=== PATIENT | male | born 1940 | race Caucasian/White ===

== ENCOUNTER 2017-05-14 16:57 | Emergency (ER) | payer OTHER ==
[~2017-05-14] VITALS: Ht 175.3 cm; Wt 87.0 kg
[~2017-05-14 16:57] MED LIST: LEVO75TA PO; METO-478 PO; MTR500 PO
[2017-05-14 17:16] VITALS: TEMP 39.1; Ht 175.3 cm; Wt 87.0 kg
[2017-05-14] MEDS ORDERED: ASPI81TA28 PO (19:55)
[2017-05-14] MEDS ORDERED: MULT-513 PO (19:55)
[2017-05-14] MEDS ORDERED: SIMV20TA2 PO (19:55)
[2017-05-14] MEDS ORDERED: TRAZ50TA35 PO (19:55)
[2017-05-14] MEDS ORDERED: DUTA1CAP3 PO (19:55)
[2017-05-14] MEDS ORDERED: OSELTAMIVIR PHOSPHATE 75 MG CAP PO STA (19:57)
[2017-05-14] MEDS ORDERED: SODIUM CHLORIDE 0.9% 500ML 500 ML IV STA (19:57)
[2017-05-14 20:19] LABS: BASO % 0.1 %; BASO ABS # 0.01 K/uL (0-0.2); HEMATOCRIT 44.4 % (42-52); HEMOGLOBIN 15.1 g/dL (14.0-18.0); IG# 0.03 K/uL (0.00-0.02); LYMPH % 26.6 %; LYMPH ABS # 1.85 K/uL (1.2-3.4); MEAN CELL VOLUME 90.6 fL (80-100); MEAN CORPUSCULAR HEMOGLOBIN 30.8 pg (25-34); MEAN PLATELET VOLUME 9.5 fL (7.4-10.4); MONO ABS # 1.04 K/uL (0.11-0.59); NEUT % 57.9 %; NEUT ABS # 4.02 K/uL (1.4-6.5); PLATELET COUNT 138 K/uL (130-400); RED CELL DISTRIBUTION WIDTH CV 14.5 % (11.5-14.5); WHITE BLOOD COUNT 6.95 K/uL (4.8-10.8)
[2017-05-14 20:21] VITALS: O2SAT 92
[2017-05-14 20:21] LABS: ISTAT CREATININE 1.2 mg/dl (0.6-1.3); ISTAT IONIZED CALCIUM 1.17 mmol/l (1.12-1.32); ISTAT POTASSIUM 4.1 mEq/L (3.3-5.0)
--- NOTE | 2017-05-14 20:24 | DIAGNOSTIC IMAGING REPORT ---
CHEST ONE VIEW PORTABLE CLINICAL HISTORY: Fever. Weakness. COMPARISON STUDY: Chest radiograph January 16, 2015. FINDINGS: Lung volumes are within normal limits. There is no pneumothorax or pleural effusion. There is no consolidation to suggest pneumonia. Pulmonary vascularity is normal. Cardiomediastinal silhouette is stable. The appearance of the chest is unchanged. IMPRESSION: No acute cardiopulmonary findings. Electronically signed by: Freeman Sorenson M.D. 05/14/2017 8:23 PM Dictated Date/Time: 05/14/2017 8:22 PM
[2017-05-14] MEDS ORDERED: ACETAMINOPHEN 500 MG TAB PO STA (20:30)
[2017-05-14 20:36] LABS: ALBUMIN 3.5 gm/dl (3.4-5.0); BLOOD UREA NITROGEN 15 mg/dl (7-18); CALCIUM 8.6 mg/dl (8.5-10.1); CARBON DIOXIDE 25 mmol/L (21-32); CREATININE 1.32 mg/dl (0.60-1.40); GLUCOSE 106 mg/dl (70-99); POTASSIUM 4.1 mmol/L (3.5-5.1); SODIUM 138 mmol/L (136-145)
[2017-05-14 20:42] LABS: ALKALINE PHOSPHATASE 85 U/L (45-117); ALT/SGPT 28 U/L (12-78); AST/SGOT 33 U/L (15-37); CKMB 0.6 ng/ml (0.5-3.6); TOTAL PROTEIN 7.3 gm/dl (6.4-8.2)
[2017-05-14 20:59] LABS: INFLUENZA B ANTIGEN Neg for Influ B (NEG)
[2017-05-14 21:56] VITALS: BP 112/67; O2SAT 94
[2017-05-14 22:07] VITALS: PULSE 78
[2017-05-14] MEDS ORDERED: OSEL75CA12 PO (22:11)
--- NOTE | 2017-05-15 00:38 | EMERGENCY ROOM VISIT NOTE ---
History Report prepared by Letty: Denisha Inman Under the Supervision of: Dr. Tyler Lui D.O. First contact with patient: 19:48 Chief Complaint: WEAKNESS Stated Complaint: WEAK History of Present Illness The patient is a 76 year old male who presents to the Emergency Room with complaints of persistent weakness starting 24 hours ago. The patient started having flu symptoms 24 hours ago. He reports a nonproductive cough, rhinorrhea, and feeling hot. He has not taken any Tylenol or Motrin. He normally walks 3 miles a day, but was unable to today. He denies any sore throat, ear pain, fever , urinary symptoms, chest pain, nausea, vomiting, headache, or abdominal pain. He does not have any open wounds or sores. He states that he is healthy for his age and does not have any significant medical problems. Source of History: patient Onset: 24 hours ago Position: other (global) Quality: other (weakness) Timing: other (persistent) Associated Symptoms: + cough, No fevers, No headache, No sorethroat, No chest pain, No nausea, No vomiting, No abdominal pain, No urinary symptoms Review of Systems See HPI for pertinent positives & negatives. A total of 10 systems reviewed and were otherwise negative. Past Medical & Surgical Medical Problems: (1) Bowel obstruction (2) Cataract (3) Hyperlipidemia (4) Hypertension (5) Hypothyroid (6) S/P hernia repair Surgical Problems: (1) S/P cataract surgery (2) s/p Retinal Surgery (3) S/p small bowel obstruction Family History Cancer FATHER (stomach ) BROTHER (colon CA) Diabetes mellitus Gallbladder disease Heart disease Kidney disease Stroke MOTHER Social History Smoking Status: Unknown if Ever Smoked Drug Use: none Marital Status: Housing Status: lives with family Occupation Status: retired Current/Historical Medications Scheduled Aspirin (Aspirin Ec), 81 MG PO DAILY Dutasteride (Dutasteride), 0.5 MG PO DAILY Levothyroxine Sodium (Synthroid), 75 MCG PO DAILY Metoprolol Succinate (Toprol Xl), 12.5 MG PO HS Multivitamins/Minerals (Mvi With Minerals), 1 TAB PO DAILY Oseltamivir (Tamiflu), 75 MG PO BID Simvastatin (Zocor), 20 MG PO QPM Trazodone Hcl (Trazodone), 50 MG PO HS Allergies Coded Allergies: Potassium Chromate (Verified Allergy, Severe, RASH, 01/16/15) Shellfish (Verified Allergy, Severe, convulsions, 05/14/17) Physical Exam Vital Signs Date Time Temp Pulse Resp B/P (MAP) Pulse Ox O2 Delivery O2 Flow Rate FiO2 05/14/17 22:07 78 05/14/17 21:56 77 18 112/67 94 Room Air 05/14/17 20:40 75 05/14/17 20:21 92 Room Air 05/14/17 20:19 81 18 130/77 92 Room Air 05/14/17 17:16 39.1 88 18 116/72 90 Room Air Physical Exam GENERAL: Sitting up in bed, weak, minimal distress, nontoxic EYE EXAM: normal conjunctiva. OROPHARYNX: no exudate, no erythema, lips, buccal mucosa, and tongue normal and mucous membranes are moist NECK: supple, no nuchal rigidity, no adenopathy, non-tender LUNGS: Clear to auscultation. Normal chest wall mechanics HEART: tachycardic, no murmurs, S1 normal and S2 normal ABDOMEN: abdomen soft, non-tender, normo-active bowel sounds, no masses, no rebound or guarding. BACK: Back is symmetrical on inspection and there is no deformity, no midline tenderness, no CVA tenderness. SKIN: no rashes and no bruising UPPER EXTREMITIES: upper extremities are grossly normal. LOWER EXTREMITIES: No pitting edema. NEURO EXAM: Normal sensorium, cranial nerves II-XII grossly intact, normal speech, no gross weakness of arms, no gross weakness of legs. Ambulates without difficulty Medical Decision & Procedures ER Provider Diagnostic Interpretation: Xray results as stated below per my and the radiologist's interpretation: CHEST ONE VIEW PORTABLE CLINICAL HISTORY: Fever. Weakness. COMPARISON STUDY: Chest radiograph January 16, 2015. FINDINGS: Lung volumes are within normal limits. There is no pneumothorax or pleural effusion. There is no consolidation to suggest pneumonia. Pulmonary vascularity is normal. Cardiomediastinal silhouette is stable. The appearance of the chest is unchanged. IMPRESSION: No acute cardiopulmonary findings. Electronically signed by: Freeman Sorenson M.D. 05/14/2017 8:23 PM Dictated Date/Time: 05/14/2017 8:22 PM Laboratory Results 05/14/17 19:40 Red Blood Count 4.90, Mean Corpuscular Volume 90.6, Mean Corpuscular Hemoglobin 30.8, Mean Corpuscular Hemoglobin Concent 34.0, Mean Platelet Volume 9.5, Neutrophils (%) (Auto) 57.9, Lymphocytes (%) (Auto) 26.6, Monocytes (%) (Auto) 15.0, Eosinophils (%) (Auto) 0.0, Basophils (%) (Auto) 0.1, Neutrophils # (Auto ) 4.02, Lymphocytes # (Auto) 1.85, Monocytes # (Auto) 1.04, Eosinophils # (Auto ) 0.00, Basophils # (Auto) 0.01 05/14/17 19:40 Test 05/14/17 19:40 05/14/17 19:50 05/14/17 19:59 05/14/17 20:05 White Blood Count 6.95 K/uL (4.8-10.8) Red Blood Count 4.90 M/uL (4.7-6.1) Hemoglobin 15.1 g/dL (14.0-18.0) Hematocrit 44.4 % (42-52) Mean Corpuscular Volume 90.6 fL (80-100) Mean Corpuscular Hemoglobin 30.8 pg (25-34) Mean Corpuscular Hemoglobin Concent 34.0 g/dl (32-36) Platelet Count 138 K/uL (130-400) Mean Platelet Volume 9.5 fL (7.4-10.4) Neutrophils (%) (Auto) 57.9 % Lymphocytes (%) (Auto) 26.6 % Monocytes (%) (Auto) 15.0 % Eosinophils (%) (Auto) 0.0 % Basophils (%) (Auto) 0.1 % Neutrophils # (Auto) 4.02 K/uL (1.4-6.5) Lymphocytes # (Auto) 1.85 K/uL (1.2-3.4) Monocytes # (Auto) 1.04 K/uL (0.11-0.59) Eosinophils # (Auto) 0.00 K/uL (0-0.5) Basophils # (Auto) 0.01 K/uL (0-0.2) RDW Standard Deviation 48.0 fL (36.4-46.3) RDW Coefficient of Variation 14.5 % (11.5-14.5) Immature Granulocyte % (Auto) 0.4 % Immature Granulocyte # (Auto) 0.03 K/uL (0.00-0.02) Prothrombin Time 10.6 SECONDS (9.0-12.0) Prothromb Time International Ratio 1.0 (0.9-1.1) Est Creatinine Clear Calc Drug Dose 51.2 ml/min Estimated GFR () 59.9 Estimated GFR (Non- 51.7 BUN/Creatinine Ratio 11.1 (10-20) Calcium Level 8.6 mg/dl (8.5-10.1) Magnesium Level 2.1 mg/dl (1.8-2.4) Total Bilirubin 0.5 mg/dl (0.2-1) Direct Bilirubin 0.1 mg/dl (0-0.2) Aspartate Amino Transf (AST/SGOT) 33 U/L (15-37) Alanine Aminotransferase (ALT/SGPT) 28 U/L (12-78) Alkaline Phosphatase 85 U/L (45-117) Total Creatine Kinase 152 U/L (39-308) Creatine Kinase MB 0.6 ng/ml (0.5-3.6) Creatine Kinase MB Ratio 0.4 (0-3.0) Troponin I < 0.015 ng/ml (0-0.045) Total Protein 7.3 gm/dl (6.4-8.2) Albumin 3.5 gm/dl (3.4-5.0) Urine Color DK YELLOW Urine Appearance CLOUDY (CLEAR) Urine pH 5.0 (4.5-7.5) Urine Specific [place] 1.028 (1.000-1.030) Urine Protein 2+ (NEG) Urine Glucose (UA) NEG (NEG) Urine Ketones TRACE (NEG) Urine Occult Blood 1+ (NEG) Urine Nitrite NEG (NEG) Urine Bilirubin NEG (NEG) Urine Urobilinogen NEG (NEG) Urine Leukocyte Esterase NEG (NEG) Urine WBC (Auto) 1-5 /hpf (0-5) Urine RBC (Auto) 0-4 /hpf (0-4) Urine Hyaline Casts (Auto) 10-30 /lpf (0-5) Urine Epithelial Cells (Auto) >30 /lpf (0-5) Urine Bacteria (Auto) 1+ (NEG) Urine Pathogenic Casts 5-10 GRANULAR CASTS /lpf (0) Urine Mucus PRESENT (NONE PRSENT) Urine Yeast (Auto) (NONE PRSENT) Bedside Lactic Acid Venous 0.77 mmol/L (0.90-1.70) Influenza Type A Antigen POS for Influ A (NEG) Influenza Type B Antigen Neg for Influ B (NEG) Test 05/14/17 20:10 Bedside Hemoglobin 15.0 g/dl (14.0-18.0) Bedside Hematocrit 44 % (42-52) Bedside Sodium 140 mEq/L (135-144) Bedside Potassium 4.1 mEq/L (3.3-5.0) Bedside Chloride 103 mEq/L (101-112) Bedside Total CO2 22 mEq/l (24-31) Anion Gap 20.0 mmol/L (16-25) Bedside Blood Urea Nitrogen 15 mg/dl (7-18) Bedside Creatinine 1.2 mg/dl (0.6-1.3) Bedside Glucose (other) 110 mg/dl (70-99) Bedside Ionized Calcium (Ana) 1.17 mmol/l (1.12-1.32) Laboratory results per my review. Medications Administered Medications (Trade) Dose Ordered Sig/Adalberto Route Start Time Stop Time Status Last Admin Dose Admin Sodium Chloride 500 ml @ 999 mls/hr Q31M STAT IV 05/14/17 19:57 05/14/17 20:27 DC 05/14/17 20:15 999 MLS/HR Oseltamivir Phosphate (Tamiflu Cap) 75 mg NOW STAT PO 05/14/17 19:57 05/14/17 19:58 DC 05/14/17 20:07 75 MG Acetaminophen (Tylenol Tab) 1,000 mg NOW STAT PO 05/14/17 20:30 05/14/17 20:31 DC 05/14/17 20:46 1,000 MG ECG Indication: weakness Rate (beats per minute): 74 Rhythm: sinus rhythm Findings: RBBB, left axis deviation, other (poor baseline inferior) Change: Patient's electrocardiogram interpreted by me. ED Course ED COURSE: Vital signs were reviewed and showed fever, tachycardia. The patients medical record was reviewed The above diagnostic studies were performed and reviewed. ED treatments and interventions as stated above. 1951: The patient was evaluated in room C2B. A complete history and physical examination was performed. 1956: Tamiflu Cap 75 mg PO, NSS 500 ml @ 999 mls/hr IV. 2029: Acetaminophen 1000 mg PO. 2208: Upon reevaluation, the patient was able to ambulate without difficulty. I discussed my findings with the patient and he understands and agrees with the treatment plan. Based on the patients age, coexisting illnesses, exam and lab findings the decision to treat as an outpatient was made. The patient remained stable while under my care. The patient appeared well at the time of discharge. Medical Decision Differential diagnoses includes but is not limited to pneumonia, bronchitis, COPD/Asthma exacerbation, pneumothorax, pulmonary embolism, congestive heart failure, acute coronary syndrome Patient is a 76-year-old male who presents to ER for cough, runny nose and feeling weak for the past 24 hours. CBC shows no leukocytosis or anemia. BMP all LFTs, bilirubin and troponin was negative. Lactic acid was negative. UA was contaminated. No urinary symptoms. Influenza A was positive. Patient was given fluids and Tylenol. He felt significant better. He was able to ambulate without difficulty. Chest x-ray was unremarkable. EKG was unremarkable. Patient was updated bedside. Did discuss observation but he notes he felt good enough to go home. I felt this was reasonable. Discussed with Pt concerning signs and symptoms to watch out for. Pt was instructed to follow up with their PCP and discussed with the patient their option to return to the ED at anytime for persistent or worsening symptoms. The appropriate anticipatory guidance and out-patient management, including indications for return to the emergency department, were explained at length to the patient and understood. Medication Reconcilliation Current Medication List: was personally reviewed by me Blood Pressure Screening Patient's blood pressure: Normal blood pressure Blood pressure disposition: Did not require urgent referral Impression Primary Impression: Influenza Scribe Attestation The scribe's documentation has been prepared under my direction and personally reviewed by me in its entirety. I confirm that the note above accurately reflects all work, treatment, procedures, and medical decision making performed by me. Departure Information Dispostion Home / Self-Care Prescriptions Oseltamivir (Tamiflu) 75 Mg Cap 75 MG PO BID, #10 CAP Prov: Tyler Lui, 05/14/17 Referrals Britt Bliss M.D. (PCP) Forms HOME CARE DOCUMENTATION FORM, IMPORTANT VISIT INFORMATION Patient Instructions My [facility], Oseltamivir capsules, Rapid Influenza Antigen Nasal or Throat Swab Additional Instructions Please follow up with your primary care doctor with in the next 24 hours. Any worsening of your symptoms, please return to the ED immediately. This includes any fevers greater than 100.4, worsening pain, chest pain, shortness breath, persistent nausea, vomiting, unable to eat or drink, or any other concerning signs or symptoms from your standpoint. Please take Tamiflu as prescribed. Please take Motrin or Tylenol as needed for fevers.
== END 2017-05-14 22:14 | disposition home or self-care (01) ==
LOC: C.EDB 16:58 → C.EDC 22:14
DX: J11.1 Influenza due to unidentified influenza virus with other respiratory manifestations (principal); E78.5 Hyperlipidemia, unspecified; I10 Essential (primary) hypertension; E03.9 Hypothyroidism, unspecified; H26.9 Unspecified cataract; I45.10 Unspecified right bundle-branch block; Z79.82 Long term (current) use of aspirin; Z84.1 Family history of disorders of kidney and ureter; Z82.3 Family history of stroke; Z80.0 Family history of malignant neoplasm of digestive organs

== ENCOUNTER 2022-09-17 16:07 | Inpatient (IN) ==
[2022-09-17] MEDS ORDERED: MoRPHine SULFATE 4 MG/ML 1 ML CARP\\VIAL IV PRN ×2 (16:21→20:42)
--- NOTE | 2022-09-17 16:27 | Emergency Department Note ---
Impression & Plan Femur fracture, right, Fall, Contusion of head ED Provider Note NAME: WOO FOUNTAIN AGE: 82 SEX: M : 1940 ARRIVES VIA: Ambulance INFORMANT: Patient ED PROVIDER(S): Tyler Lui DO CHIEF COMPLAINT: fall HPI: Patient is an 82-year-old male who was working outside and slipped and fell backwards. He was not dizzy or lightheaded. He did hit his head. No loss consciousness. Complaining of right hip pain. Pain significantly worsens with movement. Improves with rest. Denies any headache or neck pain. No chest pain or back pain. No tingling or numbness in the right leg. Denies any blood thinners with the exception of aspirin. Admits to multiple abdominal hernias. PAST MEDICAL HISTORY:See Below PAST SURGICAL HISTORY:See Below FAMILY HISTORY:See Below SOCIAL HISTORY:See Below HOME MEDICATIONS:See Below ALLERGIES:See Below VITALS:See Below PHYSICAL EXAMINATION: GENERAL: alert, well appearing, well nourished, no distress, non-toxic HEAD: normal cephalic, Abrasion to the right posterior occiput EYE EXAM: normal conjunctiva, PERRL and EOM's grossly intact OROPHARYNX: no exudate, no erythema, lips, buccal mucosa, and tongue normal and mucous membranes are moist NECK: supple, no nuchal rigidity, no adenopathy, non-tender CHEST: stable to compression anteriorly and posteriorly LUNGS: clear to auscultation. Normal chest wall mechanics HEART: no murmurs, S1 normal and S2 normal ABDOMEN: abdomen soft, non-tender, normo-active bowel sounds, no masses, no rebound or guarding. PELVIS: stable to compression anteriorly and posteriorly BACK: Back is symmetrical on inspection and there is no deformity, no midline tenderness, no CVA tenderness. UPPER EXTREMITIES: full active and passive range of motion of all joints without tenderness to palpation LOWER EXTREMITIES: Flexion-extension left hip knee and ankle intact. Right leg is shortened and externally rotated with tenderness over the right hip. No tenderness over the knee avery or ankle. DP and PT 2 out of 4. Gross station intact. NEURO EXAM: Normal sensorium, cranial nerves II-XII grossly intact, normal speech, no gross weakness of arms, no gross weakness of legs. GCS: 15. MEDICAL DECISION MAKING: Patient is an 82-year-old male who presents ER following a mechanical fall. Obv ious deformity to the right hip. IV was established blood work is obtained. Labs show no significant leukocytosis and mild anemia 11.7. INR unremarkable. BMP with LFTs bilirubin was unremarkable. UA was clean. COVID-negative. X- rays show a right hip fracture. Patient was updated bedside. He was given IV morphine. Discussed case with the hospitalist Evette from [facility] and patient was admitted for further work-up. CT head and cervical spine was negative Triage Nursing notes reviewed. Limited review of prior medical records performed Vital Signs: reviewed and remarkable for no significant abnormalities Differential diagnosis: Differential diagnoses include major intracranial, cervical, spinal, thoracic, abdominal, pelvic and neurologic injury. Fracture, contusion, sprain, strain, laceration, abrasions included as well. ER treatment provided: See below Diagnostics interpreted by me include EKG and cardiac monitoring as listed below: -Cardiac Monitoring: An order was placed for continuous cardiac monitoring. The monitor shows a rate of 77 with sinus rhythm. -ECG: Sinus rhythm rate of 77 Left axis Right bundle branch block Poor baseline First-degree AV block QTc 409 -Laboratory studies:Interpreted by me as stated above in MDM and shown below. Imaging studies: Xrays: As interpreted by me: X-ray of the right hip shows a right hip fracture per my read CTs show: CT head and cervical spine was negative Consultation(s): As described in MDM Procedures:none Critical Care: None Past Med/Surg History Medical History (Updated 09/17/22 @ 21:19 by Tyler Lui DO) Bowel obstruction (03/02/14) BPH with obstruction/lower urinary tract symptoms Cataract Chronic anemia Hyperlipidemia Hypertension Hypothyroid Retinal detachment S/P hernia repair Surgical History H/O exploratory laparotomy History of bladder surgery Hx of cataract surgery Hx of cholecystectomy S/P cataract surgery S/p small bowel obstruction Family History Father Cancer Brother Colorectal cancer Other No significant family history Social History (Updated 09/17/22 @ 18:15 by Savannah Murillo PA-C) Smoking Status: Never smoker Second Hand Exposure: No; Do You Dip or Chew Tobacco: No; Tobacco Cessation Education Requested by Patient: No Hx Alcohol Use: No Hx Substance Use: No Preferred Language: Serbian Communication Ability: Effective Psychiatry Teacher Required: No Beliefs That Will Affect Care: None marital status: Current Living Situation: Spouse current occupational status: retired Other Information That Helps Us Care for You: No Feels Safe at Home: Yes Safety Concerns: Feels Safe At This Time Assistive Devices: Denture - Upper and Denture - Lower Allergies Allergies Allergy/AdvReac Type Severity Reaction Status Date / Time shellfish derived Allergy Severe convulsions Verified 01/16/22 09:17 Potassium Chromate Allergy Severe RASH Uncoded 01/16/22 09:17 Home Meds Home Medications Medication Instructions Recorded Confirmed aspirin 81 mg tablet,delayed 81 mg PO QPM 12/05/18 09/17/22 release multivitamin 1 tab PO QAM 12/05/18 09/17/22 nystatin-triamcinolone 100,000 1 applic topical DAILY PRN Skin 12/05/18 09/17/22 unit/gram-0.1 % topical ointment Irritation levothyroxine 88 mcg tablet 88 mcg PO QAM 02/18/19 09/17/22 cholecalciferol (vitamin D3) 50 2,000 unit PO DAILY 07/05/19 09/17/22 mcg (2,000 unit) capsule omeprazole 40 mg capsule,delayed 40 mg PO BID 09/17/22 09/17/22 release simvastatin 5 mg tablet 5 mg PO QPM 09/17/22 09/17/22 trazodone 100 mg tablet 100 mg PO HS 09/17/22 09/17/22 Previous Rx's Medication Instructions Recorded dutasteride 0.5 mg capsule 0.5 mg PO DAILY #90 caps 01/16/22 Results & Data (ED) Vital Signs Vital Signs - 24 hr 09/17/22 16:21 09/17/22 16:30 09/17/22 16:30 Temperature 36.6 C Temperature Source Oral Pulse Rate 84 70 Pulse Rate from SpO2 Sensor 71 Respiratory Rate 18 18 Blood Pressure 127/75 126/78 Blood Pressure Mean 92 89 Pulse Oximetry 96 95 Oxygen Delivery Method Room Air Sepsis Recent Fever Within 48 Hours No Sepsis New/Unexplained Change in Mental Status No Sepsis Action Taken by Nursing No Action Required 09/17/22 16:35 09/17/22 17:08 09/17/22 17:30 Temperature Temperature Source Pulse Rate 69 Pulse Rate from SpO2 Sensor 59 L 70 Respiratory Rate 22 21 Blood Pressure Blood Pressure Mean Pulse Oximetry 96 96 Oxygen Delivery Method Sepsis Recent Fever Within 48 Hours Sepsis New/Unexplained Change in Mental Status Sepsis Action Taken by Nursing 09/17/22 17:31 09/17/22 17:31 09/17/22 18:00 Temperature Temperature Source Pulse Rate 77 Pulse Rate from SpO2 Sensor 67 Respiratory Rate 23 Blood Pressure 126/83 127/72 Blood Pressure Mean 101 97 Pulse Oximetry 96 Oxygen Delivery Method Sepsis Recent Fever Within 48 Hours Sepsis New/Unexplained Change in Mental Status Sepsis Action Taken by Nursing 09/17/22 18:00 Temperature Temperature Source Pulse Rate 65 Pulse Rate from SpO2 Sensor 68 Respiratory Rate 18 Blood Pressure Blood Pressure Mean Pulse Oximetry 94 Oxygen Delivery Method Sepsis Recent Fever Within 48 Hours Sepsis New/Unexplained Change in Mental Status Sepsis Action Taken by Nursing Laboratory Data 09/17/22 16:36 09/17/22 16:36 Lab Results 09/17/22 09/17/22 09/17/22 Range/Units 16:36 16:36 16:36 WBC 7.37 (4.8-10.8) K/ul RBC 3.71 L (4.70-6.10) M/uL Hgb 11.7 L (14.0-18.0) g/dl Hct 34.5 L (42.0-52.0) % MCV 93.0 (80.0-100.0) fL MCH 31.5 (25.0-34.0) pg MCHC 33.9 (32.0-36.0) g/dL RDW Std Deviation 51.6 H (36.4-46.3) fL RDW Coeff of Dinorah 15.0 H (11.5-14.5) % Plt Count 171 (130-400) K/uL MPV 9.9 (9.4-12.4) fL Immature Gran % (Auto) 0.4 % Neut % (Auto) 75.2 % Lymph % (Auto) 15.3 % [place] % (Auto) 7.6 % Eos % (Auto) 1.4 % Baso % (Auto) 0.1 % Neut # (Auto) 5.54 (1.40-6.50) K/uL Lymph # (Auto) 1.13 L (1.2-3.4) K/uL [place] # (Auto) 0.56 (0.11-0.59) K/uL Eos # (Auto) 0.10 (0-0.50) K/uL Baso # (Auto) 0.01 (0-0.2) K/uL Immature Gran # (Auto) 0.03 (0.01-0.20) K/uL PT 11.7 (9.0-12.0) Seconds INR 1.1 (0.9-1.1) APTT 24.1 (21.0-31.0) Seconds PTT Ratio 0.9 Sodium 141 (136-145) mmol/L Potassium 3.8 (3.5-5.1) mmol/L Chloride 111 H (98-107) mmol/L Carbon Dioxide 24 (21-32) mmol/L Anion Gap 6 (3-11) BUN 17 (6-23) mg/dl Creatinine 1.07 (0.6-1.4) mg/dl Est Cr Clr Drug Dosing 52.3 ml/min Est GFR ( Amer) 74.0 ml/min Est GFR (Non-Af Amer) 63.9 ml/min BUN/Creatinine Ratio 15.9 (10-20) Glucose 115 H (70-99(Fasting)) mg/dl Calcium 8.4 L (8.6-10.3) mg/dl Total Bilirubin 0.3 (0.2-1.0) mg/dl AST 31 (13-39) U/L ALT 23 (7-52) U/L Alkaline Phosphatase 97 (34-104) U/L Total Protein 5.6 L (6.0-8.3) gm/dl Albumin 3.2 L (3.4-5.0) gm/dl Globulin 2.4 L (2.5-4.0) gm/dl Albumin/Globulin Ratio 1.3 (0.9-2) Urine Color Urine Appearance (Clear) Urine pH (4.5-7.5) Ur Specific [place] (1.000-1.030) Urine Protein (Negative) Urine Glucose (UA) (Negative) Urine Ketones (Negative) Urine Blood (Negative) Urine Nitrite (Negative) Urine Bilirubin (Negative) Urine Urobilinogen (Negative) Ur Leukocyte Esterase (Negative) Urine WBC (Auto) (0-5) /hpf Urine RBC (Auto) (0-4) /hpf U Hyaline Cast (Auto) (0-5) /lpf U Epithel Cells (Auto) (0-5) /lpf Urine Bacteria (Auto) (Negative) Urine Crystals SARS-CoV-2, RNA, NAAT (NEGATIVE) 09/17/22 09/17/22 Range/Units 16:41 18:00 WBC (4.8-10.8) K/ul RBC (4.70-6.10) M/uL Hgb (14.0-18.0) g/dl Hct (42.0-52.0) % MCV (80.0-100.0) fL MCH (25.0-34.0) pg MCHC (32.0-36.0) g/dL RDW Std Deviation (36.4-46.3) fL RDW Coeff of Dinorah (11.5-14.5) % Plt Count (130-400) K/uL MPV (9.4-12.4) fL Immature Gran % (Auto) % Neut % (Auto) % Lymph % (Auto) % [place] % (Auto) % Eos % (Auto) % Baso % (Auto) % Neut # (Auto) (1.40-6.50) K/uL Lymph # (Auto) (1.2-3.4) K/uL [place] # (Auto) (0.11-0.59) K/uL Eos # (Auto) (0-0.50) K/uL Baso # (Auto) (0-0.2) K/uL Immature Gran # (Auto) (0.01-0.20) K/uL PT (9.0-12.0) Seconds INR (0.9-1.1) APTT (21.0-31.0) Seconds PTT Ratio Sodium (136-145) mmol/L Potassium (3.5-5.1) mmol/L Chloride (98-107) mmol/L Carbon Dioxide (21-32) mmol/L Anion Gap (3-11) BUN (6-23) mg/dl Creatinine (0.6-1.4) mg/dl Est Cr Clr Drug Dosing ml/min Est GFR ( Amer) ml/min Est GFR (Non-Af Amer) ml/min BUN/Creatinine Ratio (10-20) Glucose (70-99(Fasting)) mg/dl Calcium (8.6-10.3) mg/dl Total Bilirubin (0.2-1.0) mg/dl AST (13-39) U/L ALT (7-52) U/L Alkaline Phosphatase (34-104) U/L Total Protein (6.0-8.3) gm/dl Albumin (3.4-5.0) gm/dl Globulin (2.5-4.0) gm/dl Albumin/Globulin Ratio (0.9-2) Urine Color Yellow Urine Appearance Clear (Clear) Urine pH 5.0 (4.5-7.5) Ur Specific [place] 1.021 (1.000-1.030) Urine Protein Trace H (Negative) Urine Glucose (UA) Negative (Negative) Urine Ketones Trace H (Negative) Urine Blood 2+ H (Negative) Urine Nitrite Negative (Negative) Urine Bilirubin Negative (Negative) Urine Urobilinogen Negative (Negative) Ur Leukocyte Esterase Negative (Negative) Urine WBC (Auto) 1-5 (0-5) /hpf Urine RBC (Auto) 0-4 (0-4) /hpf U Hyaline Cast (Auto) 1-5 (0-5) /lpf U Epithel Cells (Auto) 5-10 H (0-5) /lpf Urine Bacteria (Auto) Negative (Negative) Urine Crystals Not Reportable SARS-CoV-2, RNA, NAAT NEGATIVE (NEGATIVE) Administered Medications Discontinued Medications Morphine Sulfate (Morphine Sulfate 2 Mg/Ml Carp) 2 mg IV Q1H PRN PRN Reason: Moderate Pain (Rating 3,4,5,6) Stop: 10/01/22 16:20 Last Admin: 09/17/22 17:39 Dose: 2 mg Documented By: Admin: 09/17/22 16:39 Dose: 2 mg Documented By: DS Imaging Data Radiologist's Impression: Cervical Spine CT 09/17/22 16:21 CT cervical spine wo con CT DOSE: 1141.33 mGy.cm CLINICAL HISTORY: 82 years-old Male with fall. Acute head and neck injury status post fall COMPARISON: Head CT of same day, CT cervical spine 02/18/2019 TECHNIQUE: Multiple axial CT images of the cervical spine were obtained without contrast. A dose lowering technique was utilized adhering to the principles of ALARA. FINDINGS: Demineralized appearance of the bones. Degenerative bony fusion of the right C3-C4 facets. Severe multilevel facet arthrosis. No acute cervical spine fracture or subluxation. Evaluation of the central canal and neuroforamina is better assessed by MRI. Multilevel foraminal narrowing is noted. There is no definite high-grade central canal stenosis. Right mastoid effusion. The left mastoid air cells are clear. Lung apices are clear without pneumothorax. No prevertebral soft tissue swelling. Calcified plaque of the internal carotid arteries. IMPRESSION: No acute cervical spine fracture or subluxation. ACT 112: Negative or not required by law. The above report was generated using voice recognition software. It may contain grammatical, syntax or spelling errors. Electronically signed by: Tal Tejada M.D. 09/17/2022 5:[address] 09/17/22 16:21 CT head/brain wo con CLINICAL HISTORY: 82 years-old Male with fall. Acute head and neck injury status post fall TECHNIQUE: Multiple axial CT images of the head were obtained without contrast. A dose lowering technique was utilized adhering to the principles of ALARA. COMPARISON: 02/18/2019. FINDINGS: No acute intracranial hemorrhage, midline shift, intracranial mass, hydrocephalus, territorial ischemia or abnormal extra-axial collection. Involutional changes with chronic microvascular ischemic disease. The calvarium is intact. Small right mastoid effusion. Moderate mucosal thickening with air-fluid level of the right sphenoid sinus. Small right parieto-occipital scalp contusion. Prior bilateral lens repair with left-sided scleral banding. IMPRESSION: 1. No acute intracranial abnormality or calvarial fracture. 2. Small posterior scalp contusion. 3. Right mastoid effusion. ACT 112: Negative or not required by law. The above report was generated using voice recognition software. It may contain grammatical, syntax or spelling errors. Electronically signed by: Tal Tejada M.D. 09/17/2022 5:12 PM Hip X-Ray 09/17/22 16:22 XR hip RT min 2V HISTORY: 82 years-old Male fall acute right hip pain status post fall COMPARISON: KUB 01/19/2015 TECHNIQUE: 2 views of the right hip FINDINGS: There is an acute comminuted and impacted intertrochanteric fracture with mild angulation. No dislocation. Moderate right hip osteoarthritis. Mild soft tissue swelling. 2 displacement of 1.6 cm. Arterial calcifications. IMPRESSION: Acute, mildly angulated, displaced and impacted intratrochanteric fracture of the right femur. ACT 112: Negative or not required by law. The above report was generated using voice recognition software. It may contain grammatical, syntax or spelling errors. Electronically signed by: Tal Tejada M.D. 09/17/2022 5:13 PM Chest X-Ray 09/17/22 17:01 XR chest 1V portable HISTORY: 82 years-old Male fall acute chest trauma status post fall COMPARISON: 09/23/2019 TECHNIQUE: AP view of the chest FINDINGS: Cardiac silhouette is enlarged. No pneumothorax, pleural effusion, airspace consolidation or overt pulmonary edema. Degenerative changes of the shoulders and spine. IMPRESSION: No acute process. ACT 112: Negative or not required by law. The above report was generated using voice recognition software. It may contain grammatical, syntax or spelling errors. Electronically signed by: Tal Tejada M.D. 09/17/2022 5:14 PM Discharge Plan Visit Data Chief Complaint: Hip Pain Stated Complaint: FALL, HIP PAIN ED Provider: Tyler Lui Discharge Problem: Femur fracture, right, Fall, Contusion of head Patient Disposition: Admitted As Inpatient Discharge Instructions Interventions: ED Discharge Assessment Last Done: 09/17/22 20:13
[2022-09-17] MEDS: MoRPHine SULFATE 2 MG/ML CARP IV PRN ×2 (16:39→17:39)
[2022-09-17 16:52] LABS: Basophils # (auto) 0.01 K/uL (0-0.2); Basophils % (auto) 0.1 %; Eosinophils % (auto) 1.4 %; Hematocrit (blood only) 34.5 % (42.0-52.0); Hemoglobin 11.7 g/dl (14.0-18.0); Immature Granulocytes # (auto) 0.03 K/uL (0.01-0.20); Immature Granulocytes % (auto) 0.4 %; Lymphocytes # (auto) 1.13 K/uL (1.2-3.4); Lymphocytes % (auto) 15.3 %; Mean Corpuscular Hemoglobin 31.5 pg (25.0-34.0); Mean Corpuscular Hgb Conc 33.9 g/dL (32.0-36.0); Mean Platelet Volume 9.9 fL (9.4-12.4); Monocytes # (auto) 0.56 K/uL (0.11-0.59); Monocytes % (auto) 7.6 %; Neutrophils # (auto) 5.54 K/uL (1.40-6.50); Neutrophils % (auto) 75.2 %; Platelet Count 171 K/uL (130-400); RDW Standard Deviation 51.6 fL (36.4-46.3); Red Blood Count 3.71 M/uL (4.70-6.10); White Blood Count 7.37 K/ul (4.8-10.8)
[2022-09-17 17:10] LABS: Albumin Globulin Ratio 1.3 (0.9-2); Albumin Level 3.2 gm/dl (3.4-5.0); BUN Creatinine Ratio 15.9 (10-20); Bilirubin,Total 0.3 mg/dl (0.2-1.0); Calcium 8.4 mg/dl (8.6-10.3); Creatinine Clr Calc Pharmacy 52.3 ml/min; Est GFR (Non-African American) 63.9 ml/min; Globulin 2.4 gm/dl (2.5-4.0); Potassium 3.8 mmol/L (3.5-5.1); Total Protein 5.6 gm/dl (6.0-8.3)
--- NOTE | 2022-09-17 17:13 | CT Scan Report ---
CT head/brain wo con CLINICAL HISTORY: 82 years-old Male with fall. Acute head and neck injury status post fall TECHNIQUE: Multiple axial CT images of the head were obtained without contrast. A dose lowering tech nique was utilized adhering to the principles of ALARA. COMPARISON: 02/18/2019. FINDINGS: No acute intracranial hemorrhage, midline shift, intracranial mass, hydrocephalus, territorial ischem ia or abnormal extra-axial collection. Involutional changes with chronic microvascular ischemic disea se. The calvarium is intact. Small right mastoid effusion. Moderate mucosal thickening with air-fluid le silvestre of the right sphenoid sinus. Small right parieto-occipital scalp contusion. Prior bilateral lens repair with left-sided scleral banding. IMPRESSION: 1. No acute intracranial abnormality or calvarial fracture. 2. Small posterior scalp contusion. 3. Right mastoid effusion. ACT 112: Negative or not required by law. The above report was generated using voice recognition software. It may contain grammatical, syntax o r spelling errors. Electronically signed by: Tal Tejada M.D. 09/17/2022 5:12 PM
--- NOTE | 2022-09-17 17:14 | XRay Report ---
XR hip RT min 2V HISTORY: 82 years-old Male fall acute right hip pain status post fall COMPARISON: KUB 01/19/2015 TECHNIQUE: 2 views of the right hip FINDINGS: There is an acute comminuted and impacted intertrochanteric fracture with mild angulation. No disloca tion. Moderate right hip osteoarthritis. Mild soft tissue swelling. 2 displacement of 1.6 cm. Arteria l calcifications. IMPRESSION: Acute, mildly angulated, displaced and impacted intratrochanteric fracture of the right f emur. ACT 112: Negative or not required by law. The above report was generated using voice recognition software. It may contain grammatical, syntax o r spelling errors. Electronically signed by: Tal Tejada M.D. 09/17/2022 5:13 PM
--- NOTE | 2022-09-17 17:16 | XRay Report ---
XR chest 1V portable HISTORY: 82 years-old Male fall acute chest trauma status post fall COMPARISON: 09/23/2019 TECHNIQUE: AP view of the chest FINDINGS: Cardiac silhouette is enlarged. No pneumothorax, pleural effusion, airspace consolidation or overt pu lmonary edema. Degenerative changes of the shoulders and spine. IMPRESSION: No acute process. ACT 112: Negative or not required by law. The above report was generated using voice recognition software. It may contain grammatical, syntax o r spelling errors. Electronically signed by: Tal Tejada M.D. 09/17/2022 5:14 PM
[2022-09-17 17:19] LABS: INR 1.1 (0.9-1.1); Partial Thromboplastin Ratio 0.9; Partial Thromboplastin Time 24.1 Seconds (21.0-31.0); Prothrombin Time 11.7 Seconds (9.0-12.0)
--- NOTE | 2022-09-17 17:22 | CT Scan Report ---
CT cervical spine wo con CT DOSE: 1141.33 mGy.cm CLINICAL HISTORY: 82 years-old Male with fall. Acute head and neck injury status post fall COMPARISON: Head CT of same day, CT cervical spine 02/18/2019 TECHNIQUE: Multiple axial CT images of the cervical spine were obtained without contrast. A dose low ering technique was utilized adhering to the principles of ALARA. FINDINGS: Demineralized appearance of the bones. Degenerative bony fusion of the right C3-C4 facets. Severe multilevel facet arthrosis. No acute cervical spine fracture or subluxation. Evaluation of the central canal and neuroforamina is better assessed by MRI. Multilevel foraminal narrowing is noted. There is no definite high-grade central canal stenosis. Right mastoid effusion. The left mastoid air cells are clear. Lung apices are clear without pneumothorax. No prevertebral soft tissue swelling. Ca lcified plaque of the internal carotid arteries. IMPRESSION: No acute cervical spine fracture or subluxation. ACT 112: Negative or not required by law. The above report was generated using voice recognition software. It may contain grammatical, syntax o r spelling errors. Electronically signed by: Tal Tejada M.D. 09/17/2022 5:21 PM
--- NOTE | 2022-09-17 17:55 | History & Physical Report ---
Date of Service September 17, 2022 Assessment & Plan (1) Femur fracture, right: Plan: Patient is 82-year-old male with PMH HTN, HLD, hypothyroidism, BPH, AAA, chronic anemia presented to ER with complaint of mechanical fall and right hip pain today. In ER vitals stable CT head:No acute intracranial abnormality or calvarial fracture. Small posterior scalp contusion. CT C-spine: No acute fracture CXR: No acute process Right hip x-ray: Acute, mildly angulated, displaced and impacted intratrochanteric fracture of the right femur Admit MedSurg N.p.o. midnight Scheduled Tylenol, oxycodone, morphine as needed pain Bowel regimen Ortho consult, spoke to on-call Dr. Liang, recommends patient n.p.o. midnight Anesthesia consult CBC, BMP in a.m. Revised cardiac risk index: Class 1 risk: 3.9% 30-day risk of /[place]/cardiac arrest. No h/o CAD, CHF, CVA, DM, or CKD (2) Hyperlipidemia: Plan: Continue simvastatin (3) Chronic anemia: Plan: Hgb: 11.5. Hgb 13 in 11/2018. No other more recent CBC records could be found Monitor H&H (4) Hypothyroid: Plan: Continue levothyroxine (5) BPH with obstruction/lower urinary tract symptoms: Plan: Continue dutasteride DVT Prophylaxis SCDs DNR/DNI as per discussion with pt Follows with Dr Bliss for routine care Pt was seen and care coordinated with Dr Nickerson. See addendum I spent a total of 75 minutes reviewing notes, outpatient records, labs, medication, coordinating, documenting and providing care for this patient excluding time spent in the performance of separately billed services. History of Present Illness Chief Complaint: Fall, right hip pain Primary Care Provider: Britt Bliss Patient is 82-year-old male with PMH HTN, HLD, hypothyroidism, BPH, AAA, chronic anemia presented to ER with complaint of fall and right hip pain today. Patient states walks 2 miles daily. However he states he is chronically unsteady on uneven surfaces. Today was doing yard work and when he stood up and he states he lost his balance and fell backwards. States did hit head. Had instant pain to right hip. Pain is 10/10 will any attempted movement of right leg. Denies LOC, back pain, fever/chills, diaphoresis, N/V/D/C, SHEPPARD, dizziness, syncope, vision changes, neck pain, CP, SOB, orthopnea, palpitations, cough, abdominal pain, paresthesias, extremity edema, rashes, urinary symptoms. Allergies Allergy/AdvReac Type Severity Reaction Status Date / Time shellfish derived Allergy Severe convulsions Verified 01/16/22 09:17 Potassium Chromate Allergy Severe RASH Uncoded 01/16/22 09:17 Home Medications Medication Instructions Recorded Confirmed Type aspirin 81 mg tablet,delayed 81 mg PO QPM 12/05/18 09/17/22 History release multivitamin 1 tab PO QAM 12/05/18 09/17/22 History nystatin-triamcinolone 100,000 1 applic topical DAILY PRN Skin 12/05/18 09/17/22 History unit/gram-0.1 % topical ointment Irritation levothyroxine 88 mcg tablet 88 mcg PO QAM 02/18/19 09/17/22 History cholecalciferol (vitamin D3) 50 2,000 unit PO DAILY 07/05/19 09/17/22 History mcg (2,000 unit) capsule dutasteride 0.5 mg capsule 0.5 mg PO DAILY #90 caps 01/16/22 09/17/22 Rx omeprazole 40 mg capsule,delayed 40 mg PO BID 09/17/22 09/17/22 History release simvastatin 5 mg tablet 5 mg PO QPM 09/17/22 09/17/22 History trazodone 100 mg tablet 100 mg PO HS 09/17/22 09/17/22 History Past Med/Surg History Medical History (Updated 09/17/22 @ 18:39 by Savannah Murillo PA-C) Bowel obstruction (03/02/14) BPH with obstruction/lower urinary tract symptoms Cataract Chronic anemia Hyperlipidemia Hypertension Hypothyroid Retinal detachment S/P hernia repair Surgical History H/O exploratory laparotomy History of bladder surgery Hx of cataract surgery Hx of cholecystectomy S/P cataract surgery S/p small bowel obstruction Family History Father Cancer Brother Colorectal cancer Other No significant family history Social History (Updated 09/17/22 @ 18:15 by Savannah Murillo PA-C) Smoking Status: Never smoker Hx Alcohol Use: No Hx Substance Use: No Preferred Language: [place] marital status: current occupational status: retired Feels Safe at Home: Yes Review of Systems Review of Systems: All systems reviewed & are unremarkable except as noted in HPI & below Physical Exam Physical Exam: PE per Dr Nickerson Results & Data Results & Data Vital Signs (Past 12 Hours) Vital Signs Temp Pulse Resp BP Pulse Ox O2 Del Method 09/17/22 17:31 126/83 09/17/22 17:31 77 23 96 09/17/22 17:30 21 96 09/17/22 17:08 22 96 09/17/22 16:35 69 09/17/22 16:30 70 18 95 09/17/22 16:30 126/78 09/17/22 16:21 36.6 C 84 18 127/75 96 Room Air Laboratory Results Short CBC 09/17/22 Range/Units 16:36 WBC 7.37 (4.8-10.8) K/ul Hgb 11.7 L (14.0-18.0) g/dl Hct 34.5 L (42.0-52.0) % Plt Count 171 (130-400) K/uL BMP 09/17/22 16:36 Sodium 141 Potassium 3.8 Chloride 111 H Carbon Dioxide 24 BUN 17 Creatinine 1.07 Glucose 115 H Calcium 8.4 L Liver Function 09/17/22 Range/Units 16:36 Total Bilirubin 0.3 (0.2-1.0) mg/dl AST 31 (13-39) U/L ALT 23 (7-52) U/L Alkaline Phosphatase 97 (34-104) U/L Albumin 3.2 L (3.4-5.0) gm/dl Urine 09/17/22 Range/Units 18:00 Urine Color Yellow Urine Appearance Clear (Clear) Urine pH 5.0 (4.5-7.5) Ur Specific [place] 1.021 (1.000-1.030) Urine Protein Trace H (Negative) Urine Glucose (UA) Negative (Negative) Diagnostic Findings Cervical Spine CT 09/17/22 16:21 CT cervical spine wo con CT DOSE: 1141.33 mGy.cm CLINICAL HISTORY: 82 years-old Male with fall. Acute head and neck injury status post fall COMPARISON: Head CT of same day, CT cervical spine 02/18/2019 TECHNIQUE: Multiple axial CT images of the cervical spine were obtained without contrast. A dose lowering technique was utilized adhering to the principles of ALARA. FINDINGS: Demineralized appearance of the bones. Degenerative bony fusion of the right C3-C4 facets. Severe multilevel facet arthrosis. No acute cervical spine fracture or subluxation. Evaluation of the central canal and neuroforamina is better assessed by MRI. Multilevel foraminal narrowing is noted. There is no definite high-grade central canal stenosis. Right mastoid effusion. The left mastoid air cells are clear. Lung apices are clear without pneumothorax. No prevertebral soft tissue swelling. Calcified plaque of the internal carotid arteries. IMPRESSION: No acute cervical spine fracture or subluxation. ACT 112: Negative or not required by law. The above report was generated using voice recognition software. It may contain grammatical, syntax or spelling errors. Electronically signed by: Tal Tejada M.D. 09/17/2022 5:[address] 09/17/22 16:21 CT head/brain wo con CLINICAL HISTORY: 82 years-old Male with fall. Acute head and neck injury status post fall TECHNIQUE: Multiple axial CT images of the head were obtained without contrast. A dose lowering technique was utilized adhering to the principles of ALARA. COMPARISON: 02/18/2019. FINDINGS: No acute intracranial hemorrhage, midline shift, intracranial mass, hydrocephalus, territorial ischemia or abnormal extra-axial collection. Involutional changes with chronic microvascular ischemic disease. The calvarium is intact. Small right mastoid effusion. Moderate mucosal thickening with air-fluid level of the right sphenoid sinus. Small right parieto-occipital scalp contusion. Prior bilateral lens repair with left-sided scleral banding. IMPRESSION: 1. No acute intracranial abnormality or calvarial fracture. 2. Small posterior scalp contusion. 3. Right mastoid effusion. ACT 112: Negative or not required by law. The above report was generated using voice recognition software. It may contain grammatical, syntax or spelling errors. Electronically signed by: Tal Tejada M.D. 09/17/2022 5:12 PM Hip X-Ray 09/17/22 16:22 XR hip RT min 2V HISTORY: 82 years-old Male fall acute right hip pain status post fall COMPARISON: KUB 01/19/2015 TECHNIQUE: 2 views of the right hip FINDINGS: There is an acute comminuted and impacted intertrochanteric fracture with mild angulation. No dislocation. Moderate right hip osteoarthritis. Mild soft tissue swelling. 2 displacement of 1.6 cm. Arterial calcifications. IMPRESSION: Acute, mildly angulated, displaced and impacted intratrochanteric fracture of the right femur. ACT 112: Negative or not required by law. The above report was generated using voice recognition software. It may contain grammatical, syntax or spelling errors. Electronically signed by: Tal Tejada M.D. 09/17/2022 5:13 PM Chest X-Ray 09/17/22 17:01 XR chest 1V portable HISTORY: 82 years-old Male fall acute chest trauma status post fall COMPARISON: 09/23/2019 TECHNIQUE: AP view of the chest FINDINGS: Cardiac silhouette is enlarged. No pneumothorax, pleural effusion, airspace consolidation or overt pulmonary edema. Degenerative changes of the shoulders and spine. IMPRESSION: No acute process. ACT 112: Negative or not required by law. The above report was generated using voice recognition software. It may contain grammatical, syntax or spelling errors. Electronically signed by: Tal Tejada M.D. 09/17/2022 5:14 PM Supervising Physician Co-Signing Physician Notes HEENT:No JVD , Normocephalic , atraumatic CV: S1/S2+ , no murmurs Resp: Air entry present bilaterally.no crackles, no wheeze . GI: Abdomen soft non tender . Musculoskeletal: examined for joint tenderness. right knee pain + Skin: no rashes Psych: Normal affect Neuro: Patient is awake alert not in distress , No focal neuro deficits noted Ext: no edema.Right hip laterally rotated Ortho consult Pain management Patient is a dnr reviewed all home meds
[2022-09-17 18:16] LABS: Appearance Urine Clear (Clear); Bacteria Urine Automated Negative (Negative); Bilirubin Urine Negative (Negative); Blood Urine 2+ (Negative); Color Urine Yellow; Glucose Urine UA Negative (Negative); Ketones Urine Trace (Negative); Leukocyte Esterase Urine Negative (Negative); Nitrite Urine Negative (Negative); Protein Urine Trace (Negative); RBC Urine Automated 0-4 /hpf (0-4); Specific Gravity Urine 1.021 (1.000-1.030); Urobilinogen Urine Negative (Negative)
[2022-09-17] MEDS ORDERED: ALUMINUM/MAGNESIUM SUSP 30 ML UDC PO PRN (20:42)
[2022-09-17] MEDS ORDERED: NALOXONE HCL 0.4 MG/1 ML VIAL/CARP IV PRN (20:42)
[2022-09-17] MEDS ORDERED: bisacodyL 10 MG SUPP PR PRN (20:42)
[2022-09-17] MEDS ORDERED: ONDANSETRON INJ 2 MG/ML 2 ML VIAL IV PRN (20:42)
[2022-09-17] MEDS ORDERED: MAGNESIUM HYDROXIDE SUSP 30 ML UDC PO PRN (20:42)
[2022-09-17] MEDS ORDERED: POLYETHYLENE (MIRALAX) 17 GM PACK PO PRN (20:42)
[2022-09-17] MEDS: PANTOprazole 40 MG TAB PO SCH (22:08)
[2022-09-17] MEDS: DOCUSATE SODIUM/SENNA 50/8.6MG TAB PO SCH (22:08)
[2022-09-17] MEDS: traZODone HCL 100 MG TAB PO SCH (22:08)
[2022-09-17] MEDS: ACETAMINOPHEN 500 MG TAB PO SCH (22:08)
[2022-09-17] MEDS: SIMVASTATIN 5 MG TAB PO SCH (22:08)
[2022-09-18] MEDS ORDERED: LACTATED RINGER'S 1,000 ML IV SCH (00:01)
[2022-09-18] MEDS: ACETAMINOPHEN 500 MG TAB PO SCH ×3 (04:44→21:22)
[2022-09-18] MEDS: LEVOTHYROXINE SODIUM 88 MCG TABLET PO SCH (04:46)
[2022-09-18] MEDS ORDERED: TRANEXAMIC ACID / 0.7% NACL 1,000 MG/100 ML BAG IV SCH ×2 (06:00→06:30)
[2022-09-18] MEDS ORDERED: ceFAZolin 2000MG 2,000 MG/15 ML SYR IV SCH (06:00)
[2022-09-18] MEDS ORDERED: TRANEXAMIC ACID / 0.7% NACL 1,000 MG/100 ML BAG IV ONE ×3 (07:14→13:14)
[2022-09-18] MEDS ORDERED: ceFAZolin 2000MG 2,000 MG/15 ML SYR IV ONE (07:14)
[2022-09-18 08:06] LABS: Hemoglobin 10.6 g/dl (14.0-18.0); Mean Corpuscular Hemoglobin 31.7 pg (25.0-34.0); Mean Corpuscular Hgb Conc 34.2 g/dL (32.0-36.0); Mean Corpuscular Volume 92.8 fL (80.0-100.0); Mean Platelet Volume 9.5 fL (9.4-12.4); Platelet Count 137 K/uL (130-400); RDW Coefficient of Variation 15.1 % (11.5-14.5); RDW Standard Deviation 51.3 fL (36.4-46.3); Red Blood Count 3.34 M/uL (4.70-6.10); White Blood Count 6.46 K/ul (4.8-10.8)
[2022-09-18] MEDS: PANTOprazole 40 MG TAB PO SCH ×2 (08:50→21:23)
[2022-09-18] MEDS: FINASTERIDE 5 MG TAB PO SCH (08:50)
--- NOTE | 2022-09-18 09:34 | Orthopedic Consultation ---
Date of Service September 18, 2022 Assessment & Plan (1) Intertrochanteric fracture of right femur: 82-year-old community ambulator male with displaced peritrochanteric femur fracture. Recommend surgical stabilization with a trochanteric fixation nail. I discussed the diagnosis, prognosis and treatment options for his femur fracture in detail with the patient. He had a good conversation and demonstrated a good understanding. We discussed the need to realign the fracture and stabilize with an intramedullary nail. We discussed outcomes and required rehabilitation. We discussed the risks of surgery and the injury include but are not limited to infection, neurovascular injury, arthrofibrosis of the hip or knee, nonunion, malunion, symptomatic implants, potential need for implant removal, potential need for revision surgery, blood clots, pain syndromes, and complications related anesthesia. He asked appropriate questions, demonstrated a good understanding, and wanted to proceed with surgery. -On-call to the OR today for an add-on case this afternoon. -Remain n.p.o. -Agree with TXA preoperatively and intraoperatively and postoperatively for chronic anemia -We will need 6 weeks of DVT chemoprophylaxis which can be 81 mg of aspirin twice daily -Ancef perisurgical prophylaxis for 24 hours -Expect weightbearing as tolerated and need for PT and OT evaluations for disposition History of Present Illness Reason for Consultation: Right hip fracture Requesting Physician: . Attending Physician: Jerrod Fink MD 82-year-old relatively healthy and fairly active male lost his balance and fell onto his right hip yesterday resulting in immediate pain and inability to weight-bear. He usually walks 2 miles a day without assistive device. Denies any previous hip pain. He was admitted to the hospital after radiographs revealed a peritrochanteric femur fracture. Allergies Allergy/AdvReac Type Severity Reaction Status Date / Time shellfish derived Allergy Severe convulsions Verified 01/16/22 09:17 Potassium Chromate Allergy Severe RASH Uncoded 01/16/22 09:17 Home Medications Medication Instructions Recorded Confirmed Type aspirin 81 mg tablet,delayed 81 mg PO QPM 12/05/18 09/17/22 History release multivitamin 1 tab PO QAM 12/05/18 09/17/22 History nystatin-triamcinolone 100,000 1 applic topical DAILY PRN Skin 12/05/18 09/17/22 History unit/gram-0.1 % topical ointment Irritation levothyroxine 88 mcg tablet 88 mcg PO QAM 02/18/19 09/17/22 History cholecalciferol (vitamin D3) 50 2,000 unit PO DAILY 07/05/19 09/17/22 History mcg (2,000 unit) capsule dutasteride 0.5 mg capsule 0.5 mg PO DAILY #90 caps 01/16/22 09/17/22 Rx omeprazole 40 mg capsule,delayed 40 mg PO BID 09/17/22 09/17/22 History release simvastatin 5 mg tablet 5 mg PO QPM 09/17/22 09/17/22 History trazodone 100 mg tablet 100 mg PO HS 09/17/22 09/17/22 History Past Med/Surg History Medical History Bowel obstruction (03/02/14) BPH with obstruction/lower urinary tract symptoms Cataract Chronic anemia Hyperlipidemia Hypertension Hypothyroid Retinal detachment S/P hernia repair Surgical History H/O exploratory laparotomy History of bladder surgery Hx of cataract surgery Hx of cholecystectomy S/P cataract surgery S/p small bowel obstruction Family History Father Cancer Brother Colorectal cancer Other No significant family history Social History Smoking Status: Never smoker Second Hand Exposure: No; Do You Dip or Chew Tobacco: No; Tobacco Cessation Education Requested by Patient: No Hx Alcohol Use: No Hx Substance Use: No Preferred Language: Urdu Communication Ability: Effective Associate Merchandiser Required: No Beliefs That Will Affect Care: None marital status: Current Living Situation: Spouse current occupational status: retired Other Information That Helps Us Care for You: No Feels Safe at Home: Yes Safety Concerns: Feels Safe At This Time Assistive Devices: Denture - Upper and Denture - Lower Review of Systems All systems reviewed & are unremarkable except as noted in HPI & below. Physical Exam RLE: Overlying skin is without compromise. He is tender about the proximal hip. Can activate his quad. Compartments are soft. Distal neurovascular intact. Limb is held shortened and externally rotated. Constitutional WD/WN, vitals as above Respiratory normal respiratory effort; no respiratory distress Cardiovascular Extremities: normal capillary refill; no edema Chest (Breasts) Chest: normal inspection of chest Skin no rashes, warm and dry Psychiatric A+Ox3, euthymic affect Results & Data Results & Data Laboratory Results H & H 09/17/22 09/18/22 Range/Units 16:36 07:34 Hgb 11.7 L 10.6 L (14.0-18.0) g/dl Hct 34.5 L 31.0 L (42.0-52.0) % Coagulation 09/17/22 Range/Units 16:36 INR 1.1 (0.9-1.1) Diagnostic Findings Radiographs of the right hip demonstrate peritrochanteric fracture with subtrochanteric extension and displacement. PG Care Time/CCT Total # of Minutes Spent Total Time Spent with Patient: Total time spent is greater than 50% in coordination of care (as documented) at patient's floor/unit and/or counseling patient: Coding Level of Care Code 73447 IN/OBS CONSULT LVL 4,60M (57 - DECISION FOR SURGERY) Diagnoses Intertrochanteric fracture of right femur S72.141A
--- NOTE | 2022-09-18 09:46 | Anesthesiology Consultation ---
Date of Service September 18, 2022 Assessment & Plan (1) Encounter for pre-operative examination: Chart Review Chart Review: Acceptable Risk for Surgery History Surgery Operation Date: 09/18/22 10:50 Proposed Procedures p Right Trochanteric Nail Hip - Agustin Liang MD Height/Weight Height: 5 ft 9 in Weight: 71.214 kg Allergies Allergy/AdvReac Type Severity Reaction Status Date / Time shellfish derived Allergy Severe convulsions Verified 01/16/22 09:17 Potassium Chromate Allergy Severe RASH Uncoded 01/16/22 09:17 Medications Home Medications Medication Instructions Recorded Confirmed Last Taken aspirin 81 mg tablet,delayed 81 mg PO QPM 12/05/18 09/17/22 02/17/19 release multivitamin 1 tab PO QAM 12/05/18 09/17/22 02/18/19 nystatin-triamcinolone 100,000 1 applic topical DAILY PRN Skin 12/05/18 09/17/22 Unknown unit/gram-0.1 % topical ointment Irritation levothyroxine 88 mcg tablet 88 mcg PO QAM 02/18/19 09/17/22 02/18/19 cholecalciferol (vitamin D3) 50 2,000 unit PO DAILY 07/05/19 09/17/22 Unknown mcg (2,000 unit) capsule dutasteride 0.5 mg capsule 0.5 mg PO DAILY #90 caps 01/16/22 09/17/22 Unknown omeprazole 40 mg capsule,delayed 40 mg PO BID 09/17/22 09/17/22 Unknown release simvastatin 5 mg tablet 5 mg PO QPM 09/17/22 09/17/22 Unknown trazodone 100 mg tablet 100 mg PO HS 09/17/22 09/17/22 Unknown Active Medications Generic Name Dose Route Start Last Admin Trade Name Freq PRN Reason Stop Dose Admin Acetaminophen 1,000 mg 09/17/22 21:00 09/18/22 04:44 Acetaminophen 500 Mg Tab PO 10/17/22 20:59 1,000 mg Q8 DANIELLA Administration Finasteride 5 mg 09/18/22 09:00 09/18/22 08:50 Finasteride 5 Mg Tab PO 10/18/22 08:59 5 mg DAILY DANIELLA Administration Protocol Lactated Ringer's 1,000 mls @ 80 mls/hr 09/18/22 00:01 09/18/22 00:09 Lr IV 09/18/22 12:30 80 mls/hr .[id number] DANIELLA Administration Levothyroxine Sodium 88 mcg 09/18/22 06:30 09/18/22 04:46 Levothyroxine Sodium 88 Mcg Tablet PO 10/18/22 06:29 88 mcg DAILYBB DANIELLA Administration Pantoprazole Sodium 40 mg 09/17/22 21:00 09/18/22 08:50 Pantoprazole 40 Mg Tab PO 10/17/22 20:59 40 mg BID DANIELLA Administration Protocol Senna/Docusate Sodium 2 tab 09/17/22 21:00 09/17/22 22:08 Docusate Sodium/Senna 50/8.6mg Tab PO 10/17/22 20:59 2 tab HS DANIELLA Administration Simvastatin 5 mg 09/17/22 21:00 09/17/22 22:08 Simvastatin 5 Mg Tab PO 10/17/22 20:59 5 mg QPM DANIELLA Administration Trazodone HCl 100 mg 09/17/22 21:00 09/17/22 22:08 Trazodone Hcl 100 Mg Tab PO 10/17/22 20:59 100 mg HS DANIELLA Administration NPO Date Last Intake of Fluids: 09/17/22 Time Last Intake of Fluids: 23:59 Date Last Intake of Solids: 09/17/22 Time Last Intake of Solids: 23:59 Past Medical History Medical History Bowel obstruction (03/02/14) BPH with obstruction/lower urinary tract symptoms Cataract Chronic anemia Hyperlipidemia Hypertension Hypothyroid Retinal detachment S/P hernia repair Past Family History Family History Father Cancer Brother Colorectal cancer Other No significant family history Past Surgical History Surgical History H/O exploratory laparotomy History of bladder surgery Hx of cataract surgery Hx of cholecystectomy S/P cataract surgery S/p small bowel obstruction Social History Smoking Status: Never smoker Do You Dip or Chew Tobacco: No Hx Alcohol Use: No Hx Substance Use: No Physical Exam Vital Signs Last Vital Signs Temp 37.0 C 09/18/22 07:17 Pulse 56 L 09/18/22 07:17 Resp 16 09/18/22 07:17 BP 101/60 09/18/22 07:17 Pulse Ox 95 09/18/22 07:17 O2 Del Method Room Air 09/18/22 07:17 Testing Laboratory Results 09/18/22 07:34 PT 11.7 Seconds (9.0-12.0) 09/17/22 16:36 INR 1.1 (0.9-1.1) 09/17/22 16:36 APTT 24.1 Seconds (21.0-31.0) 09/17/22 16:36 Urine Color Yellow 09/17/22 18:00 Urine Appearance Clear (Clear) 09/17/22 18:00 Urine pH 5.0 (4.5-7.5) 09/17/22 18:00 Ur Specific [place] 1.021 (1.000-1.030) 09/17/22 18:00 Urine Protein Trace (Negative) H 09/17/22 18:00 Urine Glucose (UA) Negative (Negative) 09/17/22 18:00 Urine Ketones Trace (Negative) H 09/17/22 18:00 Urine Nitrite Negative (Negative) 09/17/22 18:00 Ur Leukocyte Esterase Negative (Negative) 09/17/22 18:00 Urine WBC (Auto) 1-5 /hpf (0-5) 09/17/22 18:00 Urine RBC (Auto) 0-4 /hpf (0-4) 09/17/22 18:00 U Hyaline Cast (Auto) 1-5 /lpf (0-5) 09/17/22 18:00 U Epithel Cells (Auto) 5-10 /lpf (0-5) H 09/17/22 18:00 Urine Bacteria (Auto) Negative (Negative) 09/17/22 18:00 Blood Type A Positive 09/17/22 21:06 Antibody Screen NEGATIVE 09/17/22 21:06 Laboratory Tests 09/17/22 16:36 Potassium 3.8 Creatinine 1.07 Electrocardiogram Date: 09/17/22 Findings: + NSR @ (77) possible anterolateral infarct Right bundle branch block no longer present
[2022-09-18 09:51] LABS: Calcium 8.1 mg/dl (8.6-10.3); Potassium 3.7 mmol/L (3.5-5.1)
[2022-09-18 09:57] LABS: BUN Creatinine Ratio 17.7 (10-20); Creatinine Clr Calc Pharmacy 70.8 ml/min; Est GFR (African American) 96.2 ml/min
[2022-09-18] MEDS: CHOLECALCIFEROL 1,000 UNITS 25 MCG TAB PO SCH (11:02)
[2022-09-18] MEDS: MULTIVITAMIN TAB PO SCH (11:03)
--- NOTE | 2022-09-18 15:48 | Hospitalist Progress Note ---
Date of Service September 18, 2022 Assessment & Plan (1) Femur fracture, right: Plan: Patient is 82-year-old male with PMH HTN, HLD, hypothyroidism, BPH, AAA, chronic anemia presented to ER with complaint of mechanical fall and right hip pain. CT head:No acute intracranial abnormality or calvarial fracture. Small posterior scalp contusion. CT C-spine: No acute fracture CXR: No acute process Right hip x-ray: Acute, mildly angulated, displaced and impacted intratrocha nteric fracture of the right femur Planning for OR today as an add-on case. Activity and wound care orders as per ortho Pain control with bowel regimen PT/OT when appropriate Revised cardiac risk index: Class 1 risk: 3.9% 30-day risk of /[place]/cardiac arrest. No h/o CAD, CHF, CVA, DM, or CKD (2) Hyperlipidemia: Plan: Continue simvastatin (3) Chronic anemia: Plan: Hgb: 11.5. Hgb 13 in 11/2018. No other more recent CBC records could be found Monitor H&H (4) Hypothyroid: Plan: Continue levothyroxine (5) BPH with obstruction/lower urinary tract symptoms: Plan: Continue dutasteride DVT Prophylaxis SCDs due to planned surgical procedure. Further DVT prophylaxis as per Ortho. Patient seen in collaboration with Dr. Fink. Admission and Anticipated Discharge Date Admission Date: September 17, 2022 Supervising Physician Co-Signing Physician Notes Pt seen and examined by me, care coordinated w/ VEGA Mcintosh, pls refer to her note above for further detail. Pt admitted d/t intratrochanteric fracture of the right femur. Currently patient is lying in bed, in no acute distress. He is awake alert oriented answering appropriately. He says the pain is well controlled as long as he is not moving, movement makes it painful. He denies chest pain shortness of breath denies headache abdominal pain nausea vomiting. Lungs are clear to au scultation, regular heart sounds, abdomen soft nontender nondistended. No lower extremity edema. Skin is warm and dry. Continue pain management, plan for OR w/ Dr. Liang later today. MD Aleks Subjective Follow-up for intertrochanteric right femur fracture. Patient seen and examined. Scheduled for OR today as an add-on case. Reports pain is well controlled. No chest pain or shortness of breath. Denies abdominal pain and nausea. Review of Systems Review of Systems: All systems reviewed & are unremarkable except as noted in Subjective Physical Exam Constitutional: WD/WN, vitals as above Respiratory: normal respiratory effort, lungs clear to auscultation Cardiovascular: Rate/Rhythm: regular rate and regular rhythm Vessels: normal peripheral pulses Extremities: no edema Gastrointestinal (Abdomen): Percussion/Palpation: abdomen soft; abdomen nontender Musculoskeletal: RLE shortened and externally rotated, tender over right hip Skin: no rashes, warm and dry Neurologic: no focal motor deficits Psychiatric: A+Ox3, euthymic affect Results & Data Results & Data Vital Signs (Past 12 Hours) Vital Signs Temp Pulse Resp BP BP Pulse Ox O2 Del Method 09/18/22 15:27 36.9 C 54 L 16 127/62 96 Room Air 09/18/22 07:17 37.0 C 56 L 16 101/60 95 Room Air Laboratory Results Short CBC 09/17/22 09/18/22 Range/Units 16:36 07:34 WBC 7.37 6.46 (4.8-10.8) K/ul Hgb 11.7 L 10.6 L (14.0-18.0) g/dl Hct 34.5 L 31.0 L (42.0-52.0) % Plt Count 171 137 (130-400) K/uL BMP 09/17/22 09/18/22 16:36 07:34 Sodium 141 140 Potassium 3.8 3.7 Chloride 111 H 110 H Carbon Dioxide 24 26 BUN 17 14 Creatinine 1.07 0.79 Glucose 115 H 102 H Calcium 8.4 L 8.1 L Liver Function 09/17/22 Range/Units 16:36 Total Bilirubin 0.3 (0.2-1.0) mg/dl AST 31 (13-39) U/L ALT 23 (7-52) U/L Alkaline Phosphatase 97 (34-104) U/L Albumin 3.2 L (3.4-5.0) gm/dl Urine 09/17/22 Range/Units 18:00 Urine Color Yellow Urine Appearance Clear (Clear) Urine pH 5.0 (4.5-7.5) Ur Specific [place] 1.021 (1.000-1.030) Urine Protein Trace H (Negative) Urine Glucose (UA) Negative (Negative)
[2022-09-18] MEDS ORDERED: PROPOFOL IV EMULSION 10 MG/ML 20 ML VIAL IV ONE (16:35)
[2022-09-18] MEDS ORDERED: ONDANSETRON INJ 2 MG/ML 2 ML VIAL ONE (16:35)
[2022-09-18] MEDS ORDERED: DEXAMETHASONE SOD INJ 4 MG/ML VIAL ONE (16:35)
[2022-09-18] MEDS ORDERED: BUPIVACAINE/EPINEPHRINE 0.5% MPF 1:200,000 30 ML VIAL ONE (16:58)
[2022-09-18] MEDS ORDERED: fentaNYL citrate PF 100 MCG/2 ML VIAL ONE (17:10)
[2022-09-18] MEDS ORDERED: fentaNYL citrate PF 100 MCG/2 ML VIAL IV PRN (17:14)
[2022-09-18] MEDS ORDERED: ePHEDrine sulfate 50 MG/ML AMP IV PRN (17:14)
[2022-09-18] MEDS ORDERED: ONDANSETRON INJ 2 MG/ML 2 ML VIAL IV PRN (17:14)
[2022-09-18] MEDS ORDERED: ATROPINE SULFATE 0.1 MG/ML 10ML SYR IV PRN (17:14)
[2022-09-18] MEDS ORDERED: ePHEDrine sulfate 50 MG/ML SYR ONE (18:31)
[2022-09-18] MEDS ORDERED: ePHEDrine sulfate 50 MG/ML AMP ONE (18:48)
[2022-09-18] MEDS ORDERED: GLYCOPYRROLATE 0.2 MG/ML VIAL ONE (18:56)
--- NOTE | 2022-09-18 19:13 | Fluoroscopy Report ---
INTRAOPERATIVE RADIOGRAPHS CLINICAL HISTORY: Open reduction and internal fixation of the right proximal femur. Fluoro time: 182nd Ka,r: 36.79 mGy FINDINGS: 5 spot fluoroscopic views of the right femur are presented. Correlation is made with radiog raphs dated 09/17/2022. Intertrochanteric and intramedullary nails have been placed transfixing an inte rtrochanteric fracture. Near-anatomic alignment has been restored. The orthopedic hardware appears in tact. A single cortical screw transfixes the distal end of the intramedullary nail. IMPRESSION: Intraoperative images from open reduction and internal fixation of a right femoral fractu re as above. Electronically signed by: Mo Vazquez M.D. 09/18/2022 7:12 PM
--- NOTE | 2022-09-18 19:34 | Operative Report ---
PG Post Operative Report Pre & Post Diagnosis Operation Date: 09/18/22 09:20 Pre-Op Diagnosis: Intertrochanteric fracture of right femur Post-Op Diagnosis: Intertrochanteric fracture of right femur I identified the patient and participated in the time-out.: Yes Procedure Operation Date: 09/18/22 09:20 Actual Procedures p Right Hip Peritrochanteric fracture Closed Reduction and Internal Fixation With long trochanteric fixation Cephalomedullary nail(Right) - Agustin Liang MD Surgeon Agustin Liang MD Public Health Technician None Estimated Blood Loss 100 Findings See Below Comminuted peritrochanteric fracture with subtrochanteric extension stabilized with a long TFN. All [employer] implants: 11 mm/130 degree titanium cannulated trochanteric fixation nail of 400 mm length. 11.0 mm titanium helical blade of 1 mm length. Distal interlock screw measuring 48 mm. Specimens none Anesthesia Type MAC Spinal Regional Complications none Disposition Accompanied Patient To Recovery: No Disposition: Recovery Room Indications 82-year-old male sustained fall resulting in a peritrochanteric hip fracture. We recommended surgical stabilization to return to ambulation. We reviewed the risks and benefits in detail, as outlined in the preoperative consultation note. Informed consent was reviewed and confirmed today with his daughter and present. Description of Procedure On the day of surgery should be was greeted in the preoperative holding area and the informed consent was reviewed and confirmed. The surgical site was then identified by the patient and signed by myself. The patient was taken to the operating placed by the OR table and anesthesia was induced. The patient is then positioned on the fracture table. All myles prominences were well padded. The operative foot was placed in the fracture boot with abundant padding. The well leg was secured. We then positioned the lower extremities in a scissor fashion with a non-op leg flexed down to allow visualization with fluoroscopy which was confirmed before we prepped and draped. Surgical timeout was called and verified by all present. Antibiotics were infused, and equipment was available and functional. The procedure was initiated with a closed reduction maneuvers. Gentle in-line traction pulled the fracture out to length. The limb was then internally ro tated to reduce the proximal femur. Flexion and adduction were used to adjust the reduction and allow access to the greater trochanter. We had adequate reduction prior to prepping and draping. The leg was then prepped and draped in usual sterile fashion. Surgical timeout was reconfirmed. We initiated the surgical internal fixation portion with finding the start point with the tip of the greater trochanter. Fluoroscopic guidance was used and a small poke hole was established. The start point was confirmed on fluoroscopy in AP and lateral planes and the pin was advanced using a mallet. An incision was made about the pin to allow access for the reamers. The pin was then advanced past the lesser trochanter, and its position was confirmed using AP and lateral fluoroscopy. Using the protective sleeve, the opening reamer was advanced under power with fluoroscopic guidance over the guidepin. It was advanced slowly. The reduction wire was then advanced down the distal femur to the level of the superior pole of the patella. Measurement was taken from the tip of the trochanter down to the end of the guidewire, and the 400 mm was selected. Given the size of his canal, we passed the 12.5 mm reamer immediately with some mild chatter at the diaphysis. An 11 mm nail was loaded onto the jig and advanced manually down the canal, while ensuring maintenance of the reduction on f luoroscopy. We then tapped it down into place until we achieve the good position for our cephalo-medullary screw. The cannula was placed on the jig to allow positioning of the cephalo-medullary screw. The skin incision was made in the appropriate spot. The jig cannulas were then placed against the lateral cortex. The cephalo-medullary screw guidepin was advanced towards the femoral head. The center-center position was confirmed on fluoroscopy in AP and lateral planes. The length of the screw was measured off the guide. The helical blade screw was then opened on the back table and prepared on the screwdriver. The lateral cortical opening drill, followed by the triple drill reamer for the helical blade was advanced under fluoroscopic guidance. The helical blade was advanced over the guidepin to appropriate position. The helical blade was locked in rotation and then the traction was taken off. Fluoroscopy confirmed maintenance of reduction and adequate position of the implant. The compression sleeve was then advanced against the lateral femur to improve the trochanteric-shaft reduction and compress the intertrochanteric region fracture. Attention was then directed distally to perform the interlock screws in using perfect wrangell technique. 1 interlock screw was placed with a 5 mm diameter. The length was measured using a depth gauge, with fluoroscopic guidance. This completed the fixation. This completed the fixation of the fracture. Fluoroscopy was used in both AP and lateral planes to evaluate the entirety of the fracture and implant. Reduction and implant positions were acceptable. The wounds were then thoroughly irrigated with bulb syringe and normal saline. The deep fascial layer was approximated with 0 Vicryl suture. The dermal layer was approximated using 2-0 Vicryl suture. The final skin closure was completed with adam. Wounds were dressed with sterile Xeroform, sterile gauze, and Ioban over ABDs. The patient tolerated procedure well, awoke from anesthesia without complication, was extubated in the operating room, and transferred to the PACU in stable condition. Disposition: The patient be weightbearing as tolerated. I recommended routine DVT prophylaxis consisting of aspirin. 24 hours of antibiotic prophylaxis should be continued. I attest to the content of the Intraoperative Record and any orders documented therein. Any exceptions are noted below.
--- NOTE | 2022-09-18 19:52 | Anesthesiology Progress Note ---
Date of Service September 18, 2022 Anesthesia Post Procedure Vital Signs Vital Signs: Temp Pulse Pulse Pulse Resp BP BP 09/18/22 19:50 97.9 F 77 14 118/69 09/18/22 19:40 88 22 130/67 09/18/22 19:30 81 16 123/72 09/18/22 19:23 98.2 F 87 15 134/68 09/18/22 16:25 98.4 F 55 L 16 132/69 09/18/22 15:27 98.4 F 54 L 16 09/18/22 07:17 98.6 F 56 L 16 101/60 09/17/22 20:44 98.1 F 65 16 09/17/22 20:00 74 18 09/17/22 20:00 144/95 H BP Pulse Ox O2 Del Method O2 Flow Rate 09/18/22 19:50 96 Room Air 09/18/22 19:40 95 Room Air 09/18/22 19:30 99 Oxymask 4 09/18/22 19:23 100 Oxymask 6 09/18/22 16:25 96 Room Air 09/18/22 15:27 127/62 96 Room Air 09/18/22 07:17 95 Room Air 09/17/22 20:44 140/71 98 Room Air 09/17/22 20:00 96 09/17/22 20:00 Transfer of Care Handoff Completed per policy Notes Mental Status: alert / awake / arousable and participated in evaluation Patient Amnestic to Procedure: Yes Nausea / Vomiting: adequately controlled Pain: adequately controlled Airway Patency, RR, SpO2: stable & adequate BP & HR: stable & adequate Hydration State: stable & adequate Anesthetic Complications: no major complications apparent and Pt Satisfied with anesthetic care
[2022-09-18] MEDS: ASPIRIN 81 MG ECTAB PO SCH (21:23)
[2022-09-18] MEDS: SIMVASTATIN 5 MG TAB PO SCH (21:23)
[2022-09-18] MEDS: DOCUSATE SODIUM/SENNA 50/8.6MG TAB PO SCH (21:23)
[2022-09-18] MEDS: traZODone HCL 100 MG TAB PO SCH (21:23)
[2022-09-19] MEDS: ceFAZolin 2000MG 2,000 MG/15 ML SYR IV SCH ×2 (00:37→09:12)
[2022-09-19] MEDS ORDERED: TRANEXAMIC ACID / 0.7% NACL 1,000 MG/100 ML BAG IV ONE (01:28)
[2022-09-19] MEDS: ACETAMINOPHEN 500 MG TAB PO SCH ×3 (05:45→22:02)
[2022-09-19] MEDS: LEVOTHYROXINE SODIUM 88 MCG TABLET PO SCH (05:45)
--- NOTE | 2022-09-19 06:53 | XRay Report ---
XR femur RT 2V routine HISTORY: 82 years-old Male postop in pacu acute fracture right hip COMPARISON: 09/17/2022 TECHNIQUE: 2 views of the right femur FINDINGS: Status post placement of an intertrochanteric nail with elongated intramedullary cecy and distal cannu lated screw fixating the acute intertrochanteric fracture. There is improved near anatomic alignment. Lateral skin adam are present along with expected postoperative soft tissue swelling with deep ti ssue air. 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 1.8 cm linear radiodensity of the lateral upper t high is unchanged suggestive of a soft tissue calcification. IMPRESSION: Improved alignment of the acute intertrochanteric fracture status post ORIF. ACT 112: Negative or not required by law. The above report was generated using voice recognition software. It may contain grammatical, syntax o r spelling errors. Electronically signed by: Tal Tejada M.D. 09/19/2022 6:51 AM
[2022-09-19 08:02] LABS: Hematocrit (blood only) 28.4 % (42.0-52.0); Hemoglobin 9.7 g/dl (14.0-18.0); Mean Corpuscular Hemoglobin 31.2 pg (25.0-34.0); Mean Corpuscular Hgb Conc 34.2 g/dL (32.0-36.0); Mean Corpuscular Volume 91.3 fL (80.0-100.0); Platelet Count 134 K/uL (130-400); RDW Coefficient of Variation 14.8 % (11.5-14.5); RDW Standard Deviation 49.2 fL (36.4-46.3); Red Blood Count 3.11 M/uL (4.70-6.10); White Blood Count 5.88 K/ul (4.8-10.8)
[2022-09-19] MEDS: MULTIVITAMIN TAB PO SCH (08:10)
[2022-09-19] MEDS: FINASTERIDE 5 MG TAB PO SCH (08:10)
[2022-09-19] MEDS: CHOLECALCIFEROL 1,000 UNITS 25 MCG TAB PO SCH (08:10)
[2022-09-19] MEDS: ASPIRIN 81 MG ECTAB PO SCH ×2 (08:10→22:02)
[2022-09-19] MEDS: PANTOprazole 40 MG TAB PO SCH ×2 (08:11→22:02)
[2022-09-19 08:21] LABS: BUN Creatinine Ratio 14.3 (10-20); Creatinine Clr Calc Pharmacy 72.7 ml/min; Est GFR (African American) 97.3 ml/min; Est GFR (Non-African American) 83.9 ml/min; Magnesium 1.7 mg/dl (1.7-2.4); Potassium 3.7 mmol/L (3.5-5.1)
[2022-09-19] MEDS: MAGNESIUM OXIDE 400 MG TAB PO SCH (09:33)
[2022-09-19] MEDS ORDERED: SODIUM CHLORIDE 0.9% 500 ML IV SCH (11:45)
--- NOTE | 2022-09-19 14:47 | Hospitalist Progress Note ---
Date of Service September 19, 2022 Assessment & Plan (1) Femur fracture, right: Plan: Patient is 82-year-old male with PMH HTN, HLD, hypothyroidism, BPH, AAA, chronic anemia presented to ER with complaint of mechanical fall and right hip pain. CT head:No acute intracranial abnormality or calvarial fracture. Small posterior scalp contusion. CT C-spine: No acute fracture CXR: No acute process Right hip x-ray: Acute, mildly angulated, displaced and impacted intratrocha nteric fracture of the right femur Revised cardiac risk index: Class 1 risk: 3.9% 30-day risk of /CO/cardiac arrest. No h/o CAD, CHF, CVA, DM, or CKD POD#1 Right Hip Peritrochanteric fracture Closed Reduction and Internal Fixation With long trochanteric fixation Cephalomedullary nail(Right) by Dr. Liang Check vitamin D level with a.m. labs Activity and wound care orders as per ortho Pain control with bowel regimen PT/OT EBL 100 cc Postop acute blood loss anemia Hgb 9.7 (preop 11.7) No indication for transfusion Continue to monitor CBC (2) Hypotension: (3) Bradycardia: Plan: Hypotensive this a.m. with BP 92/55, HR in the 50s Likely due to anesthesia and/for pain medications Patient reports chronic intermittent dizziness and lightheadedness that is unchanged from baseline. Will give IVF Check EKG (4) Hyperlipidemia: Plan: Continue simvastatin (5) Chronic anemia: Plan: Hgb: 11.5. Hgb 13 in 11/2018. No other more recent CBC records could be found Monitor H&H (6) Hypothyroid: Plan: Continue levothyroxine (7) BPH with obstruction/lower urinary tract symptoms: Plan: Continue dutasteride DVT Prophylaxis ASA 81 mg BID as per Ortho Dispo: Likely DC to [facility] tomorrow. Patient seen in collaboration with Dr. Fink. Admission and Anticipated Discharge Date Admission Date: September 17, 2022 Supervising Physician Co-Signing Physician Notes Pt seen and examined by me, care coordinated w/ VEGA Mcintosh, pls refer to her note above for further detail. Pt admitted d/t intratrochanteric fracture of the right femur, now s/p surgical repair yesterday. Currently patient is lying in bed, in no acute distress. He is awake alert oriented answering appropriately. He says the pain is well controlled as long as he is not moving, movement makes it painful. He denies chest pain shortness of breath denies headache abdominal pain nausea vomiting. He feels dizzy/lightheaded occasionally and BP on lower side. Lungs are clear to auscultation, regular heart sounds, abdomen soft nontender nondistended. No lo wer extremity edema. Skin is warm and dry. IV fluids given. Cont. to closely monitor. possibly DC to rehab over the weekend. MD Aleks Subjective Follow-up for intertrochanteric right femur fracture. Patient seen and examined. Underwent Right Hip Closed Reduction and Internal Fixation With long trochanteric fixation Cephalomedullary nail last evening by Dr. Liang. Reports pain is well controlled. States he had some intermittent lightheadedness and dizziness this morning however states this is not unusual for him. Denies chest pain and shortness of breath. No abdominal pain or nausea. Urinating and + BM. Review of Systems Review of Systems: All systems reviewed & are unremarkable except as noted in Subjective Physical Exam Constitutional: WD/WN, vitals as above no acute distress Respiratory: normal respiratory effort, lungs clear to auscultation Cardiovascular: Rate/Rhythm: regular rate and regular rhythm Vessels: normal peripheral pulses Extremities: no edema Gastrointestinal (Abdomen): Percussion/Palpation: abdomen soft; abdomen nontender Musculoskeletal: S/p right hip surgery, dressings x 2 to medial and distal thigh CDI, CSM checks intact RLE Skin: no rashes, warm and dry Neurologic: no focal motor deficits Psychiatric: A+Ox3, euthymic affect Results & Data Results & Data Vital Signs (Past 12 Hours) Vital Signs Temp Pulse Resp BP BP Pulse Ox Pulse Ox 09/19/22 12:16 97 09/19/22 11:14 36.4 C L 50 L 16 101/59 L 96 09/19/22 07:10 36.7 C 53 L 92/55 L 105/51 L 95 09/19/22 02:58 36.2 C L 63 18 100/60 96 O2 Del Method 09/19/22 12:16 09/19/22 11:14 Room Air 09/19/22 07:10 Room Air 09/19/22 02:58 Room Air Laboratory Results Short CBC 09/19/22 Range/Units 07:12 WBC 5.88 (4.8-10.8) K/ul Hgb 9.7 L (14.0-18.0) g/dl Hct 28.4 L (42.0-52.0) % Plt Count 134 (130-400) K/uL [facility] 09/19/22 07:12 Sodium 137 Potassium 3.7 Chloride 107 Carbon Dioxide 25 BUN 11 Creatinine 0.77 Glucose 183 H Calcium 8.0 L
--- NOTE | 2022-09-19 15:08 | Orthopedic Progress Note ---
Date of Service September 19, 2022 Assessment & Plan (1) Intertrochanteric fracture of right femur: Overall he is doing well as well as expected. He is having some pain in the hip. He is slow to ambulate with therapy but they did recommend an acute rehab facility. He is orthopedically stable for discharge when medically ready. He can follow-up with orthopedics in 2 weeks. Alon Olivares was seen and examined at bedside this morning. Overall he is doing okay. He is having some soreness in the hip. He participated with physical therapy but did not ambulate much. He is currently awaiting placement at [facility].. Review of Systems All systems reviewed & are unremarkable except as noted in HPI & below. Physical Exam On physical examination of the right hip, the dressing is clean and dry. His leg is out full extension. He has active dorsiflexion plantarflexion of the right ankle.. Results & Data Results & Data Laboratory Results . Diagnostic Findings . PG Care Time/CCT Total # of Minutes Spent Total Time Spent with Patient: Total time spent is greater than 50% in coordination of care (as documented) at patient's floor/unit and/or counseling patient: Coding Level of Care Code 62408 Post Operative Follow-Up Diagnoses Intertrochanteric fracture of right femur S72.141A
[2022-09-19] MEDS: oxyCODONE HCL IR 5 MG TAB (IMMEDIATE RELEASE) PO PRN (15:37)
[2022-09-19] MEDS: SIMVASTATIN 5 MG TAB PO SCH (22:02)
[2022-09-19] MEDS: DOCUSATE SODIUM/SENNA 50/8.6MG TAB PO SCH (22:03)
[2022-09-19] MEDS: traZODone HCL 100 MG TAB PO SCH (22:03)
[2022-09-20] MEDS: ACETAMINOPHEN 500 MG TAB PO SCH ×3 (05:55→20:40)
[2022-09-20] MEDS: LEVOTHYROXINE SODIUM 88 MCG TABLET PO SCH (05:56)
--- NOTE | 2022-09-20 06:07 | Electrocardiogram Report ---
Test Reason : Blood Pressure : / mmHG Vent. Rate : 077 BPM Atrial Rate : 072 BPM P-R Int : 248 ms QRS Dur : 136 ms QT Int : 362 ms P-R-T Axes : -27 -19 057 degrees QTc Int : 409 ms Sinus rhythm with 1st degree A-V block Low voltage QRS Right bundle branch block Inferior infarct Abnormal ECG When compared with ECG of 05-DEC-2018 11:35, No significant change Confirmed by Delta Hillman ([id number]) on 09/20/2022 6:07:29 AM Referred By: REFERRED SELF Confirmed By:Delta Hillman
[2022-09-20 07:42] LABS: Hematocrit (blood only) 26.6 % (42.0-52.0); Mean Corpuscular Hemoglobin 30.9 pg (25.0-34.0); Mean Corpuscular Hgb Conc 33.8 g/dL (32.0-36.0); Mean Corpuscular Volume 91.4 fL (80.0-100.0); Mean Platelet Volume 10.1 fL (9.4-12.4); Platelet Count 138 K/uL (130-400); RDW Coefficient of Variation 14.7 % (11.5-14.5); RDW Standard Deviation 49.6 fL (36.4-46.3); Red Blood Count 2.91 M/uL (4.70-6.10); White Blood Count 6.41 K/ul (4.8-10.8)
[2022-09-20 07:58] LABS: BUN Creatinine Ratio 17.2 (10-20); Calcium 8.2 mg/dl (8.6-10.3); Creatinine Clr Calc Pharmacy 64.3 ml/min; Est GFR (African American) 92.5 ml/min; Est GFR (Non-African American) 79.8 ml/min; Magnesium 1.8 mg/dl (1.7-2.4); Phosphorus 2.9 mg/dl (2.5-4.9); Potassium 3.8 mmol/L (3.5-5.1)
[2022-09-20] MEDS: ASPIRIN 81 MG ECTAB PO SCH ×2 (08:18→20:41)
--- NOTE | 2022-09-20 08:18 | Hospitalist Progress Note ---
Date of Service September 20, 2022 Assessment & Plan (1) Femur fracture, right: Plan: Patient is 82-year-old male with PMH HTN, HLD, hypothyroidism, BPH, AAA, chronic anemia presented to ER with complaint of mechanical fall and right hip pain. CT head:No acute intracranial abnormality or calvarial fracture. Small posterior scalp contusion. CT C-spine: No acute fracture CXR: No acute process Right hip x-ray: Acute, mildly angulated, displaced and impacted intratro chanteric fracture of the right femur Revised cardiac risk index: Class 1 risk: 3.9% 30-day risk of /[place]/cardiac arrest. No h/o CAD, CHF, CVA, DM, or CKD POD#2 Right Hip Peritrochanteric fracture Closed Reduction and Internal Fixation With long trochanteric fixation Cephalomedullary nail(Right) by Dr. Liang Check vitamin D level with a.m. labs Activity and wound care orders as per ortho Pain control with bowel regimen PT/OT Postop acute blood loss anemia Hgb 9.0 (preop 11.7) No indication for transfusion Continue to monitor CBC (2) Hypotension: (3) Bradycardia: Plan: Hypotensive yesterday a.m. with BP 92/55, HR in the 50s Likely due to anesthesia and/for pain medications Patient reports chronic intermittent dizziness and lightheadedness (also reports hx of such). PT also contacted for poss. BPPV. received IVF Check EKG - sinus bradycardia, 1st degree AV block (4) Hyperlipidemia: Plan: Continue simvastatin (5) Chronic anemia: Plan: Hgb: 11.5. Hgb 13 in 11/2018. No other more recent CBC records could be found Monitor H&H (6) Hypothyroid: Plan: Continue levothyroxine (7) BPH with obstruction/lower urinary tract symptoms: Plan: Continue dutasteride DVT Prophylaxis ASA 81 mg BID as per Ortho (for 6 weeks) Dispo: Likely DC to [facility] over the weekend Admission and Anticipated Discharge Date Admission Date: September 17, 2022 Subjective Follow-up for intertrochanteric right femur fracture. S/p Right Hip Closed Reduction and Internal Fixation With long trochanteric fixation Cephalomedullary nail w/ Dr. Liang. Reports pain is fairly well controlled. Currently sitting up in the chair, in no acute distress, however he reports vertigo. Per his report, he saw PT, for likely BPPV in the past. Will have PT here to eval/treat. Denies chest pain and shortness of breath. No abdominal pain or nausea. Review of Systems Review of Systems: All systems reviewed & are unremarkable except as noted in Subjective Physical Exam Physical Exam: Constitutional:L WD/WN, in no acute distress Respiratory: normal respiratory effort, lungs andrew ar to auscultation Cardiovascular:L Rate/Rhythm: regul ar rate and regula r rhythm Vessels: normal peripheral pulses Extremiti es: no edema Gastrointestinal ( Abdomen): Percussion/Palpati on: abdomen soft; abdomen nontender Musculoskeletal: S/p right hip stewart francisco j, dressings x 2 to medial and di stal thigh CDI, CS M checks intact RL E Skin: no rashes, warm an d dry Neurologic: awake, alert, orie nted, answers appr opriately, moves e xtremities Psychiatric: A+Ox3, euthymic af fect Results & Data Results & Data Vital Signs (Past 12 Hours) Vital Signs Temp Pulse Resp BP BP Pulse Ox O2 Del Method 09/20/22 07:18 36.8 C 57 L 16 107/58 L 94 Room Air 09/19/22 22:05 Room Air 09/19/22 21:42 36.6 C 61 18 97/55 L 96 Room Air Laboratory Results 09/20/22 09/20/22 09/20/22 Range/Units 07:03 07:03 07:03 WBC 6.41 (4.8-10.8) K/ul RBC 2.91 L (4.70-6.10) M/uL Hgb 9.0 L (14.0-18.0) g/dl Hct 26.6 L (42.0-52.0) % MCV 91.4 (80.0-100.0) fL MCH 30.9 (25.0-34.0) pg MCHC 33.8 (32.0-36.0) g/dL RDW Std Deviation 49.6 H (36.4-46.3) fL RDW Coeff of Dinorah 14.7 H (11.5-14.5) % Plt Count 138 (130-400) K/uL MPV 10.1 (9.4-12.4) fL Sodium 140 (136-145) mmol/L Potassium 3.8 (3.5-5.1) mmol/L Chloride 108 H (98-107) mmol/L Carbon Dioxide 29 (21-32) mmol/L Anion Gap 3 (3-11) BUN 15 (6-23) mg/dl Creatinine 0.87 (0.6-1.4) mg/dl Est Cr Clr Drug Dosing 64.3 ml/min Est GFR ( Amer) 92.5 ml/min Est GFR (Non-Af Amer) 79.8 ml/min BUN/Creatinine Ratio 17.2 (10-20) Glucose 96 (70-99(Fasting)) mg/dl Calcium 8.2 L (8.6-10.3) mg/dl Phosphorus 2.9 D (2.5-4.9) mg/dl Magnesium 1.8 (1.7-2.4) mg/dl 25-OH Vitamin D Total Pending 09/19/22 Range/Units 07:12 WBC (4.8-10.8) K/ul RBC (4.70-6.10) M/uL Hgb (14.0-18.0) g/dl Hct (42.0-52.0) % MCV (80.0-100.0) fL MCH (25.0-34.0) pg MCHC (32.0-36.0) g/dL RDW Std Deviation (36.4-46.3) fL RDW Coeff of Dinorah (11.5-14.5) % Plt Count (130-400) K/uL MPV (9.4-12.4) fL Sodium 137 (136-145) mmol/L Potassium 3.7 (3.5-5.1) mmol/L Chloride 107 (98-107) mmol/L Carbon Dioxide 25 (21-32) mmol/L Anion Gap 5 (3-11) BUN 11 (6-23) mg/dl Creatinine 0.77 (0.6-1.4) mg/dl Est Cr Clr Drug Dosing 72.7 ml/min Est GFR ( Amer) 97.3 ml/min Est GFR (Non-Af Amer) 83.9 ml/min BUN/Creatinine Ratio 14.3 (10-20) Glucose 183 H (70-99(Fasting)) mg/dl Calcium 8.0 L (8.6-10.3) mg/dl Phosphorus 4.0 (2.5-4.9) mg/dl Magnesium 1.7 (1.7-2.4) mg/dl 25-OH Vitamin D Total Medications Administered Current Inpatient Medications Acetaminophen (Acetaminophen 500 Mg Tab) 1,000 mg PO Q8 [facility] Stop: 10/17/22 20:59 Last Admin: 09/20/22 05:55 Dose: 1,000 mg Al Hydrox/Mg Hydrox/Simethicone (Aluminum/Magnesium Susp 30 Ml Udc) 30 ml PO Q6H PRN PRN Reason: Dyspepsia Stop: 10/17/22 20:41 Aspirin (Aspirin 81 Mg Ectab) 81 mg PO BID [facility] Stop: 10/18/22 20:59 Last Admin: 09/19/22 22:02 Dose: 81 mg Bisacodyl (Bisacodyl 10 Mg Supp) [address] DAILY PRN PRN Reason: Constipation Stop: 10/17/22 20:41 Finasteride (Finasteride 5 Mg Tab) 5 mg PO DAILY [facility]; Protocol Stop: 10/18/22 08:59 Last Admin: 09/19/22 08:10 Dose: 5 mg Levothyroxine Sodium (Levothyroxine Sodium 88 Mcg Tablet) 88 mcg PO DAILYBB [facility] Stop: 10/18/22 06:29 Last Admin: 09/20/22 05:56 Dose: 88 mcg Magnesium Hydroxide (Magnesium Hydroxide Susp 30 Ml Udc) 30 ml PO Q6H PRN PRN Reason: Constipation Stop: 10/17/22 20:41 Magnesium Oxide (Magnesium Oxide 400 Mg Tab) [facility] [place] Stop: 10/19/22 09:14 Last Admin: 09/19/22 09:33 Dose: 400 mg Morphine Sulfate (Morphine Sulfate 4 Mg/Ml 1 Ml Carp\Vial) 3 mg IV Q3H PRN PRN Reason: Pain (6,7,8,9,10) Stop: 10/01/22 20:41 Last Admin: 09/18/22 13:51 Dose: 3 mg Multivitamins (Multivitamin Tab) 1 tab PO QAM [facility] Stop: 10/18/22 08:59 Last Admin: 09/19/22 08:10 Dose: 1 tab Naloxone HCl (Naloxone Hcl 0.4 Mg/1 Ml Vial/Carp) 0.1 mg IV UD PRN PRN Reason: Opiate Overdose Stop: 10/17/22 20:41 Ondansetron HCl (Ondansetron Inj 2 Mg/Ml 2 Ml Vial) 4 mg IV Q6H PRN PRN Reason: Nausea Stop: 10/17/22 20:41 Oxycodone HCl (Oxycodone Hcl Ir 5 Mg Tab (Immediate Release)) 5 mg PO Q4H PRN PRN Reason: MODERATE Pain (4,5,6) & Pre PT Stop: 10/01/22 20:41 Last Admin: 09/19/22 15:37 Dose: 5 mg Pantoprazole Sodium (Pantoprazole 40 Mg Tab) 40 mg PO BID [facility]; Protocol Stop: 10/17/22 20:59 Last Admin: 09/19/22 22:02 Dose: 40 mg Polyethylene Glycol (Polyethylene (Miralax) 17 Gm Pack) 17 gm PO DAILY PRN PRN Reason: Constipation Stop: 10/17/22 20:41 Senna/Docusate Sodium (Docusate Sodium/Senna 50/8.6mg Tab) 2 tab PO HS [facility] Stop: 10/17/22 20:59 Last Admin: 09/19/22 22:03 Dose: Not Given Simvastatin (Simvastatin 5 Mg Tab) 5 mg PO QPM [facility]ANIE[facility] Stop: 10/17/22 20:59 Last Admin: 09/19/22 22:02 Dose: 5 mg Trazodone HCl (Trazodone Hcl 100 Mg Tab) 100 mg PO HS [facility] Stop: 10/17/22 20:59 Last Admin: 09/19/22 22:03 Dose: 100 mg Vitamin D (Cholecalciferol 1,000 Units 25 Mcg Tab) 2,000 units PO DAILY [facility] Stop: 10/18/22 08:59 Last Admin: 09/19/22 08:10 Dose: 2,000 units
[2022-09-20] MEDS: MAGNESIUM OXIDE 400 MG TAB PO SCH (08:19)
[2022-09-20] MEDS: CHOLECALCIFEROL 1,000 UNITS 25 MCG TAB PO SCH (08:19)
[2022-09-20] MEDS: PANTOprazole 40 MG TAB PO SCH ×2 (08:19→20:40)
[2022-09-20] MEDS: FINASTERIDE 5 MG TAB PO SCH (08:19)
[2022-09-20] MEDS: MULTIVITAMIN TAB PO SCH (08:19)
[2022-09-20] MEDS: oxyCODONE HCL IR 5 MG TAB (IMMEDIATE RELEASE) PO PRN (09:10)
[2022-09-20] MEDS ORDERED: MECLIZINE HCL 25 MG TAB PO STA (11:32)
[2022-09-20] MEDS: DOCUSATE SODIUM/SENNA 50/8.6MG TAB PO SCH (20:40)
[2022-09-20] MEDS: SIMVASTATIN 5 MG TAB PO SCH (20:40)
[2022-09-20] MEDS: traZODone HCL 100 MG TAB PO SCH (20:41)
[2022-09-21] MEDS: oxyCODONE HCL IR 5 MG TAB (IMMEDIATE RELEASE) PO PRN ×3 (03:38→12:13)
[2022-09-21] MEDS: LEVOTHYROXINE SODIUM 88 MCG TABLET PO SCH (05:51)
[2022-09-21] MEDS: ACETAMINOPHEN 500 MG TAB PO SCH (05:51)
--- NOTE | 2022-09-21 06:28 | Electrocardiogram Report ---
Test Reason : Blood Pressure : / mmHG Vent. Rate : 057 BPM Atrial Rate : 057 BPM P-R Int : 240 ms QRS Dur : 142 ms QT Int : 438 ms P-R-T Axes : 083 -25 016 degrees QTc Int : 426 ms Sinus bradycardia with 1st degree A-V block Right bundle branch block Inferior infarct Abnormal ECG When compared with ECG of 17-SEP-2022 16:18, Borderline criteria for Anterior infarct are no longer Present Borderline criteria for Anterolateral infarct are no longer Present Confirmed by Delta Hillman ([id number]) on 09/21/2022 6:28:07 AM Referred By: REFERRED SELF Confirmed By:Delta Hillman
[2022-09-21 06:38] LABS: Hematocrit (blood only) 25.5 % (42.0-52.0); Hemoglobin 8.7 g/dl (14.0-18.0)
[2022-09-21 07:03] LABS: Creatinine Clr Calc Pharmacy 70.8 ml/min; Est GFR (African American) 96.2 ml/min; Potassium 3.7 mmol/L (3.5-5.1)
[2022-09-21] MEDS ORDERED: ERGOCALCIFEROL 50,000 UNITS 1250 MCG CAP PO SCH (07:15)
[2022-09-21] MEDS: FINASTERIDE 5 MG TAB PO SCH (08:19)
[2022-09-21] MEDS: PANTOprazole 40 MG TAB PO SCH (08:19)
[2022-09-21] MEDS: DOCUSATE SODIUM/SENNA 50/8.6MG TAB PO SCH (08:19)
[2022-09-21] MEDS: MULTIVITAMIN TAB PO SCH (08:19)
[2022-09-21] MEDS: MAGNESIUM OXIDE 400 MG TAB PO SCH (08:19)
[2022-09-21] MEDS: ASPIRIN 81 MG ECTAB PO SCH (08:20)
[2022-09-21] MEDS ORDERED: FERROUS SULFATE 325 MG TAB PO SCH (09:35)
--- NOTE | 2022-09-21 10:05 | Hospitalist Progress Note ---
Date of Service September 21, 2022 Assessment & Plan (1) Femur fracture, right: Plan: Patient is 82-year-old male with PMH HTN, HLD, hypothyroidism, BPH, AAA, chronic anemia presented to ER with complaint of mechanical fall and right hip pain. CT head:No acute intracranial abnormality or calvarial fracture. Small posterior scalp contusion. CT C-spine: No acute fracture CXR: No acute process Right hip x-ray: Acute, mildly angulated, displaced and impacted intratro chanteric fracture of the right femur Revised cardiac risk index: Class 1 risk: 3.9% 30-day risk of /AL/cardiac arrest. No h/o CAD, CHF, CVA, DM, or CKD POD#3 Right Hip Peritrochanteric fracture Closed Reduction and Internal Fixation With long trochanteric fixation Cephalomedullary nail(Right) by Dr. Liang vitamin D level low - start 50,000 units weekly Activity and wound care orders as per ortho Pain control with bowel regimen PT/OT Postop acute blood loss anemia Hgb ~ 9.0 (preop 11.7) No indication for transfusion Continue to monitor CBC cont. iron supplement. (2) Hypotension: (3) Bradycardia: Plan: Hypotensive after surgery with BP 92/55, HR in the 50s Likely due to anesthesia and/for pain medications Patient reports chronic intermittent dizziness and lightheadedness (also reports hx of such). PT also contacted for poss. BPPV. received IVF Check EKG - sinus bradycardia, 1st degree AV block Vertigo/ dizziness Patient reports chronic intermittent dizziness and lightheadedness (also reports hx of such). PT also contacted for poss. BPPV. repeat CT head also ordered yesterday, pt declined 09/21 Today denies any symptoms, no dizziness, no vertigo, no headache (pt never head headache) (4) Hyperlipidemia: Plan: Continue simvastatin (5) Chronic anemia: Plan: Hgb: 11.5. Hgb 13 in 11/2018. No other more recent CBC records could be found Monitor H&H (6) Hypothyroid: Plan: Continue levothyroxine (7) BPH with obstruction/lower urinary tract symptoms: Plan: Continue dutasteride DVT Prophylaxis ASA 81 mg BID as per Ortho (for 6 weeks) Dispo: plan to DC to [facility] Admission and Anticipated Discharge Date Admission Date: September 17, 2022 Subjective Follow-up for intertrochanteric right femur fracture. S/p Right Hip Closed Reduction and Internal Fixation With long trochanteric fixation Cephalomedullary nail w/ Dr. Liang. Reports pain is fairly well controlled. Currently laying in bed, in no acute distress. Today denies any vertigo, dizziness, also denies any headache. Ordered CT head yesterday, pt declined. Per his report, he saw PT, for likely BPPV in the past. PT saw the pt here as well. Denies chest pain and shortness of breath. No abdominal pain or nausea. Review of Systems Review of Systems: All systems reviewed & are unremarkable except as noted in Subjective Physical Exam Physical Exam: Constitutional:L WD/WN, in no acute distress Respiratory: normal respiratory effort, lungs andrew ar to auscultation Cardiovascular:L Rate/Rhythm: regul ar rate and regula r rhythm Vessels: normal peripheral pulses Extremiti es: no edema Gastrointestinal ( Abdomen): Percussion/Palpati on: abdomen soft; abdomen nontender Musculoskeletal: S/p right hip stewart francisco j, dressings x 2 to medial and di stal thigh CDI, CS M checks intact RL E Skin: no rashes, warm an d dry Neurologic: awake, alert, orie nted, answers appr opriately, moves e xtremities Psychiatric: A+Ox3, euthymic af fect Results & Data Results & Data Vital Signs (Past 12 Hours) Vital Signs Temp Pulse Resp BP Pulse Ox O2 Del Method 09/21/22 07:22 36.5 C 69 16 106/58 L 95 Room Air Laboratory Results 09/21/22 09/21/22 Range/Units 06:11 06:11 Hgb 8.7 L (14.0-18.0) g/dl Hct 25.5 L (42.0-52.0) % Sodium 140 (136-145) mmol/L Potassium 3.7 (3.5-5.1) mmol/L Chloride 108 H (98-107) mmol/L Carbon Dioxide 29 (21-32) mmol/L Anion Gap 3 (3-11) BUN 15 (6-23) mg/dl Creatinine 0.79 (0.6-1.4) mg/dl Est Cr Clr Drug Dosing 70.8 ml/min Est GFR ( Amer) 96.2 ml/min Est GFR (Non-Af Amer) 83.0 ml/min BUN/Creatinine Ratio 19.0 (10-20) Glucose 116 H (70-99(Fasting)) mg/dl Calcium 8.0 L (8.6-10.3) mg/dl Medications Administered Current Inpatient Medications Acetaminophen (Acetaminophen 500 Mg Tab) 1,000 mg PO Q8 [facility] Stop: 10/17/22 20:59 Last Admin: 09/21/22 05:51 Dose: 1,000 mg Al Hydrox/Mg Hydrox/Simethicone (Aluminum/Magnesium Susp 30 Ml Udc) 30 ml PO Q6H PRN PRN Reason: Dyspepsia Stop: 10/17/22 20:41 Aspirin (Aspirin 81 Mg Ectab) 81 mg PO BID [facility] Stop: 10/18/22 20:59 Last Admin: 09/21/22 08:20 Dose: 81 mg Bisacodyl (Bisacodyl 10 Mg Supp) 10 mg AK DAILY PRN PRN Reason: Constipation Stop: 10/17/22 20:41 Ergocalciferol (Ergocalciferol 50,000 Units 1250 Mcg Cap) 50,000 units PO Q7D S Stop: 10/21/22 07:14 Last Admin: 09/21/22 08:24 Dose: 50,000 units Ferrous Sulfate (Ferrous Sulfate 325 Mg Tab) 325 mg PO BIDM [facility] Stop: 10/21/22 09:34 Finasteride (Finasteride 5 Mg Tab) 5 mg PO DAILY [facility]; Protocol Stop: 10/18/22 08:59 Last Admin: 09/21/22 08:19 Dose: 5 mg Levothyroxine Sodium (Levothyroxine Sodium 88 Mcg Tablet) 88 mcg PO DAILYBB [facility] Stop: 10/18/22 06:29 Last Admin: 09/21/22 05:51 Dose: 88 mcg Magnesium Hydroxide (Magnesium Hydroxide Susp 30 Ml Udc) 30 ml PO Q6H PRN PRN Reason: Constipation Stop: 10/17/22 20:41 Magnesium Oxide (Magnesium Oxide 400 Mg Tab) 400 mg PO QAM [facility] Stop: 10/19/22 09:14 Last Admin: 09/21/22 08:19 Dose: 400 mg Morphine Sulfate (Morphine Sulfate 4 Mg/Ml 1 Ml Carp\Vial) 3 mg IV Q3H PRN PRN Reason: Pain (6,7,8,9,10) Stop: 10/01/22 20:41 Last Admin: 09/18/22 13:51 Dose: 3 mg Multivitamins (Multivitamin Tab) 1 tab PO QAM [facility] Stop: 10/18/22 08:59 Last Admin: 09/21/22 08:19 Dose: 1 tab Naloxone HCl (Naloxone Hcl 0.4 Mg/1 Ml Vial/Carp) 0.1 mg IV UD PRN PRN Reason: Opiate Overdose Stop: 10/17/22 20:41 Ondansetron HCl (Ondansetron Inj 2 Mg/Ml 2 Ml Vial) 4 mg IV Q6H PRN PRN Reason: Nausea Stop: 10/17/22 20:41 Oxycodone HCl (Oxycodone Hcl Ir 5 Mg Tab (Immediate Release)) 5 mg PO Q4H PRN PRN Reason: MODERATE Pain (4,5,6) & Pre PT Stop: 10/01/22 20:41 Last Admin: 09/21/22 08:24 Dose: 5 mg Pantoprazole Sodium (Pantoprazole 40 Mg Tab) 40 mg PO BID [facility]; Protocol Stop: 10/17/22 20:59 Last Admin: 09/21/22 08:19 Dose: 40 mg Polyethylene Glycol (Polyethylene (Miralax) 17 Gm Pack) 17 gm PO DAILY PRN PRN Reason: Constipation Stop: 10/17/22 20:41 Senna/Docusate Sodium (Docusate Sodium/Senna 50/8.6mg Tab) 2 tab PO HS DANIELLA Stop: 10/17/22 20:59 Last Admin: 09/21/22 08:19 Dose: 2 tab Simvastatin (Simvastatin 5 Mg Tab) 5 mg PO QPM DANIELLA Stop: 10/17/22 20:59 Last Admin: 09/20/22 20:40 Dose: 5 mg Trazodone HCl (Trazodone Hcl 100 Mg Tab) 100 mg PO HS [facility] Stop: 10/17/22 20:59 Last Admin: 09/20/22 20:41 Dose: 100 mg Vitamin D (Cholecalciferol 1,000 Units 25 Mcg Tab) 2,000 units PO DAILY DANIELLA Stop: 10/18/22 08:59 Last Admin: 09/20/22 08:19 Dose: 2,000 units
--- NOTE | 2022-09-21 10:31 | Discharge Summary ---
Date of Service September 21, 2022 Admission HPI Per Admitting Provider Patient is 82-year-old male with PMH HTN, HLD, hypothyroidism, BPH, AAA, chronic anemia presented to ER with complaint of fall and right hip pain today. Patient states walks 2 miles daily. However he states he is chronically unsteady on uneven surfaces. Today was doing yard work and when he stood up and he states he lost his balance and fell backwards. States did hit head. Had instant pain to right hip. Pain is 10/10 will any attempted movement of right leg. Denies LOC, back pain, fever/chills, diaphoresis, N/V/D/C, SHEPPARD, dizziness, syncope, vision changes, neck pain, CP, SOB, orthopnea, palpitations, cough, abdominal pain, paresthesias, extremity edema, rashes, urinary symptoms. Admission Exam Per Admitting Provider HEENT:No JVD , Normocephalic , atraumatic CV: S1/S2+ , no murmurs Resp: Air entry present bilaterally.no crackles, no wheeze . GI: Abdomen soft non tender . Musculoskeletal: examined for joint tenderness. right knee pain + Skin: no rashes Psych: Normal affect Neuro: Patient is awake alert not in distress , No focal neuro deficits noted Ext: no edema.Right hip laterally rotated Principal Diagnosis Intertrochanteric fracture of right femur Discharge Exam Constitutional: WD/WN, in no acute distress Respiratory: normal respiratory effort, lungs clear to auscultation Cardiovascular: Rate/Rhythm: regular rate and regular rhythm Vessels: normal peripheral pulses Extremities: no edema Gastrointestinal (Abdomen): Percussion/Palpation: abdomen soft; abdomen nontender Musculoskeletal: S/p right hip surgery, dressings x 2 to medial and distal thigh CDI, CSM checks intact RLE Skin: no rashes, warm and dry Neurologic: awake, alert, oriented, answers appropriately, moves extremities Psychiatric: A+Ox3, euthymic affect Discharge Data Allergies Allergy/AdvReac Type Severity Reaction Status Date / Time shellfish derived Allergy Severe convulsions Verified 01/16/22 09:17 Potassium Chromate Allergy Severe RASH Uncoded 01/16/22 09:17 Consultations 09/17/22 17:31 ED Decision to Admit Stat 09/17/22 20:42 Consult Anesthesiology Routine Consult Orthopedic Surgery Routine Procedures Performed Operation Date: 09/18/22 09:20 Actual Procedures p Right Hip Closed Reduction and Internal Fixation(Right) - Agustin Liang MD Ordered Studies 09/17/22 16:21 CT cervical spine wo con Stat FINDINGS: Demineralized appearance of the bones. Degenerative bony fusion of the right C3-C4 facets. Severe multilevel facet arthrosis. No acute cervical spine fracture or subluxation. Evaluation of the central canal and neuroforamina is better assessed by MRI. Multilevel foraminal narrowing is noted. There is no definite high-grade central canal stenosis. Right mastoid effusion. The left mastoid air cells are clear. Lung apices are clear without pneumothorax. No prevertebral soft tissue swelling. Calcified plaque of the internal carotid ar teries. IMPRESSION: No acute cervical spine fracture or subluxation. CT head/brain wo con Stat FINDINGS: No acute intracranial hemorrhage, midline shift, intracranial mass, hydrocephalus, territorial ischemia or abnormal extra-axial collection. Involutional changes with chronic microvascular ischemic disease. The calvarium is intact. Small right mastoid effusion. Moderate mucosal thickening with air-fluid level of the right sphenoid sinus. Small right parieto-occipital scalp contusion. Prior bilateral lens repair with left-sided scleral banding. IMPRESSION: 1. No acute intracranial abnormality or calvarial fracture. 2. Small posterior scalp contusion. 3. Right mastoid effusion. 09/18/22 FL hip RT 2-3V Routine 09/20/22 11:32 CT head/brain wo con Urgent Hospital Course (1) Femur fracture, right: Patient is 82-year-old male with PMH HTN, HLD, hypothyroidism, BPH, AAA, chronic anemia presented to ER with complaint of mechanical fall and right hip pain. CT head:No acute intracranial abnormality or calvarial fracture. Small posterior scalp contusion. CT C-spine: No acute fracture CXR: No acute process Right hip x-ray: Acute, mildly angulated, displaced and impacted intratrochanteric fracture of the right femur Revised cardiac risk index: Class 1 risk: 3.9% 30-day risk of /PR/cardiac arrest. No h/o CAD, CHF, CVA, DM, or CKD POD#3 Right Hip Peritrochanteric fracture Closed Reduction and Internal Fixation With long trochanteric fixation Cephalomedullary nail(Right) by Dr. Liang vitamin D level low - start 50,000 units weekly Activity and wound care orders as per ortho Pain control with bowel regimen PT/OT Postop acute blood loss anemia Hgb ~ 9.0 (preop 11.7) No indication for transfusion Continue to monitor CBC cont. iron supplement. (2) Hypotension: (3) Bradycardia: Hypotensive after surgery with BP 92/55, HR in the 50s Likely due to anesthesia and/for pain medications Patient reports chronic intermittent dizziness and lightheadedness (also reports hx of such). PT also contacted for poss. BPPV. received IVF Check EKG - sinus bradycardia, 1st degree AV block Vertigo/ dizziness Patient reports chronic intermittent dizziness and lightheadedness (also reports hx of such). PT also contacted for poss. BPPV. repeat CT head also ordered yesterday, pt declined 09/21 Today denies any symptoms, no dizziness, no vertigo, no headache (pt never head headache) (4) Hyperlipidemia: Continue simvastatin (5) Chronic anemia: Hgb: 11.5. Hgb 13 in 11/2018. No other more recent CBC records could be found Monitor H&H (6) Hypothyroid: Continue levothyroxine (7) BPH with obstruction/lower urinary tract symptoms: Continue dutasteride DVT Prophylaxis ASA 81 mg BID as per Ortho (for 6 weeks) Dispo: plan to DC to [facility] Total Time Total Time Spent Total Time Spent (In Minutes): 40 Discharge Plan Discharge Items Patient Disposition: Transfer Inpatient Rehab Fac Reason For Visit: FEMUR FRACTURE Discharge Diagnosis: Intertrochanteric fracture of right femur Activity: Per Instructions section Non-emergency contact: Primary Care Provider and Surgeon Call non-emergency contact if: you have any medication questions and your symptoms worsen Follow-up/Referrals: Agustin Liang MD [Surgeon] - Britt Bliss [Primary Care Provider] - Diet: Gluten Free Addtl Attending Provider Instructions: Follow-up with primary care doctor, and orthopedic surgery. You should follow-up with primary care physician within 1 week, and with orthopedic surgery in 2 weeks. Please review detailed instructions from orthopedic surgeon below. Continue taking iron for anemia. Take aspirin twice a day for DVT prophylaxis, for 6 weeks, after surgery. Recommend to check hemoglobin level in the next 3 to 5 days. For pain, you can take Tylenol, and for more severe pain, you can take oxycodone, as prescribed, as needed. Orthopaedic Instructions after Hip Fracture Surgery: Please keep your wound clean and dry. Do not remove any of the paty. Paty were removed at your follow-up appointment with orthopedic surgery. Please continue daily dressing changes until your follow-up appointment. If there is no drainage onto the dressing for total of 24 hours, you may shower after 5 days from surgery. Allow soap and water to run over the incision, no scrubbing, and pat dry. Do not submerse (sitting in bathtub, hot tub, jacuzzi, pool, etc) the wound for at least 3 weeks. You may bear weight on your lower extremities as tolerated. Please use the walker or as instructed by physical therapy. For pain control please use Tylenol as needed. You may also have a stronger pain medication prescribed to you at discharge. You can also apply ice to the surgical site. To reduce the risk of dangerous blood clots please continue aspirin daily or the medication for blood clots recommended by your medical team. Orthopedic clinic follow-up should be in 2-3 weeks after surgery for repeat x- ray. [place] can be removed at the orthopedic follow-up. If necessary, paty can be removed by a nurse at home or at a nursing facility upon our order. Please contact the clinic. Pending Studies at Discharge: No Stand-Alone Forms: [facility] Skilled Items Patient informed of condition?: Yes DNR: Yes Discharge Level of Care: Acute rehab Communicable Disease: No Discharge Prognosis: Other Lines: None Urinary Catheter: No Medications and DC Order Prescriptions: New ergocalciferol (vitamin D2) 1,250 mcg (50,000 unit) Capsule 50,000 unit PO Q7D Qty: 4 0RF sennosides-docusate sodium [Senokot-S] 8.6-50 mg Tablet 2 tab PO HS Qty: 10 0RF ferrous sulfate 325 mg (65 mg iron) Tablet,Delayed Release (Dr/Ec) 325 mg PO BIDM Qty: 30 0RF aspirin 81 mg Tablet,Delayed Release (Dr/Ec) 81 mg PO BID Qty: 60 0RF oxycodone 5 mg Tablet 5 mg PO Q4H PRN (Reason: pain) Qty: 7 0RF Continued cholecalciferol (vitamin D3) 50 mcg (2,000 unit) capsule 2,000 unit PO DAILY dutasteride 0.5 mg capsule 0.5 mg PO DAILY Qty: 90 3RF multivitamin Tablet 1 tab PO QAM nystatin-triamcinolone 100,000-0.1 unit/gram-% ointment 1 applic topical DAILY PRN (Reason: Skin Irritation) levothyroxine 88 mcg tablet 88 mcg PO QAM omeprazole 40 mg capsule,delayed release(DR/EC) 40 mg PO BID simvastatin 5 mg tablet 5 mg PO QPM trazodone 100 mg tablet 100 mg PO HS Discontinued aspirin 81 mg Tablet,Delayed Release (Dr/Ec) 81 mg PO QPM Discharge Orders: Discharge Order (Routine); Ordered 09/21/22 Ordered By: Jerrod Fink Admission Data Admit Date/Time: 09/17/22 18:02 Attending Provider: Jerrod Fink Admit Provider: Margarito Nickerson Primary Care Provider: Britt Bliss Other Providers: [facility] ; Margarito Nickerson ; Yariel Parada ; Agustin Liang
== END 2022-09-21 12:37 | DRG 481 ==
LOC: ED 16:07 → SUATTDRO 18:02 → 3N 18:02

== ENCOUNTER 2022-10-08 21:26 | Inpatient (IN) ==
[2022-10-08] MEDS ORDERED: SODIUM CHLORIDE 0.9% 1000ML 1,000 ML IV SCH (22:15)
--- NOTE | 2022-10-08 22:22 | Emergency Department Note ---
History of Present Illness General Chief complaint: Weakness Stated complaint: WEAKNESS, FEVER THIS AM Time Seen by Provider: 10/08/22 22:01 History of Present Illness This 82-year-old gentleman who had femur surgery earlier this month and just released from [facility] presents to the ER for fever, increased confusion and urinary incontinence today. Family states he had a low-grade fever of 101. They gave Tylenol at 5:30 PM. Patient denies chest pain, dyspnea, abdominal pain, vomiting, diarrhea, cough, congestion. Incisional site is healing well per patient and family. Patient is able to follow commands and answer questions. Family states he seems more lucid now than he did earlier. Home Medications Medication Instructions Recorded Confirmed Type multivitamin 1 tab PO QAM 12/05/18 10/08/22 History nystatin-triamcinolone 100,000 1 applic topical DAILY PRN Skin 12/05/18 10/08/22 History unit/gram-0.1 % topical ointment Irritation levothyroxine 88 mcg tablet 88 mcg PO QAM 02/18/19 10/08/22 History cholecalciferol (vitamin D3) 50 2,000 unit PO DAILY 07/05/19 10/08/22 History mcg (2,000 unit) capsule dutasteride 0.5 mg capsule 0.5 mg PO DAILY #90 caps 01/16/22 10/08/22 Rx omeprazole 40 mg capsule,delayed 40 mg PO BID 09/17/22 10/08/22 History release simvastatin 5 mg tablet 5 mg PO QPM 09/17/22 10/08/22 History trazodone 100 mg tablet 100 mg PO HS 09/17/22 10/08/22 History aspirin 81 mg tablet,delayed 81 mg PO BID #60 tabs 09/21/22 10/08/22 Rx release ergocalciferol (vitamin D2) 1,250 50,000 unit PO Q7D #4 caps 09/21/22 10/08/22 Rx mcg (50,000 unit) capsule ferrous sulfate 325 mg (65 mg 325 mg PO BIDM #30 tabs 09/21/22 10/08/22 Rx iron) tablet,delayed release acetaminophen 500 mg tablet 1,000 mg PO Q8 10/08/22 10/08/22 History (Tylenol Extra Strength) Allergies Allergy/AdvReac Type Severity Reaction Status Date / Time shellfish derived Allergy Severe convulsions Verified 10/08/22 22:48 Potassium Chromate Allergy Severe RASH Uncoded 10/08/22 22:48 Past Med/Surg History Medical History Bowel obstruction (03/02/14) BPH with obstruction/lower urinary tract symptoms Cataract Chronic anemia Hyperlipidemia Hypertension Hypothyroid Retinal detachment S/P hernia repair Surgical History H/O exploratory laparotomy History of bladder surgery History of hip surgery Hx of cataract surgery Hx of cholecystectomy S/P cataract surgery S/p small bowel obstruction Family History Father Cancer Brother Colorectal cancer Other No significant family history Social History Smoking Status: Never smoker Second Hand Exposure: No; Do You Dip or Chew Tobacco: No; Hx Alcohol Use: No Hx Substance Use: No Preferred Language: Dutch Communication Ability: Effective Bank Runner Required: No Beliefs That Will Affect Care: None marital status: Current Living Situation: Spouse current occupational status: retired Feels Safe at Home: Yes Assistive Devices: Cane Review of Systems A total of 10 systems reviewed and were otherwise negative Physical Exam Vital Signs Vital Signs - 24 hr 10/08/22 21:40 10/08/22 21:40 10/08/22 22:14 Temperature 37.3 C Temperature Source Oral Pulse Rate 78 85 Pulse Rate [Apical] Respiratory Rate 16 Respiratory Effort / Characteristics Non-Labored Respiratory Depth Normal Blood Pressure 113/62 Blood Pressure [Left Arm] Blood Pressure Mean 79 Blood Pressure Mean [Left Arm] Pulse Oximetry 92 Oxygen Delivery Method Room Air Room Air Sepsis Recent Fever Within 48 Hours Yes Sepsis New/Unexplained Change in Mental Status No Sepsis Action Taken by Nursing No Action Required 10/08/22 23:55 10/08/22 23:55 10/09/22 00:03 Temperature Temperature Source Pulse Rate Pulse Rate [Apical] 63 65 Respiratory Rate 19 19 Respiratory Effort / Characteristics Respiratory Depth Blood Pressure Blood Pressure [Left Arm] 122/71 Blood Pressure Mean Blood Pressure Mean [Left Arm] 88 Pulse Oximetry 92 92 Oxygen Delivery Method Room Air Room Air Room Air Sepsis Recent Fever Within 48 Hours Sepsis New/Unexplained Change in Mental Status Sepsis Action Taken by Nursing 10/09/22 00:23 10/09/22 01:24 10/09/22 01:51 Temperature Temperature Source Pulse Rate Pulse Rate [Apical] 74 61 64 Respiratory Rate 19 19 19 Respiratory Effort / Characteristics Non-Labored Non-Labored Respiratory Depth Normal Normal Blood Pressure Blood Pressure [Left Arm] 122/71 121/71 Blood Pressure Mean Blood Pressure Mean [Left Arm] 88 87 Pulse Oximetry 91 94 94 Oxygen Delivery Method Room Air Room Air Room Air Sepsis Recent Fever Within 48 Hours Sepsis New/Unexplained Change in Mental Status Sepsis Action Taken by Nursing 10/09/22 02:39 Temperature Temperature Source Pulse Rate 61 Pulse Rate [Apical] Respiratory Rate Respiratory Effort / Characteristics Respiratory Depth Blood Pressure Blood Pressure [Left Arm] Blood Pressure Mean Blood Pressure Mean [Left Arm] Pulse Oximetry Oxygen Delivery Method Sepsis Recent Fever Within 48 Hours Sepsis New/Unexplained Change in Mental Status Sepsis Action Taken by Nursing VITALS: Vitals are noted on the nurse's note and reviewed by myself. Vital signs temperature 99.1. GENERAL: Pleasant gentleman answering questions and following commands appro priately, in no acute distress, nondiaphoretic, well-developed well-nourished. SKIN: The skin was without rashes, erythema, edema, or bruising. There is no tenting of the skin. Capillary reflex less than 2 seconds. HEAD: Normocephalic atraumatic. EARS: External auditory canals clear, tympanic membranes pearly torres without erythema or effusion bilaterally. EYES: Pupils equal round and reactive to light and accommodation. Conjunctivae without injection, sclerae without icterus. Extraocular movements intact. NOSE: Patent, turbinates without inflammation or discharge. No sinus tenderness. MOUTH: Mucous membranes moist. Pharynx without erythema or exudate. Uvula midline. Airway patent. Tongue does not deviate. NECK: Supple without nuchal rigidity. No lymphadenopathy. No thyromegaly. Cervical spine is nontender. No JVD. HEART: Regular rate and rhythm LUNGS: Clear to auscultation bilaterally without wheezes, rales or rhonchi. No retractions or accessory muscle use. ABDOMEN: Positive bowel sounds x 4. Normal tympanic percussion. Soft, nontender, without masses or organomegaly. Xavier sign negative. No guarding or rebound tenderness. No CVA tenderness MUSCULOSKELETAL: No muscle atrophy, erythema, or edema noted. Right thigh with incisional sites intact without signs of infection. NEURO: Patient was alert and oriented to person place and time. Normal sensatio n to light and sharp touch. No focal neurological deficits. Course Administered Medications Potassium Chloride/Sodium Chloride (Normal Saline W/20 Meq Kcl) 20 meq in 1,000 mls @ 60 mls/hr IV .[id number] STA; Protocol Stop: 10/09/22 18:05 Last Admin: 10/09/22 01:50 Dose: 60 mls/hr Documented By: Discontinued Medications Sodium Chloride (Nss 1000ml) 1,000 mls @ 999 mls/hr IV .[id number] DANIELLA Stop: 10/08/22 23:15 Last Infusion: 10/09/22 00:32 Dose: 0 mls/hr Documented By: Infusion: 10/08/22 23:42 Dose: 999 mls/hr Documented By: Admin: 10/08/22 22:41 Dose: 999 mls/hr Documented By: Piperacillin Sod/Tazobactam Sod (Zosyn) 4.5 gm in 120 mls @ 240 mls/hr IV NOW ONE Stop: 10/09/22 01:27 Last Infusion: 10/09/22 01:37 Dose: 0 mls/hr Documented By: Admin: 10/09/22 01:07 Dose: 240 mls/hr Documented By: Medical Decision Making Medical Records Attestation: I reviewed the patient's medical records. Home Medications Current Medication List: was personally reviewed by me Laboratory Data Attestation: I reviewed the patient's lab results. 10/08/22 22:19 10/08/22 22:19 Lab Results 10/08/22 10/08/22 10/08/22 Range/Units 22:19 22:19 22:19 WBC 4.66 L (4.8-10.8) K/ul RBC 2.98 L (4.70-6.10) M/uL Hgb 9.4 L (14.0-18.0) g/dl Hct 28.5 L (42.0-52.0) % MCV 95.6 (80.0-100.0) fL MCH 31.5 (25.0-34.0) pg MCHC 33.0 (32.0-36.0) g/dL RDW Std Deviation 55.0 H (36.4-46.3) fL RDW Coeff of Dinorah 15.7 H (11.5-14.5) % Plt Count 221 (130-400) K/uL MPV 9.0 L (9.4-12.4) fL Immature Gran % (Auto) 0.6 % Neut % (Auto) 53.1 % Lymph % (Auto) 31.8 % Clare % (Auto) 13.9 % Eos % (Auto) 0.4 % Baso % (Auto) 0.2 % Neut # (Auto) 2.47 (1.40-6.50) K/uL Lymph # (Auto) 1.48 (1.2-3.4) K/uL Clare # (Auto) 0.65 H (0.11-0.59) K/uL Eos # (Auto) 0.02 (0-0.50) K/uL Baso # (Auto) 0.01 (0-0.2) K/uL Immature Gran # (Auto) 0.03 (0.01-0.20) K/uL Sodium 135 L (136-145) mmol/L Potassium 3.8 (3.5-5.1) mmol/L Chloride 106 (98-107) mmol/L Carbon Dioxide 24 (21-32) mmol/L Anion Gap 5 (3-11) BUN 17 (6-23) mg/dl Creatinine 0.87 (0.6-1.4) mg/dl Est Cr Clr Drug Dosing 61.6 ml/min Est GFR ( Amer) 92.5 ml/min Est GFR (Non-Af Amer) 79.8 ml/min BUN/Creatinine Ratio 19.5 (10-20) Glucose 110 H (70-99(Fasting)) mg/dl Lactate 1.1 (0.4-2.0) mmol/L Calcium 8.5 L (8.6-10.3) mg/dl Magnesium 1.8 (1.7-2.4) mg/dl Total Bilirubin 0.5 (0.2-1.0) mg/dl Direct Bilirubin 0.1 (0-0.2) mg/dl AST 21 (13-39) U/L ALT 14 (7-52) U/L Alkaline Phosphatase 210 H (34-104) U/L Troponin I High Sens 19.4 (0-20) pg/ml Total Protein 5.6 L (6.0-8.3) gm/dl Albumin 3.1 L (3.4-5.0) gm/dl Procalcitonin (0-0.5) ng/ml TSH (0.300-4.500) uIu/ml Urine Color Urine Appearance (Clear) Urine pH (4.5-7.5) Ur Specific Peninsula (1.000-1.030) Urine Protein (Negative) Urine Glucose (UA) (Negative) Urine Ketones (Negative) Urine Blood (Negative) Urine Nitrite (Negative) Urine Bilirubin (Negative) Urine Urobilinogen (Negative) Ur Leukocyte Esterase (Negative) Urine RBC (0-4) /hpf Urine WBC (0-5) /hpf Ur Epithelial Cells (0-5) /lpf Urine Bacteria (Negative) Urine Mucus (None Prsent) Adenovirus (PCR) (NotDetected) Anaplasma Smear See Comment Babesia Smear See Comment B. pertussis DNA (PCR) (NotDetected) B.parapertussis DNA PCR (NotDetected) C. pneumoniae DNA (PCR) (NotDetected) Coronavirus OC43 (PCR) (NotDetected) Coronavirus HKU1 (PCR) (NotDetected) Coronavirus 229E (PCR) (NotDetected) SARS-CoV-2 (PCR) (Negative) Coronavirus NL63 (PCR) (NotDetected) Human Metapneumovir PCR (NotDetected) Influenza Type A (PCR) (Neg) Influenza Type B (PCR) (Neg) M. pneumoniae (PCR) (NotDetected) Parainfluenza 1 (PCR) (NotDetected) Parainfluenza 2 (PCR) (NotDetected) Parainfluenza 3 (PCR) (NotDetected) Parainfluenza 4 (PCR) (NotDetected) RSV (RT-PCR) (Neg) RSV (PCR) (NotDetected) Entero/Rhino (PCR) (NotDetected) 10/08/22 10/08/22 10/08/22 Range/Units 22:19 22:19 23:10 WBC (4.8-10.8) K/ul RBC (4.70-6.10) M/uL Hgb (14.0-18.0) g/dl Hct (42.0-52.0) % MCV (80.0-100.0) fL MCH (25.0-34.0) pg MCHC (32.0-36.0) g/dL RDW Std Deviation (36.4-46.3) fL RDW Coeff of Dinorah (11.5-14.5) % Plt Count (130-400) K/uL MPV (9.4-12.4) fL Immature Gran % (Auto) % Neut % (Auto) % Lymph % (Auto) % Clare % (Auto) % Eos % (Auto) % Baso % (Auto) % Neut # (Auto) (1.40-6.50) K/uL Lymph # (Auto) (1.2-3.4) K/uL Clare # (Auto) (0.11-0.59) K/uL Eos # (Auto) (0-0.50) K/uL Baso # (Auto) (0-0.2) K/uL Immature Gran # (Auto) (0.01-0.20) K/uL Sodium (136-145) mmol/L Potassium (3.5-5.1) mmol/L Chloride (98-107) mmol/L Carbon Dioxide (21-32) mmol/L Anion Gap (3-11) BUN (6-23) mg/dl Creatinine (0.6-1.4) mg/dl Est Cr Clr Drug Dosing ml/min Est GFR ( Amer) ml/min Est GFR (Non-Af Amer) ml/min BUN/Creatinine Ratio (10-20) Glucose (70-99(Fasting)) mg/dl Lactate (0.4-2.0) mmol/L Calcium (8.6-10.3) mg/dl Magnesium (1.7-2.4) mg/dl Total Bilirubin (0.2-1.0) mg/dl Direct Bilirubin (0-0.2) mg/dl AST (13-39) U/L ALT (7-52) U/L Alkaline Phosphatase (34-104) U/L Troponin I High Sens (0-20) pg/ml Total Protein (6.0-8.3) gm/dl Albumin (3.4-5.0) gm/dl Procalcitonin 0.07 (0-0.5) ng/ml TSH 1.392 (0.300-4.500) uIu/ml Urine Color Urine Appearance (Clear) Urine pH (4.5-7.5) Ur Specific Peninsula (1.000-1.030) Urine Protein (Negative) Urine Glucose (UA) (Negative) Urine Ketones (Negative) Urine Blood (Negative) Urine Nitrite (Negative) Urine Bilirubin (Negative) Urine Urobilinogen (Negative) Ur Leukocyte Esterase (Negative) Urine RBC (0-4) /hpf Urine WBC (0-5) /hpf Ur Epithelial Cells (0-5) /lpf Urine Bacteria (Negative) Urine Mucus (None Prsent) Adenovirus (PCR) (NotDetected) Anaplasma Smear Babesia Smear B. pertussis DNA (PCR) (NotDetected) B.parapertussis DNA PCR (NotDetected) C. pneumoniae DNA (PCR) (NotDetected) Coronavirus OC43 (PCR) (NotDetected) Coronavirus HKU1 (PCR) (NotDetected) Coronavirus 229E (PCR) (NotDetected) SARS-CoV-2 (PCR) NEGATIVE (Negative) Coronavirus NL63 (PCR) (NotDetected) Human Metapneumovir PCR (NotDetected) Influenza Type A (PCR) Negative (Neg) Influenza Type B (PCR) Negative (Neg) M. pneumoniae (PCR) (NotDetected) Parainfluenza 1 (PCR) (NotDetected) Parainfluenza 2 (PCR) (NotDetected) Parainfluenza 3 (PCR) (NotDetected) Parainfluenza 4 (PCR) (NotDetected) RSV (RT-PCR) Negative (Neg) RSV (PCR) (NotDetected) Entero/Rhino (PCR) (NotDetected) 10/08/22 10/08/22 Range/Units 23:50 23:51 WBC (4.8-10.8) K/ul RBC (4.70-6.10) M/uL Hgb (14.0-18.0) g/dl Hct (42.0-52.0) % MCV (80.0-100.0) fL MCH (25.0-34.0) pg MCHC (32.0-36.0) g/dL RDW Std Deviation (36.4-46.3) fL RDW Coeff of Dinorah (11.5-14.5) % Plt Count (130-400) K/uL MPV (9.4-12.4) fL Immature Gran % (Auto) % Neut % (Auto) % Lymph % (Auto) % Clare % (Auto) % Eos % (Auto) % Baso % (Auto) % Neut # (Auto) (1.40-6.50) K/uL Lymph # (Auto) (1.2-3.4) K/uL Clare # (Auto) (0.11-0.59) K/uL Eos # (Auto) (0-0.50) K/uL Baso # (Auto) (0-0.2) K/uL Immature Gran # (Auto) (0.01-0.20) K/uL Sodium (136-145) mmol/L Potassium (3.5-5.1) mmol/L Chloride (98-107) mmol/L Carbon Dioxide (21-32) mmol/L Anion Gap (3-11) BUN (6-23) mg/dl Creatinine (0.6-1.4) mg/dl Est Cr Clr Drug Dosing ml/min Est GFR ( Amer) ml/min Est GFR (Non-Af Amer) ml/min BUN/Creatinine Ratio (10-20) Glucose (70-99(Fasting)) mg/dl Lactate (0.4-2.0) mmol/L Calcium (8.6-10.3) mg/dl Magnesium (1.7-2.4) mg/dl Total Bilirubin (0.2-1.0) mg/dl Direct Bilirubin (0-0.2) mg/dl AST (13-39) U/L ALT (7-52) U/L Alkaline Phosphatase (34-104) U/L Troponin I High Sens (0-20) pg/ml Total Protein (6.0-8.3) gm/dl Albumin (3.4-5.0) gm/dl Procalcitonin (0-0.5) ng/ml TSH (0.300-4.500) uIu/ml Urine Color Yellow Urine Appearance Clear (Clear) Urine pH 5.0 (4.5-7.5) Ur Specific Peninsula 1.025 (1.000-1.030) Urine Protein 1+ H (Negative) Urine Glucose (UA) Negative (Negative) Urine Ketones Negative (Negative) Urine Blood Trace-lysed H (Negative) Urine Nitrite Negative (Negative) Urine Bilirubin Negative (Negative) Urine Urobilinogen Negative (Negative) Ur Leukocyte Esterase Negative (Negative) Urine RBC 0-4 (0-4) /hpf Urine WBC 5-10 H (0-5) /hpf Ur Epithelial Cells 0-5 (0-5) /lpf Urine Bacteria Negative (Negative) Urine Mucus Present A (None Prsent) Adenovirus (PCR) Not Detected (NotDetected) Anaplasma Smear Babesia Smear B. pertussis DNA (PCR) Not Detected (NotDetected) B.parapertussis DNA PCR Not Detected (NotDetected) C. pneumoniae DNA (PCR) Not Detected (NotDetected) Coronavirus OC43 (PCR) Not Detected (NotDetected) Coronavirus HKU1 (PCR) Not Detected (NotDetected) Coronavirus 229E (PCR) Not Detected (NotDetected) SARS-CoV-2 (PCR) Not Detected (Negative) Coronavirus NL63 (PCR) Not Detected (NotDetected) Human Metapneumovir PCR Not Detected (NotDetected) Influenza Type A (PCR) Not Detected (Neg) Influenza Type B (PCR) Not Detected (Neg) M. pneumoniae (PCR) Not Detected (NotDetected) Parainfluenza 1 (PCR) Not Detected (NotDetected) Parainfluenza 2 (PCR) Not Detected (NotDetected) Parainfluenza 3 (PCR) Not Detected (NotDetected) Parainfluenza 4 (PCR) Not Detected (NotDetected) RSV (RT-PCR) (Neg) RSV (PCR) Not Detected (NotDetected) Entero/Rhino (PCR) Not Detected (NotDetected) Imaging Data Attestation: I personally reviewed and interpreted this imaging study as follows: Radiologist's Impression: Head CT 10/08/22 22:12 Exam(s): CT HEAD Without Contrast EXAM: CT Head Without Intravenous Contrast CLINICAL HISTORY: Reason for exam: ams, fever. TECHNIQUE: Axial computed tomography images of the head/brain without intravenous contrast. CTDI is 38.03 mGy and DLP is 625.8 mGy-cm. Automated exposure control was utilized for the study. A dose lowering technique was utilized adhering to the principles of ALARA. COMPARISON: No relevant prior studies available. FINDINGS: No acute intracranial hemorrhage. No midline shift or mass effect. The territorial torres-white matter differentiation is maintained throughout. Age-related cerebral volume loss. Periventricular and subcortical white matter hypoattenuation, consistent with chronic microangiopathy. Left eye scleral banding. The calvarium is intact. The visualized paranasal sinuses and mastoid air cells are grossly clear. IMPRESSION: No acute intracranial hemorrhage, midline shift, or mass effect. Electronically signed by: Dayne Nguyen MD 10/08/22 23:57 PM MDM Narrative Prior records/ancillary studies reviewed. Triage Nursing notes reviewed. Additional history obtained from family. The patient's history was concerning for fever urinary incontinence and confusion. Differential diagnosis: Etiologies such as sepsis, UTI, pneumonia, metabolic, electrolyte abnormalities, cardiac sources, intracerebral event, toxicologic, neurologic, as well as others were entertained. Physical examination: As above. Pertinent findings were low-grade fever. Vital signs reviewed and revealed low-grade fever. ER treatment provided: IV fluid resuscitation with Normal saline solution, IV fluids Blood and urine cultures Antibiotics: Zosyn for possible infection An order was placed for continuous cardiac monitoring. The monitor shows a rate of 60-100 with a sinus rhythm per my interpretation. On reassessment the patient vital signs improved. Diagnostics interpretation by me: ECG: Ordered for weakness EKG: First-degree AV block, normal sinus, left anterior fascicular block, rate of 73. Q waves in the inferior leads. Impression right bundle branch block with left anterior fascicular block Q waves in inferior leads independently interpreted by myself The labs Independently Interpreted by myself revealed no worrisome leukocytosis on CBC. Chemistry panel revealed hyperglycemia without DKA. LFTs revealed. Cardiac enzymes were negative. Serum Lactate measurement was 1.1. Blood and urine cultures are pending. Imaging studies: Chest xray revealed with no acute consolidation, pneumothorax or free air per my independent interpretation. Head CT negative for intracranial bleed per my independent interpretation. Radiology report as above was reviewed Consultation: A consultation was placed with the hospitalist. The case was discussed and diagnostics were reviewed. The patient was evaluated in the ER for further treatment. Exam and history seem consistent with altered mental status with fever with unclear etiology. This could be viral. I did assume this would be a urine infection since he was incontinent but urinalysis is not overly convincing. CAT scan was negative. X-ray was clear. Labs and diagnostics were independently interpreted by myself. No prior urine culture for review. Prior admission notes were reviewed. Case was discussed with the hospitalist. Patient admitted to the hospitalist team. Family and patient are agreeable. The chart was completed utilizing [employer] voice recognition software. Grammatical errors, random word insertions, pronoun errors, and incomplete sentences are an occassional consequence of this system due to software limitations, ambient noise, and hardware issues. Any formal questions or concerns about the content, text, or information contained within the body of this dictation should be directly addressed to the physician field research assistant for clarification. Impression & Plan AMS (altered mental status), Fever Discharge Plan Visit Data Chief Complaint: Weakness Stated Complaint: WEAKNESS, FEVER THIS AM ED Provider: Mo [facility] ED Midlevel Provider: Ceci Marques Discharge Problem: AMS (altered mental status), Fever Patient Disposition: Admitted As Inpatient Condition: Fair Forms Stand Alone Forms: My [facility] Prescriptions Prescriptions: No Action cholecalciferol (vitamin D3) 50 mcg (2,000 unit) capsule 2,000 unit PO DAILY dutasteride 0.5 mg capsule 0.5 mg PO DAILY Qty: 90 3RF multivitamin Tablet 1 tab PO QAM nystatin-triamcinolone 100,000-0.1 unit/gram-% ointment 1 applic topical DAILY PRN (Reason: Skin Irritation) levothyroxine 88 mcg tablet 88 mcg PO QAM omeprazole 40 mg capsule,delayed release(DR/EC) 40 mg PO BID simvastatin 5 mg tablet 5 mg PO QPM trazodone 100 mg tablet 100 mg PO HS ergocalciferol (vitamin D2) 1,250 mcg (50,000 unit) Capsule 50,000 unit PO Q7D Qty: 4 0RF ferrous sulfate 325 mg (65 mg iron) Tablet,Delayed Release (Dr/Ec) 325 mg PO BIDM Qty: 30 0RF aspirin 81 mg Tablet,Delayed Release (Dr/Ec) 81 mg PO BID Qty: 60 0RF acetaminophen [Tylenol Extra Strength] 500 mg Tablet 1,000 mg PO Q8 Referrals Referrals: Britt Bliss [Primary Care Provider] - AMS (altered mental status) Qualifiers: Altered mental status type: unspecified Qualified Code(s): R41.82 - Altered mental status, unspecified
[2022-10-08 23:01] LABS: Basophils # (auto) 0.01 K/uL (0-0.2); Basophils % (auto) 0.2 %; Eosinophils # (auto) 0.02 K/uL (0-0.50); Eosinophils % (auto) 0.4 %; Hematocrit (blood only) 28.5 % (42.0-52.0); Hemoglobin 9.4 g/dl (14.0-18.0); Immature Granulocytes # (auto) 0.03 K/uL (0.01-0.20); Immature Granulocytes % (auto) 0.6 %; Lymphocytes # (auto) 1.48 K/uL (1.2-3.4); Lymphocytes % (auto) 31.8 %; Mean Corpuscular Hemoglobin 31.5 pg (25.0-34.0); Mean Corpuscular Volume 95.6 fL (80.0-100.0); Monocytes # (auto) 0.65 K/uL (0.11-0.59); Monocytes % (auto) 13.9 %; Neutrophils # (auto) 2.47 K/uL (1.40-6.50); Neutrophils % (auto) 53.1 %; Platelet Count 221 K/uL (130-400); RDW Coefficient of Variation 15.7 % (11.5-14.5); Red Blood Count 2.98 M/uL (4.70-6.10); White Blood Count 4.66 K/ul (4.8-10.8)
[2022-10-08 23:18] LABS: Albumin Level 3.1 gm/dl (3.4-5.0); BUN Creatinine Ratio 19.5 (10-20); Bilirubin Direct 0.1 mg/dl (0-0.2); Bilirubin,Total 0.5 mg/dl (0.2-1.0); Calcium 8.5 mg/dl (8.6-10.3); Creatinine Clr Calc Pharmacy 61.6 ml/min; Est GFR (African American) 92.5 ml/min; Est GFR (Non-African American) 79.8 ml/min; Magnesium 1.8 mg/dl (1.7-2.4); Potassium 3.8 mmol/L (3.5-5.1); Total Protein 5.6 gm/dl (6.0-8.3)
[2022-10-08 23:24] LABS: Troponin I High Sensitivity 19.4 pg/ml (0-20)
--- NOTE | 2022-10-08 23:58 | CT Scan Report ---
Exam(s): CT HEAD Without Contrast EXAM: CT Head Without Intravenous Contrast CLINICAL HISTORY: Reason for exam: ams, fever. TECHNIQUE: Axial computed tomography images of the head/brain without intravenous contrast. CTDI is 38.03 mGy and DLP is 625.8 mGy-cm. Automated exposure control was utilized for the study. A dose lowering technique was utilized adhering to the principles of ALARA. COMPARISON: No relevant prior studies available. FINDINGS: No acute intracranial hemorrhage. No midline shift or mass effect. The territorial torres-white matter differentiation is maintained throughout. Age-related cerebral volume loss. Periventricular and subcortical white matter hypoattenuation, consistent with chronic microangiopathy. Left eye scleral banding. The calvarium is intact. The visualized paranasal sinuses and mastoid air cells are grossly clear. IMPRESSION: No acute intracranial hemorrhage, midline shift, or mass effect. Electronically signed by: Dayne Nguyen MD 10/08/22 23:57 PM
[2022-10-09 00:25] LABS: Appearance Urine Clear (Clear); Bilirubin Urine Negative (Negative); Blood Urine Trace-lysed (Negative); Color Urine Yellow; Glucose Urine UA Negative (Negative); Ketones Urine Negative (Negative); Leukocyte Esterase Urine Negative (Negative); Nitrite Urine Negative (Negative); Protein Urine 1+ (Negative); Specific Gravity Urine 1.025 (1.000-1.030); Urobilinogen Urine Negative (Negative)
[2022-10-09 00:35] LABS: Influenza A virus by PCR Negative (Neg); Influenza B virus by PCR Negative (Neg); RSV by PCR Negative (Neg); SARS CoV2 RNA(COVID-19) Ceph NEGATIVE (Negative)
[2022-10-09 00:42] LABS: Bacteria Urine Negative (Negative); Epithelial Cell Urine 0-5 /lpf (0-5); Mucus Urine Present (None Prsent); RBC Urine 0-4 /hpf (0-4)
[2022-10-09] MEDS ORDERED: PIPERACILLIN/TAZOBACTAM 4.5 GM/120 ML BAG IV ONE (00:58)
[2022-10-09] MEDS ORDERED: NSS + 20MEQ KCL 20 MEQ/1,000 ML BAG IV STA (01:26)
--- NOTE | 2022-10-09 01:51 | Emergency Department Note ---
ED Visit Note I was consulted by the Advanced Practice Provider. I saw the patient personally and performed a substantive portion of the visit. This includes aspects of the HPI, MDM, diagnostic interpretations, and disposition/plan. Patient presents with a fever. He has had recent femur surgery. He did receive IV antibiotic therapy. Hospitalization was felt warranted. .
[2022-10-09 02:55] LABS: Adenovirus PCR Not Detected (NotDetected); Bordetella parapertussis PCR Not Detected (NotDetected); Bordetella pertussis PCR Not Detected (NotDetected); Chlamydia pneumoniae PCR Not Detected (NotDetected); Coronavirus 229E PCR Not Detected (NotDetected); Coronavirus CoV-2 (COVID19)PCR Not Detected (NotDetected); Coronavirus HKU1 PCR Not Detected (NotDetected); Coronavirus NL63 PCR Not Detected (NotDetected); Coronavirus OC43PCR Not Detected (NotDetected); Human Metapneumovirus PCR Not Detected (NotDetected); Influenza A PCR Not Detected (NotDetected); Influenza B PCR Not Detected (NotDetected); Mycoplasma pneumoniae PCR Not Detected (NotDetected); Parainfluenza Virus 1 PCR Not Detected (NotDetected); Parainfluenza Virus 2 PCR Not Detected (NotDetected); Parainfluenza Virus 3 PCR Not Detected (NotDetected); Parainfluenza Virus 4 PCR Not Detected (NotDetected); Respiratory Syncytial VirusPCR Not Detected (NotDetected); Rhinovirus/Enterovirus PCR Not Detected (NotDetected)
--- NOTE | 2022-10-09 03:16 | History & Physical Report ---
Date of Service October 09, 2022 Assessment & Plan (1) AMS (altered mental status): Plan: Transient encephalopathy/generalized weakness Patient mentation back to baseline after initial intervention at the ER Possible viral infection Rule out tickborne infection No sepsis for now. hyperlipidemia, on statin Rx hypothyroidism, euthyroid as of recent TSH recent right femoral fracture surgery Postop anemia, hemoglobin at baseline Hyperglycemia rule out DM OBS GMF tick panel Hold off on antibiotics until definite bacterial source of infection found. Supportive management for presumptive viral illness Check hemoglobin A1c PT OT eval DVT prophylaxis. Aspirin twice daily as per postop Ortho orders Full code Patient requests for to be updated of his progress. Ms. Kim Mancilla, contact #[phone]. Text document was generated using [employer] voice recognition software. It may contain grammatical or spelling errors. Kindly contact undersigned for clarification of any documentation item in question. History of Present Illness Chief Complaint: Weakness Primary Care Provider: Britt Bliss History obtained from patient and records. Medical history significant for hyperlipidemia, hypothyroidism, recent right femoral fracture surgery, chronic anemia (baseline hemoglobin of 11). Recent confinement 3 weeks ago for right femur fracture status post surgery. Hemoglobin noted to be 8-9 at time of discharge. Patient discharged to [facility] facility on aspirin twice daily for postop DVT prophylaxis for 1 month. No concerns on follow-up with orthopedic surgeon last week. Patient discharged home few days ago. Yesterday, patient noted generalized weakness with low-grade fever at home. Patient denies headache, chest pain, cough, SOB, abdominal pain, diarrhea, dysuria symptoms. Patient is noted to be confused and incontinent by family as per records. No witnessed seizures. No unusual right hip pain/drainage. No recollection of recent tick bites although patient admits to ticks at residence. Patient brought to ER for evaluation. IV Zosyn given for possible infection. 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 Allergies Allergy/AdvReac Type Severity Reaction Status Date / Time shellfish derived Allergy Severe convulsions Verified 10/08/22 22:48 Potassium Chromate Allergy Severe RASH Uncoded 10/08/22 22:48 Home Medications Medication Instructions Recorded Confirmed Type multivitamin 1 tab PO QAM 12/05/18 10/08/22 History nystatin-triamcinolone 100,000 1 applic topical DAILY PRN Skin 12/05/18 10/08/22 History unit/gram-0.1 % topical ointment Irritation levothyroxine 88 mcg tablet 88 mcg PO QAM 02/18/19 10/08/22 History cholecalciferol (vitamin D3) 50 2,000 unit PO DAILY 07/05/19 10/08/22 History mcg (2,000 unit) capsule dutasteride 0.5 mg capsule 0.5 mg PO DAILY #90 caps 01/16/22 10/08/22 Rx omeprazole 40 mg capsule,delayed 40 mg PO BID 09/17/22 10/08/22 History release simvastatin 5 mg tablet 5 mg PO QPM 09/17/22 10/08/22 History trazodone 100 mg tablet 100 mg PO HS 09/17/22 10/08/22 History aspirin 81 mg tablet,delayed 81 mg PO BID #60 tabs 09/21/22 10/08/22 Rx release ergocalciferol (vitamin D2) 1,250 50,000 unit PO Q7D #4 caps 09/21/22 10/08/22 Rx mcg (50,000 unit) capsule ferrous sulfate 325 mg (65 mg 325 mg PO BIDM #30 tabs 09/21/22 10/08/22 Rx iron) tablet,delayed release acetaminophen 500 mg tablet 1,000 mg PO Q8 10/08/22 10/08/22 History (Tylenol Extra Strength) Past Med/Surg History Medical History Bowel obstruction (03/02/14) BPH with obstruction/lower urinary tract symptoms Cataract Chronic anemia Hyperlipidemia Hypertension Hypothyroid Retinal detachment S/P hernia repair Surgical History H/O exploratory laparotomy History of bladder surgery History of hip surgery Hx of cataract surgery Hx of cholecystectomy S/P cataract surgery S/p small bowel obstruction Family History Father Cancer Brother Colorectal cancer Other No significant family history Social History Smoking Status: Never smoker Second Hand Exposure: No; Do You Dip or Chew Tobacco: No; Hx Alcohol Use: No Hx Substance Use: No Preferred Language: Mozambican Communication Ability: Effective Electric Motor Winder Required: No Beliefs That Will Affect Care: None marital status: Current Living Situation: Spouse and Family Current Living Situation Comment: lives with spouse and son current occupational status: retired Other Information That Helps Us Care for You: No Feels Safe at Home: Yes Safety Concerns: Feels Safe At This Time Assistive Devices: Walker Review of Systems Review of Systems: As per HPI, all other systems reviewed and negative Physical Exam Physical Exam: GENERAL: Comfortable, pleasant, no respiratory distress SKIN: Pallor, warm HEENT: Pale palpebral conjunctivae, L ptosis (chronic as per patient), dry buccal mucosa NECK : Supple, no tenderness CHEST : CTA, no tenderness HEART : RRR, no obvious murmurs ABDOMEN: Some distention, nontender EXTREMITIES : No LE swelling, minimal right hip tenderness, no other conspicuous deformities noted NEUROLOGIC : Coherent, no facial asymmetry, no other gross focality Results & Data Results & Data Vital Signs (Past 12 Hours) Vital Signs Temp Pulse Pulse Resp BP BP Pulse Ox 10/09/22 02:39 61 10/09/22 01:51 64 19 121/71 94 10/09/22 01:24 61 19 122/71 94 10/09/22 00:23 74 19 91 10/09/22 00:03 65 19 10/08/22 23:55 63 19 122/71 92 10/08/22 23:55 92 10/08/22 22:14 10/08/22 21:40 85 10/08/22 21:40 37.3 C 78 16 113/62 92 O2 Del Method 10/09/22 02:39 10/09/22 01:51 Room Air 10/09/22 01:24 Room Air 10/09/22 00:23 Room Air 10/09/22 00:03 Room Air 10/08/22 23:55 Room Air 10/08/22 23:55 Room Air 10/08/22 22:14 Room Air 10/08/22 21:40 10/08/22 21:40 Room Air Laboratory Results Laboratory Results WBC 4.66 K/ul (4.8-10.8) L 10/08/22 22:19 RBC 2.98 M/uL (4.70-6.10) L 10/08/22 22:19 Hgb 9.4 g/dl (14.0-18.0) L 10/08/22 22:19 Hct 28.5 % (42.0-52.0) L 10/08/22 22:19 MCV 95.6 fL (80.0-100.0) 10/08/22 22:19 MCH 31.5 pg (25.0-34.0) 10/08/22 22:19 MCHC 33.0 g/dL (32.0-36.0) 10/08/22 22:19 RDW Std Deviation 55.0 fL (36.4-46.3) H 10/08/22 22:19 RDW Coeff of Dinorah 15.7 % (11.5-14.5) H 10/08/22 22:19 Plt Count 221 K/uL (130-400) 10/08/22 22:19 MPV 9.0 fL (9.4-12.4) L 10/08/22 22:19 Immature Gran % (Auto) 0.6 % 10/08/22 22:19 Neut % (Auto) 53.1 % 10/08/22 22:19 Lymph % (Auto) 31.8 % 10/08/22 22:19 Montezuma % (Auto) 13.9 % 10/08/22 22:19 Eos % (Auto) 0.4 % 10/08/22 22:19 Baso % (Auto) 0.2 % 10/08/22 22:19 Neut # (Auto) 2.47 K/uL (1.40-6.50) 10/08/22 22:19 Lymph # (Auto) 1.48 K/uL (1.2-3.4) 10/08/22 22:19 [place]zuma # (Auto) 0.65 K/uL (0.11-0.59) H 10/08/22 22:19 Eos # (Auto) 0.02 K/uL (0-0.50) 10/08/22 22:19 Baso # (Auto) 0.01 K/uL (0-0.2) 10/08/22 22:19 Immature Gran # (Auto) 0.03 K/uL (0.01-0.20) 10/08/22 22:19 Sodium 135 mmol/L (136-145) L 10/08/22 22:19 Potassium 3.8 mmol/L (3.5-5.1) 10/08/22 22:19 Chloride 106 mmol/L (98-107) 10/08/22 22:19 Carbon Dioxide 24 mmol/L (21-32) 10/08/22 22:19 Anion Gap 5 (3-11) 10/08/22 22:19 BUN 17 mg/dl (6-23) 10/08/22 22:19 Creatinine 0.87 mg/dl (0.6-1.4) 10/08/22 22:19 Est Cr Clr Drug Dosing 61.6 ml/min 10/08/22 22:19 Est GFR ( Amer) 92.5 ml/min 10/08/22 22:19 Est GFR (Non-Af Amer) 79.8 ml/min 10/08/22 22:19 BUN/Creatinine Ratio 19.5 (10-20) 10/08/22 22:19 Glucose 110 mg/dl (70-99(Fasting)) H 10/08/22 22:19 Lactate 1.1 mmol/L (0.4-2.0) 10/08/22 22:19 Calcium 8.5 mg/dl (8.6-10.3) L 10/08/22 22:19 Magnesium 1.8 mg/dl (1.7-2.4) 10/08/22 22:19 Total Bilirubin 0.5 mg/dl (0.2-1.0) 10/08/22 22:19 Direct Bilirubin 0.1 mg/dl (0-0.2) 10/08/22 22:19 AST 21 U/L (13-39) 10/08/22 22:19 ALT 14 U/L (7-52) 10/08/22 22:19 Alkaline Phosphatase 210 U/L (34-104) H 10/08/22 22:19 Troponin I High Sens 19.4 pg/ml (0-20) 10/08/22 22:19 Total Protein 5.6 gm/dl (6.0-8.3) L 10/08/22 22:19 Albumin 3.1 gm/dl (3.4-5.0) L 10/08/22 22:19 Procalcitonin 0.07 ng/ml (0-0.5) 10/08/22 22:19 TSH 1.392 uIu/ml (0.300-4.500) 10/08/22 22:19 Urine Color Yellow 10/08/22 23:50 Urine Appearance Clear (Clear) 10/08/22 23:50 Urine pH 5.0 (4.5-7.5) 10/08/22 23:50 Ur Specific Alexander 1.025 (1.000-1.030) 10/08/22 23:50 Urine Protein 1+ (Negative) H 10/08/22 23:50 Urine Glucose (UA) Negative (Negative) 10/08/22 23:50 Urine Ketones Negative (Negative) 10/08/22 23:50 Urine Blood Trace-lysed (Negative) H 10/08/22 23:50 Urine Nitrite Negative (Negative) 10/08/22 23:50 Urine Bilirubin Negative (Negative) 10/08/22 23:50 Urine Urobilinogen Negative (Negative) 10/08/22 23:50 Ur Leukocyte Esterase Negative (Negative) 10/08/22 23:50 Urine RBC 0-4 /hpf (0-4) 10/08/22 23:50 Urine WBC 5-10 /hpf (0-5) H 10/08/22 23:50 Ur Epithelial Cells 0-5 /lpf (0-5) 10/08/22 23:50 Urine Bacteria Negative (Negative) 10/08/22 23:50 Urine Mucus Present (None Prsent) A 10/08/22 23:50 Adenovirus (PCR) Not Detected (NotDetected) 10/08/22 23:51 Anaplasma Smear See Comment 10/08/22 22:19 Babesia Smear See Comment 10/08/22 22:19 B. pertussis DNA (PCR) Not Detected (NotDetected) 10/08/22 23:51 B.parapertussis DNA PCR Not Detected (NotDetected) 10/08/22 23:51 C. pneumoniae DNA (PCR) Not Detected (NotDetected) 10/08/22 23:51 Coronavirus OC43 (PCR) Not Detected (NotDetected) 10/08/22 23:51 Coronavirus HKU1 (PCR) Not Detected (NotDetected) 10/08/22 23:51 Coronavirus 229E (PCR) Not Detected (NotDetected) 10/08/22 23:51 SARS-CoV-2 (PCR) Not Detected (NotDetected) 10/08/22 23:51 Coronavirus NL63 (PCR) Not Detected (NotDetected) 10/08/22 23:51 Human Metapneumovir PCR Not Detected (NotDetected) 10/08/22 23:51 Influenza Type A (PCR) Not Detected (NotDetected) 10/08/22 23:51 Influenza Type B (PCR) Not Detected (NotDetected) 10/08/22 23:51 M. pneumoniae (PCR) Not Detected (NotDetected) 10/08/22 23:51 Parainfluenza 1 (PCR) Not Detected (NotDetected) 10/08/22 23:51 Parainfluenza 2 (PCR) Not Detected (NotDetected) 10/08/22 23:51 Parainfluenza 3 (PCR) Not Detected (NotDetected) 10/08/22 23:51 Parainfluenza 4 (PCR) Not Detected (NotDetected) 10/08/22 23:51 RSV (RT-PCR) Negative (Neg) 10/08/22 23:10 RSV (PCR) Not Detected (NotDetected) 10/08/22 23:51 Entero/Rhino (PCR) Not Detected (NotDetected) 10/08/22 23:[address] 10/08/22 22:12 Exam(s): CT HEAD Without Contrast EXAM: CT Head Without Intravenous Contrast CLINICAL HISTORY: Reason for exam: ams, fever. TECHNIQUE: Axial computed tomography images of the head/brain without intravenous contrast. CTDI is 38.03 mGy and DLP is 625.8 mGy-cm. Automated exposure control was utilized for the study. A dose lowering technique was utilized adhering to the principles of ALARA. COMPARISON: No relevant prior studies available. FINDINGS: No acute intracranial hemorrhage. No midline shift or mass effect. The territorial torres-white matter differentiation is maintained throughout. Age-related cerebral volume loss. Periventricular and subcortical white matter hypoattenuation, consistent with chronic microangiopathy. Left eye scleral banding. The calvarium is intact. The visualized paranasal sinuses and mastoid air cells are grossly clear. IMPRESSION: No acute intracranial hemorrhage, midline shift, or mass effect. Electronically signed by: Dayne Nguyen MD 10/08/22 23:57 PM Diagnostic Findings EKG as per my interpretation : Rate 75, NSR, LAD, LAFB, incomplete RBBB, inferior infarct, no ischemia (1) AMS (altered mental status) Altered mental status type: unspecified Qualified Code(s): R41.82 - Altered mental status, unspecified
[2022-10-09 03:54] LABS: Lyme Ab IgG w/WB Rflx Negative (Negative); Lyme Ab IgM w/WB Rflx Negative (Negative)
[2022-10-09] MEDS ORDERED: PROMETHAZINE HCL 6.25 MG in SODIUM CHLORIDE 0.9% 50 ML IV PRN (04:57)
[2022-10-09] MEDS ORDERED: traMADol HCL 50 MG TABLET PO PRN (04:57)
[2022-10-09] MEDS ORDERED: ACETAMINOPHEN 325 MG TAB PO PRN (04:57)
[2022-10-09 06:22] LABS: Basophils # (auto) 0.01 K/uL (0-0.2); Basophils % (auto) 0.2 %; Eosinophils # (auto) 0.02 K/uL (0-0.50); Eosinophils % (auto) 0.4 %; Hematocrit (blood only) 33.4 % (42.0-52.0); Hemoglobin 11.2 g/dl (14.0-18.0); Immature Granulocytes # (auto) 0.01 K/uL (0.01-0.20); Immature Granulocytes % (auto) 0.2 %; Lymphocytes % (auto) 31.3 %; Mean Corpuscular Hemoglobin 31.6 pg (25.0-34.0); Mean Corpuscular Hgb Conc 33.5 g/dL (32.0-36.0); Mean Corpuscular Volume 94.4 fL (80.0-100.0); Mean Platelet Volume 8.9 fL (9.4-12.4); Monocytes # (auto) 0.82 K/uL (0.11-0.59); Neutrophils # (auto) 2.65 K/uL (1.40-6.50); Neutrophils % (auto) 51.9 %; Platelet Count 192 K/uL (130-400); RDW Coefficient of Variation 15.8 % (11.5-14.5); Red Blood Count 3.54 M/uL (4.70-6.10); White Blood Count 5.11 K/ul (4.8-10.8)
[2022-10-09] MEDS: ACETAMINOPHEN 500 MG TAB PO SCH ×3 (06:27→21:22)
[2022-10-09 06:52] LABS: BUN Creatinine Ratio 16.9 (10-20); Calcium 8.3 mg/dl (8.6-10.3); Creatinine Clr Calc Pharmacy 69.1 ml/min; Est GFR (African American) 94.3 ml/min; Est GFR (Non-African American) 81.4 ml/min; Potassium 4.2 mmol/L (3.5-5.1)
[2022-10-09 07:22] LABS: Estimated Average Glucose 100 mg/dl; Hemoglobin A1C 5.1 % (4.5-5.6)
--- NOTE | 2022-10-09 07:36 | XRay Report ---
XR chest 1V portable CLINICAL HISTORY: Sepsis TECHNIQUE: Single frontal radiograph of the chest was obtained. Comparison: Comparison is made to chest radiograph 09/22/2019 FINDINGS: No lines and tubes are seen. The cardiomediastinal silhouette is normal. The lungs are clear. No evid ence of pleural effusion or pneumothorax. IMPRESSION: No acute abnormalities and in particular no radiographic evidence of pneumonia. ACT 112: Negative or not required by law. Electronically signed by: Chau Sherman M.D. 10/09/2022 7:35 AM
[2022-10-09] MEDS: ASPIRIN 81 MG ECTAB PO SCH ×2 (08:44→21:22)
[2022-10-09] MEDS: LEVOTHYROXINE SODIUM 88 MCG TABLET PO SCH (08:44)
[2022-10-09] MEDS: FERROUS SULFATE 325 MG TAB PO SCH ×2 (08:44→17:53)
[2022-10-09] MEDS: CHOLECALCIFEROL 1,000 UNITS 25 MCG TAB PO SCH (08:44)
[2022-10-09] MEDS: PANTOprazole 40 MG TAB PO SCH ×2 (08:45→21:22)
[2022-10-09] MEDS: MULTIVITAMIN TAB PO SCH (08:45)
--- NOTE | 2022-10-09 08:51 | Electrocardiogram Report ---
Test Reason : Blood Pressure : / mmHG Vent. Rate : 073 BPM Atrial Rate : 073 BPM P-R Int : 212 ms QRS Dur : 146 ms QT Int : 408 ms P-R-T Axes : 086 -47 011 degrees QTc Int : 449 ms Sinus rhythm with 1st degree A-V block Right bundle branch block Left anterior fascicular block Possible Old Inferior infarct Abnormal ECG When compared with ECG of 19-SEP-2022 14:50, Criteria for Inferior infarct is now Present Confirmed by Lauri Dozier ([id number]) on 10/09/2022 8:51:12 AM Referred By: REFERRED SELF Confirmed By:Lauri Dozier
--- NOTE | 2022-10-09 17:48 | Communication Note ---
Date of Service: October 09, 2022 82-year-old male with PMH of HLD, hypothyroidism, recent femoral fracture surgery, chronic anemia [baseline hemoglobin of 11] presented to the ED with complaint of generalized weakness with low-grade fever at home. Patient denies any headache chest pain or shortness of breath or dysuria symptoms. No diarrhea. Patient noted to be confused and incontinent by family members. He is being managed for the following: Transient encephalopathy Generalized weakness Patient noted to have mentation back to baseline after initial intervention at ED. No sepsis at presentation. No concern for bacterial infection, monitor off antibiotic. Supportive management for presumptive viral illness Resp panel neg/ follow tick borne dz serology. Other chronic medical conditions: hyperlipidemia, on statin Rx hypothyroidism, euthyroid as of recent TSH recent right femoral fracture surgery, pt/ot Postop anemia, hemoglobin at baseline Hyperglycemia rule out DM Full code DVT prophylaxis: Aspirin twice daily as per postop Ortho orders. Patient requests's Ms. Kim Mancilla, contact #[phone]. On exam, patient on room air, alert and oriented. For detailed information on the patient, refer to today's H&P note. PT/OT, CM to assist with DC planning.
[2022-10-09] MEDS: traZODone HCL 100 MG TAB PO SCH (21:22)
[2022-10-09] MEDS: SIMVASTATIN 5 MG TAB PO SCH (21:22)
[2022-10-09 21:41] LABS: A calco-baum cmplx NotReported Not Detected (NotDetected); Bact fragilis Not Reported Not Detected (NotDetected); C auris Not Reported Not Detected (NotDetected); CTX-M Resistant Gene Not Detected (NotDetected); Calbicans Not Reported Not Detected (NotDetected); Candida glabrata Not Reported Not Detected (NotDetected); Candida krusei Not Reported Not Detected (NotDetected); Cneoformans/gatti Not Reported Not Detected (NotDetected); Cparapsilosis Not Reported Not Detected (NotDetected); Ctropicalis Not Reported Not Detected (NotDetected); E cloacae compx Not Reported Not Detected (NotDetected); Efaecalis Not Reported Not Detected (NotDetected); Efaecium Not Reported Not Detected (NotDetected); Enterobacterales Not Reported Not Detected (NotDetected); Escherichia coli Not Reported Not Detected (NotDetected); H influenzae Not Reported Not Detected (NotDetected); IMP Resistant Gene Not Detected (NotDetected); K aerogenes Not Reported Not Detected (NotDetected); KPC Resistant Gene Not Detected (NotDetected); Koxytoca Not Reported Not Detected (NotDetected); Kpneumoniae grp Not Reported Not Detected (NotDetected); Lmonocyt Not Reported Not Detected (NotDetected); N meningitidis Not Reported Not Detected (NotDetected); NDM Resistant Gene Not Detected (NotDetected); P aeruginosa Not Reported DETECTED (NotDetected); Proteus spp Not Reported Not Detected (NotDetected); Salmonella spp Not Reported Not Detected (NotDetected); Smarcescens Not Reported Not Detected (NotDetected); Staph lugdunensis Not Reported Not Detected (NotDetected); Staph spp. Not Reported Not Detected (NotDetected); Staphaureus Not Reported Not Detected (NotDetected); Staphepi Not Reported Not Detected (NotDetected); Stenmaltophilia Not Reported Not Detected (NotDetected); Strep agal(GrpB) Not Reported Not Detected (NotDetected); Strep pneum Not Reported Not Detected (NotDetected); Strep pyog (GrpA) Not Reported Not Detected (NotDetected); Strep spp Not Reported Not Detected (NotDetected); VIM Resistant Gene Not Detected (NotDetected)
[2022-10-09 21:54] LABS: Pseudomonas aeruginosa DETECTED (NotDetected)
--- NOTE | 2022-10-09 22:10 | Communication Note ---
Date of Service: October 09, 2022 Notified by RN of gram-negative cecy bacteremia on 1 bottle of blood CS drawn on admission. AP Gram-negative cecy bacteremia ? secondary to complicated UTI (UA WBC 3-5 collected at the ER 10/08, patient with frequency symptoms as per family account prior to admission) Urine CS Cefepime Will relay to AM provider.
[2022-10-09] MEDS: CEFEPIME 2,000 MG in SYRINGE 0 ML IV SCH (22:22)
[2022-10-10] MEDS: ACETAMINOPHEN 500 MG TAB PO SCH ×3 (05:55→20:58)
[2022-10-10] MEDS: CEFEPIME 2,000 MG in SYRINGE 0 ML IV SCH ×3 (05:55→20:59)
[2022-10-10] MEDS: LEVOTHYROXINE SODIUM 88 MCG TABLET PO SCH (05:56)
[2022-10-10 06:33] LABS: Hematocrit (blood only) 31.7 % (42.0-52.0); Hemoglobin 10.4 g/dl (14.0-18.0); Mean Corpuscular Hemoglobin 31.3 pg (25.0-34.0); Mean Corpuscular Hgb Conc 32.8 g/dL (32.0-36.0); Mean Corpuscular Volume 95.5 fL (80.0-100.0); Platelet Count 176 K/uL (130-400); RDW Coefficient of Variation 15.7 % (11.5-14.5); RDW Standard Deviation 55.2 fL (36.4-46.3); Red Blood Count 3.32 M/uL (4.70-6.10); White Blood Count 4.54 K/ul (4.8-10.8)
[2022-10-10 07:02] LABS: BUN Creatinine Ratio 19.3 (10-20); Calcium 8.4 mg/dl (8.6-10.3); Creatinine Clr Calc Pharmacy 69.1 ml/min; Est GFR (African American) 94.3 ml/min; Est GFR (Non-African American) 81.4 ml/min; Magnesium 1.9 mg/dl (1.7-2.4); Phosphorus 3.4 mg/dl (2.5-4.9); Potassium 4.1 mmol/L (3.5-5.1)
[2022-10-10] MEDS: ASPIRIN 81 MG ECTAB PO SCH ×2 (08:56→20:58)
[2022-10-10] MEDS: CHOLECALCIFEROL 1,000 UNITS 25 MCG TAB PO SCH (08:57)
[2022-10-10] MEDS: PANTOprazole 40 MG TAB PO SCH ×2 (08:57→20:59)
[2022-10-10] MEDS: FERROUS SULFATE 325 MG TAB PO SCH ×2 (08:57→17:48)
[2022-10-10] MEDS: MULTIVITAMIN TAB PO SCH (08:57)
--- NOTE | 2022-10-10 16:08 | Hospitalist Progress Note ---
Date of Service October 10, 2022 Assessment & Plan (1) AMS (altered mental status): Plan 82-year-old male with PMH of HLD, hypothyroidism, recent femoral fracture surgery, chronic anemia [baseline hemoglobin of 11] presented to the ED with complaint of generalized weakness with low-grade fever at home. Patient denies any headache chest pain or shortness of breath or dysuria symptoms. No diarrhea. Patient noted to be confused and incontinent by family members. He is being managed for the following: Transient encephalopathy Generalized weakness Patient noted to have mentation back to baseline after initial intervention at ED. No sepsis at presentation. Found to have bacteremia 10/09 evening, currently on antibiotic [see below] Resp panel neg/ follow tick borne dz serology --most of the tests either negative or pending. Gram-negative bacteremia: Admitting blood culture positive, repeat blood cultures, patient started on cefepime 10/09. Continue same. Other chronic medical conditions: hyperlipidemia, on statin Rx hypothyroidism, euthyroid as of recent TSH recent right femoral fracture surgery, pt/ot Postop anemia, hemoglobin at baseline Hyperglycemia rule out DM Full code DVT prophylaxis: Aspirin twice daily as per postop Ortho orders. Patient requests's Ms. Kim Mancilla, contact #[phone]. Admission and Anticipated Discharge Date Admission Date: October 09, 2022 Subjective Patient seen and examined at bedside as a follow-up of transient encephalopathy, generalized weakness, gram-negative bacteremia. Patient was lying in bed, on room air, NAD, reports no new acute event overnight, reports feeling weak and tired, reports eating okay and moving bowels okay, denies any fever or chills or chest pain or belly pain. Physical Exam Physical Exam: GENERAL: Alert and oriented x3. NAD, on RA. HEENT: No pallor, no icterus. Pupils equal, round and reactive to light. Oral mucosa moist. NECK: No JVD, no neck masses. HEART: S1 and S2 heard. Regular rate and rhythm. No murmur, no gallop. RESPIRATORY SYSTEM: Normal AP diameter. No accessory muscle use. No wheezing, no crackles. ABDOMEN: Soft, bowel sounds present, nontender, no distention. CENTRAL NERVOUS SYSTEM: No facial droop. Speech is clear. Obeys simple commands. Moves extremities. EXTREMITIES: No edema, no erythema seen. Results & Data Results & Data Vital Signs (Past 12 Hours) Vital Signs Temp Pulse Resp BP BP Pulse Ox O2 Del Method 10/10/22 15:44 36.8 C 63 16 97/56 L 95 Room Air 10/10/22 07:33 36.6 C 61 16 94/52 L 94 Room Air (1) AMS (altered mental status) Altered mental status type: unspecified Qualified Code(s): R41.82 - Altered mental status, unspecified
[2022-10-10] MEDS: traZODone HCL 100 MG TAB PO SCH (20:58)
[2022-10-10] MEDS: SIMVASTATIN 5 MG TAB PO SCH (20:58)
[2022-10-11] MEDS: ACETAMINOPHEN 500 MG TAB PO SCH ×3 (05:17→22:03)
[2022-10-11] MEDS: LEVOTHYROXINE SODIUM 88 MCG TABLET PO SCH (05:17)
[2022-10-11] MEDS: CEFEPIME 2,000 MG in SYRINGE 0 ML IV SCH ×3 (05:18→22:04)
[2022-10-11] MEDS: PANTOprazole 40 MG TAB PO SCH ×2 (09:05→19:29)
[2022-10-11] MEDS: CHOLECALCIFEROL 1,000 UNITS 25 MCG TAB PO SCH (09:06)
[2022-10-11] MEDS: ASPIRIN 81 MG ECTAB PO SCH ×2 (09:06→19:29)
[2022-10-11] MEDS: FERROUS SULFATE 325 MG TAB PO SCH ×2 (09:06→16:49)
[2022-10-11] MEDS: MULTIVITAMIN TAB PO SCH (09:08)
--- NOTE | 2022-10-11 15:48 | Hospitalist Progress Note ---
Date of Service October 11, 2022 Assessment & Plan (1) AMS (altered mental status): Plan 82-year-old male with PMH of HLD, hypothyroidism, recent femoral fracture surgery, chronic anemia [baseline hemoglobin of 11] presented to the ED with complaint of generalized weakness with low-grade fever at home. Patient denies any headache chest pain or shortness of breath or dysuria symptoms. No diarrhea. Patient noted to be confused and incontinent by family members. He is being managed for the following: Transient encephalopathy Generalized weakness Patient noted to have mentation back to baseline after initial intervention at ED. No sepsis at presentation. Found to have bacteremia 10/09 evening, currently on antibiotic [see below] Resp panel neg/ follow tick borne dz serology --most of the tests either negative or pending. Gram-negative bacteremia: Admitting blood culture positive, repeat blood cultures pending, patient started on cefepime 10/09. Continue same. will likely need iv atb on dc. expect on moday. Other chronic medical conditions: hyperlipidemia, on statin Rx hypothyroidism, euthyroid as of recent TSH recent right femoral fracture surgery, pt/ot Postop anemia, hemoglobin at baseline Hyperglycemia rule out DM Full code DVT prophylaxis: Aspirin twice daily as per postop Ortho orders. Patient requests's Ms. Kim Mancilla, contact #[phone]. Admission and Anticipated Discharge Date Admission Date: October 11, 2022 Subjective Patient seen and examined at bedside as a follow-up of transient encephalopathy, generalized weakness, gram-negative bacteremia. Patient was lying in bed, on room air, NAD, reports no new acute event overnight, reports feeling better today w/ regard to his strength, reports eating okay and moving bowels okay, denies any fever or chills or chest pain or belly pain. Physical Exam Physical Exam: GENERAL: Alert and oriented x3. NAD, on RA. HEENT: No pallor, no icterus. Pupils equal, round and reactive to light. Oral mucosa moist. NECK: No JVD, no neck masses. HEART: S1 and S2 heard. Regular rate and rhythm. No murmur, no gallop. RESPIRATORY SYSTEM: Normal AP diameter. No accessory muscle use. No wheezing, no crackles. ABDOMEN: Soft, bowel sounds present, nontender, no distention. CENTRAL NERVOUS SYSTEM: No facial droop. Speech is clear. Obeys simple commands. Moves extremities. EXTREMITIES: No edema, no erythema seen. Results & Data Results & Data Vital Signs (Past 12 Hours) Vital Signs Temp Pulse Resp BP BP Pulse Ox O2 Del Method 10/11/22 15:00 36.6 C 63 14 95/54 L 94 Room Air 10/11/22 07:07 36.4 C L 53 L 16 107/64 96 Room Air (1) AMS (altered mental status) Altered mental status type: unspecified Qualified Code(s): R41.82 - Altered mental status, unspecified
[2022-10-11] MEDS: SIMVASTATIN 5 MG TAB PO SCH (19:29)
[2022-10-11] MEDS: traZODone HCL 100 MG TAB PO SCH (22:03)
[2022-10-12] MEDS ORDERED: SODIUM CHLORIDE 0.9% 1000ML 1,000 ML IV ONE (00:14)
[2022-10-12] MEDS: LEVOTHYROXINE SODIUM 88 MCG TABLET PO SCH (05:26)
[2022-10-12] MEDS: LOPERAMIDE HCL 2 MG CAP PO PRN (05:26)
[2022-10-12] MEDS: ACETAMINOPHEN 500 MG TAB PO SCH ×3 (05:26→21:41)
[2022-10-12] MEDS: CEFEPIME 2,000 MG in SYRINGE 0 ML IV SCH ×3 (05:26→21:41)
[2022-10-12] MEDS: FERROUS SULFATE 325 MG TAB PO SCH ×2 (09:11→16:19)
[2022-10-12] MEDS: PANTOprazole 40 MG TAB PO SCH ×2 (09:11→21:41)
[2022-10-12] MEDS: CHOLECALCIFEROL 1,000 UNITS 25 MCG TAB PO SCH (09:11)
[2022-10-12] MEDS: ASPIRIN 81 MG ECTAB PO SCH ×2 (09:11→21:40)
[2022-10-12] MEDS: MULTIVITAMIN TAB PO SCH (09:12)
--- NOTE | 2022-10-12 15:51 | Hospitalist Progress Note ---
Date of Service October 12, 2022 Assessment & Plan (1) AMS (altered mental status): Plan 82-year-old male with PMH of HLD, hypothyroidism, recent femoral fracture surgery, chronic anemia [baseline hemoglobin of 11] presented to the ED with complaint of generalized weakness with low-grade fever at home. Patient denies any headache chest pain or shortness of breath or dysuria symptoms. No diarrhea. Patient noted to be confused and incontinent by family members. He is being managed for the following: Transient encephalopathy Generalized weakness Patient noted to have mentation back to baseline after initial intervention at ED. No sepsis at presentation. Found to have bacteremia 10/09 evening, currently on antibiotic [see below] Resp panel neg/ follow tick borne dz serology --most of the tests either negative or pending. Gram-negative bacteremia: Admitting blood culture positive, repeat blood cultures pending, patient started on cefepime 10/09. Continue same. will likely need iv atb on dc. expect on moday. PICC line plan for kasey Other chronic medical conditions: hyperlipidemia, on statin Rx hypothyroidism, euthyroid as of recent TSH recent right femoral fracture surgery, pt/ot Postop anemia, hemoglobin at baseline Hyperglycemia rule out DM Full code DVT prophylaxis: Aspirin twice daily as per postop Ortho orders. Patient.s Ms. Kim Mancilla, contact #[phone]. Admission and Anticipated Discharge Date Admission Date: October 09, 2022 Subjective Patient seen and examined at bedside as a follow-up of transient encephalopathy, generalized weakness, gram-negative bacteremia. Patient was lying in bed, on room air, NAD, reports no new acute event overnight, reports feeling better today w/ regard to his strength, reports eating okay and moving bowels okay, denies any fever or chills or chest pain or belly pain. Explained plan of care to him again in detail/answered all his questions in front of his RN as he requested. Physical Exam Physical Exam: GENERAL: Alert and oriented x3. NAD, on RA. HEENT: No pallor, no icterus. Pupils equal, round and reactive to light. Oral mucosa moist. NECK: No JVD, no neck masses. HEART: S1 and S2 heard. Regular rate and rhythm. No murmur, no gallop. RESPIRATORY SYSTEM: Normal AP diameter. No accessory muscle use. No wheezing, no crackles. ABDOMEN: Soft, bowel sounds present, nontender, no distention. CENTRAL NERVOUS SYSTEM: No facial droop. Speech is clear. Obeys simple comman ds. Moves extremities. EXTREMITIES: No edema, no erythema seen. Results & Data Results & Data Vital Signs (Past 12 Hours) Vital Signs Temp Pulse Resp BP Pulse Ox O2 Del Method 10/12/22 07:08 36.4 C L 55 L 18 104/58 L 95 Room Air (1) AMS (altered mental status) Altered mental status type: unspecified Qualified Code(s): R41.82 - Altered mental status, unspecified
[2022-10-12] MEDS: SIMVASTATIN 5 MG TAB PO SCH (21:40)
[2022-10-12] MEDS: traZODone HCL 100 MG TAB PO SCH (21:41)
[2022-10-13] MEDS: ACETAMINOPHEN 500 MG TAB PO SCH ×3 (05:57→21:33)
[2022-10-13] MEDS: LEVOTHYROXINE SODIUM 88 MCG TABLET PO SCH (05:57)
[2022-10-13] MEDS: CEFEPIME 2,000 MG in SYRINGE 0 ML IV SCH ×3 (05:57→21:33)
[2022-10-13] MEDS: CHOLECALCIFEROL 1,000 UNITS 25 MCG TAB PO SCH (08:33)
[2022-10-13] MEDS: FERROUS SULFATE 325 MG TAB PO SCH ×2 (08:33→17:31)
[2022-10-13] MEDS: MULTIVITAMIN TAB PO SCH (08:33)
[2022-10-13] MEDS: PANTOprazole 40 MG TAB PO SCH ×2 (08:33→19:47)
[2022-10-13] MEDS: ASPIRIN 81 MG ECTAB PO SCH ×2 (08:33→19:47)
--- NOTE | 2022-10-13 18:01 | Hospitalist Progress Note ---
Date of Service October 13, 2022 Assessment & Plan (1) AMS (altered mental status): Plan 82-year-old male with PMH of HLD, hypothyroidism, recent femoral fracture surgery, chronic anemia [baseline hemoglobin of 11] presented to the ED with complaint of generalized weakness with low-grade fever at home. Patient denies any headache chest pain or shortness of breath or dysuria symptoms. No diarrhea. Patient noted to be confused and incontinent by family members. He is being managed for the following: Transient encephalopathy Generalized weakness Patient noted to have mentation back to baseline after initial intervention at ED. No sepsis at presentation. Found to have bacteremia 10/09 evening, currently on antibiotic [see below] Resp panel neg/ follow tick borne dz serology --most of the tests either negative or pending. Gram-negative bacteremia: Admitting blood culture positive, repeat blood cultures pending, patient started on cefepime 10/09. Continue same. will need iv atb on dc. USG iv line in; prescription provided to CM. Other chronic medical conditions: hyperlipidemia, on statin Rx hypothyroidism, euthyroid as of recent TSH recent right femoral fracture surgery, pt/ot Postop anemia, hemoglobin at baseline Hyperglycemia rule out DM Full code DVT prophylaxis: Aspirin twice daily as per postop Ortho orders. Patient.s Ms. Kim Mancilla, contact #[phone]. Dispo: cm assisting. can valentino. Admission and Anticipated Discharge Date Admission Date: October 09, 2022 Subjective Patient seen and examined at bedside as a follow-up of transient encephalopathy, generalized weakness, gram-negative bacteremia. Patient was lying in bed, on room air, NAD, reports no new acute event overnight, reports continued feeling better w/ regard to his strength, reports eating okay and moving bowels okay, denies any fever or chills or chest pain or belly pain. Explained plan of care to him again in detail/answered all his questions. PICC line consent was obtained in the morning but later on came to know that USG IV peripheral line is again available in the hospital, this lines should suffice. PICC line will not be needed. Physical Exam Physical Exam: GENERAL: Alert and oriented x3. NAD, on RA. HEENT: No pallor, no icterus. Pupils equal, round and reactive to light. Oral mucosa moist. NECK: No JVD, no neck masses. HEART: S1 and S2 heard. Regular rate and rhythm. No murmur, no gallop. RESPIRATORY SYSTEM: Normal AP diameter. No accessory muscle use. No wheezing, no crackles. ABDOMEN: Soft, bowel sounds present, nontender, no distention. CENTRAL NERVOUS SYSTEM: No facial droop. Speech is clear. Obeys simple commands. Moves extremities. EXTREMITIES: No edema, no erythema seen. Results & Data Results & Data Vital Signs (Past 12 Hours) Vital Signs Temp Pulse Resp BP Pulse Ox O2 Del Method O2 Flow Rate 10/13/22 15:29 36.8 C 67 18 102/68 95 Room Air 10/13/22 15:23 36.7 C 60 17 138/62 95 Nasal Cannula 2 10/13/22 11:02 Room Air 10/13/22 07:27 36.5 C 60 17 101/60 96 Room Air (1) AMS (altered mental status) Altered mental status type: unspecified Qualified Code(s): R41.82 - Altered mental status, unspecified
[2022-10-13] MEDS: SIMVASTATIN 5 MG TAB PO SCH (19:47)
[2022-10-13] MEDS: traZODone HCL 100 MG TAB PO SCH (21:34)
[2022-10-13 23:07] LABS: Babesia microti DNA Not Detected (Not Detected)
[2022-10-14] MEDS: LOPERAMIDE HCL 2 MG CAP PO PRN ×2 (05:19→17:33)
[2022-10-14] MEDS: ACETAMINOPHEN 500 MG TAB PO SCH ×3 (05:19→21:34)
[2022-10-14] MEDS: LEVOTHYROXINE SODIUM 88 MCG TABLET PO SCH (05:19)
[2022-10-14] MEDS: CEFEPIME 2,000 MG in SYRINGE 0 ML IV SCH ×3 (05:20→21:35)
[2022-10-14] MEDS: FERROUS SULFATE 325 MG TAB PO SCH ×2 (08:39→17:29)
[2022-10-14] MEDS: MULTIVITAMIN TAB PO SCH (08:39)
[2022-10-14] MEDS: ASPIRIN 81 MG ECTAB PO SCH ×2 (08:39→20:31)
[2022-10-14] MEDS: PANTOprazole 40 MG TAB PO SCH ×2 (08:39→20:33)
[2022-10-14] MEDS: CHOLECALCIFEROL 1,000 UNITS 25 MCG TAB PO SCH (08:39)
--- NOTE | 2022-10-14 16:23 | Hospitalist Progress Note ---
Date of Service October 14, 2022 Assessment & Plan (1) AMS (altered mental status): Plan 82-year-old male with PMH of HLD, hypothyroidism, recent femoral fracture surgery, chronic anemia [baseline hemoglobin of 11] presented to the ED with complaint of generalized weakness with low-grade fever at home. Patient denies any headache chest pain or shortness of breath or dysuria symptoms. No diarrhea. Patient noted to be confused and incontinent by family members. He is being managed for the following: Transient encephalopathy Generalized weakness Patient noted to have mentation back to baseline after initial intervention at ED. No sepsis at presentation. Found to have bacteremia 10/09 evening, currently on antibiotic [see below] Resp panel neg/ follow tick borne dz serology --most of the tests either negative or pending. Gram-negative bacteremia: Admitting blood culture positive, repeat blood cultures pending, patient started on cefepime 10/09. Continue same. will need iv atb on dc. USG iv line in; prescription provided to CM. Other chronic medical conditions: hyperlipidemia, on statin Rx hypothyroidism, euthyroid as of recent TSH recent right femoral fracture surgery, pt/ot Postop anemia, hemoglobin at baseline Hyperglycemia rule out DM Full code DVT prophylaxis: Aspirin twice daily as per postop Ortho orders. Patient.s Ms. Kim Mancilla, contact #[phone]. Dispo: cm assisting. can valentino. likely kasey Admission and Anticipated Discharge Date Admission Date: October 09, 2022 Subjective Patient seen and examined at bedside as a follow-up of transient encephalopathy, generalized weakness, gram-negative bacteremia. Patient was lying in bed, on room air, NAD, reports no new acute event overnight, reports continued feeling better w/ regard to his strength, reports eating okay and moving bowels okay, denies any fever or chills or chest pain or belly pain. Denies any complains. Physical Exam Physical Exam: GENERAL: Alert and oriented x3. NAD, on RA. HEENT: No pallor, no icterus. Pupils equal, round and reactive to light. Oral mucosa moist. NECK: No JVD, no neck masses. HEART: S1 and S2 heard. Regular rate and rhythm. No murmur, no gallop. RESPIRATORY SYSTEM: Normal AP diameter. No accessory muscle use. No wheezing, no crackles. ABDOMEN: Soft, bowel sounds present, nontender, no distention. CENTRAL NERVOUS SYSTEM: No facial droop. Speech is clear. Obeys simple commands. Moves extremities. EXTREMITIES: No edema, no erythema seen. Results & Data Results & Data Vital Signs (Past 12 Hours) Vital Signs Temp Pulse Resp BP Pulse Ox O2 Del Method 10/14/22 15:27 36.4 C L 71 18 91/50 L 93 Room Air 10/14/22 07:01 36.6 C 52 L 18 110/64 95 Room Air (1) AMS (altered mental status) Altered mental status type: unspecified Qualified Code(s): R41.82 - Altered mental status, unspecified
[2022-10-14] MEDS: traZODone HCL 100 MG TAB PO SCH (20:33)
[2022-10-14] MEDS: SIMVASTATIN 5 MG TAB PO SCH (20:33)
[2022-10-15] MEDS: CEFEPIME 2,000 MG in SYRINGE 0 ML IV SCH (05:26)
[2022-10-15] MEDS: ACETAMINOPHEN 500 MG TAB PO SCH ×2 (05:27→12:52)
[2022-10-15] MEDS: LEVOTHYROXINE SODIUM 88 MCG TABLET PO SCH (05:27)
[2022-10-15] MEDS: FERROUS SULFATE 325 MG TAB PO SCH (08:37)
[2022-10-15] MEDS: ASPIRIN 81 MG ECTAB PO SCH (08:38)
[2022-10-15] MEDS: CHOLECALCIFEROL 1,000 UNITS 25 MCG TAB PO SCH (08:38)
[2022-10-15] MEDS: PANTOprazole 40 MG TAB PO SCH (08:39)
[2022-10-15] MEDS: MULTIVITAMIN TAB PO SCH (08:39)
[2022-10-15 10:14] LABS: Basophils # (auto) 0.02 K/uL (0-0.2); Basophils % (auto) 0.4 %; Eosinophils # (auto) 0.15 K/uL (0-0.50); Eosinophils % (auto) 3.2 %; Hematocrit (blood only) 32.7 % (42.0-52.0); Hemoglobin 10.7 g/dl (14.0-18.0); Immature Granulocytes # (auto) 0.02 K/uL (0.01-0.20); Immature Granulocytes % (auto) 0.4 %; Lymphocytes # (auto) 1.76 K/uL (1.2-3.4); Mean Corpuscular Hemoglobin 31.6 pg (25.0-34.0); Mean Corpuscular Hgb Conc 32.7 g/dL (32.0-36.0); Mean Corpuscular Volume 96.5 fL (80.0-100.0); Mean Platelet Volume 9.3 fL (9.4-12.4); Monocytes # (auto) 0.38 K/uL (0.11-0.59); Monocytes % (auto) 8.2 %; Neutrophils % (auto) 49.8 %; Platelet Count 202 K/uL (130-400); RDW Coefficient of Variation 15.3 % (11.5-14.5); RDW Standard Deviation 54.1 fL (36.4-46.3); Red Blood Count 3.39 M/uL (4.70-6.10); White Blood Count 4.63 K/ul (4.8-10.8)
[2022-10-15 10:31] LABS: Albumin Globulin Ratio 1.2 (0.9-2); Albumin Level 3.3 gm/dl (3.4-5.0); BUN Creatinine Ratio 20.2 (10-20); Bilirubin,Total 0.4 mg/dl (0.2-1.0); Calcium 8.9 mg/dl (8.6-10.3); Creatinine Clr Calc Pharmacy 57.9 ml/min; Est GFR (African American) 81.3 ml/min; Est GFR (Non-African American) 70.1 ml/min; Globulin 2.7 gm/dl (2.5-4.0); Potassium 4.1 mmol/L (3.5-5.1)
--- NOTE | 2022-10-15 10:39 | Hospitalist Progress Note ---
Date of Service October 15, 2022 Assessment & Plan (1) AMS (altered mental status): Plan 82-year-old male with PMH of HLD, hypothyroidism, recent femoral fracture surgery, chronic anemia [baseline hemoglobin of 11] presented to the ED with complaint of generalized weakness with low-grade fever at home. Patient denies any headache chest pain or shortness of breath or dysuria symptoms. No diarrhea. Patient noted to be confused and incontinent by family members. He is being managed for the following: Transient encephalopathy Generalized weakness Patient noted to have mentation back to baseline after initial intervention at ED. No sepsis at presentation. Found to have bacteremia 10/09 evening, currently on antibiotic [see below] Resp panel neg/ follow tick borne dz serology --most of the tests either negative or pending. Anaplasmosis and Babesia smear negative. Definitive diagnosis is pending Q fever titers, typhus titers are pending PCR for Pseudomonas positive Gram-negative bacteremia: Admitting blood culture positive-Pseudomonas aeruginosa, Repeat blood cultures -preliminary negative, Patient started on cefepime 10/09. Continue same. will need iv atb on dc. USG iv line in; prescription provided to CM. Has been feeling much better without any symptoms Will be discharged home this afternoon Other chronic medical conditions: hyperlipidemia, on statin Rx hypothyroidism, euthyroid as of recent TSH recent right femoral fracture surgery, pt/ot Postop anemia, hemoglobin at baseline Hyperglycemia rule out DM Full code DVT prophylaxis: Aspirin twice daily as per postop Ortho orders. Patient.s Ms. Kim Mancilla, contact #[phone]. Dispo: Discharged this afternoon Admission and Anticipated Discharge Date Admission Date: October 09, 2022 Subjective 10/15/2022 The patient was seen and examined in medical floor He has been feeling much better since yesterday without any symptoms He has been waiting to go home this afternoon Denies any significant symptoms, no fever and or chills, no pain, nausea no vomiting and he has been ambulating without any problem Review of Systems Review of Systems: All systems reviewed and are unremarkable except as noted below Physical Exam Physical Exam: Lying in bed comfortably Constitutional: well developed, well nourished and average body habitus; not ill appearing Eyes: PERRL, conjunctivae normal, anicteric sclerae ENMT: external ear and nose normal, oropharynx normal Neck: trachea midline, no thyromegaly Respiratory: no respiratory distress Auscultation: lungs clear to auscultation bilaterally Cardiovascular: Rate/Rhythm: regular rate, regular rhythm, + bradycardic and + tachycardic Heart Sounds: normal S1 and normal S2; no murmur Extremities: no edema Gastrointestinal (Abdomen): Inspection/Auscultation: normal bowel sounds; abdomen not distended Percussion/Palpation: abdomen soft; abdomen nontender Musculoskeletal: No acute arthritis in any joint Neurologic: normal touch/pain/proprioception and moves all extremities; no focal motor deficits Psychiatric: A+Ox3, euthymic affect Lymphatic: no cervical or axillary lymphadenopathy Results & Data Results & Data Vital Signs (Past 12 Hours) Vital Signs Temp Pulse Resp BP Pulse Ox O2 Del Method 10/15/22 07:44 36.8 C 56 L 18 113/54 L 95 Room Air 10/14/22 23:00 36.6 C 60 18 95/60 L 94 Room Air Laboratory Results Short CBC 10/15/22 Range/Units 09:32 WBC 4.63 L (4.8-10.8) K/ul Hgb 10.7 L (14.0-18.0) g/dl Hct 32.7 L (42.0-52.0) % Plt Count 202 (130-400) K/uL BMP 10/15/22 09:32 Sodium 139 Potassium 4.1 Chloride 105 Carbon Dioxide 30 BUN 20 Creatinine 0.99 Glucose 122 H Calcium 8.9 Liver Function 10/15/22 Range/Units 09:32 Total Bilirubin 0.4 (0.2-1.0) mg/dl AST 22 (13-39) U/L ALT 18 (7-52) U/L Alkaline Phosphatase 168 H (34-104) U/L Albumin 3.3 L (3.4-5.0) gm/dl Medications Administered Current Inpatient Medications Acetaminophen (Acetaminophen 500 Mg Tab) 1,000 mg PO Q8 [facility] Stop: 11/08/22 05:59 Last Admin: 10/15/22 05:27 Dose: 1,000 mg Acetaminophen (Acetaminophen 325 Mg Tab) 325 mg PO Q6H PRN PRN Reason: Mild Pain/Fever Stop: 11/08/22 04:56 Aspirin (Aspirin 81 Mg Ectab) 81 mg PO BID [facility] Stop: 11/08/22 08:59 Last Admin: 10/15/22 08:38 Dose: 81 mg Ferrous Sulfate (Ferrous Sulfate 325 Mg Tab) 325 mg PO BIDM [facility] Stop: 11/08/22 07:59 Last Admin: 10/15/22 08:37 Dose: 325 mg Promethazine HCl 6.25 mg/ (Sodium Chloride) 50.25 mls @ 201 mls/hr IV Q6H PRN PRN Reason: Nausea And Vomiting Stop: 11/08/22 04:56 Cefepime HCl 2,000 mg/ Syringe 20 mls @ 5 mls/min IV Q8 DANIELLA; Protocol Stop: 10/23/22 22:29 Last Admin: 10/15/22 05:26 Dose: 5 mls/min Levothyroxine Sodium (Levothyroxine Sodium 88 Mcg Tablet) 88 mcg PO DAILYBB [facility] Stop: 11/08/22 06:29 Last Admin: 10/15/22 05:27 Dose: 88 mcg Loperamide HCl (Loperamide Hcl 2 Mg Cap) 2 mg PO UD PRN PRN Reason: Diarrhea Stop: 11/11/22 04:52 Last Admin: 10/14/22 17:33 Dose: 2 mg Multivitamins (Multivitamin Tab) 1 tab PO QAM DANIELLA Stop: 11/08/22 08:59 Last Admin: 10/15/22 08:39 Dose: 1 tab Pantoprazole Sodium (Pantoprazole 40 Mg Tab) 40 mg PO BID [facility] Stop: 11/08/22 08:59 Last Admin: 10/15/22 08:39 Dose: 40 mg Simvastatin (Simvastatin 5 Mg Tab) 5 mg PO QPM DANIELLA Stop: 11/08/22 20:59 Last Admin: 10/14/22 20:33 Dose: 5 mg Tramadol HCl (Tramadol Hcl 50 Mg Tablet) 25 mg PO Q4H PRN PRN Reason: Pain Stop: 11/08/22 04:56 Trazodone HCl (Trazodone Hcl 100 Mg Tab) 100 mg PO HS [facility] Stop: 11/08/22 20:59 Last Admin: 10/14/22 20:33 Dose: 100 mg Vitamin D (Cholecalciferol 1,000 Units 25 Mcg Tab) 2,000 units PO DAILY DANIELLA Stop: 11/08/22 08:59 Last Admin: 10/15/22 08:38 Dose: 2,000 units (1) AMS (altered mental status) Altered mental status type: unspecified Qualified Code(s): R41.82 - Altered mental status, unspecified
[2022-10-16 07:08] LABS: Ehrlichia chaff DNA Bld Negative (Negative)
--- NOTE | 2022-10-16 07:52 | Discharge Summary ---
Date of Service October 15, 2022 Admission HPI Per Admitting Provider History obtained from patient and records. Medical history significant for hyperlipidemia, hypothyroidism, recent right femoral fracture surgery, chronic anemia (baseline hemoglobin of 11). Recent confinement 3 weeks ago for right femur fracture status post surgery. Hemoglobin noted to be 8-9 at time of discharge. Patient discharged to [facility] facility on aspirin twice daily for postop DVT prophylaxis for 1 month. No concerns on follow-up with orthopedic surgeon last week. Patient discharged home few days ago. Yesterday, patient noted generalized weakness with low-grade fever at home. Patient denies headache, chest pain, cough, SOB, abdominal pain, diarrhea, dysuria symptoms. Patient is noted to be confused and incontinent by family as per records. No witnessed seizures. No unusual right hip pain/drainage. No recollection of recent tick bites although patient admits to ticks at residence. Patient brought to ER for evaluation. IV Zosyn given for possible infection. 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 Admission Exam Per Admitting Provider Physical Exam: GENERAL: Comfortable, pleasant, no respiratory distress SKIN: Pallor, warm HEENT: Pale palpebral conjunctivae, L ptosis (chronic as per patient), dry buccal mucosa NECK : Supple, no tenderness CHEST : CTA, no tenderness HEART : RRR, no obvious murmurs ABDOMEN: Some distention, nontender EXTREMITIES : No LE swelling, minimal right hip tenderness, no other conspicuous deformities noted NEUROLOGIC : Coherent, no facial asymmetry, no other gross focality Principal Diagnosis Transient metabolic and cephalopathy, Pseudomonas bacteremia Discharge Exam Lying in bed comfortably Constitutional well developed, well nourished and average body habitus; not ill appearing Eyes PERRL, conjunctivae normal, anicteric sclerae ENMT external ear and nose normal, oropharynx normal Neck trachea midline, no thyromegaly Respiratory no respiratory distress Auscultation: lungs clear to auscultation bilaterally Cardiovascular Rate/Rhythm: regular rate, regular rhythm, + bradycardic and + tachycardic Heart Sounds: normal S1 and normal S2; no murmur Extremities: no edema Gastrointestinal (Abdomen) Inspection/Auscultation: normal bowel sounds; abdomen not distended Percussion/Palpation: abdomen soft; abdomen nontender Neurologic normal touch/pain/proprioception and moves all extremities; no focal motor deficits Psychiatric A+Ox3, euthymic affect Lymphatic no cervical or axillary lymphadenopathy Discharge Data Allergies Allergy/AdvReac Type Severity Reaction Status Date / Time shellfish derived Allergy Severe convulsions Verified 10/08/22 22:48 Potassium Chromate Allergy Severe RASH Uncoded 10/08/22 22:48 Consultations 10/09/22 00:57 ED Decision to Admit Stat Ordered Studies 10/08/22 22:12 CT head/brain wo con Stat Hospital Course (1) AMS (altered mental status): Plan 82-year-old male with PMH of HLD, hypothyroidism, recent femoral fracture surgery, chronic anemia [baseline hemoglobin of 11] presented to the ED with complaint of generalized weakness with low-grade fever at home. Patient denies any headache chest pain or shortness of breath or dysuria symptoms. No diarrhea. Patient noted to be confused and incontinent by family members. He is being managed for the following: Transient encephalopathy Generalized weakness Patient noted to have mentation back to baseline after initial intervention at ED. No sepsis at presentation. Found to have bacteremia 10/09 evening, currently on antibiotic [see below] Resp panel neg/ follow tick borne dz serology --most of the tests either negative or pending. Anaplasmosis and Babesia smear negative. Definitive diagnosis is pending Q fever titers, typhus titers are pending PCR for Pseudomonas positive Gram-negative bacteremia: Admitting blood culture positive-Pseudomonas aeruginosa, Repeat blood cultures -preliminary negative, Patient started on cefepime 10/09. Continue same. will need iv atb on dc. USG iv line in; prescription provided to CM. Has been feeling much better without any symptoms Will be discharged home this afternoon Other chronic medical conditions: hyperlipidemia, on statin Rx hypothyroidism, euthyroid as of recent TSH recent right femoral fracture surgery, pt/ot Postop anemia, hemoglobin at baseline Hyperglycemia rule out DM Full code DVT prophylaxis: Aspirin twice daily as per postop Ortho orders. Patient.s Ms. Kim Mancilla, contact #[phone]. Dispo: Discharged this afternoon Total Time Total Time Spent Total Time Spent (In Minutes): 35 minutes Discharge Plan Discharge Items Patient Disposition: Home - Home Health Services Reason For Visit: BACTERMIA Discharge Diagnosis: Transient metabolic and cephalopathy, Pseudomonas bacteremia Condition on Discharge: Fair Activity: Resume your previous activity Non-emergency contact: Primary Care Provider Call non-emergency contact if: you have any medication questions and your symptoms worsen Follow-up/Referrals: Britt Bliss [Primary Care Provider] - 10/21/22 3:00 pm Diet: Regular and Lactose Intolerant Addtl Attending Provider Instructions: Please take precautions to avoid falls Please finish the course of antibiotic as advised Try to drink more fluid Keep appointment with your healthcare provider Pending Studies at Discharge: Yes Studies:: Bio fire testing Stand-Alone Forms: My [facility] [employer], Smoking Cessation Medications and DC Order Prescriptions: Continued cholecalciferol (vitamin D3) 50 mcg (2,000 unit) capsule 2,000 unit PO DAILY dutasteride 0.5 mg capsule 0.5 mg PO DAILY Qty: 90 3RF multivitamin Tablet 1 tab PO QAM nystatin-triamcinolone 100,000-0.1 unit/gram-% ointment 1 applic topical DAILY PRN (Reason: Skin Irritation) levothyroxine 88 mcg tablet 88 mcg PO QAM omeprazole 40 mg capsule,delayed release(DR/EC) 40 mg PO BID simvastatin 5 mg tablet 5 mg PO QPM trazodone 100 mg tablet 100 mg PO HS ergocalciferol (vitamin D2) 1,250 mcg (50,000 unit) Capsule 50,000 unit PO Q7D Qty: 4 0RF ferrous sulfate 325 mg (65 mg iron) Tablet,Delayed Release (Dr/Ec) 325 mg PO BIDM Qty: 30 0RF aspirin 81 mg Tablet,Delayed Release (Dr/Ec) 81 mg PO BID Qty: 60 0RF acetaminophen [Tylenol Extra Strength] 500 mg Tablet 1,000 mg PO Q8 Discharge Orders: Discharge Order (Routine); Ordered 10/15/22 Ordered By: Moises Mckeon/Other Patient Handouts: ED Altered LOC, ED Confusion Admission Data Admit Date/Time: 10/09/22 22:08 Attending Provider: Moises Palafox Admit Provider: Greg Burnett Primary Care Provider: Britt Bliss Other Providers: Greg Burnett ; Kashif Cook [facility] ; Kierra Cheng Other Interventions: Discharge Summary Assessment (RN) Last Done: 10/15/22 12:45
[2022-10-17 17:50] LABS: Q Fever IgG, Phase I NEGATIVE; Q Fever Phase I IgM Antibody NEGATIVE; Q Fever Phase II IgG Antibody NEGATIVE; Q Fever Phase II IgM Antibody NEGATIVE; R. typhi IgG Ab NOT DETECTED; R. typhi IgM Ab NOT DETECTED; RMSF IgG Ab NOT DETECTED; RMSF IgM Ab NOT DETECTED
== END 2022-10-15 13:20 | disposition home health service (06) | DRG 871 ==
LOC: ED 21:26 → 3N 21:26 → SUATTDRO 10-09 03:20 → 3N 10-09 04:19 → SUATTDRO 10-09 22:08

== ENCOUNTER 2023-07-15 17:02 | Inpatient (IN) ==
--- NOTE | 2023-07-15 17:11 | ED Triage Note ---
Date of Service July 15, 2023 Provider in Triage Author: Loraine Louis History of Present Illness This patient was briefly evaluated while in triage. An abbreviated physical exam was performed. This patient is a 83-year-old Male who presents to the ED for evaluation of vomiting. He feels like he has a bowel obstruction. History of SBO in the past. He had a small BM earlier today. Having a lot of central abdominal pain. He is not on O2 at home. Physical Exam GENERAL: The patient was ill-appearing and actively vomiting in triage. He was bradycardic and hypoxic as well. HEENT: Pupils equal. No obvious scleral icterus. HEART: Bradycardic. LUNGS: Hypoxic. Lungs were clear to auscultation. ABDOMEN: Abdominal exam was somewhat difficult as the patient was holding a bucket on his lap due to his active vomiting. The patient was diffusely tender to exam, but only quick exam was able to be performed. NEURO: Alert and oriented. No obvious neurological deficits on quick neuro exam. Due to the patient's bradycardia, hypoxia, and active vomiting with concerns for small bowel obstruction, the patient was taken directly back to a room from triage. Initial orders for labs and / or imaging were placed as the patient was being taken back to a room. Please see further documentation for the full ED course. MDM / Impression Impression Impression: Abdominal pain, Nausea & vomiting, Bowel obstruction, Perforation bowel
[2023-07-15] MEDS: ONDANSETRON INJ 2 MG/ML 2 ML VIAL IV STA (17:25)
[2023-07-15 17:46] LABS: Basophils # (auto) 0.02 K/uL (0.00-0.20); Basophils % (auto) 0.2 %; Eosinophils # (auto) 0.07 K/uL (0.00-0.50); Eosinophils % (auto) 0.5 %; Hematocrit (blood only) 45.2 % (42.0-52.0); Hemoglobin 14.8 g/dl (14.0-18.0); Immature Granulocytes # (auto) 0.05 K/uL (0.01-0.20); Immature Granulocytes % (auto) 0.4 %; Lymphocytes # (auto) 1.52 K/uL (1.20-3.40); Lymphocytes % (auto) 11.6 %; Mean Corpuscular Hemoglobin 31.6 pg (25.0-34.0); Mean Corpuscular Hgb Conc 32.7 g/dL (32.0-36.0); Mean Corpuscular Volume 96.6 fL (80.0-100.0); Mean Platelet Volume 9.4 fL (9.4-12.4); Monocytes # (auto) 0.53 K/uL (0.11-0.59); Monocytes % (auto) 4.1 %; Neutrophils # (auto) 10.88 K/uL (1.40-6.50); Neutrophils % (auto) 83.2 %; Platelet Count 255 K/uL (130-400); RDW Coefficient of Variation 14.2 % (11.5-14.5); RDW Standard Deviation 49.9 fL (36.4-46.3); Red Blood Count 4.68 M/uL (4.70-6.10); White Blood Count 13.07 K/ul (4.8-10.8)
--- NOTE | 2023-07-15 18:01 | XRay Report ---
SINGLE VIEW CHEST CLINICAL HISTORY: Upper abdominal pain FINDINGS: An AP, portable, upright chest radiograph is compared to study dated 10/08/2022. Correlation is made with chest CT dated 05/02/2020. The heart is mildly enlarged noting atherosclerotic calcifica tion of the thoracic aorta. The pulmonary vasculature is noncongested. Chronic interstitial thickenin g is similar to previous. Mild scarring/atelectasis is noted at the lung bases. No airspace consolida tion or large pleural effusion is identified. No pneumothorax is seen. The skeletal structures are os teopenic. The bony thorax is grossly intact. Pneumobilia is seen in the liver. Findings are suspiciou s for intraperitoneal free air below the left hemidiaphragm. IMPRESSION: 1. Cardiomegaly with no active disease in the chest. 2. Findings are suspicious for intraperitoneal free air below the left hemidiaphragm. CT correlation is recommended. ACT 112: Negative or not required by law. Electronically signed by: Mo Vazquez M.D. 07/15/2023 6:00 PM
[2023-07-15 18:03] LABS: Alanine Aminotransferase 14 U/L (7-52); Albumin Globulin Ratio 1.4 (0.9-2); Albumin Level 4.2 gm/dl (3.4-5.0); Alkaline Phosphatase 102 U/L (34-104); Anion Gap 10 (3-11); Aspartate Aminotransferase 22 U/L (13-39); Bilirubin,Total 0.4 mg/dl (0.2-1.0); Blood Urea Nitrogen 26 mg/dl (6-23); Carbon Dioxide 25 mmol/L (21-32); Chloride 106 mmol/L (98-107); Est GFR (African American) 68.8 ml/min; Est GFR (Non-African American) 59.4 ml/min; Glucose 168 mg/dl (70-99(Fasting)); Lipase 4 U/L (11-82); Magnesium 1.9 mg/dl (1.7-2.4); Potassium 4.3 mmol/L (3.5-5.1); Sodium 141 mmol/L (136-145); Total Protein 7.2 gm/dl (6.0-8.3)
[2023-07-15 18:09] LABS: Troponin I High Sensitivity 8.1 pg/ml (0-20)
[2023-07-15 18:18] LABS: Partial Thromboplastin Ratio 0.9; Partial Thromboplastin Time 26 Seconds (21-31); Prothrombin Time 10.8 Seconds (9.0-12.0)
--- NOTE | 2023-07-15 18:19 | CT Scan Report ---
CT SCAN OF THE ABDOMEN AND PELVIS WITHOUT IV CONTRAST CLINICAL HISTORY: Generalized abdominal pain. Nausea and vomiting. COMPARISON STUDY: Abdominal CT dated 01/16/2015. TECHNIQUE: CT scan of the abdomen and pelvis is performed from the lung bases to the proximal femora. Images are reviewed in the axial, sagittal, and coronal planes. IV contrast was not administered for this examination. Note that the examination was performed in significantly suboptimal fashion withou t oral and IV contrast. A dose lowering technique was utilized adhering to the principles of ALARA. CT DOSE: 836.71 mGy.cm FINDINGS: Lung bases: The heart is mildly enlarged and without pericardial effusion. The coronary arteries are densely calcified. There is bibasilar scarring/atelectasis. The lung bases are otherwise clear. There is no aneurysmal dilatation of the partially visualized ascending thoracic aorta which measures up t o 4.2 cm. Liver: The unenhanced liver is normal in size, contour, and attenuation. Linear branching foci of gas within the liver reaches the hepatic capsule. Although some of this may represent pneumobilia, the f indings are more suspicious for portal venous gas. There is mild central intrahepatic biliary ductal dilatation. Gallbladder: Surgically absent and clips in the gallbladder fossa. Spleen: Normal in size and attenuation. Pancreas: The unenhanced pancreas is mildly atrophic and grossly unremarkable. Adrenal glands: Unremarkable. Kidneys: The unenhanced kidneys are normal in size and without hydronephrosis. There are several smal l bilateral nonobstructing renal calculi which measure up to 4 mm. There are renal sinus cyst on the left. There is no evidence of contour deforming renal mass lesion. Abdominal vasculature: There is advanced atherosclerotic calcification without ectasia of the abdomin al aorta. Bowel: The small bowel loops are distended and fluid-filled, measuring up to 3.7 cm in diameter. [place] air-fluid levels are noted. A duodenal diverticulum is incidentally noted. A transition point is suggested in the lower abdominal midline on image #134. The distal small bowel and colon are decompr essed. This is consistent with small bowel obstruction. There is interloop fluid and mild surrounding edema. No pneumatosis intestinalis is seen. The appendix is not visualized. Peritoneum: There is a small volume of pelvic ascites. There are numerous small foci of intraperitone al free air is seen below the diaphragm. Lymphadenopathy: None. Pelvic viscera: The prostate gland is enlarged and heterogeneous. There are bilateral fat-containing groin hernias, right larger than left. The bladder is mildly distended, and the wall appears thickene d/trabeculated indicating chronic outlet obstruction. There are small bladder calculi. A 3 mm calculu s is in the region of the left vesicoureteral junction is seen on image #301. Skeletal structures: The skeletal structures are osteopenic. Postoperative change is seen in the righ t proximal femur. There is moderate lumbosacral spondylosis. No lytic or blastic lesions are seen. IMPRESSION: 1. There are numerous foci of intraperitoneal free air below the diaphragm. Visceral perforation is t he diagnosis of exclusion surgical assessment is advised. The site of perforation is not apparent on this examination. 2. There is a high-grade small bowel obstruction, with a transition point seen in the lower abdominal midline. This is likely on the basis of adhesions. 3. No focally thick-walled bowel loops are identified. No pneumatosis intestinalis is seen. 4. Linear branching foci of gas within the liver favor portal venous gas. 5. There is interloop fluid and a small volume of pelvic ascites. 6. Cholelithiasis. 7. Bilateral nephrolithiasis. 8. Bladder calculi are noted. A 3 mm calculus is seen in the expected location of the left vesicouret eral junction. No upstream hydronephrosis is identified. 9. Additional findings as above. ACT 112: Negative or not required by law. Electronically signed by: Mo Vazquez M.D. 07/15/2023 6:16 PM
[2023-07-15] MEDS: SODIUM CHLORIDE 0.9% 1,000 ML IV SCH (18:25)
[2023-07-15] MEDS: PIPERACILLIN/TAZOBACTAM 4.5 GM/100 ML BAG IV ONE (19:08)
--- NOTE | 2023-07-15 19:16 | Emergency Department Note ---
Impression & Plan Abdominal pain, Nausea & vomiting, Bowel obstruction, Perforation bowel ED Provider Note ED Provider Note NAME: WOO FOUNTAIN AGE:83 SEX: Male : 1940 ARRIVES VIA: Private vehicle INFORMANT: Patient ED PROVIDER(s): Zoë Lima DO CHIEF COMPLAINT: Abdominal pain, nausea and vomiting HPI: This is an 83-year-old male presents emergency room due to concern for abdominal pain, nausea and vomiting. Patient states symptoms feel similar to prior bowel obstruction. Patient denies any recent change in medications or change in diet. He states he does have to watch what he eats because he is gluten sensitive. He states he ate his usual breakfast and around noon began having abdominal pain with subsequent nausea and vomiting. He states abdominal pain is central and otherwise nonradiating. He states his abdomen felt very firm however feels better now after vomiting multiple times. He states the breakfast that he did eat did come up in the emesis. He denies any blood in the vomit. He states he did have 2 bowel movements today which appeared normal, he denies any recent black or bloody stools. He denies fevers or chills. PAST MEDICAL HISTORY:See Below PAST SURGICAL HISTORY:See Below FAMILY HISTORY:See Below SOCIAL HISTORY:See Below HOME MEDICATIONS:See Below ALLERGIES:See Below VITALS:See Below PHYSICAL EXAMINATION: GENERAL: alert, well appearing, well nourished, no distress, non-toxic EYE EXAM: normal conjunctiva, PERRL and EOM's grossly intact OROPHARYNX: no exudate, no erythema, lips, buccal mucosa, and tongue normal and mucous membranes are dry NECK: supple, no nuchal rigidity, no adenopathy, non-tender LUNGS: Clear to auscultation. Normal chest wall mechanics, no w/r/r HEART: no murmurs, S1 normal and S2 normal ABDOMEN: abdomen firm in the Epigastric region however soft in the lower abdomen, tympanitic to percussion, well-healed ex lap incision noted, no masses, no rebound or guarding. BACK: Back is symmetrical on inspection and there is no deformity, no midline tenderness, no CVA tenderness. SKIN: no rashes, petechiae, orbruising UPPER EXTREMITIES: upper extremities are grossly normal. FROM, nml pulses b/l. LOWER EXTREMITIES: No pitting edema. FROM, nml pulses b/l. NEURO EXAM: Normal sensorium, cranial nerves II-XII grossly intact, normal speech, no facial droop,nogross weakness of arms, no gross weakness of legs. Gross sensation intact. No ataxia. Vital Signs: reviewed and remarkable Differential Diagnosis: Bowel obstruction, colitis, viral syndrome, foodborne illness, GI bleed, mesenteric ischemia, perforation, as well as others were considered MEDICAL DECISION MAKING: This is an 83-year-old male presents emergency department due to concern for abdominal pain, nausea and vomiting which she feels were similar to prior episode of a bowel obstruction. Labs drawn and sent, IV established, EKG and chest ray performed bedside interpreted by me and patient monitored on telemetry once a regular room was available. He was sent for urgent CT of the abdomen pelvis. He was started on IV fluids and given IV Tylenol and IV Zofran for his symptoms with marked improvement. Patient was noted to be mildly hypoxic despite no respiratory distress on arrival and was placed on oxygen via nasal cannula. His blood pressure was initially borderline low however improved with IV fluids. Chest x-ray suggestive of possible free air under the diaphragm. CT of the abdomen pelvis confirmed high-grade bowel obstruction and perforation. General surgery contacted urgently for additional evaluation. They saw the patient at bedside and made arrangements for urgent operative intervention. Case discussed with the on-call hospitalist additionally to help in managing his other medical problems. Patient was given IV Zosyn as a precaution. He was updated several times on his results and plan and verbalized understanding. Consultation(s): 1857: [place] text sent to Dr. Fields who responded. He will be up to see the patient. Will plan for urgent operative intervention. 1909: Discussed with Dr. Mendiola, [facility] hospitalist team, for additional evaluation and management. ER Treatment Provided: See below Diagnostics Interpreted By Me: -ECG: Normal sinus at 83 with first-degree AV block, leftward axis, right bundle branch block, Q waves inferiorly -Cardiac Monitoring: An order was placed for continuous cardiac monitoring. The monitor shows a rate of 96 with normal sinus rhythm. -Laboratory studies: As stated above and show below. -Imaging studies: X-ray Chest: A single view study of the chest was reviewed and was negative for cardiomegaly, focal infiltrate, effusion, pulmonary edema, or wide mediastinum. Triage Nursing Note Reviewed Prior/Outside Records Reviewed Critical care: Critical care of 42 min performed to assess and manage high likelihood of life- threatening high-grade bowel obstruction and perforation, involving labs and imaging performed with assessment to evaluate abdominal pain diagnosis with frequent reassessment. This time includes bedside time, treatment discussions with patient/family/consultants, documentation time and excludes procedure time. Past Med/Surg History Medical History (Updated 07/16/23 @ 13:26 by VEGA Salcedo) Chronic anemia BPH with obstruction/lower urinary tract symptoms Retinal detachment S/P hernia repair Hypothyroid Hyperlipidemia Hypertension Cataract Bowel obstruction (03/02/14) Surgical History (Updated 07/16/23 @ 13:15 by Ligia Richards, CHAMP) H/O exploratory laparotomy (07/15/23) p Exploratory Laparotomy, Release Small Bowel Obstruction, Enterolysis(Not Applicable) - Abel Fields, DO s Cystoscopy and Navarro Catheter Placement Over Wire. (Not Applicable) - Zion Muir MD History of hip surgery H/O exploratory laparotomy Hx of cholecystectomy Hx of cataract surgery History of bladder surgery S/P cataract surgery S/p small bowel obstruction Family History Father Cancer Brother Colorectal cancer Other No significant family history Social History Smoking Status: Never smoker Second Hand Exposure: No; Do You Dip or Chew Tobacco: No; Hx Alcohol Use: No Hx Substance Use: No Preferred Language: Romanian Communication Ability: Effective [employer] Supervisor Required: No Beliefs That Will Affect Care: None marital status: Current Living Situation: Spouse Current Living Situation Comment: lives with spouse and son current occupational status: retired Feels Safe at Home: Yes Assistive Devices: Glasses and Walker Allergies Allergies Allergy/AdvReac Type Severity Reaction Status Date / Time gluten Allergy Severe Abdominal Unverified 07/15/23 19:24 pain and bloating potassium Allergy Severe Potassium Unverified 07/15/23 19:42 Chromate - Causes severe Rash shellfish derived Allergy Severe convulsions Verified 07/15/23 19:24 Home Meds Home Medications Medication Instructions Recorded Confirmed multivitamin 1 tab PO QAM 12/05/18 07/15/23 nystatin-triamcinolone 100,000 1 applic topical DAILY PRN Skin 12/05/18 07/15/23 unit/gram-0.1 % topical ointment Irritation levothyroxine 88 mcg tablet 88 mcg PO QAM 02/18/19 07/15/23 cholecalciferol (vitamin D3) 50 2,000 unit PO QAM 07/05/19 07/15/23 mcg (2,000 unit) capsule omeprazole 40 mg capsule,delayed 40 mg PO QAM 09/17/22 07/15/23 release simvastatin 5 mg tablet 5 mg PO QPM 09/17/22 07/15/23 trazodone 100 mg tablet 100 mg PO HS 09/17/22 07/15/23 acetaminophen 500 mg tablet 1,000 mg PO Q8H PRN Pain 10/08/22 07/15/23 (Tylenol Extra Strength) Lactobacillus rhamnosus-Bifidobac. 1 cap PO QAM 07/15/23 07/15/23 animalis 3 billion cell capsule ([place]) dutasteride 0.5 mg capsule 0.5 mg PO QAM 07/15/23 07/15/23 ferrous sulfate 325 mg (65 mg 325 mg PO QPM 07/15/23 07/15/23 iron) tablet,delayed release Previous Rx's Medication Instructions Recorded aspirin 81 mg tablet,delayed 81 mg PO BID #60 tabs 09/21/22 release Results & Data (ED) Vital Signs Vital Signs - 24 hr 07/15/23 17:10 07/15/23 17:13 07/15/23 17:27 Temperature 36.4 C L Temperature Source Temporal Artery Scan Pulse Rate 45 L Pulse Rate [Apical] Respiratory Rate 16 Respiratory Effort / Characteristics Non-Labored Respiratory Depth Normal Blood Pressure 97/68 L Blood Pressure [Right Arm] Blood Pressure Mean 77 Blood Pressure Mean [Right Arm] Blood Pressure Position [Right Arm] Pulse Oximetry 87 L 91 Oxygen Delivery Method Room Air Room Air Nasal Cannula Room Air Oxygen Flow Rate 4 Sepsis New/Unexplained Change in Mental Status No Sepsis Action Taken by Nursing No Action Required 07/15/23 17:38 07/15/23 18:17 Temperature Temperature Source Pulse Rate 86 Pulse Rate [Apical] 91 H Respiratory Rate 17 Respiratory Effort / Characteristics Non-Labored Spontaneous Respiratory Depth Normal Blood Pressure Blood Pressure [Right Arm] 131/82 Blood Pressure Mean Blood Pressure Mean [Right Arm] 98 Blood Pressure Position [Right Arm] Semi-fowlers Pulse Oximetry 95 Oxygen Delivery Method Nasal Cannula Oxygen Flow Rate 4 Sepsis New/Unexplained Change in Mental Status Sepsis Action Taken by Nursing Laboratory Data 07/16/23 05:47 07/16/23 05:47 Lab Results 07/15/23 07/15/23 07/15/23 Range/Units 17:30 18:27 18:39 WBC 13.07 H (4.8-10.8) K/ul RBC 4.68 L (4.70-6.10) M/uL Hgb 14.8 (14.0-18.0) g/dl Hct 45.2 (42.0-52.0) % MCV 96.6 (80.0-100.0) fL MCH 31.6 (25.0-34.0) pg MCHC 32.7 (32.0-36.0) g/dL RDW Std Deviation 49.9 H (36.4-46.3) fL RDW Coeff of [place] 14.2 (11.5-14.5) % Plt Count 255 (130-400) K/uL MPV 9.4 (9.4-12.4) fL Immature Gran % (Auto) 0.4 % Neut % (Auto) 83.2 % Lymph % (Auto) 11.6 % [place] % (Auto) 4.1 % Eos % (Auto) 0.5 % Baso % (Auto) 0.2 % Neut # (Auto) 10.88 H (1.40-6.50) K/uL Lymph # (Auto) 1.52 (1.20-3.40) K/uL [place] # (Auto) 0.53 (0.11-0.59) K/uL Eos # (Auto) 0.07 (0.00-0.50) K/uL Baso # (Auto) 0.02 (0.00-0.20) K/uL Immature Gran # (Auto) 0.05 (0.01-0.20) K/uL PT 10.8 (9.0-12.0) Seconds INR 1.0 (0.9-1.1) APTT 26 (21-31) Seconds PTT Ratio 0.9 Sodium 141 (136-145) mmol/L Potassium 4.3 (3.5-5.1) mmol/L Chloride 106 (98-107) mmol/L Carbon Dioxide 25 (21-32) mmol/L Anion Gap 10 (3-11) BUN 26 H (6-23) mg/dl Creatinine 1.13 (0.6-1.4) mg/dl Est Cr Clr Drug Dosing Not Reportable Est GFR ( Amer) 68.8 ml/min Est GFR (Non-Af Amer) 59.4 ml/min BUN/Creatinine Ratio 23.0 H (10-20) Glucose 168 H (70-99(Fasting)) mg/dl Estimat Average Glucose 108 mg/dl Hemoglobin A1c 5.4 (4.5-5.6) % Lactate 1.9 (0.4-2.0) mmol/L Calcium 10.0 (8.6-10.3) mg/dl Magnesium 1.9 (1.7-2.4) mg/dl Total Bilirubin 0.4 (0.2-1.0) mg/dl AST 22 (13-39) U/L ALT 14 (7-52) U/L Alkaline Phosphatase 102 (34-104) U/L Troponin I High Sens 8.1 (0-20) pg/ml Total Protein 7.2 (6.0-8.3) gm/dl Albumin 4.2 (3.4-5.0) gm/dl Globulin 3.0 (2.5-4.0) gm/dl Albumin/Globulin Ratio 1.4 (0.9-2) Lipase 4 L (11-82) U/L SARS-CoV-2 (PCR) NEGATIVE (Negative) Influenza Type A (PCR) Negative (Neg) Influenza Type B (PCR) Negative (Neg) RSV (RT-PCR) Negative (Neg) Administered Medications Lactated Ringer's (Lr) 1,000 mls @ 100 mls/hr IV .Q10H DANIELLA Stop: 08/14/23 20:14 Last Admin: 07/16/23 20:00 Dose: 100 mls/hr Documented By: Infusion: 07/16/23 20:00 Dose: Infused Documented By: Admin: 07/16/23 11:09 Dose: 100 mls/hr Documented By: Infusion: 07/16/23 09:53 Dose: Infused Documented By: Admin: 07/15/23 23:53 Dose: 100 mls/hr Documented By: ANABELL Piperacillin Sod/Tazobactam (Sod 4.5 gm/ Dextrose) 100 mls @ 25 mls/hr IV Q8H [facility]; Protocol Stop: 07/26/23 00:00 Last Admin: 07/16/23 17:37 Dose: 25 mls/hr Documented By: Infusion: 07/16/23 11:27 Dose: Infused Documented By: Admin: 07/16/23 07:27 Dose: 25 mls/hr Documented By: HUANG Co-signed By: DELVIN Infusion: 07/16/23 05:02 Dose: Infused Documented By: Admin: 07/16/23 00:29 Dose: 25 mls/hr Documented By: ANABELL Pantoprazole Sodium 40 mg/ (Syringe) 10 mls @ 5 mls/min IV DAILY@1100 [facility] Stop: 08/15/23 10:59 Last Admin: 07/16/23 12:22 Dose: 5 mls/min Documented By: JULIET Discontinued Medications Sodium Chloride (Nss) 1,000 mls @ 125 mls/hr IV .Q8H [facility] Stop: 08/14/23 17:59 Last Infusion: 07/15/23 23:00 Dose: Infused Documented By: Admin: 07/15/23 18:25 Dose: 125 mls/hr Documented By: BLAIRE Piperacillin Sod/Tazobactam Sod (Zosyn) 4.5 gm in 100 mls @ 200 mls/hr IV NOW ONE Stop: 07/15/23 18:46 Last Infusion: 07/15/23 19:40 Dose: Infused Documented By: Admin: 07/15/23 19:08 Dose: 200 mls/hr Documented By: KEITH Miscellaneous (Patient's Height &/Or Weight Needed) 1 each N/A ONE STA Stop: 07/15/23 23:07 Last Admin: 07/16/23 03:12 Dose: 1 each Documented By: ANABELL Ondansetron HCl (Ondansetron Inj 2 Mg/Ml 2 Ml Vial) 4 mg IV NOW STA Stop: 07/15/23 17:12 Last Admin: 07/15/23 17:25 Dose: 4 mg Documented By: KG Imaging Data Radiologist's Impression: Abdomen/Pelvis CT 07/15/23 17:12 CT SCAN OF THE ABDOMEN AND PELVIS WITHOUT IV CONTRAST CLINICAL HISTORY: Generalized abdominal pain. Nausea and vomiting. COMPARISON STUDY: Abdominal CT dated 01/16/2015. TECHNIQUE: CT scan of the abdomen and pelvis is performed from the lung bases to the proximal femora. Images are reviewed in the axial, sagittal, and coronal planes. IV contrast was not administered for this examination. Note that the examination was performed in significantly suboptimal fashion without oral and IV contrast. A dose lowering technique was utilized adhering to the principles of ALARA. CT DOSE: 836.71 mGy.cm FINDINGS: Lung bases: The heart is mildly enlarged and without pericardial effusion. The coronary arteries are densely calcified. There is bibasilar scarring/atelectasis. The lung bases are otherwise clear. There is no aneurysmal dilatation of the partially visualized ascending thoracic aorta which measures up to 4.2 cm. Liver: The unenhanced liver is normal in size, contour, and attenuation. Linear branching foci of gas within the liver reaches the hepatic capsule. Although some of this may represent pneumobilia, the findings are more suspicious for portal venous gas. There is mild central intrahepatic biliary ductal dilatation. Gallbladder: Surgically absent and clips in the gallbladder fossa. Spleen: Normal in size and attenuation. Pancreas: The unenhanced pancreas is mildly atrophic and grossly unremarkable. Adrenal glands: Unremarkable. Kidneys: The unenhanced kidneys are normal in size and without hydronephrosis. There are several small bilateral nonobstructing renal calculi which measure up to 4 mm. There are renal sinus cyst on the left. There is no evidence of contour deforming renal mass lesion. Abdominal vasculature: There is advanced atherosclerotic calcification without ectasia of the abdominal aorta. Bowel: The small bowel loops are distended and fluid-filled, measuring up to 3.7 cm in diameter. Numerous air-fluid levels are noted. A duodenal diverticulum is incidentally noted. A transition point is suggested in the lower abdominal midline on image #134. The distal small bowel and colon are decompressed. This is consistent with small bowel obstruction. There is interloop fluid and mild surrounding edema. No pneumatosis intestinalis is seen. The appendix is not visualized. Peritoneum: There is a small volume of pelvic ascites. There are numerous small foci of intraperitoneal free air is seen below the diaphragm. Lymphadenopathy: None. Pelvic viscera: The prostate gland is enlarged and heterogeneous. There are bilateral fat-containing groin hernias, right larger than left. The bladder is mildly distended, and the wall appears thickened/trabeculated indicating chronic outlet obstruction. There are small bladder calculi. A 3 mm calculus is in the region of the left vesicoureteral junction is seen on image #301. Skeletal structures: The skeletal structures are osteopenic. Postoperative change is seen in the right proximal femur. There is moderate lumbosacral spondylosis. No lytic or blastic lesions are seen. IMPRESSION: 1. There are numerous foci of intraperitoneal free air below the diaphragm. Visceral perforation is the diagnosis of exclusion surgical assessment is advised. The site of perforation is not apparent on this examination. 2. There is a high-grade small bowel obstruction, with a transition point seen in the lower abdominal midline. This is likely on the basis of adhesions. 3. No focally thick-walled bowel loops are identified. No pneumatosis intestinalis is seen. 4. Linear branching foci of gas within the liver favor portal venous gas. 5. There is interloop fluid and a small volume of pelvic ascites. 6. Cholelithiasis. 7. Bilateral nephrolithiasis. 8. Bladder calculi are noted. A 3 mm calculus is seen in the expected location of the left vesicoureteral junction. No upstream hydronephrosis is identified. 9. Additional findings as above. ACT 112: Negative or not required by law. Electronically signed by: Mo Vazquez M.D. 07/15/2023 6:16 PM Chest X-Ray 07/15/23 17:12 SINGLE VIEW CHEST CLINICAL HISTORY: Upper abdominal pain FINDINGS: An AP, portable, upright chest radiograph is compared to study dated 10/08/2022. Correlation is made with chest CT dated 05/02/2020. The heart is mildly enlarged noting atherosclerotic calcification of the thoracic aorta. The pulmonary vasculature is noncongested. Chronic interstitial thickening is similar to previous. Mild scarring/atelectasis is noted at the lung bases. No airspace consolidation or large pleural effusion is identified. No pneumothorax is seen. The skeletal structures are osteopenic. The bony thorax is grossly intact. Pneumobilia is seen in the liver. Findings are suspicious for intraperitoneal free air below the left hemidiaphragm. IMPRESSION: 1. Cardiomegaly with no active disease in the chest. 2. Findings are suspicious for intraperitoneal free air below the left hemidiaphragm. CT correlation is recommended. ACT 112: Negative or not required by law. Electronically signed by: Mo Vazquez M.D. 07/15/2023 6:00 PM Discharge Plan Visit Data Chief Complaint: Vomiting Stated Complaint: SEVERE ABD PAIN/VOMITING, HISTORY BOWEL OBSTRUCT ED Provider: Zoë Lima Discharge Problem: Abdominal pain, Nausea & vomiting, Bowel obstruction, Perforation bowel Patient Disposition: Admitted As Inpatient Discharge Instructions Interventions: ED Discharge Assessment Last Done: 07/15/23 19:48
--- NOTE | 2023-07-15 19:29 | History & Physical Report ---
Date of Service July 15, 2023 Assessment & Plan (1) Perforation bowel: Plan: Due to the patient's clinical presentation and as well as findings on imaging he will be admitted to the surgical service proceeding as follows: Patient be kept n.p.o. Will continue IV fluids for resuscitation Will continue antibiotics in form of Zosyn Analgesics to be provided Antiemetics to be provided Due to the findings on imaging we are tentatively planning on taking the patient for exploratory abdominal surgery with Dr. Fields. The exact procedure be performed will be dependent on what is found during exploration of the patient's abdomen but I have outlined with the patient that he may require bowel resection or colostomy formation. I also informed the patient he may require additional surgeries in the future. Again, I did discuss with the patient that we are uncertain of the exact procedure to be performed until we ascertain the site of patient's free intraperitoneal air. For the present time we will use SCDs for DVT prevention, no chemical means due to planned surgical procedure I did discuss CODE STATUS with the patient in the presence of his daughter and he notes in the event of cardiopulmonary arrest he wishes to be a level 1 full code. as above. pt seen. stable. CT reviewed. high grade SBO with foci of free air. recommend urgent laparotomy. discussed risks ( bleeding/infection/injury to another organ/dvt/pe/mi/cva etc). may or may not need bowel resection or stoma. questions answered. will proceed lauren with exploratory laparotomy, release sbo, surgery as needed. (2) Bowel obstruction: History of Present Illness Chief Complaint: Abdominal pain along with nausea and vomiting Primary Care Provider: Britt Bliss This is an 83-year-old male who presented the emergency department secondary to nausea and vomiting abdominal pain. The patient says he was fine earlier this morning but around noon time he developed some generalized abdominal pain which is greatest just superior to his umbilicus. He notes that the pain is not rating without modifying factors. He did have some associated nausea and vomiting but denied hematemesis. He denies any fevers, shakes, or chills. Patient has had a history of of a bowel obstruction in the past and therefore he was concerned and presented to the emergency department. I did asked the patient about his previous bowel obstruction and he was uncertain of the details but his daughter who is present at bedside thought the patient experienced a volvulushe did have an exploratory laparotomy for this but according to her there is no bowel resection undertaken and his bowel was merely tacked in place to prevent further volvulus from occurring. She believes this was approximate 10 years ago was performed by Dr. Muller at [facility]. The patient has also undergone a laparoscopic cholecystectomy but has had no additional abdominal surgeries. Since arrival to the emergency department the patient has had labs and imaging which I independent reviewed. A CBC revealed white blood cell count was elevated 13.0. Hemoglobin and hematocrit along with the platelet count were normal. Coagulation studies are normal. Chemistry profile showed sodium and potassium along with her creatinine are normal. His BUN had a slight elevation at 26. Lactic acid is not elevated at 1.9. There is no elevation of LFTs. His lipase is not elevated. The patient underwent a chest x-ray that showed concern for free intraperitoneal below the left hemidiaphragm but there is no evidence of pneumonia. A CT scan of the abdomen pelvis showed the patient had numerous foci of intraperitoneal free air below the diaphragm raising the concern for viscus perforation. The interpreting radiologist could not ascertain the site of suspected perforation. There is also a noted high-grade small bowel obstruction with a transition point in the lower abdomen near the midline. This was felt to be due out to the basis of adhesions. There is no pneumatosis intestinalis. There is suspicion for portal venous gas on the study. Since arrival to the emergency department the patient has received intravenous fluids and is currently receiving maintenance fluids. He is also received antibiotics in form of Zosyn. At the time of my interview the patient was resting comfortably bed he did not appear to be in any distress. Allergies Allergy/AdvReac Type Severity Reaction Status Date / Time gluten Allergy Severe Abdominal Unverified 07/15/23 19:24 pain and bloating potassium Allergy Severe Potassium Unverified 07/15/23 19:42 Chromate - Causes severe Rash shellfish derived Allergy Severe convulsions Verified 07/15/23 19:24 Potassium Chromate Allergy Severe RASH Uncoded 07/15/23 19:24 Home Medications Medication Instructions Recorded Confirmed Type multivitamin 1 tab PO QAM 12/05/18 07/15/23 History nystatin-triamcinolone 100,000 1 applic topical DAILY PRN Skin 12/05/18 07/15/23 History unit/gram-0.1 % topical ointment Irritation levothyroxine 88 mcg tablet 88 mcg PO QAM 02/18/19 07/15/23 History cholecalciferol (vitamin D3) 50 2,000 unit PO QAM 07/05/19 07/15/23 History mcg (2,000 unit) capsule omeprazole 40 mg capsule,delayed 40 mg PO QAM 09/17/22 07/15/23 History release simvastatin 5 mg tablet 5 mg PO QPM 09/17/22 07/15/23 History trazodone 100 mg tablet 100 mg PO HS 09/17/22 07/15/23 History aspirin 81 mg tablet,delayed 81 mg PO BID #60 tabs 09/21/22 07/15/23 Rx release acetaminophen 500 mg tablet 1,000 mg PO Q8H PRN Pain 10/08/22 07/15/23 History (Tylenol Extra Strength) Lactobacillus rhamnosus-Bifidobac. 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 Retinal detachment S/P hernia repair Hypothyroid Hyperlipidemia Hypertension Cataract Bowel obstruction (03/02/14) Surgical History History of hip surgery H/O exploratory laparotomy Hx of cholecystectomy Hx of cataract surgery History of bladder surgery S/P cataract surgery S/p small bowel obstruction Family History Father Cancer Brother Colorectal cancer Other No significant family history Social History Smoking Status: Never smoker Second Hand Exposure: No; Do You Dip or Chew Tobacco: No; Hx Alcohol Use: No Hx Substance Use: No Preferred Language: Georgian Communication Ability: Effective Food And Nutrition Teacher Required: No Beliefs That Will Affect Care: None marital status: Current Living Situation: Spouse and Family Current Living Situation Comment: lives with spouse and son current occupational status: retired Feels Safe at Home: Yes Assistive Devices: Walker Review of Systems Constitutional: no fever and no chills Ear, Nose, Mouth, Throat: no ear pain Respiratory: no cough and no dyspnea Cardiovascular: no chest pain Gastrointestinal: as per Subjective / HPI Genitourinary: no dysuria Musculoskeletal: no back pain Integumentary: no rash Neurologic: no localized weakness Physical Exam Constitutional: WD/WN, vitals as above Eyes: no conjunctival abnormality ENMT: Ears: no hearing impairment and no external ear abnormality Mouth: no oropharynx abnormality Neck: trachea midline Respiratory: normal respiratory effort; no respiratory distress and no labored breathing Cardiovascular: Rate/Rhythm: regular rate and regular rhythm Gastrointestinal (Abdomen): Abdomen is soft and nonrigid. Patient did have pain with palpation just superior to the umbilicus without rebound tenderness or guarding. Musculoskeletal: No calf tenderness Skin: no rashes Neurologic: moves all extremities Psychiatric: A+Ox3, euthymic affect Results & Data Results & Data Vital Signs (Past 12 Hours) Vital Signs Temp Pulse Pulse Resp BP BP Pulse Ox 07/15/23 18:17 91 H 17 131/82 95 07/15/23 17:38 86 07/15/23 17:27 07/15/23 17:13 91 07/15/23 17:10 36.4 C L 45 L 16 97/68 L 87 L O2 Del Method O2 Flow Rate 07/15/23 18:17 Nasal Cannula 4 07/15/23 17:38 07/15/23 17:27 Room Air 07/15/23 17:13 Room Air, Nasal Cannula 4 07/15/23 17:10 Room Air PG Care Time/CCT Total # of Minutes Spent Total Time Spent with Patient: Total time spent is greater than 50% in coordination of care (as documented) at patient's floor/unit and/or counseling patient: Coding Level of Care Code 90072 INT INP/OBS CARE 3/75MIN Diagnoses Perforation bowel K63.1 Bowel obstruction K56.609
[2023-07-15 19:35] LABS: Influenza A virus by PCR Negative (Neg); Influenza B virus by PCR Negative (Neg); RSV by PCR Negative (Neg); SARS CoV2 RNA(COVID-19) Ceph NEGATIVE (Negative)
--- NOTE | 2023-07-15 19:59 | History & Physical Report ---
Date of Service July 15, 2023 Assessment & Plan (1) Acute hypoxemic respiratory failure: Plan: Secondary to intraperitoneal free air from perforated bowel hyperlipidemia, on statin Rx hypothyroidism, euthyroid as of last year's TSH Chronic anemia, hemoglobin better than baseline Hyperglycemia rule out DM Medical telemetry Supplemental O2 Zosyn for perforated bowel General surgery consult Re: Perforated bowel Emergent surgery recommended by service. Keep patient n.p.o. Check hemoglobin A1c DVT prophylaxis. SCDs Re: surgery Full code Patient requests for to be updated of his progress. Ms. Kim Mancilla, contact #[phone]. Text document was generated using 2[employer]ures[employer] voice recognition software. It may contain grammatical or spelling errors. Kindly contact undersigned for clarification of any documentation item in question. History of Present Illness Chief Complaint: Abdominal pain Primary Care Provider: Britt Bliss History obtained from patient and records. Medical history significant for hyperlipidemia, hypothyroidism, BPH, chronic anemia (baseline hemoglobin of 11). Last confinement October 2022 for metabolic encephalopathy, Pseudomonas bacteremia status post antibiotic Rx. Patient experienced achy central abdominal pain today followed by nausea and bilious emesis. Denies chest pain, SOB. Patient consulted ER. O2 sats 80s upon arrival at the ER. IV Zosyn administered at the ER. 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 Allergies Allergy/AdvReac Type Severity Reaction Status Date / Time gluten Allergy Severe Abdominal Unverified 07/15/23 19:24 pain and bloating potassium Allergy Severe Potassium Unverified 07/15/23 19:42 Chromate - Causes severe Rash shellfish derived Allergy Severe convulsions Verified 07/15/23 19:24 Home Medications Medication Instructions Recorded Confirmed Type multivitamin 1 tab PO QAM 12/05/18 07/15/23 History nystatin-triamcinolone 100,000 1 applic topical DAILY PRN Skin 12/05/18 07/15/23 History unit/gram-0.1 % topical ointment Irritation levothyroxine 88 mcg tablet 88 mcg PO QAM 02/18/19 07/15/23 History cholecalciferol (vitamin D3) 50 2,000 unit PO QAM 07/04/07/15/23 History mcg (2,000 unit) capsule omeprazole 40 mg capsule,delayed 40 mg PO QAM 09/17/22 07/15/23 History release simvastatin 5 mg tablet 5 mg PO QPM 09/17/22 07/15/23 History trazodone 100 mg tablet 100 mg PO HS 09/17/22 07/15/23 History aspirin 81 mg tablet,delayed 81 mg PO BID #60 tabs 09/21/22 07/15/23 Rx release acetaminophen 500 mg tablet 1,000 mg PO Q8H PRN Pain 10/08/22 07/15/23 History (Tylenol Extra Strength) Lactobacillus rhamnosus-Bifidobac. 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 Retinal detachment S/P hernia repair Hypothyroid Hyperlipidemia Hypertension Cataract Bowel obstruction (03/02/14) Surgical History (Updated 07/16/23 @ 08:08 by VEGA Ramon) History of hip surgery H/O exploratory laparotomy Hx of cholecystectomy Hx of cataract surgery History of bladder surgery S/P cataract surgery S/p small bowel obstruction Family History Father Cancer Brother Colorectal cancer Other No significant family history Social History Smoking Status: Never smoker Second Hand Exposure: No; Do You Dip or Chew Tobacco: No; Hx Alcohol Use: No Hx Substance Use: No Preferred Language: Romansh Communication Ability: Effective Blow Down Helper Required: No Beliefs That Will Affect Care: None marital status: Current Living Situation: Spouse Current Living Situation Comment: lives with spouse and son current occupational status: retired Feels Safe at Home: Yes Assistive Devices: Denture - Upper, Denture - Lower, Glasses and Oxygen - Continuous Review of Systems Review of Systems: As per HPI, all other systems reviewed and negative Physical Exam Physical Exam: GENERAL: Slightly uncomfortable, pleasant, slightly hard of hearing, no respiratory distress SKIN: Pallor, warm HEENT: Pale palpebral conjunctivae, L ptosis (chronic as per patient), dry buccal mucosa, nasal cannula in place NECK : Supple, no tenderness CHEST : Decreased breath sounds, no tenderness HEART : RRR, no obvious murmurs ABDOMEN: Some distention, central abdominal tenderness EXTREMITIES : No LE swelling, no LE tenderness, no other conspicuous deformities noted NEUROLOGIC : Coherent, no facial asymmetry, slightly hard of hearing, no other gross focality Results & Data Results & Data Vital Signs (Past 12 Hours) Vital Signs Temp Pulse Pulse Resp BP BP Pulse Ox 07/15/23 19:48 89 18 131/82 98 07/15/23 18:17 91 H 17 131/82 95 07/15/23 17:38 86 07/15/23 17:27 07/15/23 17:13 91 07/15/23 17:10 36.4 C L 45 L 16 97/68 L 87 L O2 Del Method O2 Flow Rate 07/15/23 19:48 Nasal Cannula 4 07/15/23 18:17 Nasal Cannula 4 07/15/23 17:38 07/15/23 17:27 Room Air 07/15/23 17:13 Room Air, Nasal Cannula 4 07/15/23 17:10 Room Air Laboratory Results Laboratory Results WBC 13.07 K/ul (4.8-10.8) H 07/15/23 17:30 RBC 4.68 M/uL (4.70-6.10) L 07/15/23 17:30 Hgb 14.8 g/dl (14.0-18.0) 07/15/23 17:30 Hct 45.2 % (42.0-52.0) 07/15/23 17:30 MCV 96.6 fL (80.0-100.0) 07/15/23 17:30 MCH 31.6 pg (25.0-34.0) 07/15/23 17:30 MCHC 32.7 g/dL (32.0-36.0) 07/15/23 17:30 RDW Std Deviation 49.9 fL (36.4-46.3) H 07/15/23 17:30 RDW Coeff of Dinorah 14.2 % (11.5-14.5) 07/15/23 17:30 Plt Count 255 K/uL (130-400) 07/15/23 17:30 MPV 9.4 fL (9.4-12.4) 07/15/23 17:30 Immature Gran % (Auto) 0.4 % 07/15/23 17:30 Neut % (Auto) 83.2 % 07/15/23 17:30 Lymph % (Auto) 11.6 % 07/15/23 17:30 [place] % (Auto) 4.1 % 07/15/23 17:30 Eos % (Auto) 0.5 % 07/15/23 17:30 Baso % (Auto) 0.2 % 07/15/23 17:30 Neut # (Auto) 10.88 K/uL (1.40-6.50) H 07/15/23 17:30 Lymph # (Auto) 1.52 K/uL (1.20-3.40) 07/15/23 17:30 [place] # (Auto) 0.53 K/uL (0.11-0.59) 07/15/23 17:30 Eos # (Auto) 0.07 K/uL (0.00-0.50) 07/15/23 17:30 Baso # (Auto) 0.02 K/uL (0.00-0.20) 07/15/23 17:30 Immature Gran # (Auto) 0.05 K/uL (0.01-0.20) 07/15/23 17:30 PT 10.8 Seconds (9.0-12.0) 07/15/23 17:30 INR 1.0 (0.9-1.1) 07/15/23 17:30 APTT 26 Seconds (21-31) 07/15/23 17:30 PTT Ratio 0.9 07/15/23 17:30 Sodium 141 mmol/L (136-145) 07/15/23 17:30 Potassium 4.3 mmol/L (3.5-5.1) 07/15/23 17:30 Chloride 106 mmol/L (98-107) 07/15/23 17: Carbon Dioxide 25 mmol/L (21-32) 07/15/23 17:30 Anion Gap 10 (3-11) 07/15/23 17:30 BUN 26 mg/dl (6-23) H 07/15/23 17:30 Creatinine 1.13 mg/dl (0.6-1.4) 07/15/23 17:30 Est Cr Clr Drug Dosing Not Reportable 07/15/23 17:30 Est GFR ( Amer) 68.8 ml/min 07/15/23 17:30 Est GFR (Non-Af Amer) 59.4 ml/min 07/15/23 17:30 BUN/Creatinine Ratio 23.0 (10-20) H 07/15/23 17:30 Glucose 168 mg/dl (70-99(Fasting)) H 07/15/23 17:30 Lactate 1.9 mmol/L (0.4-2.0) 07/15/23 18:39 Calcium 10.0 mg/dl (8.6-10.3) 07/15/23 17:30 Magnesium 1.9 mg/dl (1.7-2.4) 07/15/23 17:30 Total Bilirubin 0.4 mg/dl (0.2-1.0) 07/15/23 17:30 AST 22 U/L (13-39) 07/15/23 17:30 ALT 14 U/L (7-52) 07/15/23 17:30 Alkaline Phosphatase 102 U/L (34-104) 07/15/23 17:30 Troponin I High Sens 8.1 pg/ml (0-20) 07/15/23 17:30 Total Protein 7.2 gm/dl (6.0-8.3) 07/15/23 17:30 Albumin 4.2 gm/dl (3.4-5.0) 07/15/23 17:30 Globulin 3.0 gm/dl (2.5-4.0) 07/15/23 17:30 Albumin/Globulin Ratio 1.4 (0.9-2) 07/15/23 17:30 Lipase 4 U/L (11-82) L 07/15/23 17:30 SARS-CoV-2 (PCR) NEGATIVE (Negative) 07/15/23 18:27 Influenza Type A (PCR) Negative (Neg) 07/15/23 18:27 Influenza Type B (PCR) Negative (Neg) 07/15/23 18:27 RSV (RT-PCR) Negative (Neg) 07/15/23 18:27 Impressions Abdomen/Pelvis CT 07/15/23 17:12 CT SCAN OF THE ABDOMEN AND PELVIS WITHOUT IV CONTRAST CLINICAL HISTORY: Generalized abdominal pain. Nausea and vomiting. COMPARISON STUDY: Abdominal CT dated 01/16/2015. TECHNIQUE: CT scan of the abdomen and pelvis is performed from the lung bases to the proximal femora. Images are reviewed in the axial, sagittal, and coronal planes. IV contrast was not administered for this examination. Note that the examination was performed in significantly suboptimal fashion without oral and IV contrast. A dose lowering technique was utilized adhering to the principles of ALARA. CT DOSE: 836.71 mGy.cm FINDINGS: Lung bases: The heart is mildly enlarged and without pericardial effusion. The coronary arteries are densely calcified. There is bibasilar scarring/atelectasis. The lung bases are otherwise clear. There is no aneurysmal dilatation of the partially visualized ascending thoracic aorta which measures up to 4.2 cm. Liver: The unenhanced liver is normal in size, contour, and attenuation. Linear branching foci of gas within the liver reaches the hepatic capsule. Although some of this may represent pneumobilia, the findings are more suspicious for portal venous gas. There is mild central intrahepatic biliary ductal dilatation. Gallbladder: Surgically absent and clips in the gallbladder fossa. Spleen: Normal in size and attenuation. Pancreas: The unenhanced pancreas is mildly atrophic and grossly unremarkable. Adrenal glands: Unremarkable. Kidneys: The unenhanced kidneys are normal in size and without hydronephrosis. There are several small bilateral nonobstructing renal calculi which measure up to 4 mm. There are renal sinus cyst on the left. There is no evidence of contour deforming renal mass lesion. Abdominal vasculature: There is advanced atherosclerotic calcification without ectasia of the abdominal aorta. Bowel: The small bowel loops are distended and fluid-filled, measuring up to 3.7 cm in diameter. Numerous air-fluid levels are noted. A duodenal diverticulum is incidentally noted. A transition point is suggested in the lower abdominal midline on image #134. The distal small bowel and colon are decompressed. This is consistent with small bowel obstruction. There is interloop fluid and mild surrounding edema. No pneumatosis intestinalis is seen. The appendix is not visualized. Peritoneum: There is a small volume of pelvic ascites. There are numerous small foci of intraperitoneal free air is seen below the diaphragm. Lymphadenopathy: None. Pelvic viscera: The prostate gland is enlarged and heterogeneous. There are bilateral fat-containing groin hernias, right larger than left. The bladder is mildly distended, and the wall appears thickened/trabeculated indicating chronic outlet obstruction. There are small bladder calculi. A 3 mm calculus is in the region of the left vesicoureteral junction is seen on image #301. Skeletal structures: The skeletal structures are osteopenic. Postoperative change is seen in the right proximal femur. There is moderate lumbosacral spondylosis. No lytic or blastic lesions are seen. IMPRESSION: 1. There are numerous foci of intraperitoneal free air below the diaphragm. Visceral perforation is the diagnosis of exclusion surgical assessment is advised. The site of perforation is not apparent on this examination. 2. There is a high-grade small bowel obstruction, with a transition point seen in the lower abdominal midline. This is likely on the basis of adhesions. 3. No focally thick-walled bowel loops are identified. No pneumatosis intestinalis is seen. 4. Linear branching foci of gas within the liver favor portal venous gas. 5. There is interloop fluid and a small volume of pelvic ascites. 6. Cholelithiasis. 7. Bilateral nephrolithiasis. 8. Bladder calculi are noted. A 3 mm calculus is seen in the expected location of the left vesicoureteral junction. No upstream hydronephrosis is identified. 9. Additional findings as above. ACT 112: Negative or not required by law. Electronically signed by: Mo Vazquez M.D. 07/15/2023 6:16 PM Chest X-Ray 07/15/23 17:12 SINGLE VIEW CHEST CLINICAL HISTORY: Upper abdominal pain FINDINGS: An AP, portable, upright chest radiograph is compared to study dated 10/08/2022. Correlation is made with chest CT dated 05/02/2020. The heart is mildly enlarged noting atherosclerotic calcification of the thoracic aorta. The pulmonary vasculature is noncongested. Chronic interstitial thickening is similar to previous. Mild scarring/atelectasis is noted at the lung bases. No airspace consolidation or large pleural effusion is identified. No pneumothorax is seen. The skeletal structures are osteopenic. The bony thorax is grossly intact. Pneumobilia is seen in the liver. Findings are suspicious for intraperitoneal free air below the left hemidiaphragm. IMPRESSION: 1. Cardiomegaly with no active disease in the chest. 2. Findings are suspicious for intraperitoneal free air below the left hemidiaphragm. CT correlation is recommended. ACT 112: Negative or not required by law. Electronically signed by: Mo Vazquez M.D. 07/15/2023 6:00 PM Diagnostic Findings EKG as per my interpretation : Rate 85, NSR, LAD, LAFB, RBBB, inferior infarct, no ischemia
[2023-07-15] MEDS ORDERED: PROMETHAZINE HCL 6.25 MG in SODIUM CHLORIDE 0.9% 50 ML IV PRN ×2 (20:02→20:23)
--- NOTE | 2023-07-15 20:02 | Anesthesiology Consultation ---
Date of Service July 15, 2023 Assessment & Plan Chart Review Chart Review: Acceptable Risk for Surgery and Patient NOT seen in Pre Admission Testing Consults Requested none ASA ASA2E Proposed Anesthesia Anesthesia Type: General Risk / Benefits Reviewed With: PT / POA / Parent / Guardian, Accepts Plan and Informed Consent Obtained History Surgery Operation Date: 07/15/23 20:00 Proposed Procedures p Exploratory Laparotomy - Abel Fields, DO Height/Weight Height: 5 ft 7 in Allergies Allergy/AdvReac Type Severity Reaction Status Date / Time gluten Allergy Severe Abdominal Unverified 07/15/23 19:24 pain and bloating potassium Allergy Severe Potassium Unverified 07/15/23 19:42 Chromate - Causes severe Rash shellfish derived Allergy Severe convulsions Verified 07/15/23 19:24 Potassium Chromate Allergy Severe RASH Uncoded 07/15/23 19:24 Medications Home Medications Medication Instructions Recorded Confirmed Last Taken multivitamin 1 tab PO QAM 12/05/18 07/15/23 07/15/23 nystatin-triamcinolone 100,000 1 applic topical DAILY PRN Skin 12/05/18 07/15/23 Unknown unit/gram-0.1 % topical ointment Irritation levothyroxine 88 mcg tablet 88 mcg PO QAM 02/18/19 07/15/23 07/15/23 cholecalciferol (vitamin D3) 50 2,000 unit PO QAM 07/05/19 07/15/23 07/15/23 mcg (2,000 unit) capsule omeprazole 40 mg capsule,delayed 40 mg PO QAM 09/17/22 07/15/23 07/15/23 release simvastatin 5 mg tablet 5 mg PO QPM 09/17/22 07/15/23 07/14/23 trazodone 100 mg tablet 100 mg PO HS 09/17/22 07/15/23 07/14/23 aspirin 81 mg tablet,delayed 81 mg PO BID #60 tabs 09/21/22 07/15/23 07/15/23 release acetaminophen 500 mg tablet 1,000 mg PO Q8H PRN Pain 10/08/22 07/15/23 Unknown (Tylenol Extra Strength) Lactobacillus rhamnosus-Bifidobac. 1 cap PO QAM 07/15/23 07/15/23 07/15/23 animalis 3 billion cell capsule ([employer]) dutasteride 0.5 mg capsule 0.5 mg PO QAM 07/15/23 07/15/23 07/15/23 ferrous sulfate 325 mg (65 mg 325 mg PO QPM 07/15/23 07/15/23 07/14/23 iron) tablet,delayed release NPO Date Last Intake of Fluids: 07/15/23 Time Last Intake of Fluids: 08:00 Date Last Intake of Solids: 07/15/23 Time Last Intake of Solids: 08:00 Past Medical History Medical History Chronic anemia BPH with obstruction/lower urinary tract symptoms Retinal detachment S/P hernia repair Hypothyroid Hyperlipidemia Hypertension Cataract Bowel obstruction (03/02/14) Exercise / Class Metabolic Activity III < 4 Walking/Shop/Light housework Past Family History Family History Father Cancer Brother Colorectal cancer Other No significant family history Past Surgical History Surgical History History of hip surgery H/O exploratory laparotomy Hx of cholecystectomy Hx of cataract surgery History of bladder surgery S/P cataract surgery S/p small bowel obstruction Past Anesthesia History No Hx of Anesthesia Complications and No Family Hx of Anesthesia Complications History of PONV No Hx of PONV and No Hx of Motion Sickness Social History Smoking Status: Never smoker Do You Dip or Chew Tobacco: No Hx Alcohol Use: No Hx Substance Use: No substance use type: does not use Review of Systems ROS Unobtainable: All systems reviewed & are unremarkable except as noted in HPI & below Physical Exam Vital Signs Last Vital Signs Temp 36.4 C L 07/15/23 17:10 Pulse 89 07/15/23 19:48 Resp 18 07/15/23 19:48 BP 131/82 07/15/23 19:48 Pulse Ox 98 07/15/23 19:48 O2 Del Method Nasal Cannula 07/15/23 19:48 O2 Flow Rate 4 07/15/23 19:48 ENMT Mouth: + edentulous (upper); no TMJ abnormality Thyromental Distance: > or= 3.5 Finger Breadths Mallampati Class: II Neck normal visual inspection and trachea midline; neck extension not limited Respiratory normal respiratory effort Auscultation: lungs clear to auscultation bilaterally Cardiovascular Rate/Rhythm: regular rate and regular rhythm Heart Sounds: no murmur Musculoskeletal Spine: normal cervical ROM Extremities: full ROM of extremities Neurologic moves all extremities Psychiatric Orientation: alert and oriented x 3 Testing Laboratory Results 07/15/23 17:30 07/15/23 17:30 PT 10.8 Seconds (9.0-12.0) 07/15/23 17:30 INR 1.0 (0.9-1.1) 07/15/23 17:30 APTT 26 Seconds (21-31) 07/15/23 17:30 Electrocardiogram Date: 10/08/22 Sinus rhythm with 1st degree A-V block Right bundle branch block Left anterior fascicular block Possible Old Inferior infarct Abnormal ECG
[2023-07-15] MEDS ORDERED: Patient's HEIGHT &/or WEIGHT Needed SCH (20:15)
[2023-07-15] MEDS ORDERED: SUCCINYLCHOLINE CHLORIDE 20 MG/ML 10 ML VIAL IV ONE (20:16)
[2023-07-15] MEDS ORDERED: PROPOFOL IV EMULSION 10 MG/ML 20 ML VIAL IV ONE (20:16)
[2023-07-15] MEDS ORDERED: fentaNYL citrate PF 100 MCG/2 ML VIAL ONE (20:16)
[2023-07-15] MEDS ORDERED: LIDOCAINE 2% 2 ML VIAL/AMP(20MG/ML) INFIL ONE (20:16)
[2023-07-15] MEDS ORDERED: ROCURONIUM BROMIDE 10 MG/ML 5 ML VIAL IV ONE ×2 (20:16→21:27)
[2023-07-15] MEDS ORDERED: ATROPINE SULFATE 0.1 MG/ML 10ML SYR IV PRN (20:23)
[2023-07-15] MEDS ORDERED: HYDROmorphone INJ 1 MG/ML SYRINGE IV PRN (20:23)
[2023-07-15] MEDS ORDERED: fentaNYL citrate PF 100 MCG/2 ML VIAL IV PRN (20:23)
[2023-07-15] MEDS ORDERED: ePHEDrine sulfate 50 MG/ML AMP IV PRN (20:23)
[2023-07-15] MEDS ORDERED: ONDANSETRON INJ 2 MG/ML 2 ML VIAL IV PRN ×2 (20:23→23:18)
[2023-07-15 20:53] LABS: Estimated Average Glucose 108 mg/dl; Hemoglobin A1C 5.4 % (4.5-5.6)
[2023-07-15] MEDS ORDERED: HYDROmorphone INJ 1 MG/ML SYRINGE ONE (21:02)
[2023-07-15] MEDS ORDERED: KETOROLAC 30 MG/ML VIAL ONE (21:27)
[2023-07-15] MEDS ORDERED: ONDANSETRON INJ 2 MG/ML 2 ML VIAL ONE (21:27)
[2023-07-15] MEDS ORDERED: SUGAMMADEX SODIUM 200 MG/2 ML VIAL IV ONE (21:27)
[2023-07-15] MEDS ORDERED: DEXAMETHASONE SOD INJ 4 MG/ML VIAL ONE (21:27)
--- NOTE | 2023-07-15 22:06 | Operative Report ---
PG Post Operative Report Pre & Post Diagnosis Operation Date: 07/15/23 20:00 Pre-Op Diagnosis: Bowel Perforation ; sbo Post-Op Diagnosis: SBO; extensive adhesions; extensive small bowel diverticulosis I identified the patient and participated in the time-out.: Yes Procedure Operation Date: 07/15/23 20:00 Actual Procedures p Exploratory Laparotomy, Release Small Bowel Obstruction, Enterolysis(Not Applicable) - Abel Fields DO s Cystoscopy and Navarro Catheter Placement Over Wire. (Not Applicable) - Zion Muir MD Surgeon Abel Fields DO Trials Manager mir Harry Estimated Blood Loss 10 Findings Consistent with Post-Op Diagnosis Specimens none Description of Procedure After informed consent was obtained the patient was taken to the operating room and placed in supine position. After successful intubation a nasogastric tube was placed. We had difficulty placing a Navarro catheter and made multiple attemp ts including with a coud catheter. We ended up having to call Dr. Muir from urology who at the end of the case performed a cystoscopy with placement of the Navarro catheter. We sterilely prepped and draped the entire abdomen in usual fashion. I began with a midline incision from above the umbilicus down around part way to the pubic symphysis. We open the soft tissue using cautery. Fascia was opened using cautery as well. Peritoneum was elevated with hemostats and incised under direct vision using a Metzenbaum scissor. Cautery was then used to open the incision to both poles. Once in the abdomen we immediately noted abnormally dilated small bowel with a transition point in the lower abdomen. This was caused by an adhesion formed to the anterior abdominal wall causing a hairpin turn. I was able to readily lyse this using blunt finger fractionation as well as scissor lysis. There were multiple other areas of extensive adhesions. We tediously took these down using primarily sharp scissor lysis. Once we had all of the adhesions removed we then ran the small bowel from the ligament of Treitz to the terminal ileum. There was a large number of small bowel diverticuli in the proximal jejunum. I suspect these were source of the small foci of free air secondary to back pressure from the obstruction. There was no evidence of ischemic bowel. There was no evidence of any bowel perforation. I also examined the stomach and duodenum and again no evidence of perforation or inflammation. There was no abnormal fluid throughout the abdomen. I thoroughly irrigated the entire abdomen with warm irrigant. There was adequate hemostasis. I ran the small bowel a second time from the ligament of Treitz to the cecum and again no other abnormalities other than the small bowel diverticuli were noted. We then closed the fascia using 0- looped PDS in running fashion. Soft tissue was irrigated and skin was closed using skin adam. Silver dressing was applied. At this point Dr. Muir came into the room and placed the catheter and performed a cystoscopy please see his note. The patient was extubated and transferred to recovery in stable condition. My physician activity assistant was present for the entire procedure and was instrumental in providing exposure assisting with all aspects of the case including wound closure and dressing placement. I attest to the content of the Intraoperative Record and any orders documented therein. Any exceptions are noted below.
--- NOTE | 2023-07-15 22:10 | Operative Report ---
PG Post Operative Report Pre & Post Diagnosis Operation Date: 07/15/23 20:00 Pre-Op Diagnosis: Bowel Perforation Difficult quiroz placement Post-Op Diagnosis: Bowel Perforation Urethral false passage I identified the patient and participated in the time-out.: Yes Procedure Operation Date: 07/15/23 20:00 Actual Procedures p Exploratory Laparotomy(Not Applicable) - Abel Fields, DO Cystoscopy, quiroz catheter placement over a wire Zion Muir MD Surgeon Zion Muir MD [place]aser None Estimated Blood Loss 10 Findings Consistent with Post-Op Diagnosis Urethral false passage Specimens None Drains 18Fr silicone Anesthesia Type General Complications none Indications 83-year-old male currently undergoing exploratory laparotomy for free air seen on the CT scan. The Quiroz catheter was attempted to be placed at the start of the case and resistance was met. I was consulted intraoperatively for catheter placement. Description of Procedure Patient was already under anesthesia when I entered the OR. Once general surgery finished closing the abdomen, the patient was prepped and redraped in sterile fashion. I attempted to place an 18 Chadian silicone catheter but met resistance at the bulbar urethra. I opted to scope the catheter in at this point. I advanced a flexible cystoscope per urethra and encountered a fairly significant false passage in the bulbar urethra. This appeared to be at the 3 o'clock position. I was able to navigate the scope into the bladder which showed fairly significant trabeculations. I advanced a Super Stiff wire through the scope into the bladder and backed the scope out over the wire. I then advanced an 18 Chadian silicone catheter over the wire into the bladder with return of clear urine. Wire was removed. Catheter was inflated with 10 cc of sterile water and set to gravity drainage. This concluded the end of the case. No blood loss from my portion of the case. All counts correct at the end of case. I was present scrubbed and actively participated for the entirety of the procedure. Recommend maintaining catheter for 7 to 10 days. Urology will send a message to schedule a void trial. I attest to the content of the Intraoperative Record and any orders documented therein. Any exceptions are noted below.
--- NOTE | 2023-07-15 22:43 | Anesthesiology Progress Note ---
Date of Service July 15, 2023 Anesthesia Post Procedure Vital Signs Vital Signs: Temp Pulse Pulse Resp BP BP Pulse Ox 07/15/23 22:40 36.9 C 71 20 140/90 99 07/15/23 22:30 70 20 141/93 H 99 07/15/23 22:20 84 19 148/101 H 97 07/15/23 22:13 37.0 C 94 H 19 155/89 H 90 07/15/23 19:48 89 18 131/82 98 07/15/23 18:17 91 H 17 131/82 95 07/15/23 17:38 86 07/15/23 17:27 07/15/23 17:13 91 07/15/23 17:10 36.4 C L 45 L 16 97/68 L 87 L O2 Del Method O2 Flow Rate 07/15/23 22:40 Nasal Cannula 4 07/15/23 22:30 Oxymask 5 07/15/23 22:20 Oxymask 5 07/15/23 22:13 Oxymask 5 07/15/23 19:48 Nasal Cannula 4 07/15/23 18:17 Nasal Cannula 4 07/15/23 17:38 07/15/23 17:27 Room Air 07/15/23 17:13 Room Air, Nasal Cannula 4 07/15/23 17:10 Room Air Transfer of Care Handoff Completed per policy Notes Mental Status: alert / awake / arousable Patient Amnestic to Procedure: Yes Nausea / Vomiting: adequately controlled Pain: adequately controlled Airway Patency, RR, SpO2: stable & adequate BP & HR: stable & adequate Hydration State: stable & adequate Anesthetic Complications: no major complications apparent and Pt Satisfied with anesthetic care
[2023-07-15] MEDS: LACTATED RINGER'S 1,000 ML IV SCH (23:53)
[2023-07-16] MEDS: PIPERACILLIN/TAZOBACTAM 4.5 GM in DEXTROSE 5% MINI-B 100 ML IV SCH (00:29)
[2023-07-16 02:26] LABS: Appearance Urine Cloudy (Clear); Bacteria Urine Automated Negative (Negative); Bilirubin Urine Negative (Negative); Blood Urine 3+ (Negative); Color Urine Dark Yellow; Epithelial Cell Urine Auto >30 /lpf (0-5); Glucose Urine UA Negative (Negative); Ketones Urine Negative (Negative); Leukocyte Esterase Urine Negative (Negative); Nitrite Urine Negative (Negative); Protein Urine 2+ (Negative); Specific Gravity Urine 1.035 (1.000-1.030); Urobilinogen Urine Negative (Negative)
[2023-07-16] MEDS: Patient's HEIGHT &/or WEIGHT Needed STA (03:12)
[2023-07-16 04:05] LABS: RBC Urine Automated >30 /hpf (0-4)
[2023-07-16 04:06] LABS: Calcium Oxalate Crystals Urine Present (None Prsent)
[2023-07-16 06:18] LABS: Basophils # (auto) 0.02 K/uL (0.00-0.20); Basophils % (auto) 0.2 %; Hematocrit (blood only) 36.6 % (42.0-52.0); Immature Granulocytes # (auto) 0.06 K/uL (0.01-0.20); Immature Granulocytes % (auto) 0.5 %; Lymphocytes # (auto) 1.26 K/uL (1.20-3.40); Lymphocytes % (auto) 10.9 %; Mean Corpuscular Hemoglobin 31.5 pg (25.0-34.0); Mean Corpuscular Hgb Conc 32.8 g/dL (32.0-36.0); Mean Corpuscular Volume 96.1 fL (80.0-100.0); Mean Platelet Volume 9.5 fL (9.4-12.4); Monocytes # (auto) 0.75 K/uL (0.11-0.59); Monocytes % (auto) 6.5 %; Neutrophils # (auto) 9.52 K/uL (1.40-6.50); Neutrophils % (auto) 81.9 %; Platelet Count 185 K/uL (130-400); RDW Coefficient of Variation 14.3 % (11.5-14.5); RDW Standard Deviation 49.9 fL (36.4-46.3); Red Blood Count 3.81 M/uL (4.70-6.10); White Blood Count 11.61 K/ul (4.8-10.8)
[2023-07-16 06:30] LABS: BUN Creatinine Ratio 25.5 (10-20); Calcium 8.4 mg/dl (8.6-10.3); Creatinine Clr Calc Pharmacy 56.7 ml/min; Est GFR (African American) 81.7 ml/min; Est GFR (Non-African American) 70.5 ml/min; Potassium 4.1 mmol/L (3.5-5.1)
--- NOTE | 2023-07-16 08:13 | Surgery Progress Note ---
Date of Service July 16, 2023 Assessment & Plan (1) H/O exploratory laparotomy: Plan: POD 1 Cystoscopy and Quiroz Catheter Placement Over Wire Surgeon: Zion Muir MD Exploratory Laparotomy, Release Small Bowel Obstruction, Enterolysis Surgeon Dr. Fields Pt denies abd pain, n/V, at present Has NG tube, no documented output, nothing noted in canister VSS , HR 49 asymptomatic Denies passing flatus, abd non distended soft WBC 11 (13) Continue IV Zosyn Incentive spirometry OOB to chair today with assist he is doing extremely well. no pain or nausea. abd: not distended. minimal out of ngt. he is at risk for an ileus however I am going to pull his ngt and try clears. need to keep quiroz but currently no bloody output. Admission and Anticipated Discharge Date Admission Date: July 15, 2023 Subjective Patient resting in bed denies abd pain, SOB, CP, fever/chills Review of Systems Constitutional: no fever and no chills Respiratory: no dyspnea Cardiovascular: no chest pain Gastrointestinal: no abdominal pain Integumentary: no rash Psychiatric: no confusion Physical Exam Physical Exam: alert oriented , talking to on phone Constitutional: cooperative and comfortable; no acute distress ENMT: external ear and nose normal, oropharynx normal Respiratory: normal respiratory effort and able to speak in complete sentences; no respiratory distress Cardiovascular: Rate/Rhythm: + bradycardic (49) Gastrointestinal (Abdomen): Inspection/Auscultation: + abdominal surgical incision (dressing to midline incision, scant amount dried blood note); abdomen not distended Percussion/Palpation: abdomen soft Skin: no rashes, warm and dry Psychiatric: A+Ox3, euthymic affect Results & Data Vital Signs (Past 12 Hours) Vital Signs Temp Pulse Pulse Resp BP Pulse Ox O2 Del Method 07/16/23 07:37 49 L 07/16/23 04:00 97.9 F 55 L 18 125/67 97 Nasal Cannula 07/16/23 02:12 Nasal Cannula 07/16/23 00:06 98.2 F 68 18 125/76 95 Nasal Cannula 07/15/23 23:24 66 07/15/23 22:50 66 20 123/74 99 Nasal Cannula 07/15/23 22:40 98.4 F 71 20 140/90 99 Nasal Cannula 07/15/23 22:30 70 20 141/93 H 99 Oxymask 07/15/23 22:20 84 19 148/101 H 97 Oxymask 07/15/23 22:13 98.6 F 94 H 19 155/89 H 90 Oxymask O2 Flow Rate 07/16/23 07:37 07/16/23 04:00 3 07/16/23 02:12 3 07/16/23 00:06 3 07/15/23 23:24 07/15/23 22:50 2 07/15/23 22:40 4 07/15/23 22:30 5 07/15/23 22:20 5 07/15/23 22:13 5 Results CMP Results: Na 142 mmol/L (136-145) 07/16/23 K 4.1 mmol/L (3.5-5.1) 07/16/23 Cl 110 mmol/L (98-107) H 07/16/23 CO2 26 mmol/L (21-32) 07/16/23 Anion Gap 6 (3-11) 07/16/23 BUN 25 mg/dl (6-23) H 07/16/23 Creatinine 0.98 mg/dl (0.6-1.4) 07/16/23 Estimated GFR ( Amer) 81.7 ml/min 07/16/23 Estimated GFR (Non-Af Amer) 70.5 ml/min 07/16/23 BUN/Creatinine Ratio 25.5 (10-20) H 07/16/23 Glu 147 mg/dl (70-99(Fasting)) H 07/16/23 Ca 8.4 mg/dl (8.6-10.3) L 07/16/23 Phosphorus Level 3.4 mg/dl (2.5-4.9) 10/10/22 Total Bilirubin 0.4 mg/dl (0.2-1.0) 07/15/23 Direct Bilirubin 0.1 mg/dl (0-0.2) 10/08/22 AST 22 U/L (13-39) 07/15/23 ALT 14 U/L (7-52) 07/15/23 Alkaline Phosphatase 102 U/L (34-104) 07/15/23 TP 7.2 gm/dl (6.0-8.3) 07/15/23 Albumin 4.2 gm/dl (3.4-5.0) 07/15/23 Globulin 3.0 gm/dl (2.5-4.0) 07/15/23 Albumin/Globulin Ratio 1.4 (0.9-2) 07/15/23 Results Complete Blood Count Results: RBC 3.81 M/uL (4.70-6.10) L 07/16/23 WBC 11.61 K/ul (4.8-10.8) H 07/16/23 Hgb 12.0 g/dl (14.0-18.0) L 07/16/23 Hct 36.6 % (42.0-52.0) L 07/16/23 Plt Count 185 K/uL (130-400) 07/16/23 PG Care Time/CCT Total # of Minutes Spent Total Time Spent with Patient: Total time spent is greater than 50% in coordination of care (as documented) at patient's floor/unit and/or counseling patient: Coding Level of Care Code 97920 Post Operative Follow-Up Diagnoses H/O exploratory laparotomy Z98.890
--- OUTSIDE RECORDS SUMMARY | 2023-07-16 08:23 | External Medical Summary | Continuity of Care Document ---
Author Name Unknown Organization [facility] [address] [facility] [address] [id number] Care Team Providers Care Cyber Security Instructor Name Role Phone Barbara Bliss Primary Care Physician [phone] Encounter [facility] [id number] Date(s): 02/23/23 - 02/23/23 [facility] [address] [facility] [address] [phone] Encounter Diagnosis Lichen sclerosus of penis(Discharge Diagnosis) - 02/23/23 History of actinic keratoses(Discharge Diagnosis) - 02/23/23 Discharge Disposition: Home or Self Care Attending Physician: MD Akins Sara B Referring Physician: MD Akins Sara B Allergies, Adverse Reactions, Alerts Substance Reaction Severity Status seafood Nausea Diarrhea Active Allergy Not found in Search 1 rash Active 1potassium chromate Assessment and Plan Extracted from: Title:Office Visit Note Author:MD Tashi, Herman Turcios Date:02/23/23 1.Lichen sclerosus of peni s Improved with resumption of nystatin triamcinolone can use this daily as needed. 2.History of actinic keratoses Seems to be resolved. Call if anything recurs. Medications Aspirin Low Strength 81 mg oral delayed release tablet Start: 02/23/12 10:21:00, 1 tab, PO, Daily, tab Start Date: 02/23/12 Status: Ordered Centrum Silver Start: 03/24/16 7:50:00, PO, Daily Start Date: 03/24/16 Status: Ordered dutasteride 0.5 mg oral capsule Start: 03/24/16 7:51:00, 1 cap, PO, Daily Start Date: 03/24/16 Status: Ordered ketoconazole 2% topical cream Start: 12/23/22 9:53:00 EDT, 1 appl, topical, bid, Disp# 30 g, Refills: 2, To red scaly fungal areas on feet BID, Pharmacy: [id number] Start Date: 12/23/22 Status: Ordered levothyroxine 75 mcg (0.075 mg) oral tablet Start: 03/24/16 7:51:00 EST, See Instructions, 1 tab PO Daily Start Date: 03/24/16 Status: Ordered nystatin-triamcinolone 100,000 units/g-0.1% topical ointment Start: 02/23/23 10:43:00 EST, See Instructions, Disp# 30 g, Refills: 1, use 1 application a day to inflamed area of groin daily as needed, Pharmacy: [id number] Start Date: 02/23/23 Status: Ordered omeprazole Start: 11/19/20 8:13:00 EDT, 40 mg =, PO, Daily Start Date: 11/19/20 Status: Ordered Probiotic Formula Start: 03/24/16 7:51:00, 1 cap, PO, Daily Start Date: 03/24/16 Status: Ordered simvastatin 10 mg oral tablet Start: 01/26/17 9:08:00, 1 tab, PO, qhs Start Date: 01/26/17 Status: Ordered traZODone 50 mg oral tablet Start: 03/24/16 7:52:00 EST, See Instructions, 100 mg 1 tab PO qhs Start Date: 03/24/16 Status: Ordered Vitamin D3 Start: 03/24/16 7:51:00, 2,000 Int_Unit =, PO, Daily Start Date: 03/24/16 Status: Ordered Problem List Condition Confirmation Course Effective Dates Status Health Status Informant ACTINIC KERATOSIS Confirmed Active Pseudomonas infection Confirmed Active Lichen sclerosus of penis Confirmed Active Atypical nevus Confirmed Active Rash Confirmed Active Family history of skin cancer 1 Confirmed Active History of actinic keratoses Confirmed Active History of dysplastic nevus Confirmed Active Hx of half-way use of blood thinners Confirmed Active Hypercholesterolemia Confirmed Active Hyperthyroidism Confirmed Active Onychomycosis Confirmed Active Rosacea Confirmed Active Seborrheic keratoses Confirmed Active Tinea cruris Confirmed Active Dark urine Confirmed Active 1brother had skin ca ? Diagnosis Diagnosis Type Effective Dates Health Status Cl inical Service Informant Lichen sclerosus of penis Discharge Diagnosis 02/23/23 History of actinic keratoses Discharge Diagnosis 02/23/23 Procedures Procedure Date Related Diagnosis Body Site Status Colonoscopy 2019 Completed Endoscopy of GI tract 2019 Com pleted left eyelid surgery 10/2017 Compl eted Shave biopsy and cauterizati on of skin 1 09/21/17 Completed Cholecystectomy 01/2015 Completed Shave biopsy of skin 03/23/14 Comp leted Surgery 2 03/02/14 Completed Repair of joint of right hip Completed 1left sup ear 2abdominal surgery Social History Social History Type Response Smoking Status Never smoked cigaret emi Sex Male Dermatology Outpatient Note * MD Tashi, Tisha Turcios: PERFORM Event Display: Dermatology Outpt Note Authored Date: [id number] Chief Complaint recheck AK left cheek. History of Present Illness Patient follows up to recheck the actinic keratosis that I froze as well as his groin. He states both are doing extremely well. He feels that the groin flares when he has more urine caught in hisforeskin. Physical Exam On exam patient's SAIRA has resolved and his groin ( penis)has much improved. Assessment/Plan 1.Lichen sclerosus of penis Improved with resumption of nystatin triamcinolone can use this daily as needed. 2.History of actinic keratoses Seems to be resolved. Call if anything recurs. 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 Hypercholesterolemia Hyperthyroidism Lichen sclerosus of penis Onychomycosis Pseudomonas infection Rash Rosacea Seborrheic keratoses Tinea cruris Historical Chondrodermatitis nodularis helicis Procedure/Surgical History Endoscopy of GI tract (2019)Colonoscopy (2019)left eyelid surgery (10/2017)Shave biopsyand cauterization of skin (09/21/2017)Cholecystectomy (01/2015)Shave biopsy of skin (03/23/2014)Surgery (03/02/2014)Repair of joint of right hip Medications aspirin(Aspirin Low Strength 81 mg oral delayed release tablet), 81 mg= 1 tab, PO, Daily bifidobacterium-lactobacillus(Probiotic Formula), 1 cap, PO, Daily cholecalciferol(Vitamin D3), 2000 Int_Unit, PO, Daily dutasteride(dutasteride 0.5 mg oral capsule), 0.5 mg= 1 cap, PO, Daily ketoconazole topical(ketoconazole 2% topical cream), 1 appl, topical, bid, 2 refills levothyroxine(levothyroxine 75 mcg (0.075 mg) oral tablet), See Instructions multivitamin with minerals(Centrum Silver), PO, Daily nystatin-triamcinolone topical(nystatin-triamcinolone 100,000 units/g-0.1% topical ointment), See Instructions, 1 refills omeprazole, 40 mg, PO, Daily simvastatin(simvastatin 10 mg oral tablet), 10 mg= 1 tab, PO, qhs traZODone(traZODone 50 mg oral tablet), See Instructions Allergies Allergy Not found in Searchrash seafoodNausea, Diarrhea Social History Smoking Status Never smoked cigarettes Recommendations Health Maintenance Pending(in the next year) OverDue Adult Influenza Vaccine due10/11/22and every 1year Due Adult COVID-19 Vaccination due02/23/23Unknown Frequency Adult Tdap/Td Vaccine due02/23/23Unknown Frequency Body Mass Index due02/23/23Unknown Frequency Medicare Annual Wellness Visit due02/23/23and every 1year Pneumococcal Vaccine Older Adults due02/23/23One-time only Shingles Vaccine due02/23/23One-time only Satisfied(in the past 1 year) There are no satisfied recommendations within the defined date range Electronic Signature on File Electronically Reviewed/Signed by: Tisha Akins MD Author Signature Dt/Tm:02/23/2023 10:45 AM Department of Dermatology [facility] Patient Care team information Care Team Personnel Name: MD Bliss H Jeanne Position: Referring Member Role: Primary Care Provider Address: Address: [address] [place] [id number] Care Team Related Persons Name: PERLITA FOUNTAIN Address: home [address] [place] [phone]
[2023-07-16] MEDS: PANTOprazole 40 MG in SYRINGE 0 ML IV SCH (12:22)
--- NOTE | 2023-07-16 13:20 | Urology Consultation ---
Date of Consultation July 16, 2023 Assessment & Plan (1) Difficult Navarro catheter placement: Plan - POD # 1 s/p Cystoscopy and Navarro Catheter Placement Over Wire with Dr. Muir. - Navarro catheter is draining appropriately - urine is clear yellow. - Recommend maintaining catheter for 7 -10 days. - Will arrange follow-up and void trial with our service. - Urology will sign-off. Please call with any further questions or concerns. History of Present Illness Attending Physician: Kierra Cheng MD History of Present Illness 83 year old male who presented to the ED on 07/15/2023 with abdominal pain, nausea, vomiting and was found to have intraperitoneal free air from perforated bowel on CT imaging. Patient underwent exploratory laparotomy 07/15/23 with general surgery. A Navarro catheter was attempted to be placed at the start of the case and resistance was met. Urology was consulted intraoperatively for catheter placement. Using a cystoscope, Dr. Muir placed an 18Fr silicone catheter - see operative note for further details. Patient was examined at bedside this AM. Awake, resting in bed on arrival. No acute distress. Navarro intact and draining clear yellow urine. He is tolerating the catheter with minimal bother. Patient is known to the urology office - has followed with Dr. Boucher in the past. Allergies Allergy/AdvReac Type Severity Reaction Status Date / Time gluten Allergy Severe Abdominal Unverified 07/15/23 19:24 pain and bloating potassium Allergy Severe Potassium Unverified 07/15/23 19:42 Chromate - Causes severe Rash shellfish derived Allergy Severe convulsions Verified 07/15/23 19:24 Home Medications Medication Instructions Recorded Confirmed Type multivitamin 1 tab PO QAM 12/05/18 07/15/23 History nystatin-triamcinolone 100,000 1 applic topical DAILY PRN Skin 12/05/18 07/15/23 History unit/gram-0.1 % topical ointment Irritation levothyroxine 88 mcg tablet 88 mcg PO QAM 02/18/19 07/15/23 History cholecalciferol (vitamin D3) 50 2,000 unit PO QAM 07/05/19 07/15/23 History mcg (2,000 unit) capsule omeprazole 40 mg capsule,delayed 40 mg PO QAM 09/17/22 07/15/23 History release simvastatin 5 mg tablet 5 mg PO QPM 09/17/22 07/15/23 History trazodone 100 mg tablet 100 mg PO HS 09/17/22 07/15/23 History aspirin 81 mg tablet,delayed 81 mg PO BID #60 tabs 09/21/22 07/15/23 Rx release acetaminophen 500 mg tablet 1,000 mg PO Q8H PRN Pain 10/08/22 07/15/23 History (Tylenol Extra Strength) Lactobacillus rhamnosus-Bifidobac. 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 (Not Applicable) - Zion Muir MD History of hip surgery H/O exploratory laparotomy Hx of cholecystectomy Hx of cataract surgery History of bladder surgery S/P cataract surgery S/p small bowel obstruction Family History Father Cancer Brother Colorectal cancer Other No significant family history Social History Smoking Status: Never smoker Second Hand Exposure: No; Do You Dip or Chew Tobacco: No; Hx Alcohol Use: No Hx Substance Use: No Preferred Language: Maltese Communication Ability: Effective Stucco Plasterer Required: No Beliefs That Will Affect Care: None marital status: Current Living Situation: Spouse Current Living Situation Comment: lives with spouse and son current occupational status: retired Feels Safe at Home: Yes Assistive Devices: Glasses and Walker Review of Systems Review of Systems: All systems reviewed & are unremarkable except as noted in HPI & below Physical Exam Constitutional: no acute distress ENMT: NG tube Neck: normal visual inspection Respiratory: no respiratory distress and no labored breathing Musculoskeletal: Head/Neck/Chest: normocephalic Neurologic: awake Psychiatric: A+Ox3, euthymic affect Genitourinary: Navarro intact Results & Data Vital Signs (Past 12 Hours) Vital Signs Temp Pulse Pulse Resp BP BP Pulse Ox 07/16/23 12:05 37 C 54 L 18 98/46 L 98 07/16/23 08:09 37 C 52 L 20 102/52 L 97 07/16/23 07:37 49 L 07/16/23 04:00 36.6 C 55 L 18 125/67 97 07/16/23 02:12 O2 Del Method O2 Flow Rate 07/16/23 12:05 Nasal Cannula 07/16/23 08:09 Nasal Cannula 3 07/16/23 07:37 07/16/23 04:00 Nasal Cannula 3 07/16/23 02:12 Nasal Cannula 3 PG Care Time/CCT Total # of Minutes Spent Total Time Spent with Patient: Total time spent is greater than 50% in coordination of care (as documented) at patient's floor/unit and/or counseling patient: Coding Level of Care Code 70113 INT INP/OBS CARE MIN Diagnoses Difficult Navarro catheter placement T83.9XXA
--- NOTE | 2023-07-16 16:00 | Hospitalist Progress Note ---
Date of Service July 16, 2023 Assessment & Plan (1) Acute hypoxemic respiratory failure: Plan: 83-year-old male with PMH of HLD, hypothyroidism, BPH, chronic anemia presented to the ED with abdominal pain followed by nausea and bilious emesis. He was noted to have small bowel obstruction and foci of intraperitoneal free air below the diaphragm. He is being managed for the following: High-grade small bowel obstruction Admitting CTAP with numerous foci of intraperitoneal free air below the diaphragm, high-grade small bowel obstruction noted, likely ISO adhesions. Status post exploratory laparotomy, release small bowel obstruction, enterolysis. 07/16/23. Patient reports improvement in nausea, vomiting, abdominal pain, he is tolerating clears. General surgery on board, managing diet. Pain control, nausea control. Continue with IV fluid. Continue with Zosyn 07/15 and PPI IV. Acute hypoxemic respiratory failure: Likely secondary to acute issues, see above. Wean down oxygen as tolerated. CXR with no acute chest disease. Patient has been afebrile. Other chronic medical conditions: Continue with/resume home meds as and when able. hyperlipidemia, on statin Rx hypothyroidism, euthyroid as of last year's TSH Chronic anemia, hemoglobin better than baseline DVT prophylaxis. SCDs Re: surgery Full code Patient's Ms. Kim Mancilla, contact #[phone]. Text document was generated using [employer] voice recognition software. It may contain grammatical or spelling errors. Kindly contact undersigned for clarification of any documentation item in question. Admission and Anticipated Discharge Date Admission Date: July 15, 2023 Subjective Patient was seen and examined at bedside. Patient was lying in bed, on 2 L oxygen via nasal cannula, NAD, resting comfortably. Patient reports operative site pain under control, reports abdominal pain better controlled. Patient reports tolerating clear liquid diet, denies moving gas or bowel. Patient denies any febrile illness or headache or dizziness or chest pain. Physical Exam Physical Exam: GENERAL: NAD, pleasant, slightly hard of hearing, no respiratory distress SKIN: Pallor, warm HEENT: Pale palpebral conjunctivae, L ptosis (chronic as per patient), moist buccal mucosa, nasal cannula in place, 2 L oxygen. NECK : Supple, no tenderness CHEST : Decreased breath sounds, no tenderness HEART : RRR, no obvious murmurs ABDOMEN: clean dressing w/ minimal soakage. EXTREMITIES : No LE swelling, no LE tenderness, no other conspicuous deformities noted NEUROLOGIC : Coherent, no facial asymmetry, slightly hard of hearing, no other gross focality Results & Data Results & Data Vital Signs (Past 12 Hours) Vital Signs Temp Pulse Pulse Pulse Resp BP BP 07/16/23 15:48 37.2 C 59 L 18 98/65 L 07/16/23 15:42 52 L 07/16/23 12:05 37 C 54 L 18 98/46 L 07/16/23 08:09 37 C 52 L 20 102/52 L 07/16/23 07:37 49 L 07/16/23 04:00 36.6 C 55 L 18 125/67 Pulse Ox O2 Del Method O2 Flow Rate 07/16/23 15:48 95 Nasal Cannula 2 07/16/23 15:42 07/16/23 12:05 98 Nasal Cannula 07/16/23 08:09 97 Nasal Cannula 3 07/16/23 07:37 07/16/23 04:00 97 Nasal Cannula 3
[2023-07-16] MEDS ORDERED: Nursing to Pharmacy Communication SCH (20:00)
[2023-07-16] MEDS: MoRPHine SULFATE 4 MG/ML 1 ML CARP\\VIAL IV PRN (22:03)
[2023-07-17] MEDS: ACETAMINOPHEN 1,000 MG/100 ML VIAL IV PRN (00:22)
[2023-07-17 05:31] LABS: Hematocrit (blood only) 32.9 % (42.0-52.0); Hemoglobin 10.8 g/dl (14.0-18.0); Mean Corpuscular Hemoglobin 31.9 pg (25.0-34.0); Mean Corpuscular Hgb Conc 32.8 g/dL (32.0-36.0); Mean Corpuscular Volume 97.1 fL (80.0-100.0); Mean Platelet Volume 9.8 fL (9.4-12.4); Platelet Count 168 K/uL (130-400); RDW Coefficient of Variation 14.6 % (11.5-14.5); RDW Standard Deviation 51.8 fL (36.4-46.3); Red Blood Count 3.39 M/uL (4.70-6.10); White Blood Count 7.94 K/ul (4.8-10.8)
[2023-07-17 05:55] LABS: BUN Creatinine Ratio 18.9 (10-20); Creatinine Clr Calc Pharmacy 58.5 ml/min; Est GFR (African American) 84.9 ml/min; Est GFR (Non-African American) 73.2 ml/min; Magnesium 1.7 mg/dl (1.7-2.4); Phosphorus 2.6 mg/dl (2.5-4.9); Potassium 3.9 mmol/L (3.5-5.1)
[2023-07-17] MEDS: MAGNESIUM SULFATE / D5W 1 GM/100 ML BAG IV SCH (10:25)
--- NOTE | 2023-07-17 11:45 | Surgery Progress Note ---
Date of Service July 17, 2023 Assessment & Plan (1) H/O exploratory laparotomy: Plan: doing very well will advance to full liquids awaiting full return of bowel fx [facility]. Admission and Anticipated Discharge Date Admission Date: July 15, 2023 Subjective pt seen. had some pain over the night but feeling much better now. hungry. radha clears. no nausea Physical Exam Physical Exam: alert. nad abd: soft. expected tenderness. dressings c/d/i Results & Data Vital Signs (Past 12 Hours) Vital Signs Temp Pulse Pulse Resp BP Pulse Ox O2 Del Method 07/17/23 10:00 49 L 07/17/23 08:18 36.7 C 50 L 18 123/69 93 Room Air 07/17/23 00:19 36.9 C 58 L 20 126/69 92 Room Air PG Care Time/CCT Total # of Minutes Spent Total Time Spent with Patient: Total time spent is greater than 50% in coordination of care (as documented) at patient's floor/unit and/or counseling patient: Coding Level of Care Code 86774 Post Operative Follow-Up Diagnoses H/O exploratory laparotomy Z98.890
--- NOTE | 2023-07-17 15:38 | Hospitalist Progress Note ---
Date of Service July 17, 2023 Assessment & Plan (1) Acute hypoxemic respiratory failure: Plan: 83-year-old male with PMH of HLD, hypothyroidism, BPH, chronic anemia presented to the ED with abdominal pain followed by nausea and bilious emesis. He was noted to have small bowel obstruction and foci of intraperitoneal free air below the diaphragm. He is being managed for the following: High-grade small bowel obstruction Admitting CTAP with numerous foci of intraperitoneal free air below the diaphragm, high-grade small bowel obstruction noted, likely ISO adhesions. Status post exploratory laparotomy, release small bowel obstruction, enterolysis. 07/16/23. Patient reports improvement in nausea, vomiting, abdominal pain, he is tolerating clears. General surgery on board, managing diet. to full liq today. Pain control, nausea control. Continue with IV fluid at decreased rate, if pt continues to tolerate adv of diet, likely can dc ivf kasey. Continue with Zosyn 07/15 and PPI IV. Acute hypoxemic respiratory failure: Likely secondary to acute issues, see above. Weaned down to RA. CXR with no acute chest disease. Patient has been afebrile. Other chronic medical conditions: Continue with/resume home meds as and when able. hyperlipidemia, on statin Rx hypothyroidism, euthyroid as of last year's TSH Chronic anemia, hemoglobin better than baseline DVT prophylaxis. SCDs Re: surgery Full code Patient's Ms. Kim Mancilla, contact #[phone]. Text document was generated using [employer] voice recognition software. It may contain grammatical or spelling errors. Kindly contact undersigned for clarification of any documentation item in question. Admission and Anticipated Discharge Date Admission Date: July 15, 2023 Subjective Patient was seen and examined at bedside. Patient was lying in bed, on RA, NAD, resting comfortably. Patient reports operative site pain under control, reports abdominal pain better controlled. Patient reports tolerating clear liquid diet, denies moving gas or bowel. Diet adv to full per sx. Patient denies any febrile illness or headache or dizziness or chest pain. Physical Exam Physical Exam: GENERAL: NAD, pleasant, slightly hard of hearing, no respiratory distress SKIN: Pallor, warm HEENT: Pale palpebral conjunctivae, L ptosis (chronic as per patient), moist buccal mucosa, nasal cannula in place, 2 L oxygen. NECK : Supple, no tenderness CHEST : Decreased breath sounds, no tenderness HEART : RRR, no obvious murmurs ABDOMEN: clean dressing w/ minimal soakage. EXTREMITIES : No LE swelling, no LE tenderness, no other conspicuous deformities noted NEUROLOGIC : Coherent, no facial asymmetry, slightly hard of hearing, no other gross focality Results & Data Results & Data Vital Signs (Past 12 Hours) Vital Signs Temp Pulse Pulse Resp BP Pulse Ox O2 Del Method 07/17/23 14:46 36.8 C 59 L 18 139/69 94 Room Air 07/17/23 12:08 36.6 C 53 L 18 128/70 94 Room Air 07/17/23 10:00 49 L 07/17/23 08:18 36.7 C 50 L 18 123/69 93 Room Air
[2023-07-18 05:34] LABS: Hematocrit (blood only) 36.1 % (42.0-52.0); Hemoglobin 11.9 g/dl (14.0-18.0); Mean Corpuscular Hemoglobin 31.5 pg (25.0-34.0); Mean Corpuscular Volume 95.5 fL (80.0-100.0); Mean Platelet Volume 9.5 fL (9.4-12.4); Platelet Count 180 K/uL (130-400); RDW Coefficient of Variation 14.1 % (11.5-14.5); RDW Standard Deviation 49.5 fL (36.4-46.3); Red Blood Count 3.78 M/uL (4.70-6.10); White Blood Count 9.08 K/ul (4.8-10.8)
[2023-07-18 05:49] LABS: BUN Creatinine Ratio 13.1 (10-20); Calcium 8.2 mg/dl (8.6-10.3); Creatinine Clr Calc Pharmacy 66.8 ml/min; Est GFR (African American) 93.2 ml/min; Est GFR (Non-African American) 80.4 ml/min; Potassium 3.6 mmol/L (3.5-5.1)
--- NOTE | 2023-07-18 05:55 | Electrocardiogram Report ---
Test Reason : Blood Pressure : / mmHG Vent. 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
--- NOTE | 2023-07-18 15:48 | Surgery Progress Note ---
Date of Service July 18, 2023 Assessment & Plan (1) H/O exploratory laparotomy: Plan: POD#3 exp lap, RENZO. Doing well. OK to advance diet. Await return of bowel function. Admission and Anticipated Discharge Date Admission Date: July 15, 2023 Subjective Passing flatus. No bowel movement yet. Hungry for more food. No nausea or vomiting. Pain well controlled. Physical Exam Constitutional: WD/WN, vitals as above Respiratory: normal respiratory effort, lungs clear to auscultation Cardiovascular: RRR, no murmur, no edema Gastrointestinal (Abdomen): normal bowel sounds, soft, nontender, no hepatosplenomegaly Inspection/Auscultation: + abdominal surgical incision (clean) Neurologic: awake; no focal motor deficits Results & Data Vital Signs (Past 12 Hours) Vital Signs Temp Pulse Pulse Resp BP Pulse Ox O2 Del Method 07/18/23 15:45 36.9 C 53 L 18 126/72 93 Room Air 07/18/23 11:26 36.8 C 54 L 18 120/68 92 Room Air 07/18/23 08:06 36.7 C 57 L 18 123/67 93 Room Air 07/18/23 07:04 Room Air 07/18/23 06:16 57 L 07/18/23 04:58 36.9 C 61 20 137/73 92 Room Air Laboratory Results Abnormal lab results 07/18/23 Range/Units 04:55 RBC 3.78 L (4.70-6.10) M/uL Hgb 11.9 L (14.0-18.0) g/dl Hct 36.1 L (42.0-52.0) % RDW Std Deviation 49.5 H (36.4-46.3) fL Chloride 108 H (98-107) mmol/L Glucose 100 H (70-99(Fasting)) mg/dl Calcium 8.2 L (8.6-10.3) mg/dl
--- NOTE | 2023-07-18 17:10 | Hospitalist Progress Note ---
Date of Service July 18, 2023 Assessment & Plan (1) Small bowel obstruction due to adhesions: Plan: 83-year-old male with PMH of HLD, hypothyroidism, BPH, chronic anemia presented to the ED with abdominal pain followed by nausea and bilious emesis. He was noted to have small bowel obstruction and foci of intraperitoneal free air below the diaphragm. He is being managed for the following: High-grade small bowel obstruction secondary to adhesions Admitting CTAP with numerous foci of intraperitoneal free air below the diaphragm, high-grade small bowel obstruction noted, Status post exploratory laparotomy, release small bowel obstruction, enterolysis. 07/16/23. Patient reports improvement in nausea, vomiting, abdominal pain, he is tolerating clears. Appreciate surgery input and recommendation Pain control, nausea control. Continue with IV fluid at decreased rate, if pt continues to tolerate adv of diet, likely can dc ivf kasey. Continue with Zosyn 07/15 and PPI IV. Clinically much better today without abdominal bloating, nausea or vomiting or distention Has been passing gas and has good bowel sounds Will advance diet as tolerated Advised to ambulate more (2) Acute hypoxemic respiratory failure: Plan: Acute hypoxemic respiratory failure: Likely secondary to acute issues, see above. Weaned down to RA. CXR with no acute chest disease. Patient has been afebrile. No more shortness of breath and has been saturating normally on room air Denies any cough and or with Other chronic medical conditions: Continue with/resume home meds as and when able. hyperlipidemia, on statin Rx hypothyroidism, euthyroid as of last year's TSH Chronic anemia, hemoglobin better than baseline DVT prophylaxis. SCDs Re: surgery Full code Patient's Ms. Kim Mancilla, contact #[phone]. Text document was generated using [employer] voice recognition software. It may contain grammatical or spelling errors. Kindly contact undersigned for clarification of any documentation item in question. Admission and Anticipated Discharge Date Admission Date: July 15, 2023 Subjective 07/18/2019 The patient was seen and examined in medical telemetry unit He has been feeling much better No abdominal distention, bloating, pain, nausea and or vomiting Has been passing gas but bowel is not moved Denies any other significant symptoms Review of Systems Review of Systems: All systems reviewed and are unremarkable except as noted below Physical Exam Physical Exam: Lying in bed without any acute distress Constitutional: well developed and well nourished; not ill appearing Eyes: PERRL, conjunctivae normal, anicteric sclerae ENMT: external ear and nose normal, oropharynx normal Neck: trachea midline, no thyromegaly Respiratory: no respiratory distress Auscultation: + lungs not clear to auscultation Cardiovascular: Rate/Rhythm: regular rate, regular rhythm and + bradycardic Heart Sounds: normal S1 and normal S2; no murmur Extremities: no edema Gastrointestinal (Abdomen): Inspection/Auscultation: normal bowel sounds; abdomen not distended Percussion/Palpation: + abdomen tender (Minimally tender but no guarding and no rigidity) and abdomen soft Musculoskeletal: No acute arthritis involving any of the joint Neurologic: normal touch/pain/proprioception and moves all extremities; no focal motor deficits Psychiatric: A+Ox3, euthymic affect Lymphatic: no cervical or axillary lymphadenopathy Results & Data Results & Data Vital Signs (Past 12 Hours) Vital Signs Temp Pulse Pulse Resp BP Pulse Ox O2 Del Method 07/18/23 15:45 36.9 C 53 L 18 126/72 93 Room Air 07/18/23 14:45 57 L 07/18/23 11:26 36.8 C 54 L 18 120/68 92 Room Air 07/18/23 08:06 36.7 C 57 L 18 123/67 93 Room Air 07/18/23 07:04 Room Air 07/18/23 06:16 57 L Laboratory Results Short CBC 07/18/23 Range/Units 04:55 WBC 9.08 (4.8-10.8) K/ul Hgb 11.9 L (14.0-18.0) g/dl Hct 36.1 L (42.0-52.0) % Plt Count 180 (130-400) K/uL BMP 07/18/23 04:55 Sodium 141 Potassium 3.6 Chloride 108 H Carbon Dioxide 26 BUN 11 Creatinine 0.84 Glucose 100 H Calcium 8.2 L Medications Administered Current Inpatient Medications Lactated Ringer's (Lr) 1,000 mls @ 50 mls/hr IV .Q20H DANIELLA Stop: 08/14/23 20:14 Last Admin: 07/18/23 10:38 Dose: 50 mls/hr Promethazine HCl 6.25 mg/ (Sodium Chloride) 50.25 mls @ 201 mls/hr IV Q6H PRN PRN Reason: Nausea And Vomiting Stop: 08/14/23 20:01 Acetaminophen (Ofirmev) 1,000 mg in 100 mls @ 400 mls/hr IV Q8H PRN PRN Reason: pain/fever Stop: 07/18/23 20:01 Last Infusion: 07/17/23 00:44 Dose: Infused Piperacillin Sod/Tazobactam (Sod 4.5 gm/ Dextrose) 100 mls @ 25 mls/hr IV Q8H DANIELLA; Protocol Stop: 07/26/23 00:00 Last Admin: 07/18/23 16:11 Dose: 25 mls/hr Pantoprazole Sodium 40 mg/ (Syringe) 10 mls @ 5 mls/min IV DAILY@1100 DANIELLA Stop: 08/15/23 10:59 Last Admin: 07/18/23 10:37 Dose: 5 mls/min Morphine Sulfate (Morphine Sulfate 4 Mg/Ml 1 Ml Carp\Vial) 3 mg IV Q3H PRN PRN Reason: Severe Pain (Scale 7, 8, 9,10) Stop: 07/29/23 23:17 Last Admin: 07/17/23 01:17 Dose: 3 mg Ondansetron HCl (Ondansetron Inj 2 Mg/Ml 2 Ml Vial) 4 mg IV Q6H PRN PRN Reason: Nausea And Vomiting Stop: 08/14/23 23:17
[2023-07-19 05:45] LABS: BUN Creatinine Ratio 14.3 (10-20); Calcium 8.6 mg/dl (8.6-10.3); Creatinine Clr Calc Pharmacy 62.4 ml/min; Est GFR (African American) 89.4 ml/min; Est GFR (Non-African American) 77.1 ml/min; Phosphorus 3.1 mg/dl (2.5-4.9); Potassium 3.8 mmol/L (3.5-5.1)
[2023-07-19] MEDS: SODIUM CHLOR 0.45% + 20MEQ KCL 20 MEQ/1,000 ML BAG IV ONE (06:39)
--- NOTE | 2023-07-19 10:21 | Surgery Progress Note ---
Date of Service July 19, 2023 Assessment & Plan (1) H/O exploratory laparotomy: Plan: POD#4 exp lap, RENZO. Doing well. He is on a low fiber diet and tolerating well. He is stable for discharge from a surgical standpoint. He should follow-up with Dr. Fields in 1 week for staple removal. He is also interested in discussing repair of his recurrent right inguinal hernia with Dr. Fields at that time. This hernia is reducible on exam. Admission and Anticipated Discharge Date Admission Date: July 15, 2023 Subjective He has been walking the hallways with assistance. He tolerated a few trays of a regular diet. He did have a bowel movement. He continues to pass flatus. He is anxious to go home today. Physical Exam Constitutional: WD/WN, vitals as above Respiratory: normal respiratory effort, lungs clear to auscultation Cardiovascular: RRR, no murmur, no edema Gastrointestinal (Abdomen): normal bowel sounds, soft, nontender, no hepatosplenomegaly Inspection/Auscultation: + abdominal surgical incision (clean) Neurologic: awake; no focal motor deficits Results & Data Vital Signs (Past 12 Hours) Vital Signs Temp Pulse Pulse Resp BP BP Pulse Ox 07/19/23 08:22 36.8 C 62 18 119/71 93 07/19/23 07:25 57 L 07/19/23 04:37 36.7 C 56 L 115/68 93 07/18/23 23:58 37.0 C 55 L 20 128/71 128/71 92 O2 Del Method 07/19/23 08:22 Room Air 07/19/23 07:25 07/19/23 04:37 Room Air 07/18/23 23:58 Room Air Laboratory Results Abnormal lab results 07/19/23 Range/Units 04:28 Chloride 109 H (98-107) mmol/L
--- NOTE | 2023-07-19 11:43 | Hospitalist Progress Note ---
Date of Service July 19, 2023 Assessment & Plan (1) Small bowel obstruction due to adhesions: Plan: 83-year-old male with PMH of HLD, hypothyroidism, BPH, chronic anemia presented to the ED with abdominal pain followed by nausea and bilious emesis. He was noted to have small bowel obstruction and foci of intraperitoneal free air below the diaphragm. He is being managed for the following: High-grade small bowel obstruction secondary to adhesions Admitting CTAP with numerous foci of intraperitoneal free air below the diaphragm, high-grade small bowel obstruction noted, Status post exploratory laparotomy, release small bowel obstruction, enterolysis. 07/16/23. Patient reports improvement in nausea, vomiting, abdominal pain, he is tolerating clears. Appreciate surgery input and recommendation Pain control, nausea control. Continue with IV fluid at decreased rate, if pt continues to tolerate adv of diet, likely can dc ivf kasey. Continue with Zosyn 07/15 and PPI IV. Clinically much better today without abdominal bloating, nausea or vomiting or distention Has been passing gas and has good bowel sounds He has been tolerating advance diet and has been ambulating in the hallway without difficulties Denies any symptoms and was cleared by surgery to go home He will be discharged home this afternoon (2) Acute hypoxemic respiratory failure: Plan: Acute hypoxemic respiratory failure: Likely secondary to acute issues, see above. Weaned down to RA. CXR with no acute chest disease. Patient has been afebrile. No more shortness of breath and has been saturating normally on room air Denies any cough and or with Has been saturating normally on room air without any exertional shortness of breath or desaturation Other chronic medical conditions: Continue with/resume home meds as and when able. hyperlipidemia, on statin Rx hypothyroidism, euthyroid as of last year's TSH Chronic anemia, hemoglobin better than baseline DVT prophylaxis. SCDs Re: surgery Full code Patient's Ms. Kim Mancilla, contact #[phone]. Text document was generated using [employer] voice recognition software. It may contain grammatical or spelling errors. Kindly contact undersigned for clarification of any documentation item in question. Admission and Anticipated Discharge Date Admission Date: July 15, 2023 Subjective 07/18/2023 The patient was seen and examined in medical telemetry unit He has been feeling much better No abdominal distention, bloating, pain, nausea and or vomiting Has been passing gas but bowel is not moved Denies any other significant symptoms 07/19/2023 The patient was seen and examined in medical telemetry unit He has been stable and tolerated regular diet Bowel moved and he has been ambulating without any difficulties He was seen by the surgery and cleared him to go home Review of Systems Review of Systems: All systems reviewed and are unremarkable except as noted below Physical Exam Physical Exam: Lying in bed without any acute distress Constitutional: well developed and well nourished; not ill appearing Eyes: PERRL, conjunctivae normal, anicteric sclerae ENMT: external ear and nose normal, oropharynx normal Neck: trachea midline, no thyromegaly Respiratory: no respiratory distress Auscultation: + lungs not clear to auscultation Cardiovascular: Rate/Rhythm: regular rate, regular rhythm and + bradycardic Heart Sounds: normal S1 and normal S2; no murmur Extremities: no edema Gastrointestinal (Abdomen): Inspection/Auscultation: normal bowel sounds; abdomen not distended Percussion/Palpation: + abdomen tender (Minimally tender but no guarding and no rigidity) and abdomen soft Musculoskeletal: No acute arthritis involving any of the joint Neurologic: normal touch/pain/proprioception and moves all extremities; no focal motor deficits Psychiatric: A+Ox3, euthymic affect Lymphatic: no cervical or axillary lymphadenopathy Results & Data Results & Data Vital Signs (Past 12 Hours) Vital Signs Temp Pulse Pulse Resp BP BP Pulse Ox 07/19/23 11:38 37.0 C 57 L 18 114/63 94 07/19/23 09:00 07/19/23 08:22 36.8 C 62 18 119/71 93 07/19/23 07:25 57 L 07/19/23 04:37 36.7 C 56 L 115/68 93 07/18/23 23:58 37.0 C 55 L 20 128/71 128/71 92 O2 Del Method 07/19/23 11:38 Room Air 07/19/23 09:00 Room Air 07/19/23 08:22 Room Air 07/19/23 07:25 07/19/23 04:37 Room Air 07/18/23 23:58 Room Air Laboratory Results [facility] 07/19/23 04:28 Sodium 141 Potassium 3.8 Chloride 109 H Carbon Dioxide 27 BUN 13 Creatinine 0.91 Glucose 96 Calcium 8.6 Medications Administered Current Inpatient Medications Promethazine HCl 6.25 mg/ (Sodium Chloride) 50.25 mls @ 201 mls/hr IV Q6H PRN PRN Reason: Nausea And Vomiting Stop: 08/14/23 20:01 Piperacillin Sod/Tazobactam (Sod 4.5 gm/ Dextrose) 100 mls @ 25 mls/hr IV Q8H DANIELLA; Protocol Stop: 07/26/23 00:00 Last Admin: 07/19/23 08:43 Dose: 25 mls/hr Pantoprazole Sodium 40 mg/ (Syringe) 10 mls @ 5 mls/min IV DAILY@1100 DANIELLA Stop: 08/15/23 10:59 Last Admin: 07/19/23 10:14 Dose: 5 mls/min Potassium Chloride/Sodium Chloride (1/2 Nss + 20meq Kcl 1000ml) 20 meq in 1,000 mls @ 75 mls/hr IV .[id number] ONE Stop: 07/19/23 19:49 Last Admin: 07/19/23 06:39 Dose: 75 mls/hr Morphine Sulfate (Morphine Sulfate 4 Mg/Ml 1 Ml Carp\Vial) 3 mg IV Q3H PRN PRN Reason: Severe Pain (Scale 7, 8, 9,10) Stop: 07/29/23 23:17 Last Admin: 07/17/23 01:17 Dose: 3 mg Ondansetron HCl (Ondansetron Inj 2 Mg/Ml 2 Ml Vial) 4 mg IV Q6H PRN PRN Reason: Nausea And Vomiting Stop: 08/14/23 23:17
--- NOTE | 2023-07-19 16:21 | Discharge Summary ---
Date of Service July 19, 2023 Admission HPI Per Admitting Provider History obtained from patient and records. Medical history significant for hyperlipidemia, hypothyroidism, BPH, chronic anemia (baseline hemoglobin of 11). Last confinement October 2022 for metabolic encephalopathy, Pseudomonas bacteremia status post antibiotic Rx. Patient experienced achy central abdominal pain today followed by nausea and bilious emesis. Denies chest pain, SOB. Patient consulted ER. O2 sats 80s upon arrival at the ER. IV Zosyn administered at the ER. 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 Admission Exam Per Admitting Provider Physical Exam: GENERAL: Slightly uncomfortable, pleasant, slightly hard of hearing, no respiratory distress SKIN: Pallor, warm HEENT: Pale palpebral conjunctivae, L ptosis (chronic as per patient), dry buccal mucosa, nasal cannula in place NECK : Supple, no tenderness CHEST : Decreased breath sounds, no tenderness HEART : RRR, no obvious murmurs ABDOMEN: Some distention, central abdominal tenderness EXTREMITIES : No LE swelling, no LE tenderness, no other conspicuous deformities noted NEUROLOGIC : Coherent, no facial asymmetry, slightly hard of hearing, no other gross focality Principal Diagnosis exploratory laparotomy release of small bowel obstruction Discharge Exam Lying in bed without any acute distress Constitutional well developed and well nourished; not ill appearing Eyes PERRL, conjunctivae normal, anicteric sclerae ENMT external ear and nose normal, oropharynx normal Neck trachea midline, no thyromegaly Respiratory no respiratory distress Auscultation: + lungs not clear to auscultation Cardiovascular Rate/Rhythm: regular rate, regular rhythm and + bradycardic Heart Sounds: normal S1 and normal S2; no murmur Extremities: no edema Gastrointestinal (Abdomen) Inspection/Auscultation: normal bowel sounds; abdomen not distended Percussion/Palpation: + abdomen tender (Minimally tender but no guarding and no rigidity) and abdomen soft Neurologic normal touch/pain/proprioception and moves all extremities; no focal motor deficits Psychiatric A+Ox3, euthymic affect Lymphatic no cervical or axillary lymphadenopathy Discharge Data Allergies Allergy/AdvReac Type Severity Reaction Status Date / Time gluten Allergy Severe Abdominal Unverified 07/15/23 19:24 pain and bloating potassium Allergy Severe Potassium Unverified 07/15/23 19:42 Chromate - Causes severe Rash shellfish derived Allergy Severe convulsions Verified 07/15/23 19:24 Consultations 07/15/23 23:18 Consult Urology Routine 07/16/23 07:14 Consult General Surgery Routine Procedures Performed Operation Date: 07/15/23 20:00 Actual Procedures s Cystoscopy and Navarro Catheter Placement Over Wire. (Not Applicable) - Zion Muir MD p Exploratory Laparotomy, Release Small Bowel Obstruction, Enterolysis(Not Applicable) - Abel Fields DO Ordered Studies 07/15/23 17:12 CT abd pelvis wo con Stat Hospital Course (1) Small bowel obstruction due to adhesions: 83-year-old male with PMH of HLD, hypothyroidism, BPH, chronic anemia presented to the ED with abdominal pain followed by nausea and bilious emesis. He was noted to have small bowel obstruction and foci of intraperitoneal free air below the diaphragm. He is being managed for the following: High-grade small bowel obstruction secondary to adhesions Admitting CTAP with numerous foci of intraperitoneal free air below the diaphragm, high-grade small bowel obstruction noted, Status post exploratory laparotomy, release small bowel obstruction, enterolysis. 07/16/23. Patient reports improvement in nausea, vomiting, abdominal pain, he is tolerati ng clears. Appreciate surgery input and recommendation Pain control, nausea control. Continue with IV fluid at decreased rate, if pt continues to tolerate adv of diet, likely can dc ivf kasey. Continue with Zosyn 4/4 and PPI IV. Clinically much better today without abdominal bloating, nausea or vomiting or distention Has been passing gas and has good bowel sounds He has been tolerating advance diet and has been ambulating in the hallway without difficulties Denies any symptoms and was cleared by surgery to go home He will be discharged home this afternoon (2) Acute hypoxemic respiratory failure: Acute hypoxemic respiratory failure: Likely secondary to acute issues, see above. Weaned down to RA. CXR with no acute chest disease. Patient has been afebrile. No more shortness of breath and has been saturating normally on room air Denies any cough and or with Has been saturating normally on room air without any exertional shortness of carlyle ath or desaturation Other chronic medical conditions: Continue with/resume home meds as and when able. hyperlipidemia, on statin Rx hypothyroidism, euthyroid as of last year's TSH Chronic anemia, hemoglobin better than baseline DVT prophylaxis. SCDs Re: surgery Full code Patient's Ms. Kim Mancilla, contact #[phone]. Text document was generated using [employer] voice recognition software. It may contain grammatical or spelling errors. Kindly contact undersigned for clarification of any documentation item in question. Total Time Total Time Spent Total Time Spent (In Minutes): 45 minutes Discharge Plan Discharge Items Patient Disposition: Home - Self-Care Reason For Visit: RESP FAILURE, BOWEL PERF Discharge Diagnosis: exploratory laparotomy release of small bowel obstruction Condition on Discharge: Good Activity: Per Instructions section Lifting: No more than 10 pounds Bathing Comment: may shower; no soaking in tubs/pools x 2 weeks Exercise/Sports: Wait until after follow-up appointment Driving/Machine Use: no driving while on narcotics for pain Non-emergency contact: Primary Care Provider and Surgeon Call non-emergency contact if: you have any medication questions, your pain is not controlled, you have a fever, your temperature is above 101.5, your wound has increased redness, your wound has increased drainage and your wound pain has increased Follow-up/Referrals: Kinga Fields CRNP [Nurse Practitioner] - (The Urology office will contact you for a follow up appointment.) Abel Fields DO [Surgeon] - (please call to schedule follow up in clinic within 2 weeks) Britt Bliss [Primary Care Provider] - Diet: Low Fiber Addtl Attending Provider Instructions: Please take precautions to avoid falls Take your medications as advised Please keep appointments with your healthcare providers You have surgical adam in place that will be removed at your post op appointment, about 14 days from surgery Pending Studies at Discharge: No Stand-Alone Forms: My [employer], Smoking Cessation Medications and DC Order Prescriptions: Continued cholecalciferol (vitamin D3) 50 mcg (2,000 unit) capsule 2,000 unit PO QAM multivitamin Tablet 1 tab PO QAM nystatin-triamcinolone 100,000-0.1 unit/gram-% ointment 1 applic topical DAILY PRN (Reason: Skin Irritation) levothyroxine 88 mcg tablet 88 mcg PO QAM omeprazole 40 mg capsule,delayed release(DR/EC) 40 mg PO QAM simvastatin 5 mg tablet 5 mg PO QPM trazodone 100 mg tablet 100 mg PO HS aspirin 81 mg Tablet,Delayed Release (Dr/Ec) 81 mg PO BID Qty: 60 0RF acetaminophen [Tylenol Extra Strength] 500 mg Tablet 1,000 mg PO Q8H PRN (Reason: Pain) Skiin [employer] 3 billion cell Capsule 1 cap PO QAM ferrous sulfate 325 mg (65 mg iron) tablet,delayed release (DR/EC) 325 mg PO QPM dutasteride 0.5 mg capsule 0.5 mg PO QAM Discharge Orders: Discharge Order (Routine); Ordered 07/19/23 Ordered By: Moises Palafox Admission Data Admit Date/Time: 07/15/23 20:01 Attending Provider: Moises Palafox Admit Provider: Greg Burnett Primary Care Provider: Britt Bliss Other Providers: Abel Fields; Kierra Cheng Other Interventions: Discharge Summary Assessment (RN) Last Done: 07/19/23 12:28
== END 2023-07-19 14:55 | disposition home or self-care (01) | DRG 337 ==
LOC: ED 17:02 → 2W 19:48 → OR 19:48 → 2W 20:01 → SUATTDRO 20:01

== ENCOUNTER 2023-11-14 08:42 | Inpatient (IN) ==
--- NOTE | 2023-11-14 09:13 | Emergency Department Note ---
Impression & Plan T12 compression fracture, Ambulatory dysfunction, Acute constipation ED Provider Note Name: WOO FOUNTAIN Age: 83 Sex: Male Arrives Via: Walk-In Informant: Patient ED Provider: Jose Yi MD Chief Complaint: Back pain Impression: As per impressions above Medical Decision Making: Pleasant 83-year-old gentleman who had a ground-level fall 1 week ago without head injury. Arrives for low back pain as well as issues with constipation. Does note some abdominal distention with decreased bowel sounds. Does not have significant tenderness palpation. That said with his history of obstructions or perforations a CT of the ab pelvis was obtained which is fortunately reassuring. As for his back pain a CT of the lumbar spine does reveal a T12 compression fracture. Patient has no neurologic deficits full strength bilateral legs no loss of urinary symptoms. He has a long history of constipation. Since I do not feel that the constipation itself is secondary to spinal injury. I do not think there is need for emergent MRI nor is there evidence of need for transfer to trauma center at this time. Patient has previously done quite well at rehab facilities and due to his difficulty with sitting up and getting around due to the back pain the fact he does not have help at home we discussed possible rehab placement versus going home. He would very much like to be placed in rehab but unfortunately there is no available bed at this time. After further discussions plan will be to bring him to facility here and get PT OT and possibly further discuss rehab facility placement. Patient was given an enema while in the department. He had a very large bowel movement and does note feeling better after this. Unfortunately still does not feel he is capable discharge to home at this time. Triage/Nursing Notes reviewed by Me External Chart Review by me: Discharge summary from 07/19/2023 reviewed by me discussing his hospitalization for obstruction perforation. Differential:Fracture, dislocation, neuro injury, peripheral injuries such as intracranial etc., bowel obstruction, constipation, any other pathologies considered. Vital Signs: reviewed and remarkable for no significant abnormalities Interventions: Enema, Ilosone bolus IV Labs:ED labs Reviewed by me and remarkable for no significant abnormalities Imaging:CT of the abdomen pelvis without contrast as per my informal interpretation reveals no intra-abdominal free fluid, free air nor obstruction appreciated. This confirmed the radiologist. CT of the lumbar spine as per my informal interpretation reveals compression of the T12 vertebrae without other acute fracture or dislocation. Significant arthritic findings noted. Confirmed by radiologist. Consults:Discussed with [facility] who will evaluate and bring in for further management. Plan: Disposition:Hospitalization. Condition: Good History of Present Illness: 83-year-old gentleman arrives for evaluation of low back pain constipation. Patient states that he was moving some debris out of his truck 6 days ago when he tripped falling backwards landing on his buttocks. Since then has been having a fair amount of low back discomfort. Is been taking Tylenol with mild relief. No weakness in his legs beyond baseline no loss of bladder control. He does note though that he does not think has had a bowel movement since last Thursday. Increasing feelings of constipation, bloating, abdominal discomfort. No nausea, vomiting, fevers, chills, back pain other than the low back pain, leg swelling, rashes, chest pain, shortness of breath, or concerning signs or symptoms. Patient notes he had a bowel obstruction about 3 months ago requiring emergency surgery. This was the second time this has happened the last few years. He does not feel that the abdominal pain is quite to that degree but he had gone about a week without having a bowel movement the last time as well. Patient denies any blood thinner use. He has been using Dulcolax without any improvement. Past Medical History:See Below Home Medications:See Below Allergies: Gluten, does incriminate, shellfish Vitals:Blood Pressure: 127/74, Pulse 70, RR 18, T 36.2C, O2 93% on RA Physical Exam: GENERAL: Patient is tired/dehydrated appearing and in mild distress. RESPIRATORY: No dyspnea. Clear to auscultation and equal bilaterally. CARDIOVASCULAR: Regular rate and rhythm.No murmur appreciated. GASTROINTESTINAL: Abdomen is soft nontender mildly distended with hypoactive bowel sounds. BACK: Point tenderness over the lower lumbar midline spine motion and sitting up. No CVA tenderness EXTREMITIES: Normal motion all extremities, no cyanosis, no edema. NEUROLOGIC: Alert and oriented. No focal neurologic deficits appreciated SKIN: No rash, no jaundice, no diaphoresis. PSYCH: Appropriate GCS: 15 ED Course: Times/Reassessments: Patient stable throughout is feeling a lot better after enema and large bowel movement however is still having issues back pain on trying to ambulate. For further management Jose Yi MD Past Med/Surg History Problem List (Updated 11/14/23 @ 13:58 by Jose Yi MD) Acute constipation (Acute) Ambulatory dysfunction (Acute) T12 compression fracture (Acute) Fracture of T12 vertebra Recurrent left inguinal hernia Recurrent right inguinal hernia H/O exploratory laparotomy (07/15/23) p Exploratory Laparotomy, Release Small Bowel Obstruction, Enterolysis(Not Applicable) - Abel Fields DO s Cystoscopy and Navarro Catheter Placement Over Wire. 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, organic (Acute) Rotator cuff tear Cholelithiasis with acute cholecystitis (Acute) Sepsis (Acute) Hypertension (Chronic) Hyperlipidemia (Chronic) Hypothyroid (Chronic) History of hernia repair (Acute) Influenza (Acute) Medical History Retinal detachment S/P hernia repair Surgical History Hx of cholecystectomy Hx of cataract surgery History of bladder surgery S/P cataract surgery S/p small bowel obstruction Family History Father Cancer Brother Colorectal cancer Other No significant family history Social History Smoking Status: Never smoker Second Hand Exposure: No; Do You Dip or Chew Tobacco: No; Hx Alcohol Use: No Hx Substance Use: No Preferred Language: Latvian Communication Ability: Effective Visual Impairment: No 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: No Beliefs That Will Affect Care: None marital status: Current Living Situation: Spouse Current Living Situation Comment: lives with spouse and son current occupational status: retired Feels Safe at Home: Yes Assistive Devices: Glasses and Walker Allergies Allergies Allergy/AdvReac Type Severity Reaction Status Date / Time gluten Allergy Severe Abdominal Unverified 08/21/23 10:00 pain and bloating potassium Allergy Severe Potassium Unverified 08/21/23 10:00 Chromate - Causes severe Rash shellfish derived Allergy Severe convulsions Verified 08/21/23 10:00 Home Meds Home Medications Medication Instructions Recorded Confirmed multivitamin 1 tab PO QAM 12/05/18 11/14/23 nystatin-triamcinolone 100,000 1 applic topical DAILY PRN Skin 12/05/18 11/14/23 unit/gram-0.1 % topical ointment Irritation levothyroxine 88 mcg tablet 88 mcg PO QAM 02/18/19 11/14/23 cholecalciferol (vitamin D3) 50 2,000 unit PO QAM 07/05/19 11/14/23 mcg (2,000 unit) capsule omeprazole 40 mg capsule,delayed 40 mg PO QAM 09/17/22 11/14/23 release simvastatin 5 mg tablet 5 mg PO QPM 09/17/22 11/14/23 trazodone 100 mg tablet 100 mg PO HS 09/17/22 11/14/23 Lactobacillus rhamnosus-Bifidobac. 1 cap PO QAM 07/15/23 11/14/23 animalis 3 billion cell capsule ([employer]) dutasteride 0.5 mg capsule 0.5 mg PO QPM 07/15/23 11/14/23 (Avodart) ferrous sulfate 325 mg (65 mg 325 mg PO QPM 07/15/23 11/14/23 iron) tablet,delayed release aspirin 81 mg tablet,delayed 81 mg PO .Q THU,THU,Thursday11/14/23 11/14/23 release Results & Data (ED) Vital Signs Vital Signs - 24 hr 11/14/23 08:53 11/14/23 13:19 Temperature 36.2 C L Temperature Source Temporal Artery Scan Pulse Rate 70 Pulse Rate [Finger] 63 Respiratory Rate 18 18 Respiratory Effort / Characteristics Non-Labored Spontaneous Respiratory Depth Normal Blood Pressure 127/74 Blood Pressure [Right Arm] 108/68 Blood Pressure Mean 91 Blood Pressure Mean [Right Arm] 81 Pulse Oximetry 93 93 Oxygen Delivery Method Room Air Room Air Sepsis New/Unexplained Change in Mental Status No Sepsis Action Taken by Nursing No Action Required Laboratory Data 11/14/23 09:25 11/14/23 10:17 Lab Results 11/14/23 11/14/23 Range/Units 09:25 10:17 WBC 7.38 (4.8-10.8) K/ul RBC 4.34 L (4.70-6.10) M/uL Hgb 13.6 L (14.0-18.0) g/dl Hct 41.5 L (42.0-52.0) % MCV 95.6 (80.0-100.0) fL MCH 31.3 (25.0-34.0) pg MCHC 32.8 (32.0-36.0) g/dL RDW Std Deviation 49.4 H (36.4-46.3) fL RDW Coeff of Dinorah 14.1 (11.5-14.5) % Plt Count 179 (130-400) K/uL MPV 9.3 L (9.4-12.4) fL Immature Gran % (Auto) 0.3 % Neut % (Auto) 68.4 % Lymph % (Auto) 20.6 % Troup % (Auto) 8.0 % Eos % (Auto) 2.4 % Baso % (Auto) 0.3 % Neut # (Auto) 5.05 (1.40-6.50) K/uL Lymph # (Auto) 1.52 (1.20-3.40) K/uL Troup # (Auto) 0.59 (0.11-0.59) K/uL Eos # (Auto) 0.18 (0.00-0.50) K/uL Baso # (Auto) 0.02 (0.00-0.20) K/uL Immature Gran # (Auto) 0.02 (0.01-0.20) K/uL Sodium 138 (136-145) mmol/L Potassium TNP 4.0 Chloride 105 (98-107) mmol/L Carbon Dioxide 26 (21-32) mmol/L Anion Gap 7 (3-11) BUN 16 (6-23) mg/dl Creatinine 0.94 (0.6-1.4) mg/dl Est Cr Clr Drug Dosing 53.9 ml/min Est GFR ( Amer) 85.9 ml/min Est GFR (Non-Af Amer) 74.2 ml/min BUN/Creatinine Ratio 17.0 (10-20) Glucose 101 H (70-99(Fasting)) mg/dl Calcium 9.3 (8.6-10.3) mg/dl Total Bilirubin 0.4 (0.2-1.0) mg/dl Direct Bilirubin TNP 0.1 AST TNP 18 ALT 14 (7-52) U/L Alkaline Phosphatase 93 (34-104) U/L Total Protein 6.9 (6.0-8.3) gm/dl Albumin 3.8 (3.4-5.0) gm/dl Lipase 5 L (11-82) U/L Administered Medications Discontinued Medications Acetaminophen (Acetaminophen 500 Mg Tab) 1,000 mg PO NOW STA Stop: 11/14/23 10:27 Last Admin: 11/14/23 10:35 Dose: 1,000 mg Documented By: Sodium Chloride (Nss) 500 mls @ 999 mls/hr IV .Q31M ONE Stop: 11/14/23 09:39 Last Infusion: 11/14/23 11:08 Dose: Infused Documented By: Admin: 11/14/23 10:37 Dose: 999 mls/hr Documented By: Lidocaine (Lidocaine 5% 1 Patch) 1 patch TD NOW STA Stop: 11/14/23 10:27 Last Admin: 11/14/23 10:34 Dose: 1 patch Documented By: Imaging Data Radiologist's Impression: Abdomen/Pelvis CT 11/14/23 09:09 CT abd pelvis wo con, CT lumbar spine wo con CLINICAL HISTORY: fall, low back pain, constipation, ho sbo TECHNIQUE: Helical axial images of the abdomen and pelvis were obtained. Automated dose lowering techniques and/or adjustment according to patient size were utilized for this exam. Dedicated images of the lumbar spine were obtained. This exam was performed without intravenous contrast. CT DOSE: 822.74 mGy.cm COMPARISON: Comparison is made to CT abdomen pelvis 11/14/2023 FINDINGS: Lower chest: No acute abnormality. Liver: Unremarkable. No focal lesions are seen. Gallbladder and biliary tree: Patient is status post cholecystectomy. Pneumobilia is seen. Pancreas: Unremarkable, no focal lesions. Spleen: Unremarkable. 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 Kidneys and ureters: Nonobstructive nephrolithiasis is seen. Right renal cyst is seen. Bladder: Thickened and trabeculated bladder wall compatible with chronic outlet obstruction. Reproductive organs: Prostatomegaly is seen. Bowel: A hiatal hernia is seen. Lymph nodes Retroperitoneal: Unremarkable. Pelvic: Unremarkable. Mesenteric: Unremarkable. Peritoneum: Normal. Vessels: Atherosclerotic calcifications are seen. Abdominal wall: Unremarkable. Bones: Degenerative changes in the visualized spine. There is an acute fracture of the T12 vertebral body with approximately 3 mm retropulsion. IMPRESSION: 1. Acute fracture of the T12 vertebral body with 3 mm retropulsion. 2. Chronic bladder outlet obstruction. 3. Nonobstructive nephrolithiasis. 4. Status post cholecystectomy. 5. Redemonstration of pneumobilia likely secondary to incompetent valve. 6. Additional findings as above. ACT 112: Negative or not required by law. Electronically signed by: Chau Sherman M.D. 11/14/2023 10:[address] 11/14/23 09:09 CT abd pelvis wo con, CT lumbar spine wo con CLINICAL HISTORY: fall, low back pain, constipation, ho sbo TECHNIQUE: Helical axial images of the abdomen and pelvis were obtained. Automated dose lowering techniques and/or adjustment according to patient size were utilized for this exam. Dedicated images of the lumbar spine were obtained. This exam was performed without intravenous contrast. CT DOSE: 822.74 mGy.cm COMPARISON: Comparison is made to CT abdomen pelvis 11/14/2023 FINDINGS: Lower chest: No acute abnormality. Liver: Unremarkable. No focal lesions are seen. Gallbladder and biliary tree: Patient is status post cholecystectomy. Pneumobilia is seen. Pancreas: Unremarkable, no focal lesions. Spleen: Unremarkable. 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 Kidneys and ureters: Nonobstructive nephrolithiasis is seen. Right renal cyst is seen. Bladder: Thickened and trabeculated bladder wall compatible with chronic outlet obstruction. Reproductive organs: Prostatomegaly is seen. Bowel: A hiatal hernia is seen. Lymph nodes Retroperitoneal: Unremarkable. Pelvic: Unremarkable. Mesenteric: Unremarkable. Peritoneum: Normal. Vessels: Atherosclerotic calcifications are seen. Abdominal wall: Unremarkable. Bones: Degenerative changes in the visualized spine. There is an acute fracture of the T12 vertebral body with approximately 3 mm retropulsion. IMPRESSION: 1. Acute fracture of the T12 vertebral body with 3 mm retropulsion. 2. Chronic bladder outlet obstruction. 3. Nonobstructive nephrolithiasis. 4. Status post cholecystectomy. 5. Redemonstration of pneumobilia likely secondary to incompetent valve. 6. Additional findings as above. ACT 112: Negative or not required by law. Electronically signed by: Chau Sherman M.D. 11/14/2023 10:06 AM Discharge Plan Visit Data Chief Complaint: Back Injury/Pain Stated Complaint: FALL - LOWER BACK PAIN AND CONSTIPATION ED Provider: Jose Yi Discharge Problem: T12 compression fracture, Ambulatory dysfunction, Acute constipation Forms Stand Alone Forms: [facility] Prescriptions Prescriptions: No Action cholecalciferol (vitamin D3) 50 mcg (2,000 unit) capsule 2,000 unit PO QAM multivitamin Tablet 1 tab PO QAM nystatin-triamcinolone 100,000-0.1 unit/gram-% ointment 1 applic topical DAILY PRN (Reason: Skin Irritation) levothyroxine 88 mcg tablet 88 mcg PO QAM omeprazole 40 mg capsule,delayed release(DR/EC) 40 mg PO QAM simvastatin 5 mg tablet 5 mg PO QPM trazodone 100 mg tablet 100 mg PO HS [employer] 3 billion cell Capsule 1 cap PO QAM ferrous sulfate 325 mg (65 mg iron) tablet,delayed release (DR/EC) 325 mg PO QPM dutasteride [Avodart] 0.5 mg capsule 0.5 mg PO QPM aspirin 81 mg tablet,delayed release (DR/EC) 81 mg PO .Q MON,THU,THURSDAY Referrals Referrals: Britt Bliss [Primary Care Provider] - Discharge Problem: T12 compression fracture Qualifiers: Encounter type: initial encounter Qualified Code(s): S22.080A - Wedge compression fracture of T11-T12 vertebra, initial encounter for closed fracture
[2023-11-14 09:47] LABS: Basophils # (auto) 0.02 K/uL (0.00-0.20); Basophils % (auto) 0.3 %; Eosinophils # (auto) 0.18 K/uL (0.00-0.50); Eosinophils % (auto) 2.4 %; Hematocrit (blood only) 41.5 % (42.0-52.0); Hemoglobin 13.6 g/dl (14.0-18.0); Immature Granulocytes # (auto) 0.02 K/uL (0.01-0.20); Immature Granulocytes % (auto) 0.3 %; Lymphocytes # (auto) 1.52 K/uL (1.20-3.40); Lymphocytes % (auto) 20.6 %; Mean Corpuscular Hemoglobin 31.3 pg (25.0-34.0); Mean Corpuscular Hgb Conc 32.8 g/dL (32.0-36.0); Mean Corpuscular Volume 95.6 fL (80.0-100.0); Mean Platelet Volume 9.3 fL (9.4-12.4); Monocytes # (auto) 0.59 K/uL (0.11-0.59); Neutrophils # (auto) 5.05 K/uL (1.40-6.50); Neutrophils % (auto) 68.4 %; Platelet Count 179 K/uL (130-400); RDW Coefficient of Variation 14.1 % (11.5-14.5); RDW Standard Deviation 49.4 fL (36.4-46.3); Red Blood Count 4.34 M/uL (4.70-6.10); White Blood Count 7.38 K/ul (4.8-10.8)
--- NOTE | 2023-11-14 10:08 | CT Scan Report ---
CT abd pelvis wo con, CT lumbar spine wo con CLINICAL HISTORY: fall, low back pain, constipation, ho sbo TECHNIQUE: Helical axial images of the abdomen and pelvis were obtained. Automated dose lowering tech niques and/or adjustment according to patient size were utilized for this exam. Dedicated images of t he lumbar spine were obtained. This exam was performed without intravenous contrast. CT DOSE: 822.74 mGy.cm COMPARISON: Comparison is made to CT abdomen pelvis 11/14/2023 FINDINGS: Lower chest: No acute abnormality. Liver: Unremarkable. No focal lesions are seen. Gallbladder and biliary tree: Patient is status post cholecystectomy. Pneumobilia is seen. Pancreas: Unremarkable, no focal lesions. Spleen: Unremarkable. 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 Kidneys and ureters: Nonobstructive nephrolithiasis is seen. Right renal cyst is seen. Bladder: Thickened and trabeculated bladder wall compatible with chronic outlet obstruction. Reproductive organs: Prostatomegaly is seen. Bowel: A hiatal hernia is seen. Lymph nodes Retroperitoneal: Unremarkable. Pelvic: Unremarkable. Mesenteric: Unremarkable. Peritoneum: Normal. Vessels: Atherosclerotic calcifications are seen. Abdominal wall: Unremarkable. Bones: Degenerative changes in the visualized spine. There is an acute fracture of the T12 vertebral body with approximately 3 mm retropulsion. IMPRESSION: 1. Acute fracture of the T12 vertebral body with 3 mm retropulsion. 2. Chronic bladder outlet obstruction. 3. Nonobstructive nephrolithiasis. 4. Status post cholecystectomy. 5. Redemonstration of pneumobilia likely secondary to incompetent valve. 6. Additional findings as above. ACT 112: Negative or not required by law. Electronically signed by: Chau Sherman M.D. 11/14/2023 10:06 AM
[2023-11-14 10:14] LABS: Albumin Level 3.8 gm/dl (3.4-5.0); Anion Gap 7 (3-11); Bilirubin,Total 0.4 mg/dl (0.2-1.0); Calcium 9.3 mg/dl (8.6-10.3); Carbon Dioxide 26 mmol/L (21-32); Chloride 105 mmol/L (98-107); Sodium 138 mmol/L (136-145)
[2023-11-14 10:16] LABS: Alanine Aminotransferase 14 U/L (7-52); Alkaline Phosphatase 93 U/L (34-104); Blood Urea Nitrogen 16 mg/dl (6-23); Creatinine Clr Calc Pharmacy 53.9 ml/min; Est GFR (African American) 85.9 ml/min; Est GFR (Non-African American) 74.2 ml/min; Glucose 101 mg/dl (70-99(Fasting)); Lipase 5 U/L (11-82); Total Protein 6.9 gm/dl (6.0-8.3)
[2023-11-14] MEDS: LIDOCAINE 5% 1 PATCH TD STA (10:34)
[2023-11-14] MEDS: ACETAMINOPHEN 500 MG TAB PO STA (10:35)
[2023-11-14] MEDS: SODIUM CHLORIDE 0.9% 500 ML IV ONE (10:37)
[2023-11-14 10:43] LABS: Bilirubin Direct 0.1 mg/dl (0-0.2)
--- NOTE | 2023-11-14 12:08 | History & Physical Report ---
Date of Service November 14, 2023 Assessment & Plan (1) Fracture of T12 vertebra: Plan Marshall Mancilla is an 83y/o M with PMHx of hyperlipidemia, hypothyroidism, BPH w/ LUTS, chronic anemia [baseline Hgb ~11], history of small bowel obstruction s/p exploratory laparotomy [07/2023] and other problems listed below who presented to the ED for evaluation secondary to lower back pain and was found to have an acute fracture of the T12 vertebral body with [address] A/P 1. Acute fracture of the T12 vertebral body with 3 mm retropulsion. 2. Chronic bladder outlet obstruction. 3. Nonobstructive nephrolithiasis. 4. Status post cholecystectomy. 5. Redemonstration of pneumobilia likely secondary to incompetent valve. 6. Additional findings as above. Mechanical fall with acute Fracture of T12 Vertebral Body with 3 mm retropulsion - currently denies any pain. Has mild soreness at times and uses tylenol as needed. No tenderness of spine. Continue lidoderm patch, Tylenol and tramadol prn for pain. Bowel regimen - Consult ortho spine and PT OT eval. Per CM from ED who spoke with [facility], they don't have a bed until Thursday. Hypothyroidism- continue synthroid Constipation- likely related to iron. Resolved with enema. Now feels much better. continue bowel regimen Iron deficiency- on supplemental iron, anemia has improved, Hb now at 13.6. Can take iron every other day. Hyperlipidemia- on simvastatin BPH with chronic outlet obstruction- Nocturia but voiding by self. continue dutasteride. Inguinal hernia- following with surgery for OP elective surgery DVT Prophylaxis: sc lovenox Code Status: Full code Updated daughter and brother at bedside Disposition: Admit to Med/Surg Patient seen in collaboration with Dr. Aly. Please see addendum. I spent a total of 65 minutes coordinating, documenting, and providing care for this patient excluding time spent in the performance of separately billed services. This included personally reviewing all current laboratories and imaging studies, medical reconciliation, outpatient chart review and discussion with specialists. This chart was completed in part utilizing Speech Voice Recognition Software. Grammatical errors, random word insertions, pronoun errors, and incomplete se ntences are an occasional consequence of this system due to software limitations, ambient noise, and hardware issues. Any formal questions or concerns about the content, text, or information contained within the body of this dictation should be directly addressed to the provider for clarification. History of Present Illness Chief Complaint: Low Back Pain Primary Care Provider: Britt Bliss Marshall Mancilla is an 83y/o M with PMHx of hyperlipidemia, hypothyroidism, BPH w/ LUTS, chronic anemia [baseline Hgb ~11], history of small bowel obstruction s/p exploratory laparotomy [07/2023] and other problems listed below who presented to the ED for evaluation secondary to lower back pain. History obtained from patient associated chart review. 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 He is also endorsing some constipation - which had been ongoing for a few days prior to arrival. However, he was able to have a bowel movement today in the ED - he was given an enema by nursing staff. He is currently not experiencing any pain. He was taking a couple of Tylenol doses at home for the pain, but his mobility has remained limited since the fall. He does take an iron supplement for chronic anemia - mentions he thinks this is causing his constipation. Denies any SOB, chest pain, abdominal pain or urinary complaints. He does urinate frequently - however, this is unchanged from baseline. He did not take any of his medications this morning. Allergies Allergy/AdvReac Type Severity Reaction Status Date / Time gluten Allergy Severe Abdominal Unverified 08/21/23 10:00 pain and bloating potassium Allergy Severe Potassium Unverified 08/21/23 10:00 Chromate - Causes severe Rash shellfish derived Allergy Severe convulsions Verified 08/21/23 10:00 Home Medications Medication Instructions Recorded Confirmed Type multivitamin 1 tab PO QAM 12/05/18 11/14/23 History nystatin-triamcinolone 100,000 1 applic topical DAILY PRN Skin 12/05/18 11/14/23 History unit/gram-0.1 % topical ointment Irritation levothyroxine 88 mcg tablet 88 mcg PO QAM 02/18/19 11/14/23 History cholecalciferol (vitamin D3) 50 2,000 unit PO QAM 07/04/11/14/23 History mcg (2,000 unit) capsule omeprazole 40 mg capsule,delayed 40 mg PO QAM 09/17/22 11/14/23 History release simvastatin 5 mg tablet 5 mg PO QPM 09/17/22 11/14/23 History trazodone 100 mg tablet 100 mg PO HS 09/17/22 11/14/23 History Lactobacillus rhamnosus-Bifidobac. 1 cap PO QAM 07/15/23 11/14/23 History animalis 3 billion cell capsule ([employer]) dutasteride 0.5 mg capsule 0.5 mg PO QPM 07/15/23 11/14/23 History (Avodart) ferrous sulfate 325 mg (65 mg 325 mg PO QPM 07/15/23 11/14/23 History iron) tablet,delayed release aspirin 81 mg tablet,delayed 81 mg PO .Q THU,THU,Thursday11/14/23 11/14/23 History release Past Med/Surg History Problem List (Updated 11/14/23 @ 12:10 by Iesha Cottrell PA-C) Fracture of T12 vertebra Recurrent left inguinal hernia Recurrent right inguinal hernia H/O exploratory laparotomy (07/15/23) p Exploratory Laparotomy, Release Small Bowel Obstruction, Enterolysis(Not Applicable) - Abel Fields, DO s Cystoscopy and Navarro Catheter Placement Over Wire. 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, organic (Acute) Rotator cuff tear Cholelithiasis with acute cholecystitis (Acute) Sepsis (Acute) Hypertension (Chronic) Hyperlipidemia (Chronic) Hypothyroid (Chronic) History of hernia repair (Acute) Influenza (Acute) Medical History Retinal detachment S/P hernia repair Surgical History Hx of cholecystectomy Hx of cataract surgery History of bladder surgery S/P cataract surgery S/p small bowel obstruction Family History Father Cancer Brother Colorectal cancer Other No significant family history Social History Smoking Status: Never smoker Second Hand Exposure: No; Do You Dip or Chew Tobacco: No; Hx Alcohol Use: No Hx Substance Use: No Preferred Language: Lao Communication Ability: Effective Visual Impairment: No Limitations Web Marketing Assistant Required: No Beliefs That Will Affect Care: None marital status: Current Living Situation: Spouse Current Living Situation Comment: lives with spouse and son current occupational status: retired Feels Safe at Home: Yes Assistive Devices: Glasses and Walker Review of Systems Review of Systems: At least ten systems reviewed and negative, except as noted in the HPI. Physical Exam Physical Exam: Please refer to Dr. Aly's addendum for physical examination findings. Results & Data Results & Data Vital Signs (Past 12 Hours) Vital Signs Temp Pulse Resp BP Pulse Ox O2 Del Method 11/14/23 08:53 36.2 C L 70 18 127/74 93 Room Air Laboratory Results Short CBC 11/14/23 Range/Units 09:25 WBC 7.38 (4.8-10.8) K/ul Hgb 13.6 L (14.0-18.0) g/dl Hct 41.5 L (42.0-52.0) % Plt Count 179 (130-400) K/uL BMP 11/14/23 11/14/23 09:25 10:17 Sodium 138 Potassium TNP 4.0 Chloride 105 Carbon Dioxide 26 BUN 16 Creatinine 0.94 Glucose 101 H Calcium 9.3 Liver Function 11/14/23 11/14/23 Range/Units 09:25 10:17 Total Bilirubin 0.4 (0.2-1.0) mg/dl Direct Bilirubin TNP 0.1 AST TNP 18 ALT 14 (7-52) U/L Alkaline Phosphatase 93 (34-104) U/L Albumin 3.8 (3.4-5.0) gm/dl Diagnostic Findings Abdomen/Pelvis CT 11/14/23 09:09 CT abd pelvis wo con, CT lumbar spine wo con CLINICAL HISTORY: fall, low back pain, constipation, ho sbo TECHNIQUE: Helical axial images of the abdomen and pelvis were obtained. Automated dose lowering techniques and/or adjustment according to patient size were utilized for this exam. Dedicated images of the lumbar spine were obtained. This exam was performed without intravenous contrast. CT DOSE: 822.74 mGy.cm COMPARISON: Comparison is made to CT abdomen pelvis 11/14/2023 FINDINGS: Lower chest: No acute abnormality. Liver: Unremarkable. No focal lesions are seen. Gallbladder and biliary tree: Patient is status post cholecystectomy. Pneumobilia is seen. Pancreas: Unremarkable, no focal lesions. Spleen: Unremarkable. 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 Kidneys and ureters: Nonobstructive nephrolithiasis is seen. Right renal cyst is seen. Bladder: Thickened and trabeculated bladder wall compatible with chronic outlet obstruction. Reproductive organs: Prostatomegaly is seen. Bowel: A hiatal hernia is seen. Lymph nodes Retroperitoneal: Unremarkable. Pelvic: Unremarkable. Mesenteric: Unremarkable. Peritoneum: Normal. Vessels: Atherosclerotic calcifications are seen. Abdominal wall: Unremarkable. Bones: Degenerative changes in the visualized spine. There is an acute fracture of the T12 vertebral body with approximately 3 mm retropulsion. IMPRESSION: 1. Acute fracture of the T12 vertebral body with 3 mm retropulsion. 2. Chronic bladder outlet obstruction. 3. Nonobstructive nephrolithiasis. 4. Status post cholecystectomy. 5. Redemonstration of pneumobilia likely secondary to incompetent valve. 6. Additional findings as above. ACT 112: Negative or not required by law. Electronically signed by: Chau Sherman M.D. 11/14/2023 10:[address] 11/14/23 09:09 CT abd pelvis wo con, CT lumbar spine wo con CLINICAL HISTORY: fall, low back pain, constipation, ho sbo TECHNIQUE: Helical axial images of the abdomen and pelvis were obtained. Automated dose lowering techniques and/or adjustment according to patient size were utilized for this exam. Dedicated images of the lumbar spine were obtained. This exam was performed without intravenous contrast. CT DOSE: 822.74 mGy.cm COMPARISON: Comparison is made to CT abdomen pelvis 11/14/2023 FINDINGS: Lower chest: No acute abnormality. Liver: Unremarkable. No focal lesions are seen. Gallbladder and biliary tree: Patient is status post cholecystectomy. Pneumobilia is seen. Pancreas: Unremarkable, no focal lesions. Spleen: Unremarkable. 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 Kidneys and ureters: Nonobstructive nephrolithiasis is seen. Right renal cyst is seen. Bladder: Thickened and trabeculated bladder wall compatible with chronic outlet obstruction. Reproductive organs: Prostatomegaly is seen. Bowel: A hiatal hernia is seen. Lymph nodes Retroperitoneal: Unremarkable. Pelvic: Unremarkable. Mesenteric: Unremarkable. Peritoneum: Normal. Vessels: Atherosclerotic calcifications are seen. Abdominal wall: Unremarkable. Bones: Degenerative changes in the visualized spine. There is an acute fracture of the T12 vertebral body with approximately 3 mm retropulsion. IMPRESSION: 1. Acute fracture of the T12 vertebral body with 3 mm retropulsion. 2. Chronic bladder outlet obstruction. 3. Nonobstructive nephrolithiasis. 4. Status post cholecystectomy. 5. Redemonstration of pneumobilia likely secondary to incompetent valve. 6. Additional findings as above. ACT 112: Negative or not required by law. Electronically signed by: Chau Sherman M.D. 11/14/2023 10:06 AM Medications Administered Discontinued Medications Acetaminophen (Acetaminophen 500 Mg Tab) 1,000 mg PO NOW STA Stop: 11/14/23 10:27 Last Admin: 11/14/23 10:35 Dose: 1,000 mg Documented By: PAIGE Sodium Chloride (Nss) 500 mls @ 999 mls/hr IV .Q31M ONE Stop: 11/14/23 09:39 Last Infusion: 11/14/23 11:08 Dose: Infused Documented By: Admin: 11/14/23 10:37 Dose: 999 mls/hr Documented By: PAIGE Lidocaine (Lidocaine 5% 1 Patch) 1 patch TD NOW STA Stop: 11/14/23 10:27 Last Admin: 11/14/23 10:34 Dose: 1 patch Documented By: Code Status & VTE Plan Code Status FULL CODE Supervising Physician Co-Signing Physician Notes Patient was seen and examined with Iesha CHENG at bedside. Chart reviewed. Case discussed with Iesha CHENG and agree with the documentation above. In summary, this is a 83 year old male who sustained acute T12 fracture with 3mm retropulsion after fall 5 days back. Complains of pain and constipation. CT lumbar spine and A/P reviewed. Will continue pain management, bowel regimen, ortho spine eval and PT OT eval. Rest as per the note above. General: Lying comfortably in bed, not in distress, on room air HEENT: EOMI, CAMMIE, MMM Chest: Clear breath sounds bilaterally, no wheezes or crackles CVS: Regular rate and rhythm, normal heart sounds, no murmur Abdomen: Soft, non tender, not distended, normal bowel sounds Neuro: Awake, alert, oriented, conversing well, non focal Extremities: No cyanosis, clubbing or edema. MSK: No tenderness on palpation of the spine (1) Fracture of T12 vertebra Encounter type: initial encounter Fracture morphology: unspecified fracture morphology Fracture type: closed Qualified Code(s): S22.089A - Unspecified fracture of T11-T12 vertebra, initial encounter for closed fracture
[2023-11-14] MEDS ORDERED: ONDANSETRON INJ 2 MG/ML 2 ML VIAL IV PRN (15:11)
[2023-11-14] MEDS: LEVOTHYROXINE SODIUM 88 MCG TABLET PO SCH (16:01)
[2023-11-14] MEDS: ENOXAPARIN INJ 40 MG/0.4 ML SYR SQ SCH (16:07)
[2023-11-14] MEDS: FINASTERIDE 5 MG TAB PO SCH (19:39)
[2023-11-14] MEDS: SIMVASTATIN 5 MG TAB PO SCH (19:40)
[2023-11-14] MEDS: traZODone HCL 100 MG TAB PO SCH (19:40)
[2023-11-14] MEDS: ACETAMINOPHEN 325 MG TAB PO PRN (23:34)
[2023-11-14] MEDS: traMADol HCL 50 MG TABLET PO PRN (23:35)
[2023-11-15 07:29] LABS: Hematocrit (blood only) 35.1 % (42.0-52.0); Hemoglobin 11.4 g/dl (14.0-18.0); Mean Corpuscular Hgb Conc 32.5 g/dL (32.0-36.0); Mean Corpuscular Volume 95.4 fL (80.0-100.0); Mean Platelet Volume 9.2 fL (9.4-12.4); Platelet Count 178 K/uL (130-400); RDW Coefficient of Variation 13.9 % (11.5-14.5); Red Blood Count 3.68 M/uL (4.70-6.10); White Blood Count 5.41 K/ul (4.8-10.8)
[2023-11-15] MEDS: LIDOCAINE 5% 1 PATCH TD SCH (07:38)
[2023-11-15] MEDS: MULTIVITAMIN TAB PO SCH (07:39)
[2023-11-15] MEDS: CHOLECALCIFEROL 25 MCG (1000 UNITS) TAB PO SCH (07:39)
[2023-11-15] MEDS: PANTOprazole 40 MG TAB PO SCH (07:39)
[2023-11-15] MEDS: POLYETHYLENE (MIRALAX) 17 GM PACK PO SCH (07:40)
[2023-11-15 07:52] LABS: BUN Creatinine Ratio 25.8 (10-20); Calcium 8.5 mg/dl (8.6-10.3); Est GFR (Non-African American) 78.5 ml/min; Magnesium 1.9 mg/dl (1.7-2.4); Phosphorus 3.3 mg/dl (2.5-4.9); Potassium 4.1 mmol/L (3.5-5.1)
--- NOTE | 2023-11-15 08:29 | Consultation ---
Date of Consultation November 15, 2023 Assessment & Plan (1) Fracture of T12 vertebra: Patient has an acute T12 compression fracture status post fall. Treatment is conservative. I am ordering a TLSO brace to be worn with ambulation/standing and activity. May remove when in a seated position and when lying in bed. Ambulate ad vandana. No lifting over 5 pounds. Can follow-up in our office in a couple weeks. Orthopedically stable. Will sign off. History of Present Illness Reason for Consultation: T12 compression fracture Attending Physician: Becky Squires MD History of Present Illness Is a pleasant 83-year-old gentleman who sustained a fall 6 days ago. 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 Pain is controlled. It is along the thoracolumbar region. No radicular leg pain. Denies any bowel or bladder dysfunction. Allergies Allergy/AdvReac Type Severity Reaction Status Date / Time gluten Allergy Severe Abdominal Unverified 08/21/23 10:00 pain and bloating potassium Allergy Severe Potassium Unverified 08/21/23 10:00 Chromate - Causes severe Rash shellfish derived Allergy Severe convulsions Verified 08/21/23 10:00 Home Medications Medication Instructions Recorded Confirmed Type multivitamin 1 tab PO QAM 12/05/18 11/14/23 History nystatin-triamcinolone 100,000 1 applic topical DAILY PRN Skin 12/05/18 11/14/23 History unit/gram-0.1 % topical ointment Irritation levothyroxine 88 mcg tablet 88 mcg PO QAM 02/18/19 11/14/23 History cholecalciferol (vitamin D3) 50 2,000 unit PO QAM 07/05/19 11/14/23 History mcg (2,000 unit) capsule omeprazole 40 mg capsule,delayed 40 mg PO QAM 09/17/22 11/14/23 History release simvastatin 5 mg tablet 5 mg PO QPM 09/17/22 11/14/23 History trazodone 100 mg tablet 100 mg PO HS 09/17/22 11/14/23 History Lactobacillus rhamnosus-Bifidobac. 1 cap PO QAM 07/15/23 11/14/23 History animalis 3 billion cell capsule ([employer]) dutasteride 0.5 mg capsule 0.5 mg PO QPM 07/15/23 11/14/23 History (Avodart) ferrous sulfate 325 mg (65 mg 325 mg PO QPM 07/15/23 11/14/23 History iron) tablet,delayed release aspirin 81 mg tablet,delayed 81 mg PO .Q THU,THU,Thursday11/14/23 11/14/23 History release acetaminophen 325 mg tablet 650 mg (2 x 325 mg) PO Q4H PRN 11/16/23 Rx pain #60 tabs lidocaine 5 % topical patch 1 patch transdermal QAM #15 ea 11/16/23 Rx tramadol 50 mg tablet 50 mg PO Q4H PRN severe pain 11/16/23 Rx (scale score 7-10) #20 tabs Patient History Medical History Retinal detachment S/P hernia repair Surgical History Hx of cholecystectomy Hx of cataract surgery History of bladder surgery S/P cataract surgery S/p small bowel obstruction Family History Father Cancer Brother Colorectal cancer Other No significant family history Social History Smoking Status: Never smoker Second Hand Exposure: No; Do You Dip or Chew Tobacco: No; Tobacco Cessation Education Requested by Patient: No Hx Alcohol Use: No Hx Substance Use: No Preferred Language: Greek Communication Ability: Effective Visual Impairment: No Limitations Mangle Press Catcher Required: No Beliefs That Will Affect Care: None marital status: Current Living Situation: Spouse Current Living Situation Comment: lives with spouse and son current occupational status: retired Other Information That Helps Us Care for You: No Feels Safe at Home: Yes Safety Concerns: Feels Safe At This Time Assistive Devices: Walker Review of Systems Review of Systems: All systems reviewed & are unremarkable except as noted in HPI & below Physical Exam Physical Exam: Laying in bed in no acute distress Alert and oriented x 3 tenderness over the midline thoracolumbar region strength is intact bilateral lower extremities Results & Data Vital Signs (Past 12 Hours) Vital Signs Temp Pulse Resp BP Pulse Ox O2 Del Method 11/15/23 07:26 36.5 C 69 16 114/69 93 Room Air 11/14/23 22:03 36.4 C L 86 14 117/74 95 Room Air Diagnostic Findings [place], [place] [phone] CT Scan Report Patient: WOO FOUNTAIN Admit Date: 11/14/23 MR#: [id number] Address1: [address] [place] [address] Acct ID:[id number] Address2: Date: 1940 [facility] Zip: [place] [id number] Age: 83 Location: ED Sex: M Room/Bed: Att Phy: Diagnosis: FALL - LOWER BACK PAIN AND CONSTIPATION Sarah Phy: Britt Bliss M.D. Service Date: 11/14/23 Fam Phy: Interpreting Phy: Chau Sherman MDAdmit Phy: Ordering Phy: Jose Yi M.D. cc: ~ CT abd pelvis wo con, CT lumbar spine wo con CLINICAL HISTORY: fall, low back pain, constipation, ho sbo TECHNIQUE: Helical axial images of the abdomen and pelvis were obtained. Automated dose lowering techniques and/or adjustment according to patient size were utilized for this exam. Dedicated images of the lumbar spine were obtained. This exam was performed without intravenous contrast. CT DOSE: 822.74 mGy.cm COMPARISON: Comparison is made to CT abdomen pelvis 11/14/2023 FINDINGS: Lower chest: No acute abnormality. Liver: Unremarkable. No focal lesions are seen. Gallbladder and biliary tree: Patient is status post cholecystectomy. Pneumobilia is seen. Pancreas: Unremarkable, no focal lesions. Spleen: Unremarkable. 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 Kidneys and ureters: Nonobstructive nephrolithiasis is seen. Right renal cyst is seen. Bladder: Thickened and trabeculated bladder wall compatible with chronic outlet obstruction. Reproductive organs: Prostatomegaly is seen. Bowel: A hiatal hernia is seen. Lymph nodes Retroperitoneal: Unremarkable. Pelvic: Unremarkable. Mesenteric: Unremarkable. Peritoneum: Normal. Vessels: Atherosclerotic calcifications are seen. Abdominal wall: Unremarkable. Bones: Degenerative changes in the visualized spine. There is an acute fracture of the T12 vertebral body with approximately 3 mm retropulsion. IMPRESSION: 1. Acute fracture of the T12 vertebral body with 3 mm retropulsion. 2. Chronic bladder outlet obstruction. 3. Nonobstructive nephrolithiasis. 4. Status post cholecystectomy. 5. Redemonstration of pneumobilia likely secondary to incompetent valve. 6. Additional findings as above. ACT 112: Negative or not required by law. Electronically signed by: Chau Sherman M.D. 11/14/2023 10:06 AM Dictated: 11/14/23958 Transcribed: 11/14/23958 (1) Fracture of T12 vertebra Encounter type: initial encounter Fracture morphology: unspecified fracture morphology Fracture type: closed Qualified Code(s): S22.089A - Unspecified fracture of T11-T12 vertebra, initial encounter for closed fracture
[2023-11-15 09:23] LABS: Appearance Urine Cloudy (Clear); Bacteria Urine Automated 4+ (None Seen); Bilirubin Urine Negative (Negative); Blood Urine Trace (Negative); Cast Urine Automated 0-2 /lpf (0-2); Color Urine Yellow; Epithelial Cell Urine Auto 0-2 /hpf (0-2); Glucose Urine UA Negative (Negative); Ketones Urine Trace (Negative); Leukocyte Esterase Urine 3+ (Negative); Nitrite Urine Positive (Negative); Protein Urine Trace (Negative); RBC Urine Automated 0-2 /hpf (0-2); Urobilinogen Urine Negative (Negative); WBC Urine Automated >50 /hpf (0-5); pH Urine 5.5 (4.5-7.5)
--- NOTE | 2023-11-15 11:13 | Hospitalist Progress Note ---
Date of Service November 15, 2023 Assessment & Plan (1) Fracture of T12 vertebra: Plan 83y/o M with PMHx of hyperlipidemia, hypothyroidism, BPH w/ LUTS, chronic anemia [baseline Hgb ~11], history of small bowel obstruction s/p exploratory laparotomy [07/2023] who presented to the ED for evaluation secondary to lower back pain after a fall Found to have an acute fracture of the T12 vertebral body with [address] A/P 1. Acute fracture of the T12 vertebral body with 3 mm retropulsion. 2. Chronic bladder outlet obstruction. 3. Nonobstructive nephrolithiasis. 4. Status post cholecystectomy. 5. Redemonstration of pneumobilia likely secondary to incompetent valve. 6. Additional findings as above. Mechanical fall with acute Fracture of T12 Vertebral Body with 3 mm retropulsion Pain is controlled Continue lidoderm patch, Tylenol and tramadol prn for pain. Bowel regimen Ortho spine eval noted. No surgical recs. TLSO recommended PT/OT Plan to dc to [facility] Hypothyroidism- continue synthroid Constipation- Resolved with enema. Continue bowel regimen Iron deficiency- On supplemental iron Hyperlipidemia- On simvastatin BPH with chronic outlet obstruction- Nocturia Continue dutasteride. Inguinal hernia- Following with surgery for OP elective surgery DVT Prophylaxis: sc lovenox Code Status: Full code I spent a total of 45 minutes coordinating, documenting and providing care for this patient excluding time spent in performance of separately billed services Admission and Anticipated Discharge Date Admission Date: November 14, 2023 Subjective Patient seen and examined Reports back pain is controlled Reports chronic urge incontinence usually at night Denied dysuria, freq, hematuria Denied any other new complains Physical Exam Constitutional: + well hydrated; no acute distress Eyes: PERRL, conjunctivae normal, anicteric sclerae ENMT: external ear and nose normal, oropharynx normal Respiratory: normal respiratory effort, lungs clear to auscultation Cardiovascular: Rate/Rhythm: regular rate and regular rhythm Gastrointestinal (Abdomen): normal bowel sounds, soft, nontender, no hepatosplenomegaly Musculoskeletal: No pedal edema Mild tenderness over thoracolumbar area Neurologic: PERRL, EOMI, accommodation nl, no face palsy, no dysarthria Psychiatric: A+Ox3, euthymic affect Results & Data Results & Data Vital Signs (Past 12 Hours) Vital Signs Temp Pulse Resp BP Pulse Ox O2 Del Method 08/04/24 07:26 36.5 C 69 16 114/69 93 Room Air Laboratory Results Abnormal lab results 11/15/23 11/15/23 Range/Units 06:20 09:03 RBC 3.68 L (4.70-6.10) M/uL Hgb 11.4 L (14.0-18.0) g/dl Hct 35.1 L (42.0-52.0) % RDW Std Deviation 49.0 H (36.4-46.3) fL MPV 9.2 L (9.4-12.4) fL BUN/Creatinine Ratio 25.8 H (10-20) Calcium 8.5 L (8.6-10.3) mg/dl Urine Appearance Cloudy A (Clear) Urine Protein Trace H (Negative) Urine Ketones Trace H (Negative) Urine Blood Trace H (Negative) Urine Nitrite Positive A (Negative) Ur Leukocyte Esterase 3+ H (Negative) Urine WBC (Auto) >50 H (0-5) /hpf Urine Bacteria (Auto) 4+ H (None Seen) (1) Fracture of T12 vertebra Encounter type: initial encounter Fracture type: closed Fracture morphology: unspecified fracture morphology Qualified Code(s): S22.089A - Unspecified fracture of T11-T12 vertebra, initial encounter for closed fracture
[2023-11-16] MEDS: ASPIRIN 81 MG ECTAB PO SCH (07:43)
--- NOTE | 2023-11-16 16:55 | Hospitalist Progress Note ---
Date of Service November 16, 2023 Assessment & Plan (1) Fracture of T12 vertebra: Plan 83y/o M with PMHx of hyperlipidemia, hypothyroidism, BPH w/ LUTS, chronic anemia [baseline Hgb ~11], history of small bowel obstruction s/p exploratory laparotomy [07/2023] who presented to the ED for evaluation secondary to lower back pain after a fall Found to have an acute fracture of the T12 vertebral body with [address] A/P 1. Acute fracture of the T12 vertebral body with 3 mm retropulsion. 2. Chronic bladder outlet obstruction. 3. Nonobstructive nephrolithiasis. 4. Status post cholecystectomy. 5. Redemonstration of pneumobilia likely secondary to incompetent valve. 6. Additional findings as above. Mechanical fall with acute Fracture of T12 Vertebral Body with 3 mm retropulsion Pain is controlled Continue lidoderm patch, Tylenol and tramadol prn for pain. Bowel regimen Ortho spine eval noted. No surgery recommended Awaiting TLSO brace before dc to [facility] Hypothyroidism- continue synthroid Constipation- Resolved with enema. Continue bowel regimen Iron deficiency- On supplemental iron Hyperlipidemia- On simvastatin BPH with chronic outlet obstruction- Nocturia Continue dutasteride. Inguinal hernia- Following with surgery for OP elective surgery DVT Prophylaxis: sc lovenox Code Status: Full code I spent a total of 35 minutes coordinating, documenting and providing care for this patient excluding time spent in performance of separately billed services Admission and Anticipated Discharge Date Admission Date: November 14, 2023 Subjective Patient seen and examined Reports back pain is well controlled Denied any other new complains Physical Exam Constitutional: + well hydrated; no acute distress Eyes: PERRL, conjunctivae normal, anicteric sclerae ENMT: external ear and nose normal, oropharynx normal Respiratory: normal respiratory effort, lungs clear to auscultation Cardiovascular: Rate/Rhythm: regular rate and regular rhythm Gastrointestinal (Abdomen): normal bowel sounds, soft, nontender, no hepatosplenomegaly Musculoskeletal: No pedal edema Neurologic: PERRL, EOMI, accommodation nl, no face palsy, no dysarthria Psychiatric: A+Ox3, euthymic affect Results & Data Results & Data Vital Signs (Past 12 Hours) Vital Signs Temp Pulse Resp BP Pulse Ox O2 Del Method 11/16/23 14:18 37.0 C 67 18 117/65 93 Room Air 11/16/23 08:06 36.7 C 72 18 121/68 95 Room Air (1) Fracture of T12 vertebra Encounter type: initial encounter Fracture morphology: unspecified fracture morphology Fracture type: closed Qualified Code(s): S22.089A - Unspecified fracture of T11-T12 vertebra, initial encounter for closed fracture
[2023-11-17] MEDS: CEFDINIR 300 MG CAP PO SCH (12:09)
--- NOTE | 2023-11-17 13:45 | Discharge Summary ---
Date of Service November 17, 2023 Admission HPI Per Admitting Provider Marshall Mancilla is an 83y/o M with PMHx of hyperlipidemia, hypothyroidism, BPH w/ LUTS, chronic anemia [baseline Hgb ~11], history of small bowel obstruction s/p exploratory laparotomy [07/2023] and other problems listed below who presented to the ED for evaluation secondary to lower back pain. History obtained from patient associated chart review. 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 He is also endorsing some constipation - which had been ongoing for a few days prior to arrival. However, he was able to have a bowel movement today in the ED - he was given an enema by nursing staff. He is currently not experiencing any pain. He was taking a couple of Tylenol doses at home for the pain, but his mobility has remained limited since the fall. He does take an iron supplement for chronic anemia - mentions he thinks this is causing his constipation. Denies any SOB, chest pain, abdominal pain or urinary complaints. He does urinate frequently - however, this is unchanged from baseline. He did not take any of his medications this morning. Admission Exam Per Admitting Provider General: Lying comfortably in bed, not in distress, on room air HEENT: EOMI, CAMMIE, MMM Chest: Clear breath sounds bilaterally, no wheezes or crackles CVS: Regular rate and rhythm, normal heart sounds, no murmur Abdomen: Soft, non tender, not distended, normal bowel sounds Neuro: Awake, alert, oriented, conversing well, non focal Extremities: No cyanosis, clubbing or edema. MSK: No tenderness on palpation of the spine Principal Diagnosis Fall Acute T12 fracture Urinary tract infection Discharge Exam Constitutional + well hydrated; no acute distress Eyes PERRL, conjunctivae normal, anicteric sclerae ENMT external ear and nose normal, oropharynx normal Respiratory normal respiratory effort, lungs clear to auscultation Cardiovascular Rate/Rhythm: regular rate and regular rhythm Gastrointestinal (Abdomen) normal bowel sounds, soft, nontender, no hepatosplenomegaly Musculoskeletal TLSO brace in place Neurologic PERRL, EOMI, accommodation nl, no face palsy, no dysarthria Psychiatric A+Ox3, euthymic affect Discharge Data Allergies Allergy/AdvReac Type Severity Reaction Status Date / Time gluten Allergy Severe Abdominal Unverified 08/21/23 10:00 pain and bloating potassium Allergy Severe Potassium Unverified 08/21/23 10:00 Chromate - Causes severe Rash shellfish derived Allergy Severe convulsions Verified 08/21/23 10:00 Consultations 11/14/23 12:05 ED Decision to Admit Stat 11/14/23 12:44 Consult Orthopedic Spine Surgery Routine Ordered Studies 11/14/23 09:09 CT abd pelvis wo con Stat CT lumbar spine wo con Stat Hospital Course (1) Fracture of T12 vertebra: Plan 83y/o M with PMHx of hyperlipidemia, hypothyroidism, BPH w/ LUTS, chronic anemia [baseline Hgb ~11], history of small bowel obstruction s/p exploratory laparotomy [07/2023] who presented to the ED for evaluation secondary to lower back pain after a fall Found to have an acute fracture of the T12 vertebral body with [address] A/P 1. Acute fracture of the T12 vertebral body with 3 mm retropulsion. 2. Chronic bladder outlet obstruction. 3. Nonobstructive nephrolithiasis. 4. Status post cholecystectomy. 5. Redemonstration of pneumobilia likely secondary to incompetent valve. 6. Additional findings as above. Mechanical fall with acute Fracture of T12 Vertebral Body with 3 mm retropulsion Pain is controlled Continue lidoderm patch, Tylenol and tramadol prn for pain. Bowel regimen Ortho spine evaluated. No surgery recommended Patient to use TLSO brace with standing/activity PT/OT evaluated [facility] does not have a bed today Pain is well controlled Patient wants to wait on [facility]. Stated they will call him once they have a bed available. He will like to go home. He declined home PT/outpatient PT but will wait on [facility] Urinary Tract Infection Urine culture grew Klebsiella pneumonia Patient reports chronic urge incontinence Discharged on po cefdinir Hypothyroidism- continue synthroid Constipation- Resolved with enema. Continue bowel regimen Iron deficiency- On supplemental iron Hyperlipidemia- On simvastatin BPH with chronic outlet obstruction- Nocturia Continue dutasteride. Inguinal hernia- Following with surgery for OP elective surgery Total Time Total Time Spent Total Time Spent (In Minutes): 35 Total Time Includes: Examination of the Patient, Discharge Planning and Medication Reconciliation Discharge Plan Discharge Items Patient Disposition: Home - Self-Care Reason For Visit: Back pain Discharge Diagnosis: Fall Acute T12 fracture Urinary tract infection Activity: As commented below Activity Comment: Use TLSO brace with ambulation/activity/standing. Do not lift over 5 pounds Non-emergency contact: Primary Care Provider and Surgeon Call non-emergency contact if: you have any medication questions and your symptoms worsen Follow-up/Referrals: Britt Bliss [Primary Care Provider] - 11/24/23 3:00 pm Josselyn Santillan PA-C [Physician Passementerie Worker] - Diet: Regular Addtl Attending Provider Instructions: Mr Mancilla You came to the hospital with back pain after you fell. You were found to have vertebral fracture. You are being discharged home. Please follow up with [facility] regarding rehab. Please use brace as instructed and ensure followup with Orthopedic spine surgeon It was a pleasure taking care of you. Pending Studies at Discharge: No Stand-Alone Forms: My [facility] [employer], Smoking Cessation Medications and DC Order Prescriptions: New lidocaine 5 % Adhesive Patch,Medicated 1 patch transdermal QAM Qty: 15 0RF acetaminophen 325 mg Tablet 650 mg PO Q4H PRN (Reason: pain) Qty: 60 0RF tramadol 25 mg tablet 25 mg PO Q6H PRN (Reason: pain (scale score 7-10)) Qty: 10 0RF cefdinir 300 mg Capsule 300 mg PO BID Qty: 13 0RF Continued cholecalciferol (vitamin D3) 50 mcg (2,000 unit) capsule 2,000 unit PO QAM multivitamin Tablet 1 tab PO QAM nystatin-triamcinolone 100,000-0.1 unit/gram-% ointment 1 applic topical DAILY PRN (Reason: Skin Irritation) levothyroxine 88 mcg tablet 88 mcg PO QAM omeprazole 40 mg capsule,delayed release(DR/EC) 40 mg PO QAM simvastatin 5 mg tablet 5 mg PO QPM trazodone 100 mg tablet 100 mg PO HS [employer] 3 billion cell Capsule 1 cap PO QAM ferrous sulfate 325 mg (65 mg iron) tablet,delayed release (DR/EC) 325 mg PO QPM dutasteride [Avodart] 0.5 mg capsule 0.5 mg PO QPM aspirin 81 mg tablet,delayed release (DR/EC) 81 mg PO .Q THU,THU,THURSDAY Discharge Orders: Discharge Order (Routine); Ordered 11/17/23 Ordered By: Becky Squires Admission Data Admit Date/Time: 11/14/23 12:44 Attending Provider: Becky Squires I. Admit Provider: Willy Aly Primary Care Provider: Britt Bliss Other Providers: [facility]; Claudio Casas; Willy Aly Other Interventions: Discharge Summary Assessment (RN) Last Done: 11/17/23 13:45
== END 2023-11-17 15:13 | disposition home or self-care (01) | DRG 552 ==
LOC: ED 08:42 → 3N 12:44 → SUATTDRO 12:44 → 3N 14:14

== ENCOUNTER 2024-05-02 14:27 | Inpatient (IN) ==
--- NOTE | 2024-05-02 15:16 | Emergency Department Note ---
Impression & Plan Weakness, Fever, Acute UTI, Acute dehydration ED Provider Note NAME: WOO FOUNTAIN AGE: 83 SEX: M : 1940 ARRIVES VIA: Ambulance INFORMANT: Patient, family ED PROVIDER(S): Jaspal Salmon MD CHIEF COMPLAINT: Weakness, possible UTI MEDICAL DECISION MAKING: Patient presents due to concern for possible infectious symptoms. Patient was noted to be febrile there was concern for possible UTI. IV was established and blood work was obtained. Review of the patient's prior urine cultures show E. coli and Klebsiella both sensitive to Rocephin. Patient was ordered IV Rocephin empirically along with IV fluids. Patient was not hypotensive upon arrival. He had already received 650 of Tylenol prior to arrival was ordered another 325. Patient's blood work shows a white count of 4.6 with a normal H&H. Platelet count is unremarkable. Prerenal azotemia noted with a sodium 134. I did speak with the hospital service and the patient was admitted to medicine service. Discussion w/ other healthcare providers: Savannah Barnett PA-C and Dr. Becerra inpatient medicine service Prior /Outside records reviewed: None Differential diagnosis: Infection, dehydration, metabolic abnormality, hypo/hyperglycemia, electrolyte imbalance, anemia, UTI, pneumonia, thyroid dysfunction among others were considered. Diagnostics, as interpreted by me: ECG: Normal sinus rhythm, rate of 74, normal IL, wide QRS, right bundle branch block pattern, left axis deviation no obvious STEMI. Cardiac monitoring: An order was placed for continuous cardiac monitoring. The monitor shows a rate of 75 with sinus rhythm. Patient was placed on pulse oximetry Medical decision rules: None Imaging studies: I informally interpreted the patient's Patient's chest x-ray does not show evidence of obvious pneumonia or pneumothoraxwith formal report to follow. HPI: Patient presents due to concern for increasing weakness and fatigue. The patient has also suffered bouts of urinary incontinence as well as frequency. The patient's daughter at bedside states she is concerned that he has a UTI. Patient denies any chest pains or shortness of breath. Patient has not been eating since this past Thursday. They report that he is not up and ambulatory and that he does require significant assistance at home at which they do not have him set up for an order to care for him. No recent travel or known sick contacts. No falls or trauma. Patient denies any rash. The patient denies any ear pain sore throat or congestion. Patient reportedly has had some urinary issues ever since the time he tried to have a Navarro catheter placed for a bowel obstruction procedure. At that time the daughter reports that he had some sort of false passage that was created with attempting to place the Navarro catheter and that he did require a Navarro catheter replaced for 2 weeks. Ever since then he has had urinary issues. Daughter states that she did give him 650 mg of Tylenol about 12:45. PAST MEDICAL HISTORY: See Below PAST SURGICAL HISTORY: See Below SOCIAL HISTORY: See Below HOME MEDICATIONS: See Below ALLERGIES: See Below VITALS: See Below PHYSICAL EXAMINATION: GENERAL: NAD, non-toxic. EYE EXAM: Normal conjunctiva. PERRL, no anisocoria and EOM's grossly intact w/o pain. OROPHARYNX: Moist mucus membranes, grossly normal dentition. NECK: Trachea midline, no stridor. Supple, no nuchal rigidity, no adenopathy, non-tender. No signs of meningismus. FROM of the neck with good chin to chest and neck extension. LUNGS: Clear to auscultation. Normal chest wall mechanics. HEART: NSR, no MRG. ABDOMEN: Abdomen soft, non-tender, no masses, no rebound or guarding. BACK: No CVA TTP. SKIN: No rashes and no bruising. UPPER EXTREMITIES: Upper extremities are grossly normal. LOWER EXTREMITIES: Grossly normal, no edema. NEURO EXAM: A&O x3, cranial nerves II-XII grossly intact, normal speech, moves all 4 extremities. Past Med/Surg History Problem List Salmonella bacteremia Diarrhea Generalized weakness Acute dehydration (Acute) Acute UTI (Acute) Fever (Acute) Weakness (Acute) S/P inguinal hernia repair Incarcerated right inguinal hernia Hypotension Encounter for pre-operative examination Impotence, organic (Acute) Rotator cuff tear Hypothyroid (Chronic) Hyperlipidemia (Chronic) Hypertension (Chronic) Medical History Acid reflux Hyperlipidemia Aorta aneurysm Chest CT 04/2020: Fusiform dilation of the ascending thoracic aorta is suboptimally evaluated without the use of IV contrast is again noted to measure 4.1 x 4.1 cm which is stable from comparison. Follows Dr. 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 Then I had a bubble to hold my retina in" S/P hernia repair Multiple Hx of cholecystectomy Hx of cataract surgery Bilateral History of bladder surgery Bladder stone extraction Family History Father Cancer Brother Colorectal cancer Other No significant family history Social History Smoking Status: Never smoker Second Hand Exposure: No; Do You Dip or Chew Tobacco: No; Tobacco Cessation Education Requested by Patient: No Hx Alcohol Use: No Hx Substance Use: No Preferred Language: Wolof Communication Ability: Effective Visual Impairment: No Limitations Industrial Servicer Required: No Beliefs That Will Affect Care: None marital status: Current Living Situation: Spouse Current Living Situation Comment: lives with spouse and son current occupational status: retired Other Information That Helps Us Care for You: No Feels Safe at Home: Yes Safety Concerns: Feels Safe At This Time Assistive Devices: Cane, Glasses and Walker Allergies Allergies Allergy/AdvReac Type Severity Reaction Status Date / Time gluten Allergy Severe Abdominal Verified 02/12/24 09:57 pain and bloating potassium Allergy Severe Potassium Verified 02/12/24 09:57 Chromate - Causes severe Rash shellfish derived Allergy Severe Convulsions Verified 02/12/24 09:57 nickel Allergy Intermediate Rash Verified 02/12/24 09:57 Home Meds Home Medications Medication Instructions Recorded Confirmed multivitamin 1 tab PO QAM 12/05/18 05/02/24 nystatin-triamcinolone 100,000 1 applic topical DAILY PRN Skin 12/05/18 05/02/24 unit/gram-0.1 % topical ointment Irritation levothyroxine 88 mcg tablet 88 mcg PO QAM 02/18/19 05/02/24 cholecalciferol (vitamin D3) 50 2,000 unit PO QAM 07/05/19 05/02/24 mcg (2,000 unit) capsule omeprazole 40 mg capsule,delayed 40 mg PO QAM 09/17/22 05/02/24 release simvastatin 5 mg tablet 5 mg PO QPM 09/17/22 05/02/24 trazodone 100 mg tablet 100 mg PO HS 09/17/22 05/02/24 Lactobacillus rhamnosus-Bifidobac. 1 cap PO QAM 07/15/23 05/02/24 animalis 3 billion cell capsule ([employer]) dutasteride 0.5 mg capsule 0.5 mg PO QPM 07/15/23 05/02/24 (Avodart) ferrous sulfate 325 mg (65 mg 325 mg PO QPM 07/15/23 05/02/24 iron) tablet,delayed release aspirin 81 mg tablet,delayed 81 mg PO .Q THU,THU,Thursday11/14/23 05/02/24 release lidocaine 5 % topical patch 1 patch transdermal QAM PRN Pain 01/18/24 05/02/24 Previous Rx's Medication Instructions Recorded acetaminophen 325 mg tablet 650 mg (2 x 325 mg) PO Q4H PRN 11/16/23 pain #60 tabs Results & Data (ED) Vital Signs Vital Signs - 24 hr 05/02/24 14:35 05/02/24 14:40 Temperature 38.1 C H Temperature Source Oral Pulse Rate 77 78 Respiratory Rate 18 Respiratory Effort / Characteristics Non-Labored Spontaneous Respiratory Depth Normal Blood Pressure 111/64 Blood Pressure Mean 79 Blood Pressure Position Sitting Pulse Oximetry 92 Oxygen Delivery Method Room Air Sepsis Recent Fever Within 48 Hours Yes Sepsis New/Unexplained Change in Mental Status N/A Sepsis Action Taken by Nursing No Action Required Home Medications Current Medication List: was personally reviewed by me Laboratory Data Attestation: I reviewed the patient's lab results. 05/06/24 07:02 05/06/24 07:02 Lab Results 05/02/24 05/02/24 Range/Units 14:50 15:39 WBC 4.68 L (4.8-10.8) K/ul RBC 4.73 (4.70-6.10) M/uL Hgb 14.7 (14.0-18.0) g/dl Hct 42.9 (42.0-52.0) % MCV 90.7 (80.0-100.0) fL MCH 31.1 (25.0-34.0) pg MCHC 34.3 (32.0-36.0) g/dL RDW Std Deviation 47.4 H (36.4-46.3) fL RDW Coeff of Dinorah 14.3 (11.5-14.5) % Plt Count 168 (130-400) K/uL MPV 10.0 (9.4-12.4) fL Immature Gran % (Auto) 0.6 % Neut % (Auto) 70.2 % Lymph % (Auto) 15.6 % [place] % (Auto) 12.8 % Eos % (Auto) 0.4 % Baso % (Auto) 0.4 % Neut # (Auto) 3.28 (1.40-6.50) K/uL Lymph # (Auto) 0.73 L (1.20-3.40) K/uL [place] # (Auto) 0.60 H (0.11-0.59) K/uL Eos # (Auto) 0.02 (0.00-0.50) K/uL Baso # (Auto) 0.02 (0.00-0.20) K/uL Immature Gran # (Auto) 0.03 (0.01-0.20) K/uL Sodium 134 L (136-145) mmol/L Potassium 4.3 (3.5-5.1) mmol/L Chloride 102 (98-107) mmol/L Carbon Dioxide 26 (21-32) mmol/L Anion Gap 6 (3-11) BUN 26 H (6-23) mg/dl Creatinine 1.16 (0.6-1.4) mg/dl Est Cr Clr Drug Dosing 46.9 ml/min eGFR 62.11 BUN/Creatinine Ratio 22.4 H (10-20) Glucose 97 (70-99(Fasting)) mg/dl Lactate 1.3 (0.4-2.0) mmol/L Calcium 9.5 (8.6-10.3) mg/dl Magnesium 1.9 (1.7-2.4) mg/dl Total Bilirubin 0.5 (0.2-1.0) mg/dl Direct Bilirubin 0.0 (0-0.2) mg/dl AST 48 H (13-39) U/L ALT 27 (7-52) U/L Alkaline Phosphatase 86 (34-104) U/L Troponin I High Sens 15.0 (0-20) pg/ml Total Protein 6.5 (6.0-8.3) gm/dl Albumin 3.6 (3.4-5.0) gm/dl Procalcitonin 0.30 (0-0.5) ng/ml Enterobacterales (PCR) DETECTED A (NotDetected) Salmonella spp. (PCR) DETECTED A (NotDetected) mcr-1 Colistin Res Gene PCR Not Detected (NotDetected) blaIMP Car res Gene PCR Not Detected (NotDetected) KPC-Carbap Res Gene PCR Not Detected (NotDetected) blaNDM Car Res Gene PCR Not Detected (NotDetected) OXA-48 Carbapenem Resis Gene (PCR) Not Detected (NotDetected) blaVIM Car Res Gene PCR Not Detected (NotDetected) CTX-M Gene Resistance (PCR) Not Detected (NotDetected) Bld Cult ID Panel PCR See PCR Comment (NotDetected) Administered Medications Acetaminophen (Acetaminophen 325 Mg Tab) 650 mg PO Q4H PRN PRN Reason: Pain or Fever Stop: 06/01/24 18:32 Last Admin: 05/05/24 05:52 Dose: 650 mg Documented By: ALVERTO Enoxaparin Sodium (Enoxaparin Inj 40 Mg/0.4 Ml Syr) 40 mg SQ Q24H [facility] Stop: 06/01/24 18:44 Last Admin: 05/05/24 19:06 Dose: 40 mg Documented By: Admin: 05/04/24 17:53 Dose: 40 mg Documented By: Admin: 05/03/24 19:45 Dose: 40 mg Documented By: Admin: 05/02/24 19:30 Dose: 40 mg Documented By: CATHLEENK Ferrous Sulfate (Ferrous Sulfate 325 Mg Tab) 325 mg PO QPM DANIELLA Stop: 06/01/24 20:59 Last Admin: 05/05/24 22:14 Dose: 325 mg Documented By: Admin: 05/04/24 20:46 Dose: 325 mg Documented By: Admin: 05/03/24 19:46 Dose: 325 mg Documented By: Admin: 05/02/24 20:59 Dose: 325 mg Documented By: BRIONNA Finasteride (Finasteride 5 Mg Tab) 5 mg PO QPM [facility] Stop: 06/01/24 20:59 Last Admin: 05/05/24 22:14 Dose: 5 mg Documented By: Admin: 05/04/24 20:46 Dose: 5 mg Documented By: Admin: 05/03/24 19:46 Dose: 5 mg Documented By: Admin: 05/02/24 20:59 Dose: 5 mg Documented By: BRIONNA Levothyroxine Sodium (Levothyroxine Sodium 88 Mcg Tablet) 88 mcg PO [facility] Stop: 06/02/24 08:59 Last Admin: 05/06/24 07:57 Dose: 88 mcg Documented By: Admin: 05/05/24 08:02 Dose: 88 mcg Documented By: Admin: 05/04/24 08:48 Dose: 88 mcg Documented By: Admin: 05/03/24 10:07 Dose: 88 mcg Documented By: DEVAUGHN Co-signed By: BRIANA Miconazole Nitrate (Miconazole Nitrate Powder 85 Gm) 1 appln EXT PRN PRN PRN Reason: Affected Skin Folds Stop: 06/02/24 10:26 Last Admin: 05/04/24 13:19 Dose: 1 appln Documented By: Admin: 05/03/24 15:19 Dose: 1 appln Documented By: WILLY Miscellaneous (Remove Lidoderm Patch) 1 each N/A DAILY@2100 [facility] Stop: 06/01/24 20:59 Last Admin: 05/05/24 22:14 Dose: Not Given Documented By: Admin: 05/04/24 20:46 Dose: Not Given Documented By: Admin: 05/03/24 19:46 Dose: 1 each Documented By: Admin: 05/02/24 21:03 Dose: 1 each Documented By: BRIONNA Pantoprazole Sodium (Pantoprazole 40 Mg Tab) [facility] [place] Stop: 06/02/24 08:59 Last Admin: 05/06/24 07:57 Dose: 40 mg Documented By: Admin: 05/05/24 08:02 Dose: 40 mg Documented By: Admin: 05/04/24 08:47 Dose: 40 mg Documented By: Admin: 05/03/24 10:07 Dose: 40 mg Documented By: DEVAUGHN Co-signed By: BRIANA Simvastatin (Simvastatin 5 Mg Tab) 5 mg PO QPM DANIELLA Stop: 06/01/24 20:59 Last Admin: 05/05/24 22:14 Dose: 5 mg Documented By: Admin: 05/04/24 20:46 Dose: 5 mg Documented By: Admin: 05/03/24 19:45 Dose: 5 mg Documented By: Admin: 05/02/24 20:59 Dose: 5 mg Documented By: BRIONNA Trazodone HCl (Trazodone Hcl 100 Mg Tab) 100 mg PO HS DANIELLA Stop: 06/01/24 20:59 Last Admin: 05/05/24 22:14 Dose: 100 mg Documented By: Admin: 05/04/24 20:46 Dose: 100 mg Documented By: Admin: 05/03/24 19:46 Dose: 100 mg Documented By: Admin: 05/02/24 20:59 Dose: 100 mg Documented By: BRIONNA Trimethoprim/Sulfamethoxazole (Sulfamethoxazole/Trimethoprim Ds 800/160mg Tab) 1 tab PO Q12 DANIELLA Stop: 05/13/24 08:59 Last Admin: 05/06/24 09:56 Dose: 1 tab Documented By: JANES Vitamin D (Cholecalciferol 25 Mcg (1000 Units) Tab) 50 mcg PO QAM DANIELLA Stop: 06/02/24 08:59 Last Admin: 05/06/24 07:57 Dose: 50 mcg Documented By: Admin: 05/05/24 08:02 Dose: 50 mcg Documented By: Admin: 05/04/24 08:47 Dose: 50 mcg Documented By: Admin: 05/03/24 10:07 Dose: 50 mcg Documented By: DEVAUGHN Co-signed By: BRIANA Discontinued Medications Acetaminophen (Acetaminophen 325 Mg Tab) 325 mg PO NOW STA Stop: 05/02/24 15:13 Last Admin: 05/02/24 15:41 Dose: 325 mg Documented By: CHELITA Sodium Chloride (Nss) 1,000 mls @ 999 mls/hr IV .Q1H1M DANIELLA Stop: 05/02/24 16:15 Last Infusion: 05/02/24 17:39 Dose: Infused Documented By: Admin: 05/02/24 15:44 Dose: 999 mls/hr Documented By: CHELITA Ceftriaxone Sodium (Rocephin) 2,000 mg in 50 mls @ 100 mls/hr IV NOW STA Stop: 05/02/24 15:44 Last Infusion: 05/02/24 17:39 Dose: Infused Documented By: Admin: 05/02/24 15:41 Dose: 100 mls/hr Documented By: CHELITA Sodium Chloride (Nss) 1,000 mls @ 80 mls/hr IV .[id number] DANIELLA Stop: 05/03/24 18:32 Last Infusion: 05/03/24 19:31 Dose: Infused Documented By: Infusion: 05/03/24 19:31 Dose: 0 mls/hr Documented By: Admin: 05/03/24 08:33 Dose: 80 mls/hr Documented By: Infusion: 05/03/24 08:33 Dose: Infused Documented By: Admin: 05/02/24 21:03 Dose: 80 mls/hr Documented By: BRIONNA Ceftriaxone Sodium (Rocephin) 2,000 mg in 50 mls @ 100 mls/hr IV Q24H DANIELLA Stop: 05/17/24 07:59 Last Infusion: 05/06/24 09:14 Dose: Infused Documented By: Admin: 05/06/24 07:54 Dose: 100 mls/hr Documented By: Infusion: 05/05/24 08:48 Dose: Infused Documented By: Admin: 05/05/24 08:04 Dose: 100 mls/hr Documented By: Infusion: 05/04/24 09:17 Dose: Infused Documented By: Admin: 05/04/24 08:47 Dose: 100 mls/hr Documented By: Infusion: 05/03/24 08:53 Dose: Infused Documented By: Admin: 05/03/24 08:23 Dose: 100 mls/hr Documented By: WILLY Sodium Chloride (Nss) 1,000 mls @ 80 mls/hr IV .[id number] DANIELLA Stop: 05/06/24 14:44 Last Infusion: 05/06/24 15:06 Dose: Infused Documented By: Admin: 05/06/24 02:35 Dose: 80 mls/hr Documented By: Infusion: 05/06/24 02:30 Dose: Infused Documented By: Admin: 05/05/24 14:00 Dose: 80 mls/hr Documented By: SKYLER Ioversol (Optiray 320 125ml) 118 ml IV ONCE ONE Stop: 05/03/24 14:58 Last Admin: 05/03/24 14:57 Dose: 118 ml Documented By: ADALBERTO Potassium Phosphate (Pot Phosphate Monobasic W/ Sod Tab) 1 tab PO ONE ONE Stop: 05/06/24 09:13 Last Admin: 05/06/24 09:56 Dose: 1 tab Documented By: JANES Imaging Data Radiologist's Impression: Chest X-Ray 05/02/24 15:12 XR chest 1V portable CLINICAL HISTORY: Sepsis TECHNIQUE: Single frontal radiograph of the chest was obtained. Comparison: Comparison is made to chest radiograph 07/15/2023 FINDINGS: No lines and tubes are seen. Calcified aortic knob is seen. The lungs are clear. No evidence of pleural effusion or pneumothorax. IMPRESSION: No acute abnormalities and in particular no radiographic evidence of pneumonia. ACT 112: Negative or not required by law. Electronically signed by: Chau Sherman M.D. 05/02/2024 3:30 PM Discharge Plan Visit Data Chief Complaint: Weakness Stated Complaint: WEAKNESS ED Provider: Jaspal Salmon Discharge Problem: Weakness, Fever, Acute UTI, Acute dehydration Patient Disposition: Admitted As Inpatient Discharge Instructions Interventions: ED Discharge Assessment Last Done: 05/02/24 18:33 Discharge Problem: Fever Qualifiers: Fever type: unspecified Qualified Code(s): R50.9 - Fever, unspecified
--- NOTE | 2024-05-02 15:32 | XRay Report ---
XR chest 1V portable CLINICAL HISTORY: Sepsis TECHNIQUE: Single frontal radiograph of the chest was obtained. Comparison: Comparison is made to chest radiograph 07/15/2023 FINDINGS: No lines and tubes are seen. Calcified aortic knob is seen. The lungs are clear. No evidence of pleur al effusion or pneumothorax. IMPRESSION: No acute abnormalities and in particular no radiographic evidence of pneumonia. ACT 112: Negative or not required by law. Electronically signed by: Chau Sherman M.D. 05/02/2024 3:30 PM
[2024-05-02 15:41] LABS: Albumin Level 3.6 gm/dl (3.4-5.0); BUN Creatinine Ratio 22.4 (10-20); Bilirubin,Total 0.5 mg/dl (0.2-1.0); Calcium 9.5 mg/dl (8.6-10.3); Creatinine Clr Calc Pharmacy 46.9 ml/min; Hematocrit (blood only) 42.9 % (42.0-52.0); Hemoglobin 14.7 g/dl (14.0-18.0); Magnesium 1.9 mg/dl (1.7-2.4); Mean Corpuscular Hemoglobin 31.1 pg (25.0-34.0); Mean Corpuscular Hgb Conc 34.3 g/dL (32.0-36.0); Mean Corpuscular Volume 90.7 fL (80.0-100.0); Platelet Count 168 K/uL (130-400); Potassium 4.3 mmol/L (3.5-5.1); RDW Coefficient of Variation 14.3 % (11.5-14.5); RDW Standard Deviation 47.4 fL (36.4-46.3); Red Blood Count 4.73 M/uL (4.70-6.10); Total Protein 6.5 gm/dl (6.0-8.3); White Blood Count 4.68 K/ul (4.8-10.8)
[2024-05-02] MEDS: ACETAMINOPHEN 325 MG TAB PO STA (15:41)
[2024-05-02] MEDS: cefTRIAXone SODIUM 2,000 MG/50 ML BAG IV STA (15:41)
[2024-05-02] MEDS: SODIUM CHLORIDE 0.9% 1,000 ML IV SCH ×2 (15:44→21:03)
[2024-05-02 15:59] LABS: Basophils # (auto) 0.02 K/uL (0.00-0.20); Basophils % (auto) 0.4 %; Eosinophils # (auto) 0.02 K/uL (0.00-0.50); Eosinophils % (auto) 0.4 %; Immature Granulocytes # (auto) 0.03 K/uL (0.01-0.20); Immature Granulocytes % (auto) 0.6 %; Lymphocytes # (auto) 0.73 K/uL (1.20-3.40); Lymphocytes % (auto) 15.6 %; Monocytes % (auto) 12.8 %; Neutrophils # (auto) 3.28 K/uL (1.40-6.50); Neutrophils % (auto) 70.2 %
--- NOTE | 2024-05-02 16:55 | History & Physical Report ---
Date of Service May 02, 2024 Assessment & Plan (1) Generalized weakness: (2) Fever: Plan: Possible UTI Patient is 83 year old male with PMH HLD, chronic anemia, hypothyroidism, BPH presented to ER with c/o weakness today. Chronic urinary urgency, denies dy suria, hematuria, abdominal pain. In ER T: 38.1C, P: 77, R: 18, BP 111/64, 92% on room air WBC: 4.6, lactate: WNL, procalcitonin: 0.3 UA: leuk esterase: 2+, 21-50 WBC, 1+bacteria CXR: no acute infiltrate Urine culture pending Blood culture pending In ER given 1L NSS, Rocephin, Tylenol 325mg po No focal deficits on exam Will continue Rocephin for now pending urine culture Gentle IVF CBC, CMP in am (3) Diarrhea: Plan: Reported watery diarrhea x 2-3 days. Obtain stool culture, c-diff Denies abdominal pain, nausea or vomiting (4) Hyperlipidemia: Plan: Continue simvastatin (5) Hypothyroid: Plan: Continue levothyroxine (6) BPH (benign prostatic hyperplasia): Plan: Continue dutasteride (7) Chronic anemia: Plan: History iron deficiency anemia Hgb: 14 Continue iron supplement DVT Prophylaxis Lovenox SQ Admit med/tele Follows with Dr Bliss for routine care Pt was seen and care coordinated with Dr Fink. See addendum I spent a total of 75 minutes reviewing notes, outpatient records, labs, medication, coordinating, documenting and providing care for this patient excluding time spent in the performance of separately billed services. History of Present Illness Chief Complaint: weakness Primary Care Provider: Britt Bliss Patient is 83 year old male with PMH HLD, chronic anemia, hypothyroidism, BPH presented to ER with c/o weakness today. Patient states today was standing shaving when he felt like his legs were feeling wobbly today. He has noticed feeling more weak past two days. Patient states while in house holds on to objects to assist in ambulation. Does have a cane to use outside on uneven surfaces. Denies recent fall. States last 2-3 days having diarrhea described as watery stools. Denies nausea, vomiting, abdominal pain. Denies any changes in appetite. States chronic urinary urgency and if doesn't get to bathroom in time will have urinary incontinence. Denies hematuria or dysuria. Patient unaware of any fever. Denies any recent travel, recent antibiotic use, or known ill contacts. Denies diaphoresis, SHEPPARD, dizziness, syncope, vision changes, neck pain, CP, SOB, palpitations, cough, sore throat, choking, rhinorrhea, abdominal pain, paresthesias, extremity edema, rashes. Allergies Allergy/AdvReac Type Severity Reaction Status Date / Time gluten Allergy Severe Abdominal Verified 02/12/24 09:57 pain and bloating potassium Allergy Severe Potassium Verified 02/12/24 09:57 Chromate - Causes severe Rash shellfish derived Allergy Severe Convulsions Verified 02/12/24 09:57 nickel Allergy Intermediate Rash Verified 02/12/24 09:57 Home Medications Medication Instructions Recorded Confirmed Type multivitamin 1 tab PO QAM 12/05/18 05/02/24 History nystatin-triamcinolone 100,000 1 applic topical DAILY PRN Skin 12/05/18 05/02/24 History unit/gram-0.1 % topical ointment Irritation levothyroxine 88 mcg tablet 88 mcg PO QAM 02/18/19 05/02/24 History cholecalciferol (vitamin D3) 50 2,000 unit PO QAM 07/05/19 05/02/24 History mcg (2,000 unit) capsule omeprazole 40 mg capsule,delayed 40 mg PO QAM 09/17/22 05/02/24 History release simvastatin 5 mg tablet 5 mg PO QPM 09/17/22 05/02/24 History trazodone 100 mg tablet 100 mg PO HS 09/17/22 05/02/24 History Lactobacillus rhamnosus-Bifidobac. 1 cap PO QAM 07/15/23 05/02/24 History animalis 3 billion cell capsule (Dada) dutasteride 0.5 mg capsule 0.5 mg PO QPM 07/15/23 05/02/24 History (Avodart) ferrous sulfate 325 mg (65 mg 325 mg PO QPM 07/15/23 05/02/24 History iron) tablet,delayed release aspirin 81 mg tablet,delayed 81 mg PO .Q MON,WED,Thursday11/14/23 05/02/24 History release acetaminophen 325 mg tablet 650 mg (2 x 325 mg) PO Q4H PRN 08/05/24 01/20/25 Rx pain #60 tabs lidocaine 5 % topical patch 1 patch transdermal QAM PRN Pain 01/18/24 05/02/24 History Past Med/Surg History Problem List (Updated 05/02/24 @ 18:16 by Isa Schmidt) Diarrhea Generalized weakness Acute dehydration (Acute) Acute UTI (Acute) Fever (Acute) Weakness (Acute) S/P inguinal hernia repair Incarcerated right inguinal hernia Hypotension Encounter for pre-operative examination Impotence, organic (Acute) Rotator cuff tear Hypothyroid (Chronic) Hyperlipidemia (Chronic) Hypertension (Chronic) Medical History Acid reflux Hyperlipidemia Aorta aneurysm Chest CT 04/2020: Fusiform dilation of the ascending thoracic aorta is suboptimally evaluated without the use of IV contrast is again noted to measure 4.1 x 4.1 cm which is stable from comparison. Follows Dr. 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 Then I had a bubble to hold my retina in" S/P hernia repair Multiple Hx of cholecystectomy Hx of cataract surgery Bilateral History of bladder surgery Bladder stone extraction Family History Father Cancer Brother Colorectal cancer Other No significant family history Social History Smoking Status: Never smoker Second Hand Exposure: No; Do You Dip or Chew Tobacco: No; Hx Alcohol Use: No Hx Substance Use: No Preferred Language: Wolof Communication Ability: Effective Visual Impairment: No Limitations Compensation And Benefits Advisor Required: No Beliefs That Will Affect Care: None marital status: Current Living Situation: Spouse Current Living Situation Comment: lives with spouse and son current occupational status: retired Feels Safe at Home: Yes Assistive Devices: Cane, Denture - Upper and Other Review of Systems Review of Systems: All systems reviewed & are unremarkable except as noted in HPI & below Physical Exam Physical Exam: General: no distress, WDWN Head: normocephalic, atraumatic Eyes: PERRL, conjunctiva non-injected, anicteric ENT: hard of hearing, normal inspection external ears, nose, mucous membranes mildly dry Neck: supple, trachea midline Lungs: clear, no respiratory distress, no wheezing/rhonchi/rales CV: RRR, no pretibial edema Abd: hyperactive BS, soft, non-tender to palpation Ext: no cyanosis, no calf tenderness Neuro: A&O x 3, no focal deficits noted, normal affect Skin: warm, dry Results & Data Results & Data Vital Signs (Past 12 Hours) Vital Signs Temp Pulse Resp BP Pulse Ox O2 Del Method 05/02/24 16:00 74 20 104/67 91 05/02/24 15:30 69 15 112/65 91 05/02/24 15:15 67 19 89 L 05/02/24 15:00 105/61 05/02/24 14:45 76 18 101/61 90 05/02/24 14:40 78 05/02/24 14:35 38.1 C H 77 18 111/64 92 Room Air 05/02/24 14:33 76 18 111/64 92 Laboratory Results Short CBC 05/02/24 Range/Units 14:50 WBC 4.68 L (4.8-10.8) K/ul Hgb 14.7 (14.0-18.0) g/dl Hct 42.9 (42.0-52.0) % Plt Count 168 (130-400) K/uL BMP 05/02/24 14:50 Sodium 134 L Potassium 4.3 Chloride 102 Carbon Dioxide 26 BUN 26 H Creatinine 1.16 Glucose 97 Calcium 9.5 Liver Function 05/02/24 Range/Units 14:50 Total Bilirubin 0.5 (0.2-1.0) mg/dl Direct Bilirubin 0.0 (0-0.2) mg/dl AST 48 H (13-39) U/L ALT 27 (7-52) U/L Alkaline Phosphatase 86 (34-104) U/L Albumin 3.6 (3.4-5.0) gm/dl Urine 05/02/24 Range/Units Unknown Urine Color Dark Yellow Urine Appearance Cloudy A (Clear) Urine pH 5.0 (4.5-7.5) Ur Specific [place] 1.027 (1.000-1.030) Urine Protein 2+ H (Negative) Urine Glucose (UA) Negative (Negative) Diagnostic Findings Chest X-Ray 05/02/24 15:12 XR chest 1V portable CLINICAL HISTORY: Sepsis TECHNIQUE: Single frontal radiograph of the chest was obtained. Comparison: Comparison is made to chest radiograph 07/15/2023 FINDINGS: No lines and tubes are seen. Calcified aortic knob is seen. The lungs are clear. No evidence of pleural effusion or pneumothorax. IMPRESSION: No acute abnormalities and in particular no radiographic evidence of pneumonia. ACT 112: Negative or not required by law. Electronically signed by: Chau Sherman M.D. 05/02/2024 3:30 PM Supervising Physician Co-Signing Physician Notes Pt seen and examined by me, care coordinated w/ Sixto Murillo PA-C, pls refer to her note above for further detail. Pt is an 83 yo M w/ HLD, chronic anemia, hypothyroidism, BPH presented to ER with weakness, diarrhea x3 days, fever. he reports urinary incontinence which seems to be chronic though. Denies hematuria or dysuria. Temp 38.1C and already had tylenol at home and in ED. CXR negat. Denies any cough. Blood cultx and urine cultx pending. Received rocephin in ED. Currently sitting up in bed in NAD, awake, alert, and answers appropriately. Lungs CTAB, heart sounds regular. Abdomen soft, nontender. Pt is moving extremities. Will obtain stool pcr. cont. IVF. Cont abx and follow blood, urine cultx. MD Aleks (2) Fever Fever type: unspecified Qualified Code(s): R50.9 - Fever, unspecified
[2024-05-02 17:32] LABS: Appearance Urine Cloudy (Clear); Bacteria Urine Automated 1+ (None Seen); Bilirubin Urine Negative (Negative); Blood Urine Negative (Negative); Color Urine Dark Yellow; Epithelial Cell Urine Auto 0-2 /hpf (0-2); Glucose Urine UA Negative (Negative); Granular Casts Urine Present /lpf (None Prsent); Ketones Urine Trace (Negative); Leukocyte Esterase Urine 2+ (Negative); Nitrite Urine Negative (Negative); Protein Urine 2+ (Negative); Specific Gravity Urine 1.027 (1.000-1.030); Urobilinogen Urine Negative (Negative); WBC Urine Automated 21-50 /hpf (0-5)
[2024-05-02] MEDS ORDERED: ONDANSETRON INJ 2 MG/ML 2 ML VIAL IV PRN (18:33)
[2024-05-02] MEDS ORDERED: LIDOCAINE 5% 1 PATCH TD PRN (18:33)
[2024-05-02] MEDS ORDERED: POLYETHYLENE (MIRALAX) 17 GM PACK PO PRN (18:33)
[2024-05-02 18:49] LABS: Adenovirus PCR Not Detected (NotDetected); Bordetella parapertussis PCR Not Detected (NotDetected); Bordetella pertussis PCR Not Detected (NotDetected); Chlamydia pneumoniae PCR Not Detected (NotDetected); Coronavirus 229E PCR Not Detected (NotDetected); Coronavirus CoV-2 (COVID19)PCR Not Detected (NotDetected); Coronavirus HKU1 PCR Not Detected (NotDetected); Coronavirus NL63 PCR Not Detected (NotDetected); Coronavirus OC43PCR Not Detected (NotDetected); Human Metapneumovirus PCR Not Detected (NotDetected); Influenza A PCR Not Detected (NotDetected); Influenza B PCR Not Detected (NotDetected); Mycoplasma pneumoniae PCR Not Detected (NotDetected); Parainfluenza Virus 1 PCR Not Detected (NotDetected); Parainfluenza Virus 2 PCR Not Detected (NotDetected); Parainfluenza Virus 3 PCR Not Detected (NotDetected); Parainfluenza Virus 4 PCR Not Detected (NotDetected); Respiratory Syncytial VirusPCR Not Detected (NotDetected); Rhinovirus/Enterovirus PCR Not Detected (NotDetected)
[2024-05-02] MEDS: ENOXAPARIN INJ 40 MG/0.4 ML SYR SQ SCH (19:30)
[2024-05-02] MEDS: FINASTERIDE 5 MG TAB PO SCH (20:59)
[2024-05-02] MEDS: FERROUS SULFATE 325 MG TAB PO SCH (20:59)
[2024-05-02] MEDS: traZODone HCL 100 MG TAB PO SCH (20:59)
[2024-05-02] MEDS: SIMVASTATIN 5 MG TAB PO SCH (20:59)
[2024-05-03 03:03] LABS: Adenovirus F 40/41 PCR Not Detected (NotDetected); Astrovirus PCR Not Detected (NotDetected); Campylobacter PCR Not Detected (NotDetected); Cryptosporidium PCR Not Detected (NotDetected); Cyclospora cayetanensis PCR Not Detected (NotDetected); Entamoeba histolytica PCR Not Detected (NotDetected); Enteroaggregative E.coli(EAEC) Not Detected (NotDetected); Enteropathogenic E.coli (EPEC) Not Detected (NotDetected); Enterotoxigenic E.coli (ETEC) Not Detected (NotDetected); Giardia lamblia PCR Not Detected (NotDetected); Norovirus GI/GII PCR Not Detected (NotDetected); Plesiomonas shigelloides PCR Not Detected (NotDetected); Rotavirus A PCR Not Detected (NotDetected); Sapovirus PCR Not Detected (NotDetected); Shiga-like Toxin E.coli (STEC) Not Detected (NotDetected); Shigella/Enteroinvasive E.coli Not Detected (NotDetected); Vibrio cholerae PCR Not Detected (NotDetected); Vibrio species PCR Not Detected (NotDetected); Yersinia enterocolitica PCR Not Detected (NotDetected)
[2024-05-03 03:14] LABS: Salmonella PCR DETECTED (NotDetected)
[2024-05-03 05:35] LABS: A calco-baum cmplx NotReported Not Detected (NotDetected); Bact fragilis Not Reported Not Detected (NotDetected); Blood Culture Id Panel See PCR Comment (NotDetected); C auris Not Reported Not Detected (NotDetected); CTX-M Resistant Gene Not Detected (NotDetected); Calbicans Not Reported Not Detected (NotDetected); Candida glabrata Not Reported Not Detected (NotDetected); Candida krusei Not Reported Not Detected (NotDetected); Cneoformans/gatti Not Reported Not Detected (NotDetected); Cparapsilosis Not Reported Not Detected (NotDetected); E cloacae compx Not Reported Not Detected (NotDetected); Efaecalis Not Reported Not Detected (NotDetected); Efaecium Not Reported Not Detected (NotDetected); Enterobacterales DETECTED (NotDetected); Enterobacterales Not Reported DETECTED (NotDetected); Escherichia coli Not Reported Not Detected (NotDetected); H influenzae Not Reported Not Detected (NotDetected); IMP Resistant Gene Not Detected (NotDetected); K aerogenes Not Reported Not Detected (NotDetected); KPC Resistant Gene Not Detected (NotDetected); Koxytoca Not Reported Not Detected (NotDetected); Kpneumoniae grp Not Reported Not Detected (NotDetected); Lmonocyt Not Reported Not Detected (NotDetected); N meningitidis Not Reported Not Detected (NotDetected); NDM Resistant Gene Not Detected (NotDetected); OXA 48 Like Resistant Gene Not Detected (NotDetected); P aeruginosa Not Reported Not Detected (NotDetected); Proteus spp Not Reported Not Detected (NotDetected); Salmonella spp Not Reported DETECTED (NotDetected); Staph lugdunensis Not Reported Not Detected (NotDetected); Staph spp. Not Reported Not Detected (NotDetected); Staphaureus Not Reported Not Detected (NotDetected); Staphepi Not Reported Not Detected (NotDetected); Stenmaltophilia Not Reported Not Detected (NotDetected); Strep agal(GrpB) Not Reported Not Detected (NotDetected); Strep pneum Not Reported Not Detected (NotDetected); Strep pyog (GrpA) Not Reported Not Detected (NotDetected); Strep spp Not Reported Not Detected (NotDetected); VIM Resistant Gene Not Detected (NotDetected); mcr-1 Colistin Resistant Gene Not Detected (NotDetected)
[2024-05-03 06:03] LABS: Salmonella species DETECTED (NotDetected)
[2024-05-03 08:01] LABS: Mean Corpuscular Hemoglobin 30.6 pg (25.0-34.0); Mean Corpuscular Hgb Conc 33.3 g/dL (32.0-36.0); Mean Corpuscular Volume 91.8 fL (80.0-100.0); Mean Platelet Volume 9.8 fL (9.4-12.4); Platelet Count 141 K/uL (130-400); RDW Coefficient of Variation 14.4 % (11.5-14.5); RDW Standard Deviation 48.6 fL (36.4-46.3); Red Blood Count 3.92 M/uL (4.70-6.10); White Blood Count 5.14 K/ul (4.8-10.8)
[2024-05-03] MEDS: cefTRIAXone SODIUM 2,000 MG/50 ML BAG IV SCH (08:23)
[2024-05-03 08:33] LABS: Basophils # (auto) 0.02 K/uL (0.00-0.20); Basophils % (auto) 0.4 %; Eosinophils # (auto) 0.01 K/uL (0.00-0.50); Eosinophils % (auto) 0.2 %; Immature Granulocytes # (auto) 0.05 K/uL (0.01-0.20); Lymphocytes # (auto) 1.17 K/uL (1.20-3.40); Lymphocytes % (auto) 22.8 %; Monocytes % (auto) 13.6 %; Neutrophils # (auto) 3.19 K/uL (1.40-6.50)
[2024-05-03 08:36] LABS: Albumin Globulin Ratio 1.4 (0.9-2); BUN Creatinine Ratio 22.1 (10-20); Bilirubin,Total 0.3 mg/dl (0.2-1.0); Calcium 8.4 mg/dl (8.6-10.3); Creatinine Clr Calc Pharmacy 57.2 ml/min; Globulin 2.2 gm/dl (2.5-4.0); Potassium 3.8 mmol/L (3.5-5.1); Total Protein 5.2 gm/dl (6.0-8.3)
--- NOTE | 2024-05-03 08:58 | Hospitalist Progress Note ---
Date of Service May 03, 2024 Assessment & Plan (1) Salmonella bacteremia: (2) Generalized weakness: (3) Fever: (4) Diarrhea: Plan: Patient is 83 year old male with PMH HLD, chronic anemia, hypothyroidism, BPH presented to ER with c/o weakness Along with fever. Tmax of 38.1 C on admission Stool PCR positive for Salmonella Blood culture on admission 3 out of 4 positive for gram-negative bacilli; PCR suggest Salmonella. Ceftriaxone dose increased to 2 g per 24 hours; will follow fever curve. Will follow-up on final culture and sensitivity. Contact precautions Infectious disease consulted for antibiotic recommendation. (5) Hyperlipidemia: Plan: Continue simvastatin (6) Hypothyroid: Plan: Continue levothyroxine (7) BPH (benign prostatic hyperplasia): Plan: Continue dutasteride (8) Chronic anemia: Plan: History iron deficiency anemia Hgb: 14 Continue iron supplement DVT Prophylaxis Lovenox SQ Time spent evaluating patient, direct bedside care, chart review, placing orders, interpretation of diagnostic studies, discussion with consultants, patient, and family members, as well as other required patient management activities is 50 minutes Please note the above document was generated using voice recognition software. It may contain grammatical, syntax or spelling errors. Any formal questions or concerns about the content, text or information contained within the body of this dictation should be directly addressed to the provider for clarification Admission and Anticipated Discharge Date Admission Date: May 02, 2024 Subjective Patient seen and examined at bedside. Comfortable; not in distress. Denies fever, chills, chest pain, shortness of breath, abdominal pain or urinary symptoms. No significant overnight events Review of Systems Review of Systems: All systems reviewed & are unremarkable except as noted in Subjective Physical Exam Physical Exam: Constitutional: WD/WN, vitals as above, NAD, sitting up in bed, pleasant, conversing easily Respiratory: normal respiratory effort, lungs clear to auscultation, no wheeze, rales, rhonchi. Normal insp/exp effort, no accessory muscle use Cardiovascular: RRR, no murmur, no edema Vessels: no JVD or carotid bruit Chest: normal inspection of chest Abdomen: normal bowel sounds, soft, nontender, no hepatosplenomegaly Musculoskeletal: no cyanosis or clubbing, extremities motor strength 5/5 Skin: no rashes, warm and dry normal turgor Neurologic: PERRL, EOMI, accommodation nl, no face palsy, no dysarthria CN's II- XI intact bilaterally and moves all extremities Psychiatric: A+Ox3, euthymic affect Results & Data Results & Data Vital Signs (Past 12 Hours) Vital Signs Temp Pulse Pulse Pulse Resp BP BP 05/03/24 07:34 36.7 C 56 L 14 111/60 05/03/24 07:00 52 L 05/03/24 04:09 36.7 C 55 L 16 123/78 05/03/24 02:00 05/03/24 01:51 70 05/03/24 01:43 37.2 C 67 18 103/61 05/03/24 00:32 37.4 C 71 16 100/61 05/03/24 00:04 73 20 93/66 L 05/02/24 23:17 71 18 102/63 05/02/24 22:33 76 17 05/02/24 22:30 97/58 L 05/02/24 22:00 76 18 111/59 L 05/02/24 21:30 81 21 132/64 05/02/24 21:19 85 05/02/24 21:00 112/65 05/02/24 20:57 76 29 H Pulse Ox O2 Del Method O2 Flow Rate 05/03/24 07:34 95 Room Air 05/03/24 07:00 05/03/24 04:09 94 Nasal Cannula 2 05/03/24 02:00 Nasal Cannula 2 05/03/24 01:51 05/03/24 01:43 93 Nasal Cannula 2 05/03/24 00:32 93 Nasal Cannula 2 05/03/24 00:04 93 Nasal Cannula 2 05/02/24 23:17 94 Nasal Cannula 2 05/02/24 22:33 94 Nasal Cannula 2 05/02/24 22:30 05/02/24 22:00 94 Nasal Cannula 2 05/02/24 21:30 94 Nasal Cannula 2 05/02/24 21:19 05/02/24 21:00 05/02/24 20:57 94 Nasal Cannula 2 (3) Fever Fever type: unspecified Qualified Code(s): R50.9 - Fever, unspecified
[2024-05-03] MEDS ORDERED: cefTRIAXone SODIUM 1,000 MG/50 ML BAG IV SCH (09:00)
[2024-05-03] MEDS: CHOLECALCIFEROL 25 MCG (1000 UNITS) TAB PO SCH (10:07)
[2024-05-03] MEDS: LEVOTHYROXINE SODIUM 88 MCG TABLET PO SCH (10:07)
[2024-05-03] MEDS: PANTOprazole 40 MG TAB PO SCH (10:07)
--- NOTE | 2024-05-03 13:24 | Infectious Disease Consult ---
Date of Service May 03, 2024 Telehealth Information I performed this visit using a real-time telehealth connection between my location and the patients location ([facility]). After connecting through interactive tele-video, patient was identified by name and date of and/or wristband check.Patient (or authorized healthcare route service representative) was informed that this was a telemedicine visit and it was being conducted confidentially over secure lines. My office door was closed and no one else was present in the room with me.Patient (or authorized healthcare route service representative) provided consent to proceed with the visit, expressed an understanding of privacy and security of the telemedicine visit, and gave permission to have a hospital route service representative in the room in order to assist with the visit and to conduct portions of the visit, as needed. I informed the patient (or authorized healthcare route service representative) that I reviewed their record and presented the opportunity for them to ask any questions regarding the visit today. The patient agreed to participate. Assessment & Plan (1) Salmonella bacteremia: (2) Diarrhea: (3) Generalized weakness: (4) Fever: (5) Weakness: Plan Assessment: Patient is 83 year old male with PMH HLD, chronic anemia, hypothyroidism, BPH presented to [facility] on 05/02/2024 with c/o weakness. Per notes and chart review, pt felt like his legs were feeling wobbly and had been feeling more weak due to having 2-3 days of diarrhea described as watery stools. At [facility], pt had stool PCR and Blood culture PCR positive for Salmonella. ID consulted for evaluation and management. Plan: 1. Salmonella Bacteremia and enteritis - Recommend CTA abd to r/o infected aneurysm, source is likely GI but salmonella bacteremia carries a high risk of aortitis and aneurysm. - Recommend continuing Ceftriaxone 2g q24 IV for now, await organism susceptibilities - Recommend repeating Blood cultures for clearance as it is not entirely clear how patient acquiring infection, thought is GI currently. - we will not actively monitor patient, please call ID quality control assistant for issues, concerns, or questions via call or tiger text. History of Present Illness History of Present Illness Reason on Consult: salmonella bacteremia Patient is 83 year old male with PMH HLD, chronic anemia, hypothyroidism, BPH presented to [facility] on 05/02/2024 with c/o weakness. Per notes and chart review, pt felt like his legs were feeling wobbly and had been feeling more weak due to having 2-3 days of diarrhea described as watery stools. At [facility], pt had stool PCR and Blood culture PCR positive for Salmonella. ID consulted for evaluation and management. Allergies Allergy/AdvReac Type Severity Reaction Status Date / Time gluten Allergy Severe Abdominal Verified 02/12/24 09:57 pain and bloating potassium Allergy Severe Potassium Verified 02/12/24 09:57 Chromate - Causes severe Rash shellfish derived Allergy Severe Convulsions Verified 02/12/24 09:57 nickel Allergy Intermediate Rash Verified 02/12/24 09:57 Home Medications Medication Instructions Recorded Confirmed Type multivitamin 1 tab PO QAM 12/05/18 05/02/24 History nystatin-triamcinolone 100,000 1 applic topical DAILY PRN Skin 12/05/18 05/02/24 History unit/gram-0.1 % topical ointment Irritation levothyroxine 88 mcg tablet 88 mcg PO QAM 02/18/19 05/02/24 History cholecalciferol (vitamin D3) 50 2,000 unit PO QAM 07/05/19 05/02/24 History mcg (2,000 unit) capsule omeprazole 40 mg capsule,delayed 40 mg PO QAM 09/17/22 05/02/24 History release simvastatin 5 mg tablet 5 mg PO QPM 09/17/22 05/02/24 History trazodone 100 mg tablet 100 mg PO HS 09/17/22 05/02/24 History Lactobacillus rhamnosus-Bifidobac. 1 cap PO QAM 07/15/23 05/02/24 History animalis 3 billion cell capsule (ITegris) dutasteride 0.5 mg capsule 0.5 mg PO QPM 07/15/23 05/02/24 History (Avodart) ferrous sulfate 325 mg (65 mg 325 mg PO QPM 07/15/23 05/02/24 History iron) tablet,delayed release aspirin 81 mg tablet,delayed 81 mg PO .Q MON,WED,Thursday11/14/23 05/02/24 History release acetaminophen 325 mg tablet 650 mg (2 x 325 mg) PO Q4H PRN 11/16/23 05/02/24 Rx pain #60 tabs lidocaine 5 % topical patch 1 patch transdermal QAM PRN Pain 01/18/24 05/02/24 History Patient History Medical History Acid reflux Hyperlipidemia Aorta aneurysm Chest CT 04/2020: Fusiform dilation of the ascending thoracic aorta is suboptimally evaluated without the use of IV contrast is again noted to measure 4.1 x 4.1 cm which is stable from comparison. Follows Dr. 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 Then I had a bubble to hold my retina in" S/P hernia repair Multiple Hx of cholecystectomy Hx of cataract surgery Bilateral History of bladder surgery Bladder stone extraction Family History Father Cancer Brother Colorectal cancer Other No significant family history Social History Smoking Status: Never smoker Second Hand Exposure: No; Do You Dip or Chew Tobacco: No; Tobacco Cessation Education Requested by Patient: No Hx Alcohol Use: No Hx Substance Use: No Preferred Language: Dominican Communication Ability: Effective Visual Impairment: No Limitations Radio Time Salesperson Required: No Beliefs That Will Affect Care: None marital status: Current Living Situation: Spouse Current Living Situation Comment: lives with spouse and son current occupational status: retired Other Information That Helps Us Care for You: No Feels Safe at Home: Yes Safety Concerns: Feels Safe At This Time Assistive Devices: Cane, Glasses and Walker Review of Systems all negative ROS for now Physical Exam NA Results & Data Vital Signs (Past 12 Hours) Vital Signs Temp Pulse Pulse Resp BP Pulse Ox O2 Del Method 05/03/24 11:01 36.7 C 53 L 16 101/52 L 95 Room Air 05/03/24 08:00 Nasal Cannula 05/03/24 07:34 36.7 C 56 L 14 111/60 95 Room Air 05/03/24 07:00 52 L 05/03/24 04:09 36.7 C 55 L 16 123/78 94 Nasal Cannula 05/03/24 02:00 Nasal Cannula 05/03/24 01:51 70 05/03/24 01:43 37.2 C 67 18 103/61 93 Nasal Cannula O2 Flow Rate 05/03/24 11:01 05/03/24 08:00 2 05/03/24 07:34 05/03/24 07:00 05/03/24 04:09 2 05/03/24 02:00 2 05/03/24 01:51 05/03/24 01:43 2 Laboratory Results 05/02/24 15:39 Aerobic Blood Culture - Preliminary Blood Gram negative bacilli Anaerobic Blood Culture - Preliminary Gram negative bacilli 05/02/24 15:39 Aerobic Blood Culture - Preliminary Blood Gram negative bacilli Anaerobic Blood Culture - Pending 05/02/24 Unknown Urine Culture - Pending Urine,Clean Catch 05/03/24 05/03/24 05/02/24 07:15 01:30 Unknown WBC 5.14 RBC 3.92 L Hgb 12.0 L Hct 36.0 L MCV 91.8 MCH 30.6 MCHC 33.3 RDW Std Deviation 48.6 H RDW Coeff of [place] 14.4 Plt Count 141 MPV 9.8 Immature Gran % (Auto) 1.0 Neut % (Auto) 62.0 Lymph % (Auto) 22.8 [place] % (Auto) 13.6 Eos % (Auto) 0.2 Baso % (Auto) 0.4 Neut # (Auto) 3.19 Lymph # (Auto) 1.[address] [place] # (Auto) 0.70 H Eos # (Auto) 0.01 Baso # (Auto) 0.02 Immature Gran # (Auto) 0.05 Sodium 136 Potassium 3.8 Chloride 106 Carbon Dioxide 27 Anion Gap 3 BUN 21 Creatinine 0.95 Est Cr Clr Drug Dosing 57.2 eGFR 78.93 BUN/Creatinine Ratio 22.1 H Glucose 87 Lactate Calcium 8.4 L Magnesium Total Bilirubin 0.3 Direct Bilirubin AST 33 ALT 21 Alkaline Phosphatase 75 Troponin I High Sens Total Protein 5.2 L Albumin 3.0 L Globulin 2.2 L Albumin/Globulin Ratio 1.4 Procalcitonin Urine Color Dark Yellow Urine Appearance Cloudy A Urine pH 5.0 Ur Specific [place] 1.027 Urine Protein 2+ H Urine Glucose (UA) Negative Urine Ketones Trace H Urine Blood Negative Urine Nitrite Negative Urine Bilirubin Negative Urine Urobilinogen Negative Ur Leukocyte Esterase 2+ H Urine WBC (Auto) 21-50 H Urine RBC (Auto) 6-10 H U Hyaline Cast (Auto) 11-20 H U Epithel Cells (Auto) 0-2 Urine Bacteria (Auto) 1+ H Granular Casts Present A Urine Yeast Present A Stl C. cayetanensis PCR Not Detected Stool Rotavirus A PCR Not Detected Stl Adenov F 40/41 PCR Not Detected Stool Astrovirus (PCR) Not Detected Stool Campylobacter PCR Not Detected Stl C. diff Tox B Gene Negative Cdiff Gene Stool Cryptosporidium PCR Not Detected Stl E.coli Shiga Tox PCR Not Detected Stl Enterotoxigenic E PCR Not Detected Stool EPEC (PCR) Not Detected Stool EAEC (PCR) Not Detected Stl E. histolytica PCR Not Detected Stool Giardia Lamblia PCR Not Detected Stool Salmonella PCR DETECTED A* Stool Sapovirus (PCR) Not Detected Stl P. shigelloides PCR Not Detected Stl Shigella/EIEC PCR Not Detected St Y.enterocolitica PCR Not Detected Stool Vibrio (PCR) Not Detected Stl Vibrio cholerae PCR Not Detected Stl Norovirus GI/GII PCR Not Detected Adenovirus (PCR) B. pertussis DNA (PCR) B.parapertussis DNA PCR C. pneumoniae DNA (PCR) Coronavirus OC43 (PCR) Coronavirus HKU1 (PCR) Coronavirus 229E (PCR) SARS-CoV-2 (PCR) Coronavirus NL63 (PCR) Enterobacterales (PCR) Human Metapneumovir PCR Influenza Type A (PCR) Influenza Type B (PCR) M. pneumoniae (PCR) Parainfluenza 1 (PCR) Parainfluenza 2 (PCR) Parainfluenza 3 (PCR) Parainfluenza 4 (PCR) RSV (PCR) Entero/Rhino (PCR) Salmonella spp. (PCR) mcr-1 Colistin Res Gene PCR blaIMP Car res Gene PCR KPC-Carbap Res Gene PCR blaNDM Car Res Gene PCR OXA-48 Carbapenem Resis Gene (PCR) blaVIM Car Res Gene PCR CTX-M Gene Resistance (PCR) Bld Cult ID Panel PCR 05/02/24 05/02/24 05/02/24 17:45 15:39 14:50 WBC 4.68 L RBC 4.73 Hgb 14.7 Hct 42.9 MCV 90.7 MCH 31.1 MCHC 34.3 RDW Std Deviation 47.4 H RDW Coeff of Dinorah 14.3 Plt Count 168 MPV 10.0 Immature Gran % (Auto) 0.6 Neut % (Auto) 70.2 Lymph % (Auto) 15.6 [place] % (Auto) 12.8 Eos % (Auto) 0.4 Baso % (Auto) 0.4 Neut # (Auto) 3.28 Lymph # (Auto) 0.[address] [place] # (Auto) 0.60 H Eos # (Auto) 0.02 Baso # (Auto) 0.02 Immature Gran # (Auto) 0.03 Sodium 134 L Potassium 4.3 Chloride 102 Carbon Dioxide 26 Anion Gap 6 BUN 26 H Creatinine 1.16 Est Cr Clr Drug Dosing 46.9 eGFR 62.11 BUN/Creatinine Ratio 22.4 H Glucose 97 Lactate 1.3 Calcium 9.5 Magnesium 1.9 Total Bilirubin 0.5 Direct Bilirubin 0.0 AST 48 H ALT 27 Alkaline Phosphatase 86 Troponin I High Sens 15.0 Total Protein 6.5 Albumin 3.6 Globulin Albumin/Globulin Ratio Procalcitonin 0.30 Urine Color Urine Appearance Urine pH Ur Specific [place] Urine Protein Urine Glucose (UA) Urine Ketones Urine Blood Urine Nitrite Urine Bilirubin Urine Urobilinogen Ur Leukocyte Esterase Urine WBC (Auto) Urine RBC (Auto) U Hyaline Cast (Auto) U Epithel Cells (Auto) Urine Bacteria (Auto) Granular Casts Urine Yeast Stl C. cayetanensis PCR Stool Rotavirus A PCR Stl Adenov F 40/41 PCR Stool Astrovirus (PCR) Stool Campylobacter PCR Stl C. diff Tox B Gene Stool Cryptosporidium PCR Stl E.coli Shiga Tox PCR Stl Enterotoxigenic E PCR Stool EPEC (PCR) Stool EAEC (PCR) Stl E. histolytica PCR Stool Giardia Lamblia PCR Stool Salmonella PCR Stool Sapovirus (PCR) Stl P. shigelloides PCR Stl Shigella/EIEC PCR St Y.enterocolitica PCR Stool Vibrio (PCR) Stl Vibrio cholerae PCR Stl Norovirus GI/GII PCR Adenovirus (PCR) Not Detected B. pertussis DNA (PCR) Not Detected B.parapertussis DNA PCR Not Detected C. pneumoniae DNA (PCR) Not Detected Coronavirus OC43 (PCR) Not Detected Coronavirus HKU1 (PCR) Not Detected Coronavirus 229E (PCR) Not Detected SARS-CoV-2 (PCR) Not Detected Coronavirus NL63 (PCR) Not Detected Enterobacterales (PCR) DETECTED A Human Metapneumovir PCR Not Detected Influenza Type A (PCR) Not Detected Influenza Type B (PCR) Not Detected M. pneumoniae (PCR) Not Detected Parainfluenza 1 (PCR) Not Detected Parainfluenza 2 (PCR) Not Detected Parainfluenza 3 (PCR) Not Detected Parainfluenza 4 (PCR) Not Detected RSV (PCR) Not Detected Entero/Rhino (PCR) Not Detected Salmonella spp. (PCR) DETECTED A mcr-1 Colistin Res Gene PCR Not Detected blaIMP Car res Gene PCR Not Detected KPC-Carbap Res Gene PCR Not Detected blaNDM Car Res Gene PCR Not Detected OXA-48 Carbapenem Resis Gene (PCR) Not Detected blaVIM Car Res Gene PCR Not Detected CTX-M Gene Resistance (PCR) Not Detected Bld Cult ID Panel PCR See PCR Comment Diagnostic Findings Stool PCR GI Olivares Bact PCR | | | | Campylo PCR | Not Detected | | NotDetected | Plesio shig PCR | Not Detected | | NotDetected | Salmonella PCR | DETECTED | CV | NotDetected | | | Critical result called to MING BARLOW | On 05/03/24 at 0314 by Amarjit Rust and | results were verbalized back. Vibrio sp. PCR | Not Detected | | NotDetected | Vibrio cholerae | Not Detected | | NotDetected | Yersinia entPCR | Not Detected | | NotDetected | GI Ec/Shig PCR | | | | E.coli (EAEC) | Not Detected | | NotDetected | E.coli (EPEC) | Not Detected | | NotDetected | E.coli (ETEC) | Not Detected | | NotDetected | ShigaToxin STEC | Not Detected | | NotDetected | Shigella/EIEC | Not Detected | | NotDetected | GI Parasite PCR | | | | Cryptosporidium | Not Detected | | NotDetected | Cyclospora PCR | Not Detected | | NotDetected | Enta histo PCR | Not Detected | | NotDetected | Giardia PCR | Not Detected | | NotDetected | GI Olivares VirusPCR | | | | Adenovirus PCR | Not Detected | | NotDetected | Astrovirus PCR | Not Detected | | NotDetected | Norovirus PCR | Not Detected | | NotDetected | Rotavirus A PCR | Not Detected | | NotDetected | Sapovirus PCR | Not Detected | | NotDetected | Blood culture on 05/02/2023 Blood Culture Aerobic Preliminary 05/03/24-602 Organism 1 Gram negative bacilli Sens Sensitivities Dependent on Further Identification Phoned positive Blood Culture Gram Stain report to MING BARLOW on 05/03/24 at 0603 [place] [id number]. [place] [id number]. Blood Culture Anaerobic Preliminary 05/03/24 Organism 1 Gram negative bacilli Sens Sensitivities Dependent on Further Identif ication Blood Culture PCR Panel If viewing in EMR, results available under LAB Serology tab. Spec : [id number] Collected: 05/02/24 Received: 05/03/[address]: Jaspal Salmon MD Ordered: BCID2 Queries: Bottle: Anaerobic Blood Culture Specimen Number 600 Test Result Flag Reference Site Bld Cult Resist | | | | CTX-M Resist Gn | Not Detected | | NotDetected | | Marker for the most common extended spectrum beta lacta mases | (ESBL) found in gram negative bacteria. A negative result | does not exclude the presence of other ESBL enzymes. IMP Resist Gene | Not Detected | | NotDetected | KPC Resist Gene | Not Detected | | NotDetected | | IMP, KPC, OXA-48, NDM, VIM are markers for carbapenem | resistance in gram negative pathogens mcr-1 Col ResGn | Not Detected | | NotDetected | NDM Resist Gene | Not Detected | | NotDetected | [id number] ResGn | Not Detected | | NotDetected | VIM Resist Gene | Not Detected | | NotDetected | Bld Cult GrmNeg | | | | Enterobacterale | | | | Enterobacterale | DETECTED | A | NotDetected | Salmonella spp | DETECTED | A | NotDetected | | Critical result called to MING BARLOW | On 05/03/24 at 0603 by Amarjit Rust and | results were verbalized back. Bld Cult ID PCR | See PCR Comment | | NotDetected | Medications Administered Home Medications Medication Instructions Recorded Confirmed Last Taken multivitamin 1 tab PO QAM 12/05/18 05/02/24 05/02/24 nystatin-triamcinolone 100,000 1 applic topical DAILY PRN Skin 12/05/18 05/02/24 Unknown unit/gram-0.1 % topical ointment Irritation levothyroxine 88 mcg tablet 88 mcg PO QAM 02/18/19 05/02/24 05/02/24 cholecalciferol (vitamin D3) 50 2,000 unit PO QAM 07/05/19 05/02/24 05/02/24 mcg (2,000 unit) capsule omeprazole 40 mg capsule,delayed 40 mg PO QAM 09/17/22 05/02/24 05/02/24 release simvastatin 5 mg tablet 5 mg PO QPM 09/17/22 05/02/24 01/26/24 20:00 trazodone 100 mg tablet 100 mg PO HS 09/17/22 05/02/24 01/26/24 20:00 Lactobacillus rhamnosus-Bifidobac. 1 cap PO QAM 07/15/23 05/02/24 05/02/24 animalis 3 billion cell capsule (ITegris) dutasteride 0.5 mg capsule 0.5 mg PO QPM 07/15/23 05/02/24 01/26/24 20:00 (Avodart) ferrous sulfate 325 mg (65 mg 325 mg PO QPM 07/15/23 05/02/24 01/26/24 20:00 iron) tablet,delayed release aspirin 81 mg tablet,delayed 81 mg PO .Q MON,THU,Thursday11/14/23 05/02/24 05/02/24 release acetaminophen 325 mg tablet 650 mg (2 x 325 mg) PO Q4H PRN 11/16/23 05/02/24 01/27/24 18:00 pain #60 tabs lidocaine 5 % topical patch 1 patch transdermal QAM PRN Pain 01/18/24 05/02/24 Unknown Active Medications Generic Name Dose Route Start Last Admin Trade Name Freq PRN Reason Stop Dose Admin Enoxaparin Sodium 40 mg 05/02/24 18:45 05/02/24 19:30 Enoxaparin Inj 40 Mg/0.4 Ml Syr SQ 06/01/24 18:44 40 mg Q24H DANIELLA Administration Ferrous Sulfate 325 mg 05/02/24 21:00 05/02/24 20:59 Ferrous Sulfate 325 Mg Tab PO 06/01/24 20:59 325 mg QPM DANIELLA Administration Finasteride 5 mg 05/02/24 21:00 05/02/24 20:59 Finasteride 5 Mg Tab PO 06/01/24 20:59 5 mg QPM DANIELLA Administration Sodium Chloride 1,000 mls @ 80 mls/hr 05/02/24 18:33 05/03/24 08:33 Nss IV 05/03/24 18:32 80 mls/hr .[id number] DANIELLA Administration Ceftriaxone Sodium 2,000 mg in 50 mls @ 100 mls/hr 05/03/24 08:00 05/03/24 08:53 Rocephin IV 05/17/24 07:59 Infused Q24H DANIELLA Infusion Levothyroxine Sodium 88 mcg 05/03/24 09:00 05/03/24 10:07 Levothyroxine Sodium 88 Mcg Tablet PO 06/02/24 08:59 88 mcg QAM DANIELLA Administration Miscellaneous 1 each 05/02/24 21:00 05/02/24 21:03 Remove Lidoderm Patch N/A 06/01/24 20:59 1 each DAILY@2100 DANIELLA Administration Pantoprazole Sodium 40 mg 05/03/24 09:00 05/03/24 10:07 Pantoprazole 40 Mg Tab PO 06/02/24 08:59 40 mg QAM DANIELLA Administration Simvastatin 5 mg 05/02/24 21:00 05/02/24 20:59 Simvastatin 5 Mg Tab PO 06/01/24 20:59 5 mg QPM DANIELLA Administration Trazodone HCl 100 mg 05/02/24 21:00 05/02/24 20:59 Trazodone Hcl 100 Mg Tab PO 06/01/24 20:59 100 mg HS DANIELLA Administration Vitamin D 50 mcg 05/03/24 09:00 05/03/24 10:07 Cholecalciferol 25 Mcg (1000 Units) Tab PO 06/02/24 08:59 50 mcg QAM DANIELLA Administration (4) Fever Fever type: unspecified Qualified Code(s): R50.9 - Fever, unspecified
[2024-05-03] MEDS: OPTIRAY 320 125ml IV ONE (14:57)
[2024-05-03] MEDS: MICONAZOLE NITRATE POWDER 85 GM EXT PRN (15:19)
--- NOTE | 2024-05-03 15:31 | CT Scan Report ---
CT angio abdomen pelvis w con CLINICAL HISTORY: salmonella bactermia TECHNIQUE: Multidetector row helical CT of the abdomen and pelvis was performed, following intravenou s administration of iodinated contrast. No oral contrast was administered. Automated dose lowering te chniques and/or adjustment according to patient size were utilized for this exam. Coronal and sagitta l reformations were obtained. MIP and 3D volume rendered reconstructions were obtained. CT DOSE: 743.78 mGy.cm Comparison: Comparison is made to CT abdomen pelvis 11/14/2023 FINDINGS: Lower chest: Bibasilar atelectasis versus scarring is seen. Liver: Unremarkable. No focal lesions are seen. Gallbladder and biliary tree: Patient is status post cholecystectomy. Physiologic enlargement and pne umobilia are seen likely secondary to incompetent sphincter of Oddi. Pancreas: The pancreas is atrophic. Spleen: Unremarkable. 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 Kidneys and ureters: Subcentimeter hypodensities are too small to characterize. Bladder: Diffuse wall thickening is seen with numerous diverticula. Reproductive organs: Prostatomegaly is seen. Bowel: The appendix is normal. Lymph nodes Retroperitoneal: Unremarkable. Pelvic: Unremarkable. Mesenteric: Unremarkable. Peritoneum: Normal. Abdominal wall: Unremarkable. Bones: Degenerative changes in the visualized spine. T12 compression fracture is seen with approximat sulma 3 mm retropulsion, the degree of compression is increased from prior exam. Right medullary nail i s seen. CT angiogram: The abdominal aortic contours appear intact without evidence of aneurysmal dilatation a nd/or dissection. No significant atherosclerosis is seen. The origins of the celiac axis, superior mesenteric, inferior mesenteric and bilateral renal arteries are patent. IMPRESSION: 1. Atherosclerosis without other vascular abnormalities. 2. Thickened and trabeculated bladder wall is seen compatible with chronic outlet obstruction. 3. Interval increase in T12 compression fracture with 3 mm retropulsion. 4. Status post cholecystectomy with redemonstration of pneumobilia likely due to incompetent valves. 5. Additional findings as above. ACT 112: Negative or not required by law. Electronically signed by: Chau Sherman M.D. 05/03/2024 3:30 PM
[2024-05-04] MEDS ORDERED: ASPIRIN 81 MG ECTAB PO SCH (09:00)
--- NOTE | 2024-05-04 10:02 | Hospitalist Progress Note ---
Date of Service May 04, 2024 Assessment & Plan (1) Salmonella bacteremia: (2) Generalized weakness: (3) Fever: (4) Diarrhea: (5) Hyperlipidemia: (6) Hypothyroid: (7) BPH (benign prostatic hyperplasia): (8) Chronic anemia: Plan Patient is an 83 year old male with PMHx significant for HLD, chronic anemia, hypothyroidism, BPH who presented to the ER with concern for weakness and fever. generalized Weakness Salmonella Bacteremia Tmax of 38.1 C on admission Stool PCR positive for Salmonella Blood culture on admission 3 out of 4 positive for salmonella Repeat Blood Cx on 05/04 pending CTA abdomen/pelvis w/o concern for aortitis or infected aneurysm IV Rocephin Contact precautions Weakness and fevers likely in setting of above Infectious disease consulted, appreciate further recs -continue Ceftriaxone 2g q24 IV for now, await organism susceptibilities Improving symptomatically Chronic Anemia History iron deficiency anemia Hgb: 14 on admission, currently 12 Continue iron supplement Hyperlipidemia Continue simvastatin Hypothyroidism Continue levothyroxine BPH (benign prostatic hyperplasia) Continue dutasteride Diet: HH DVT Prophylaxis: Lovenox SQ Dispo: PT/OT ordered for further recs Admission and Anticipated Discharge Date Admission Date: May 02, 2024 Subjective patient was seen sitting up in bed eating breakfast Denied acute concerns at that time States he is unsure when his last bowel movement was but has noted improved diarrhea Denies any headache, nausea vomiting, fevers chills or night sweats, chest pain shortness of breath or abdominal pain. Review of Systems Review of Systems: All systems reviewed & are unremarkable except as noted in Subjective Physical Exam Physical Exam: General: Alert, orientedx3. No acute distress Psych: Appropriate mood and affect Neuro: No gross deficits HEENT: NC/AT CV: RRR Resp: Breath sounds clear bilaterally, no increased effort of breathing Abdomen: Soft, nontender Extremities: No edema in lower extremities bilaterally. Results & Data Results & Data Vital Signs (Past 12 Hours) Vital Signs Temp Pulse Pulse Pulse Resp BP Pulse Ox 05/04/24 07:25 36.7 C 56 L 16 102/52 L 92 05/04/24 07:00 55 L 05/04/24 04:04 37 C 52 L 18 99/53 L 92 05/03/24 23:13 36.6 C 55 L 16 99/54 L 94 O2 Del Method O2 Flow Rate 05/04/24 07:25 Nasal Cannula 1 05/04/24 07:00 05/04/24 04:04 Nasal Cannula 2 05/03/24 23:13 Nasal Cannula Diagnostic Findings Chest X-Ray 05/02/24 15:12 XR chest 1V portable CLINICAL HISTORY: Sepsis TECHNIQUE: Single frontal radiograph of the chest was obtained. Comparison: Comparison is made to chest radiograph 07/15/2023 FINDINGS: No lines and tubes are seen. Calcified aortic knob is seen. The lungs are clear. No evidence of pleural effusion or pneumothorax. IMPRESSION: No acute abnormalities and in particular no radiographic evidence of pneumonia. ACT 112: Negative or not required by law. Electronically signed by: Chau Sherman M.D. 05/02/2024 3:30 PM Abdomen/Pelvis CTA 05/03/24 14:36 CT angio abdomen pelvis w con CLINICAL HISTORY: salmonella bactermia TECHNIQUE: Multidetector row helical CT of the abdomen and pelvis was performed, following intravenous administration of iodinated contrast. No oral contrast was administered. Automated dose lowering techniques and/or adjustment according to patient size were utilized for this exam. Coronal and sagittal reformations were obtained. MIP and 3D volume rendered reconstructions were obtained. CT DOSE: 743.78 mGy.cm Comparison: Comparison is made to CT abdomen pelvis 11/14/2023 FINDINGS: Lower chest: Bibasilar atelectasis versus scarring is seen. Liver: Unremarkable. No focal lesions are seen. Gallbladder and biliary tree: Patient is status post cholecystectomy. Physiologic enlargement and pneumobilia are seen likely secondary to incompetent sphincter of Oddi. Pancreas: The pancreas is atrophic. Spleen: Unremarkable. 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 Kidneys and ureters: Subcentimeter hypodensities are too small to characterize. Bladder: Diffuse wall thickening is seen with numerous diverticula. Reproductive organs: Prostatomegaly is seen. Bowel: The appendix is normal. Lymph nodes Retroperitoneal: Unremarkable. Pelvic: Unremarkable. Mesenteric: Unremarkable. Peritoneum: Normal. Abdominal wall: Unremarkable. Bones: Degenerative changes in the visualized spine. T12 compression fracture is seen with approximately 3 mm retropulsion, the degree of compression is increased from prior exam. Right medullary nail is seen. CT angiogram: The abdominal aortic contours appear intact without evidence of aneurysmal dilatation and/or dissection. No significant atherosclerosis is seen . The origins of the celiac axis, superior mesenteric, inferior mesenteric and bilateral renal arteries are patent. IMPRESSION: 1. Atherosclerosis without other vascular abnormalities. 2. Thickened and trabeculated bladder wall is seen compatible with chronic outlet obstruction. 3. Interval increase in T12 compression fracture with 3 mm retropulsion. 4. Status post cholecystectomy with redemonstration of pneumobilia likely due to incompetent valves. 5. Additional findings as above. ACT 112: Negative or not required by law. Electronically signed by: Chau Sherman M.D. 05/03/2024 3:30 PM (3) Fever Fever type: unspecified Qualified Code(s): R50.9 - Fever, unspecified
[2024-05-04 10:06] LABS: Hematocrit (blood only) 35.7 % (42.0-52.0); Mean Corpuscular Hemoglobin 30.5 pg (25.0-34.0); Mean Corpuscular Hgb Conc 33.6 g/dL (32.0-36.0); Mean Corpuscular Volume 90.8 fL (80.0-100.0); Mean Platelet Volume 9.6 fL (9.4-12.4); Platelet Count 135 K/uL (130-400); RDW Coefficient of Variation 14.3 % (11.5-14.5); RDW Standard Deviation 47.9 fL (36.4-46.3); Red Blood Count 3.93 M/uL (4.70-6.10); White Blood Count 5.21 K/ul (4.8-10.8)
[2024-05-04 10:15] LABS: BUN Creatinine Ratio 16.5 (10-20); Calcium 8.4 mg/dl (8.6-10.3); Creatinine Clr Calc Pharmacy 66.9 ml/min; Potassium 3.6 mmol/L (3.5-5.1)
[2024-05-04 10:26] LABS: Basophils # (auto) 0.02 K/uL (0.00-0.20); Basophils % (auto) 0.4 %; Eosinophils # (auto) 0.02 K/uL (0.00-0.50); Eosinophils % (auto) 0.4 %; Immature Granulocytes # (auto) 0.05 K/uL (0.01-0.20); Lymphocytes # (auto) 0.83 K/uL (1.20-3.40); Lymphocytes % (auto) 15.9 %; Monocytes # (auto) 0.48 K/uL (0.11-0.59); Monocytes % (auto) 9.2 %; Neutrophils # (auto) 3.81 K/uL (1.40-6.50); Neutrophils % (auto) 73.1 %
--- NOTE | 2024-05-04 13:25 | Electrocardiogram Report ---
Test Reason : Blood Pressure : */* mmHG Vent. Rate : 74 BPM Atrial Rate : 74 BPM P-R Int : 194 ms QRS Dur : 136 ms QT Int : 386 ms P-R-T Axes : 77 -47 12 degrees QTcB Int : 428 ms Normal sinus rhythm Left axis deviation Right bundle branch block possible Inferior infarct (cited on or before 08-Oct-2022) Abnormal ECG When compared with ECG of 15-Jul-2023 17:24, Nonspecific T wave abnormality now evident in Inferior leads Confirmed by Oli Hyatt ([id number]) on 05/04/2024 1:24:19 PM Referred By: REFERRED SELF Confirmed By: Oli Hyatt
[2024-05-05] MEDS: ACETAMINOPHEN 325 MG TAB PO PRN (05:52)
[2024-05-05 07:04] LABS: Hemoglobin 11.9 g/dl (14.0-18.0); Mean Corpuscular Hemoglobin 30.8 pg (25.0-34.0); Mean Corpuscular Volume 90.7 fL (80.0-100.0); Mean Platelet Volume 9.7 fL (9.4-12.4); Platelet Count 139 K/uL (130-400); RDW Coefficient of Variation 14.2 % (11.5-14.5); RDW Standard Deviation 47.1 fL (36.4-46.3); Red Blood Count 3.86 M/uL (4.70-6.10); White Blood Count 4.77 K/ul (4.8-10.8)
[2024-05-05 07:23] LABS: Albumin Globulin Ratio 1.3 (0.9-2); Albumin Level 2.8 gm/dl (3.4-5.0); BUN Creatinine Ratio 17.1 (10-20); Bilirubin,Total 0.3 mg/dl (0.2-1.0); Calcium 8.3 mg/dl (8.6-10.3); Globulin 2.2 gm/dl (2.5-4.0); Magnesium 1.8 mg/dl (1.7-2.4); Phosphorus 2.7 mg/dl (2.5-4.9); Potassium 3.6 mmol/L (3.5-5.1)
[2024-05-05 07:32] LABS: Basophils # (auto) 0.01 K/uL (0.00-0.20); Basophils % (auto) 0.2 %; Eosinophils # (auto) 0.05 K/uL (0.00-0.50); Immature Granulocytes # (auto) 0.04 K/uL (0.01-0.20); Immature Granulocytes % (auto) 0.8 %; Lymphocytes # (auto) 1.07 K/uL (1.20-3.40); Lymphocytes % (auto) 22.4 %; Monocytes # (auto) 0.55 K/uL (0.11-0.59); Monocytes % (auto) 11.5 %; Neutrophils # (auto) 3.05 K/uL (1.40-6.50); Neutrophils % (auto) 64.1 %
--- NOTE | 2024-05-05 12:00 | Gastrointestinal Consultation ---
Date of Consultation May 05, 2024 Assessment & Plan (1) Salmonella bacteremia: 83 year old male with history of dyslipidemia, chronic anemia, hypothyroidism, BPH and others below admitted through the ED w/ weakness today on 05/02/24 - admitted w/ salmonella bacteremia on IV ceftriaxone w/ persistent, loose watery stools. Initially his diarrhea improved on ABX therapy but now reports diarrhea seems to be more frequent and urgent. Appreciate ID evaluation and management of bacteremia. He may have superimposed antibiotic associated diarrhea on top of his infectious diarrhea. Continue to monitor output. Low residue, dairy free diet as tolerated. I spent a total of 60 minutes on the date of service in review of patient's record, and previously obtained information in person and appropriate medical visit, discussion and education of plan, with patient and/or caregiver, placing orders for tests/referral/procedures as medically necessary and documentation of pertinent clinical information in patient's medical records for their visit today. Supervising Physician Co-Signing Physician Notes Diarrhea Salmonella and positive blood cultures. Being seen by infectious disease. On ceftriaxone states he is feeling somewhat better. No obvious source for Salmonella on our review. Informed him that he likely be contacted by the [facility] to review further. Discussed the potential carrier state for Salmonella stressed the importance of good handwashing followimg toileting. GI will sign off reconsult as needed History of Present Illness Reason for Consultation: fecal incontinence, salmonella diarrhea/bacteremia Requesting Physician: Savannah Gill MD Attending Physician: Savannah Gill MD History of Present Illness 83 year old male with history of dyslipidemia, chronic anemia, hypothyroidism, BPH and others below admitted through the ED w/ weakness today on 05/02/24 - admitted w/ salmonella bacteremia. GI was asked to evaluate. Pt was seen and evaluated, chart reviewed. He suggests his diarrhea started about 10 days ago. Profuse, watery stools. No report of black or bloody stools but stools have been dark. Abd cramping, urgency w/ episodes of incontinence related to the fecal urgency. Denies abd pain, nausea/vomiting. Was evaluated by ID and started on IV Ceftriaxone. He suggests his diarrhea seems to have worsened in the last 24 hours or so. He is afebrile, without leukocytosis + blood cultures, salmonella + stool PCR, salmonella negative c.diff CTAP 2024: Atherosclerosis without other vascular abnormalities. Thickened and trabeculated bladder wall is seen compatible with chronic outlet obstruction. Interval increase in T12 compression fracture with 3 mm retropulsion. Status post cholecystectomy with redemonstration of pneumobilia likely due to incompetent valves. Additional findings as above. He does not recall previous EGD/Colonoscopy Allergies Allergy/AdvReac Type Severity Reaction Status Date / Time gluten Allergy Severe Abdominal Verified 02/12/24 09:57 pain and bloating potassium Allergy Severe Potassium Verified 02/12/24 09:57 Chromate - Causes severe Rash shellfish derived Allergy Severe Convulsions Verified 02/12/24 09:57 nickel Allergy Intermediate Rash Verified 02/12/24 09:57 Home Medications Medication Instructions Recorded Confirmed Type multivitamin 1 tab PO QAM 12/05/18 05/02/24 History nystatin-triamcinolone 100,000 1 applic topical DAILY PRN Skin 12/05/18 05/02/24 History unit/gram-0.1 % topical ointment Irritation levothyroxine 88 mcg tablet 88 mcg PO QAM 02/18/19 05/02/24 History cholecalciferol (vitamin D3) 50 2,000 unit PO QAM 07/05/19 05/02/24 History mcg (2,000 unit) capsule omeprazole 40 mg capsule,delayed 40 mg PO QAM 09/17/22 05/02/24 History release simvastatin 5 mg tablet 5 mg PO QPM 09/17/22 05/02/24 History trazodone 100 mg tablet 100 mg PO HS 09/17/22 05/02/24 History Lactobacillus rhamnosus-Bifidobac. 1 cap PO QAM 07/15/23 05/02/24 History animalis 3 billion cell capsule (Mayday PAC) dutasteride 0.5 mg capsule 0.5 mg PO QPM 07/15/23 05/02/24 History (Avodart) ferrous sulfate 325 mg (65 mg 325 mg PO QPM 07/15/23 05/02/24 History iron) tablet,delayed release aspirin 81 mg tablet,delayed 81 mg PO .Q MON,THU,Thursday11/14/23 05/02/24 History release acetaminophen 325 mg tablet 650 mg (2 x 325 mg) PO Q4H PRN 11/16/23 05/02/24 Rx pain #60 tabs lidocaine 5 % topical patch 1 patch transdermal QAM PRN Pain 01/18/24 05/02/24 History Patient History Medical History Acid reflux Hyperlipidemia Aorta aneurysm Chest CT 04/2020: Fusiform dilation of the ascending thoracic aorta is suboptimally evaluated without the use of IV contrast is again noted to measure 4.1 x 4.1 cm which is stable from comparison. Follows Dr. 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 Then I had a bubble to hold my retina in" S/P hernia repair Multiple Hx of cholecystectomy Hx of cataract surgery Bilateral History of bladder surgery Bladder stone extraction Family History Father Cancer Brother Colorectal cancer Other No significant family history Social History Smoking Status: Never smoker Second Hand Exposure: No; Do You Dip or Chew Tobacco: No; Tobacco Cessation Education Requested by Patient: No Hx Alcohol Use: No Hx Substance Use: No Preferred Language: Spanish Communication Ability: Effective Visual Impairment: No Limitations Animal Biologist Required: No Beliefs That Will Affect Care: None marital status: Current Living Situation: Spouse Current Living Situation Comment: lives with spouse and son current occupational status: retired Other Information That Helps Us Care for You: No Feels Safe at Home: Yes Safety Concerns: Feels Safe At This Time Assistive Devices: Cane, Glasses and Walker Review of Systems Review of Systems: All other findings negative except as noted in HPI. Physical Exam Physical Exam: Pt in commode, did not conduct PE. Will attempt to conduct PE on afternoon rounds. Results & Data Vital Signs (Past 12 Hours) Vital Signs Temp Pulse Pulse Pulse Resp BP Pulse Ox 05/05/24 07:31 98.1 F 54 L 16 95/55 L 94 05/05/24 06:30 51 L 05/05/24 03:13 98.1 F 52 L 16 96/66 L 93 O2 Del Method O2 Flow Rate 05/05/24 07:31 Nasal Cannula 05/05/24 06:30 05/05/24 03:13 Nasal Cannula 2 Laboratory Results 05/05/24 05/02/24 Range/Units 06:23 15:39 WBC 4.77 L (4.8-10.8) K/ul RBC 3.86 L (4.70-6.10) M/uL Hgb 11.9 L (14.0-18.0) g/dl Hct 35.0 L (42.0-52.0) % MCV 90.7 (80.0-100.0) fL MCH 30.8 (25.0-34.0) pg MCHC 34.0 (32.0-36.0) g/dL RDW Std Deviation 47.1 H (36.4-46.3) fL RDW Coeff of Dinorah 14.2 (11.5-14.5) % Plt Count 139 (130-400) K/uL MPV 9.7 (9.4-12.4) fL Immature Gran % (Auto) 0.8 % Neut % (Auto) 64.1 % Lymph % (Auto) 22.4 % [place] % (Auto) 11.5 % Eos % (Auto) 1.0 % Baso % (Auto) 0.2 % Neut # (Auto) 3.05 (1.40-6.50) K/uL Lymph # (Auto) 1.07 L (1.20-3.40) K/uL [place] # (Auto) 0.55 (0.11-0.59) K/uL Eos # (Auto) 0.05 (0.00-0.50) K/uL Baso # (Auto) 0.01 (0.00-0.20) K/uL Immature Gran # (Auto) 0.04 (0.01-0.20) K/uL Sodium 137 (136-145) mmol/L Potassium 3.6 (3.5-5.1) mmol/L Chloride 106 (98-107) mmol/L Carbon Dioxide 27 (21-32) mmol/L Anion Gap 4 (3-11) BUN 13 (6-23) mg/dl Creatinine 0.76 (0.6-1.4) mg/dl Est Cr Clr Drug Dosing 71.0 ml/min eGFR 88.63 BUN/Creatinine Ratio 17.1 (10-20) Glucose 98 (70-99(Fasting)) mg/dl Calcium 8.3 L (8.6-10.3) mg/dl Phosphorus 2.7 (2.5-4.9) mg/dl Magnesium 1.8 (1.7-2.4) mg/dl Total Bilirubin 0.3 (0.2-1.0) mg/dl AST 24 (13-39) U/L ALT 17 (7-52) U/L Alkaline Phosphatase 63 (34-104) U/L Total Protein 5.0 L (6.0-8.3) gm/dl Albumin 2.8 L (3.4-5.0) gm/dl Globulin 2.2 L (2.5-4.0) gm/dl Albumin/Globulin Ratio 1.3 (0.9-2) Miscellaneous Test Pending PG Care Time/CCT Total # of Minutes Spent Total Time Spent with Patient: Total time spent is greater than 50% in coordination of care (as documented) at patient's floor/unit and/or counseling patient: Coding Level of Care Code 98157 INT INP/OBS CARE 2/55MIN Diagnoses Salmonella bacteremia R78.81
--- NOTE | 2024-05-05 12:20 | Hospitalist Progress Note ---
Date of Service May 05, 2024 Assessment & Plan (1) Salmonella bacteremia: (2) Generalized weakness: (3) Fever: (4) Diarrhea: (5) Hyperlipidemia: (6) Hypothyroid: (7) BPH (benign prostatic hyperplasia): (8) Chronic anemia: Plan Patient is an 83 year old male with PMHx significant for HLD, chronic anemia, hypothyroidism, BPH who presented to the ER with concern for weakness and fever in the setting of diarrhea. Generalized Weakness Salmonella Bacteremia Presented with episodes of diarrhea Tmax of 38.1 C on admission Stool PCR positive for Salmonella Blood culture on admission 3 out of 4 positive for salmonella Repeat Blood Cx on 05/04 pending CTA abdomen/pelvis w/o concern for aortitis or infected aneurysm Continue on IV Rocephin at this time Contact precautions Weakness and fevers likely in setting of above Infectious disease consulted, appreciate further recs -continue Ceftriaxone 2g q24 IV for now, await organism susceptibilities -ID contacted once more on 05/05/24 with sensitivities...awaiting further recs for meds and duration for discharge With diarrhea recurrence, repeat c diff testing ordered and GI consulted on 05/05, appreciate further recs Continue to monitor Hypotension Pt with recurrence of diarrhea IV fluids Continue to monitor Bradycardia Noted on 05/05/24, asymptomatic EKG ordered and pending continue to monitor Chronic Anemia History of iron deficiency anemia Hgb: 14 on admission, currently 12 Continue iron supplement Hyperlipidemia Continue simvastatin Hypothyroidism Continue levothyroxine BPH (benign prostatic hyperplasia) Continue dutasteride Diet: HH DVT Prophylaxis: Lovenox SQ Dispo: PT/OT recommending acute rehab Admission and Anticipated Discharge Date Admission Date: May 02, 2024 Subjective Pt was seen in the AM States that he is now having a recurrence of the diarrhea though he indicates it is now like peanut butter. Denies any fevers, chills or night sweats. States that he follows with GI as an outpt Review of Systems Review of Systems: All systems reviewed & are unremarkable except as noted in Subjective Physical Exam Physical Exam: General: Alert, orientedx3. No acute distress Psych: Appropriate mood and affect HEENT: NC/AT CV: RRR Resp: Breath sounds clear bilaterally, no increased effort of breathing Abdomen: Soft, nontender Extremities: No edema in lower extremities bilaterally. Results & Data Results & Data Vital Signs (Past 12 Hours) Vital Signs Temp Pulse Pulse Pulse Resp BP Pulse Ox 05/05/24 12:18 36.4 C L 52 L 18 93/57 L 91 05/05/24 07:31 36.7 C 54 L 16 95/55 L 94 05/05/24 06:30 51 L 05/05/24 03:13 36.7 C 52 L 16 96/66 L 93 O2 Del Method O2 Flow Rate 05/05/24 12:18 Room Air 05/05/24 07:31 Nasal Cannula 05/05/24 06:30 05/05/24 03:13 Nasal Cannula 2 Diagnostic Findings Chest X-Ray 05/02/24 15:12 XR chest 1V portable CLINICAL HISTORY: Sepsis TECHNIQUE: Single frontal radiograph of the chest was obtained. Comparison: Comparison is made to chest radiograph 07/15/2023 FINDINGS: No lines and tubes are seen. Calcified aortic knob is seen. The lungs are clear. No evidence of pleural effusion or pneumothorax. IMPRESSION: No acute abnormalities and in particular no radiographic evidence of pneumonia. ACT 112: Negative or not required by law. Electronically signed by: Chau Sherman M.D. 05/02/2024 3:30 PM Abdomen/Pelvis CTA 05/03/24 14:36 CT angio abdomen pelvis w con CLINICAL HISTORY: salmonella bactermia TECHNIQUE: Multidetector row helical CT of the abdomen and pelvis was performed, following intravenous administration of iodinated contrast. No oral contrast was administered. Automated dose lowering techniques and/or adjustment according to patient size were utilized for this exam. Coronal and sagittal reformations were obtained. MIP and 3D volume rendered reconstructions were obtained. CT DOSE: 743.78 mGy.cm Comparison: Comparison is made to CT abdomen pelvis 11/14/2023 FINDINGS: Lower chest: Bibasilar atelectasis versus scarring is seen. Liver: Unremarkable. No focal lesions are seen. Gallbladder and biliary tree: Patient is status post cholecystectomy. Physiologic enlargement and pneumobilia are seen likely secondary to incompetent sphincter of Oddi. Pancreas: The pancreas is atrophic. Spleen: Unremarkable. 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 Kidneys and ureters: Subcentimeter hypodensities are too small to characterize. Bladder: Diffuse wall thickening is seen with numerous diverticula. Reproductive organs: Prostatomegaly is seen. Bowel: The appendix is normal. Lymph nodes Retroperitoneal: Unremarkable. Pelvic: Unremarkable. Mesenteric: Unremarkable. Peritoneum: Normal. Abdominal wall: Unremarkable. Bones: Degenerative changes in the visualized spine. T12 compression fracture is seen with approximately 3 mm retropulsion, the degree of compression is increased from prior exam. Right medullary nail is seen. CT angiogram: The abdominal aortic contours appear intact without evidence of aneurysmal dilatation and/or dissection. No significant atherosclerosis is seen. The origins of the celiac axis, superior mesenteric, inferior mesenteric and bilateral renal arteries are patent. IMPRESSION: 1. Atherosclerosis without other vascular abnormalities. 2. Thickened and trabeculated bladder wall is seen compatible with chronic outlet obstruction. 3. Interval increase in T12 compression fracture with 3 mm retropulsion. 4. Status post cholecystectomy with redemonstration of pneumobilia likely due to incompetent valves. 5. Additional findings as above. ACT 112: Negative or not required by law. Electronically signed by: Chau Sherman M.D. 05/03/2024 3:30 PM (3) Fever Fever type: unspecified Qualified Code(s): R50.9 - Fever, unspecified
[2024-05-05] MEDS: SODIUM CHLORIDE 0.9% 1,000 ML IV SCH (14:00)
--- NOTE | 2024-05-05 17:09 | Electrocardiogram Report ---
Test Reason : Blood Pressure : */* mmHG Vent. Rate : 63 BPM Atrial Rate : 63 BPM P-R Int : 222 ms QRS Dur : 138 ms QT Int : 430 ms P-R-T Axes : -17 -44 12 degrees QTcB Int : 440 ms Sinus rhythm with 1st degree A-V block Left axis deviation Right bundle branch block Inferior infarct (cited on or before 08-Oct-2022) Abnormal ECG When compared with ECG of 02-May-2024 14:37, No significant change was found Confirmed by Oli Hyatt ([id number]) on 05/05/2024 5:08:33 PM Referred By: REFERRED SELF Confirmed By: Oli Hyatt
[2024-05-06 07:45] LABS: Hematocrit (blood only) 35.3 % (42.0-52.0); Mean Corpuscular Hemoglobin 31.2 pg (25.0-34.0); Mean Corpuscular Volume 91.7 fL (80.0-100.0); Mean Platelet Volume 9.7 fL (9.4-12.4); Platelet Count 154 K/uL (130-400); RDW Coefficient of Variation 14.1 % (11.5-14.5); RDW Standard Deviation 47.9 fL (36.4-46.3); Red Blood Count 3.85 M/uL (4.70-6.10); White Blood Count 4.62 K/ul (4.8-10.8)
[2024-05-06 08:08] LABS: Albumin Globulin Ratio 1.2 (0.9-2); Albumin Level 2.8 gm/dl (3.4-5.0); Bilirubin,Total 0.3 mg/dl (0.2-1.0); Calcium 8.1 mg/dl (8.6-10.3); Globulin 2.3 gm/dl (2.5-4.0); Magnesium 1.8 mg/dl (1.7-2.4); Phosphorus 2.4 mg/dl (2.5-4.9); Potassium 3.8 mmol/L (3.5-5.1); Total Protein 5.1 gm/dl (6.0-8.3)
[2024-05-06 08:53] LABS: ALC (manual) 1.89 K/uL (1.2-3.4); ANC (manual) 2.22 K/uL (1.4-6.5); Eosinophils # (manual) 0.14 K/uL (0-0.50); Eosinophils % (manual) 3 %; Lymphocytes # (manual) 1.02 K/uL (1.2-3.4); Lymphocytes % (manual) 22 %; Monocytes # (manual) 0.37 K/uL (0.11-0.59); Monocytes % (manual) 8 %; Neutrophils # (manual) 2.22 K/uL (1.40-6.50); Neutrophils % (manual) 48 %; Reactive Lymphocytes # (manual) 0.88 K/uL; Reactive Lymphocytes % (manual) 19 %
[2024-05-06] MEDS: POT PHOSPHATE MONOBASIC W/ SOD TAB PO ONE (09:56)
[2024-05-06] MEDS: SULFAMETHOXAZOLE/TRIMETHOPRIM DS 800/160MG TAB PO SCH (09:56)
--- NOTE | 2024-05-06 13:56 | Hospitalist Progress Note ---
Date of Service May 06, 2024 Assessment & Plan (1) Salmonella bacteremia: (2) Generalized weakness: (3) Fever: (4) Diarrhea: (5) Hyperlipidemia: (6) Hypothyroid: (7) BPH (benign prostatic hyperplasia): (8) Chronic anemia: Plan Patient is an 83 year old male with PMHx significant for HLD, chronic anemia, hypothyroidism, BPH who presented to the ER with concern for weakness and fever in the setting of diarrhea. Generalized Weakness Salmonella Bacteremia Presented with episodes of diarrhea Tmax of 38.1 C on admission Stool PCR positive for Salmonella Blood culture on admission 3 out of 4 positive for salmonella Repeat Blood Cx on 05/04 pending CTA abdomen/pelvis w/o concern for aortitis or infected aneurysm Continue on IV Rocephin at this time Contact precautions Weakness and fevers likely in setting of above Infectious disease consulted, appreciate further recs -continue Ceftriaxone 2g q24 IV for now, await organism susceptibilities -ID contacted once more on 05/05/24 with sensitivities...per Dr Orlando Pichardo, complete treatment with po Bactrim for 7 more days With diarrhea recurrence, repeat c diff testing ordered (negative) and GI consulted on 05/05, appreciate further recs Continue to monitor Hypotension Pt with recurrence of diarrhea IV fluids Continue to monitor improving Sinus Bradycardia First degree heart block Noted on 05/05/24, asymptomatic EKG noting sinus bradycardia and first degree heart block, HR 63 at that time possibly in setting of increased vagal tone in setting of above Currently asymptomatic at this time Consider Cardiology consult if worsening continue to monitor Chronic Anemia History of iron deficiency anemia Hgb: 14 on admission, currently 12 Continue iron supplement Hyperlipidemia Continue simvastatin Hypothyroidism Continue levothyroxine BPH (benign prostatic hyperplasia) Continue dutasteride Diet: HH DVT Prophylaxis: Lovenox SQ Dispo: PT/OT recommending acute rehab Admission and Anticipated Discharge Date Admission Date: May 02, 2024 Subjective pt states he's not doing great Notes that the diarrhea has picked up again States he spoke to GI who advised that the diarrhea can last up to 4 weeks. Review of Systems Review of Systems: All systems reviewed & are unremarkable except as noted in Subjective Physical Exam Physical Exam: General: Alert, orientedx3. No acute distress Psych: Appropriate mood and affect HEENT: NC/AT CV: RRR Resp: Breath sounds clear bilaterally, no increased effort of breathing Abdomen: Soft, nontender Extremities: No edema in lower extremities bilaterally. Results & Data Results & Data Vital Signs (Past 12 Hours) Vital Signs Temp Pulse Pulse Resp BP Pulse Ox O2 Del Method 05/06/24 11:50 36.6 C 52 L 18 115/67 92 Room Air 05/06/24 09:16 Room Air 05/06/24 08:13 36.7 C 60 18 114/64 90 Room Air 05/06/24 07:23 51 L 05/06/24 03:46 36.8 C 60 18 107/63 90 Room Air (3) Fever Fever type: unspecified Qualified Code(s): R50.9 - Fever, unspecified
[2024-05-07 06:19] LABS: Albumin Globulin Ratio 1.2 (0.9-2); Albumin Level 2.8 gm/dl (3.4-5.0); BUN Creatinine Ratio 12.4 (10-20); Bilirubin,Total 0.2 mg/dl (0.2-1.0); Creatinine Clr Calc Pharmacy 61.4 ml/min; Globulin 2.3 gm/dl (2.5-4.0); Hematocrit (blood only) 34.9 % (42.0-52.0); Magnesium 1.9 mg/dl (1.7-2.4); Mean Corpuscular Hemoglobin 30.9 pg (25.0-34.0); Mean Corpuscular Hgb Conc 34.4 g/dL (32.0-36.0); Mean Corpuscular Volume 89.9 fL (80.0-100.0); Mean Platelet Volume 9.5 fL (9.4-12.4); Phosphorus 2.7 mg/dl (2.5-4.9); Platelet Count 175 K/uL (130-400); Potassium 3.9 mmol/L (3.5-5.1); RDW Coefficient of Variation 14.1 % (11.5-14.5); RDW Standard Deviation 46.2 fL (36.4-46.3); Red Blood Count 3.88 M/uL (4.70-6.10); Total Protein 5.1 gm/dl (6.0-8.3); White Blood Count 5.24 K/ul (4.8-10.8)
[2024-05-07 07:14] LABS: ALC (manual) 2.57 K/uL (1.2-3.4); ANC (manual) 2.36 K/uL (1.4-6.5); Eosinophils # (manual) 0.16 K/uL (0-0.50); Eosinophils % (manual) 3 %; Lymphocytes # (manual) 1.26 K/uL (1.2-3.4); Lymphocytes % (manual) 24 %; Monocytes # (manual) 0.16 K/uL (0.11-0.59); Monocytes % (manual) 3 %; Neutrophils # (manual) 2.36 K/uL (1.40-6.50); Neutrophils % (manual) 45 %; Reactive Lymphocytes # (manual) 1.31 K/uL; Reactive Lymphocytes % (manual) 25 %
--- NOTE | 2024-05-07 14:00 | Hospitalist Progress Note ---
Date of Service May 07, 2024 Assessment & Plan (1) Salmonella bacteremia: (2) Generalized weakness: (3) Fever: (4) Diarrhea: (5) Hyperlipidemia: (6) Hypothyroid: (7) BPH (benign prostatic hyperplasia): (8) Chronic anemia: Plan Patient is an 83 year old male with PMHx significant for HLD, chronic anemia, hypothyroidism, BPH who presented to the ER with concern for weakness and fever in the setting of diarrhea. Generalized Weakness Salmonella Bacteremia Presented with episodes of diarrhea Tmax of 38.1 C on admission Stool PCR positive for Salmonella Blood culture on admission 3 out of 4 positive for salmonella Repeat Blood Cx on 05/04 pending CTA abdomen/pelvis w/o concern for aortitis or infected aneurysm Continue on IV Rocephin at this time Contact precautions Weakness and fevers likely in setting of above Infectious disease consulted, appreciate further recs -continue Ceftriaxone 2g q24 IV for now, await organism susceptibilities -ID contacted once more on 05/05/24 with sensitivities...per ID, Dr Orlando Pichardo, complete treatment with po Bactrim for 7 more days With diarrhea recurrence, repeat c diff testing ordered (negative) and GI consulted on 05/05, appreciate further recs Per GI: "Diarrhea Salmonella and positive blood cultures. Being seen by infectious disease. On ceftriaxone states he is feeling somewhat better. No obvious source for Salmonella on our review. Informed him that he likely be contacted by the [facility] to review further. Discussed the potential carrier state for Salmonella stressed the importance of good handwashing followimg toileting. GI will sign off reconsult as needed" IV fluids Continue to monitor Hypotension Pt with recurrence of diarrhea IV fluids Continue to monitor improving Sinus Bradycardia First degree heart block Noted on 05/05/24, asymptomatic EKG noting sinus bradycardia and first degree heart block, HR 63 at that time possibly in setting of increased vagal tone in setting of above Currently asymptomatic at this time Consider Cardiology consult if worsening continue to monitor Chronic Anemia History of iron deficiency anemia Hgb: 14 on admission, currently 12 Continue iron supplement Hyperlipidemia Continue simvastatin Hypothyroidism Continue levothyroxine BPH (benign prostatic hyperplasia) Continue dutasteride Diet: HH DVT Prophylaxis: Lovenox SQ Dispo: PT/OT recommending acute rehab Admission and Anticipated Discharge Date Admission Date: May 02, 2024 Subjective pt was seen resting comfortably in bed Stated that his diarrhea had improved. Denied acute concerns Review of Systems Review of Systems: All systems reviewed & are unremarkable except as noted in Subjective Physical Exam Physical Exam: General: Alert, orientedx3. No acute distress Psych: Appropriate mood and affect HEENT: NC/AT CV: RRR Resp: Breath sounds clear bilaterally, no increased effort of breathing Abdomen: Soft, nontender Extremities: No edema in lower extremities bilaterally. Results & Data Results & Data Vital Signs (Past 12 Hours) Vital Signs Temp Pulse Pulse Resp BP Pulse Ox O2 Del Method 05/07/24 11:34 36.5 C 58 L 20 103/56 L 91 Room Air 05/07/24 08:13 36.7 C 56 L 20 100/63 92 Room Air 05/07/24 07:36 56 L 05/07/24 04:02 36.8 C 57 L 18 95/62 L 92 Room Air (3) Fever Fever type: unspecified Qualified Code(s): R50.9 - Fever, unspecified
[2024-05-07] MEDS: SODIUM CHLORIDE 0.9% 1,000 ML IV SCH (18:04)
[2024-05-08 06:27] LABS: Hematocrit (blood only) 34.2 % (42.0-52.0); Hemoglobin 11.5 g/dl (14.0-18.0); Mean Corpuscular Hemoglobin 30.6 pg (25.0-34.0); Mean Corpuscular Hgb Conc 33.6 g/dL (32.0-36.0); Mean Platelet Volume 9.3 fL (9.4-12.4); Platelet Count 190 K/uL (130-400); RDW Coefficient of Variation 14.3 % (11.5-14.5); RDW Standard Deviation 48.1 fL (36.4-46.3); Red Blood Count 3.76 M/uL (4.70-6.10); White Blood Count 7.35 K/ul (4.8-10.8)
[2024-05-08 06:42] LABS: Albumin Globulin Ratio 1.2 (0.9-2); Albumin Level 2.9 gm/dl (3.4-5.0); BUN Creatinine Ratio 11.5 (10-20); Bilirubin,Total 0.3 mg/dl (0.2-1.0); Calcium 8.4 mg/dl (8.6-10.3); Creatinine Clr Calc Pharmacy 56.6 ml/min; Globulin 2.4 gm/dl (2.5-4.0); Magnesium 1.9 mg/dl (1.7-2.4); Phosphorus 2.6 mg/dl (2.5-4.9); Potassium 4.2 mmol/L (3.5-5.1); Total Protein 5.3 gm/dl (6.0-8.3)
[2024-05-08 06:47] LABS: ALC (manual) 2.87 K/uL (1.2-3.4); ANC (manual) 3.75 K/uL (1.4-6.5); Eosinophils # (manual) 0.22 K/uL (0-0.50); Eosinophils % (manual) 3 %; Lymphocytes # (manual) 1.54 K/uL (1.2-3.4); Lymphocytes % (manual) 21 %; Monocytes # (manual) 0.51 K/uL (0.11-0.59); Monocytes % (manual) 7 %; Neutrophils # (manual) 3.75 K/uL (1.40-6.50); Neutrophils % (manual) 51 %; Reactive Lymphocytes # (manual) 1.32 K/uL; Reactive Lymphocytes % (manual) 18 %
--- NOTE | 2024-05-08 13:55 | Hospitalist Progress Note ---
Date of Service May 08, 2024 Assessment & Plan (1) Salmonella bacteremia: (2) Generalized weakness: (3) Fever: (4) Diarrhea: (5) Hyperlipidemia: (6) Hypothyroid: (7) BPH (benign prostatic hyperplasia): (8) Chronic anemia: Plan Patient is an 83 year old male with PMHx significant for HLD, chronic anemia, hypothyroidism, BPH who presented to the ER with concern for weakness and fever in the setting of diarrhea. Generalized Weakness Salmonella Bacteremia Presented with episodes of diarrhea Tmax of 38.1 C on admission Stool PCR positive for Salmonella Blood culture on admission 3 out of 4 positive for salmonella Repeat Blood Cx on 05/04 pending CTA abdomen/pelvis w/o concern for aortitis or infected aneurysm Continue on IV Rocephin at this time Contact precautions Weakness and fevers likely in setting of above Infectious disease consulted, appreciate further recs -continue Ceftriaxone 2g q24 IV for now, await organism susceptibilities -ID contacted once more on 05/05/24 with sensitivities...per ID, Dr Orlando Pichardo, complete treatment with po Bactrim for 7 more days With diarrhea recurrence, repeat c diff testing ordered (negative) and GI consulted on 05/05, appreciate further recs Per GI: "Diarrhea Salmonella and positive blood cultures. Being seen by infectious disease. On ceftriaxone states he is feeling somewhat better. No obvious source for Salmonella on our review. Informed him that he likely be contacted by the [facility] to review further. Discussed the potential carrier state for Salmonella stressed the importance of good handwashing followimg toileting. GI will sign off reconsult as needed" IV fluids Continue to monitor Improving Hypotension Pt with recurrence of diarrhea IV fluids Continue to monitor improving Sinus Bradycardia First degree heart block Noted on 05/05/24, asymptomatic EKG noting sinus bradycardia and first degree heart block, HR 63 at that time possibly in setting of increased vagal tone in setting of above Currently asymptomatic at this time Consider Cardiology consult if worsening continue to monitor Chronic Anemia History of iron deficiency anemia Hgb: 14 on admission, currently 12 Continue iron supplement Hyperlipidemia Continue simvastatin Hypothyroidism Continue levothyroxine BPH (benign prostatic hyperplasia) Continue dutasteride Diet: HH DVT Prophylaxis: Lovenox SQ Dispo: PT/OT recommending acute rehab Admission and Anticipated Discharge Date Admission Date: May 02, 2024 Subjective pt was seen with family at bedside Diarrhea improved Pt awaiting placement Review of Systems Review of Systems: All systems reviewed & are unremarkable except as noted in Subjective Physical Exam Physical Exam: General: Alert, orientedx3. No acute distress Psych: Appropriate mood and affect HEENT: NC/AT CV: RRR Resp: Breath sounds clear bilaterally, no increased effort of breathing Abdomen: Soft, nontender Extremities: No edema in lower extremities bilaterally. Results & Data Results & Data Vital Signs (Past 12 Hours) Vital Signs Temp Pulse Pulse Resp BP Pulse Ox O2 Del Method 05/08/24 11:18 36.3 C L 59 L 20 113/67 94 Room Air 05/08/24 08:01 36.5 C 54 L 20 99/46 L 91 Room Air 05/08/24 07:17 62 05/08/24 03:43 36.7 C 57 L 20 96/45 L 92 Room Air (3) Fever Fever type: unspecified Qualified Code(s): R50.9 - Fever, unspecified
[2024-05-09 04:02] VITALS: RESP 18; TEMP 97.5
[2024-05-09 07:01] LABS: Hematocrit (blood only) 40.1 % (42.0-52.0); Hemoglobin 13.6 g/dl (14.0-18.0); Mean Corpuscular Hemoglobin 30.8 pg (25.0-34.0); Mean Corpuscular Hgb Conc 33.9 g/dL (32.0-36.0); Mean Corpuscular Volume 90.7 fL (80.0-100.0); Mean Platelet Volume 9.2 fL (9.4-12.4); Platelet Count 246 K/uL (130-400); RDW Coefficient of Variation 14.3 % (11.5-14.5); RDW Standard Deviation 47.5 fL (36.4-46.3); Red Blood Count 4.42 M/uL (4.70-6.10)
[2024-05-09 07:17] LABS: Albumin Globulin Ratio 1.2 (0.9-2); Albumin Level 3.7 gm/dl (3.4-5.0); BUN Creatinine Ratio 12.4 (10-20); Bilirubin,Total 0.3 mg/dl (0.2-1.0); Calcium 9.5 mg/dl (8.6-10.3); Creatinine Clr Calc Pharmacy 52.1 ml/min; Globulin 3.1 gm/dl (2.5-4.0); Magnesium 2.1 mg/dl (1.7-2.4); Phosphorus 3.3 mg/dl (2.5-4.9); Potassium 4.2 mmol/L (3.5-5.1); Total Protein 6.8 gm/dl (6.0-8.3)
[2024-05-09 07:23] LABS: ANC (manual) 4.95 K/uL (1.4-6.5); Lymphocytes # (manual) 1.26 K/uL (1.2-3.4); Lymphocytes % (manual) 14 %; Monocytes # (manual) 0.45 K/uL (0.11-0.59); Monocytes % (manual) 5 %; Neutrophils # (manual) 4.95 K/uL (1.40-6.50); Neutrophils % (manual) 55 %; Reactive Lymphocytes # (manual) 2.34 K/uL; Reactive Lymphocytes % (manual) 26 %
[2024-05-09 11:22] VITALS: BP 102/50; O2SAT 93
--- NOTE | 2024-05-09 11:56 | Discharge Summary ---
Discharge Summary Date of Service May 09, 2024 Principal Dx & Hospital Course #1 = Principal Diagnosis (1) Salmonella bacteremia: (2) Generalized weakness: (3) Fever: (4) Diarrhea: (5) Hyperlipidemia: (6) Hypothyroid: (7) BPH (benign prostatic hyperplasia): (8) Chronic anemia: Plan Patient is an 83 year old male with PMHx significant for HLD, chronic anemia, hypothyroidism, BPH who presented to the ER with concern for weakness and fever in the setting of diarrhea. Generalized Weakness Salmonella Bacteremia Presented with episodes of diarrhea Tmax of 38.1 C on admission Stool PCR positive for Salmonella Blood culture on admission 3 out of 4 positive for salmonella Repeat Blood Cx on 05/04 NGTD CTA abdomen/pelvis w/o concern for aortitis or infected aneurysm Continue on IV Rocephin at this time Contact precautions Weakness and fevers likely in setting of above Infectious disease consulted, Recommended/stated the following: -continue Ceftriaxone 2g q24 IV for now, await organism susceptibilities -ID contacted once more on 05/05/24 with sensitivities...per ID, Dr Orlando Pichardo, complete treatment with po Bactrim for 7 more days With diarrhea recurrence, repeat c diff testing ordered (negative) and GI consulted on 05/05, appreciate further recs Per GI: "Diarrhea Salmonella and positive blood cultures. Being seen by infectious disease. On ceftriaxone states he is feeling somewhat better. No obvious source for Salmonella on our review. Informed him that he likely be contacted by the [facility] to review further. Discussed the potential carrier state for Salmonella stressed the importance of good handwashing followimg toileting. GI will sign off reconsult as needed" IV fluids Pt worked with PT/OT who recommended acute rehab placement. On the day of discharge, pt noted diarrhea had resolved. He was discharged with 3.5 more days of po Bactrim. PCP follow up after discharge. Hypotension Pt occasionally hypotensive Treated with IV fluids PCP followup for continued monitoring Sinus Bradycardia First degree heart block Noted on 05/05/24, asymptomatic EKG noting sinus bradycardia and first degree heart block, HR 63 at that time possibly in setting of increased vagal tone in setting of above Remained asymptomatic Consider Cardiology consult if worsening Remained stable, pcp and possibly cardiology followup after discharge. Chronic Anemia History of iron deficiency anemia Hgb: 14 on admission, 13.6 on discharge Continue iron supplement PCP followup Hyperlipidemia Continue simvastatin Hypothyroidism Continue levothyroxine BPH (benign prostatic hyperplasia) Continue dutasteride Notes For Next Care Provider Consider cardiology followup as noted above Medication Changes From Visit Bactrim DS x 3.5 more days Admission HPI Per Admitting Provider Patient is 83 year old male with PMH HLD, chronic anemia, hypothyroidism, BPH presented to ER with c/o weakness today. Patient states today was standing shaving when he felt like his legs were feeling wobbly today. He has noticed feeling more weak past two days. Patient states while in house holds on to objects to assist in ambulation. Does have a cane to use outside on uneven surfaces. Denies recent fall. States last 2-3 days having diarrhea described as watery stools. Denies nausea, vomiting, abdominal pain. Denies any changes in appetite. States chronic urinary urgency and if doesn't get to bathroom in time will have urinary incontinence. Denies hematuria or dysuria. Patient unaware of any fever. Denies any recent travel, recent antibiotic use, or known ill contacts. Denies diaphoresis, SHEPPARD, dizziness, syncope, vision changes, neck pain, CP, SOB, palpitations, cough, sore throat, choking, rhinorrhea, abdominal pain, paresthesias, extremity edema, rashes. Admission Exam Per Admitting Provider General: no distress, WDWN Head: normocephalic, atraumatic Eyes: PERRL, conjunctiva non-injected, anicteric ENT: hard of hearing, normal inspection external ears, nose, mucous membranes mildly dry Neck: supple, trachea midline Lungs: clear, no respiratory distress, no wheezing/rhonchi/rales CV: RRR, no pretibial edema Abd: hyperactive BS, soft, non-tender to palpation Ext: no cyanosis, no calf tenderness Neuro: A&O x 3, no focal deficits noted, normal affect Skin: warm, dry Discharge Exam General: Alert, orientedx3. No acute distress Psych: Appropriate mood and affect HEENT: NC/AT CV: RRR Resp: Breath sounds clear bilaterally, no increased effort of breathing Abdomen: Soft, nontender Extremities: No edema in lower extremities bilaterally. Updated Medication List Medication Instructions Recorded Confirmed Type multivitamin 1 tab PO QAM 12/05/18 05/02/24 History nystatin-triamcinolone 100,000 1 applic topical DAILY PRN Skin 12/05/18 05/02/24 History unit/gram-0.1 % topical ointment Irritation levothyroxine 88 mcg tablet 88 mcg PO QAM 02/18/19 05/02/24 History cholecalciferol (vitamin D3) 50 2,000 unit PO QAM 07/05/19 05/02/24 History mcg (2,000 unit) capsule omeprazole 40 mg capsule,delayed 40 mg PO QAM 09/17/22 05/02/24 History release simvastatin 5 mg tablet 5 mg PO QPM 09/17/22 05/02/24 History trazodone 100 mg tablet 100 mg PO HS 09/17/22 05/02/24 History Lactobacillus rhamnosus-Bifidobac. 1 cap PO QAM 07/15/23 05/02/24 History animalis 3 billion cell capsule ([employer]) dutasteride 0.5 mg capsule 0.5 mg PO QPM 07/15/23 05/02/24 History (Avodart) ferrous sulfate 325 mg (65 mg 325 mg PO QPM 07/15/23 05/02/24 History iron) tablet,delayed release aspirin 81 mg tablet,delayed 81 mg PO .Q MON,THU,Thursday11/14/23 05/02/24 History release acetaminophen 325 mg tablet 650 mg (2 x 325 mg) PO Q4H PRN 11/16/23 05/02/24 Rx pain #60 tabs lidocaine 5 % topical patch 1 patch transdermal QAM PRN Pain 01/18/24 05/02/24 History sulfamethoxazole 800 1 tab PO Q12 #7 tabs 05/09/24 Rx mg-trimethoprim 160 mg tablet (Bactrim DS) Hospital Stay Data Consultations 05/02/24 17:21 ED Decision to Admit Stat 05/03/24 07:35 Consult Infectious Diseases Routine 05/05/24 11:04 Consult Gastroenterology Routine Diagnostic Imagining Performed 05/03/24 14:36 CTA abdomen pelvis w con [CT angio abdomen pelvis w con] Urgent Chest X-Ray 05/02/24 15:12 XR chest 1V portable CLINICAL HISTORY: Sepsis TECHNIQUE: Single frontal radiograph of the chest was obtained. Comparison: Comparison is made to chest radiograph 07/15/2023 FINDINGS: No lines and tubes are seen. Calcified aortic knob is seen. The lungs are clear. No evidence of pleural effusion or pneumothorax. IMPRESSION: No acute abnormalities and in particular no radiographic evidence of pneumonia. ACT 112: Negative or not required by law. Electronically signed by: Chau Sherman M.D. 05/02/2024 3:30 PM Abdomen/Pelvis CTA 05/03/24 14:36 CT angio abdomen pelvis w con CLINICAL HISTORY: salmonella bactermia TECHNIQUE: Multidetector row helical CT of the abdomen and pelvis was performed, following intravenous administration of iodinated contrast. No oral contrast was administered. Automated dose lowering techniques and/or adjustment according to patient size were utilized for this exam. Coronal and sagittal reformations were obtained. MIP and 3D volume rendered reconstructions were obtained. CT DOSE: 743.78 mGy.cm Comparison: Comparison is made to CT abdomen pelvis 11/14/2023 FINDINGS: Lower chest: Bibasilar atelectasis versus scarring is seen. Liver: Unremarkable. No focal lesions are seen. Gallbladder and biliary tree: Patient is status post cholecystectomy. Physiologic enlargement and pneumobilia are seen likely secondary to incompetent sphincter of Oddi. Pancreas: The pancreas is atrophic. Spleen: Unremarkable. 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 Kidneys and ureters: Subcentimeter hypodensities are too small to characterize. Bladder: Diffuse wall thickening is seen with numerous diverticula. Reproductive organs: Prostatomegaly is seen. Bowel: The appendix is normal. Lymph nodes Retroperitoneal: Unremarkable. Pelvic: Unremarkable. Mesenteric: Unremarkable. Peritoneum: Normal. Abdominal wall: Unremarkable. Bones: Degenerative changes in the visualized spine. T12 compression fracture is seen with approximately 3 mm retropulsion, the degree of compression is increased from prior exam. Right medullary nail is seen. CT angiogram: The abdominal aortic contours appear intact without evidence of aneurysmal dilatation and/or dissection. No significant atherosclerosis is seen. The origins of the celiac axis, superior mesenteric, inferior mesenteric and bilateral renal arteries are patent. IMPRESSION: 1. Atherosclerosis without other vascular abnormalities. 2. Thickened and trabeculated bladder wall is seen compatible with chronic outlet obstruction. 3. Interval increase in T12 compression fracture with 3 mm retropulsion. 4. Status post cholecystectomy with redemonstration of pneumobilia likely due to incompetent valves. 5. Additional findings as above. ACT 112: Negative or not required by law. Electronically signed by: Chau Sherman M.D. 05/03/2024 3:30 PM Discharge Instructions Given to Patient (Per Discharging Provider) Marshall, You were admitted and treated for an acute Salmonella infection. You were seen by the infectious disease specialist who recommends that you complete a course of antibiotics with the medication Bactrim. You have about three and a half more days of that. You are being discharged to [facility] for acute rehab to help you get stronger before going home. Please keep close follow up with your primary care provider after discharge. Please do not hesitate to come back to the emergency room if your symptoms worsen or return. It was a pleasure taking care of you while you were here. Total Time Total Time Spent Total Time Spent (In Minutes): 60
[2024-05-09 12:58] VITALS: PULSE 56
== END 2024-05-09 14:55 | DRG 872 ==
LOC: ED 14:27 → SUATTDRO 17:02 → EDINP 17:02 → 2N 18:33